=== PATIENT | female | born 1980 | race Caucasian/White ===

== ENCOUNTER 2020-04-21 12:42 | Inpatient (IN) | payer OTHER ==
[~2020-04-21] VITALS: Ht 160 cm; Wt 109.2 kg
[~2020-04-21 12:42] MED LIST: CLON-77 PO
[2020-04-21 13:17] LABS: BASO % 0 % (0-3); EOS % 0 % (0-3); HEMATOCRIT 37.7 % (36.0-47.0); HEMOGLOBIN 12.8 g/dL (12.0-15.5); LYMPH # 0.9 x10^3/uL (1.0-4.8); LYMPH % 4 % (24-48); MEAN CORPUSCULAR HEMOGLOBIN 28 pg (25-35); MEAN CORPUSCULAR HGB CONC 34 g/dL (31-37); MEAN CORPUSCULAR VOLUME 84 fL (79-100); MONO # 0.5 x10^3/uL (0.0-1.1); MONO % 3 % (0-9); NEUT # 18.7 x10^3/uL (1.8-7.7); NEUT % 93 % (31-73); PLATELET COUNT 569 x10^3/uL (140-400); RED BLOOD COUNT 4.52 x10^6/uL (3.50-5.40); WHITE BLOOD COUNT 20.1 x10^3/uL (4.0-11.0)
[2020-04-21 13:19] LABS: CALCIUM 9.7 mg/dL (8.5-10.1); GFR 60.8; POTASSIUM 4.5 mmol/L (3.5-5.1)
--- NOTE | 2020-04-21 13:20 | ED.ADGEN ---
Past Medical History Past Medical History: Anxiety, Other Additional Past Medical Histor: kidney stones Additional Past Surgical Histo: R knee scope, R ankle, breast lift and implants Smoking Status: Never Smoker Alcohol Use: None Drug Use: None General Adult EDM: Chief Complaint: Palpitations HPI: HPI: Patient is a 40 year old since the emergency department with complaints of her heart racing and a dry cough for the last 3 days. Patient was seen at urgent care 3 days ago was tested for COVID-19 patient was informed that her test was negative today. She was prescribed a Z-Shashank and some steroids at urgent care and went to follow-up with her primary care doctor today who sent her to the ER. She denies any headache, dizziness, wheezing, abdominal pain, nausea, vomiting, diarrhea, chest pain, rash, sore throat, body aches, or fatigue. Patient states she has noticed that for about the last week and a half her bilateral lower extremities have been swelling. She thought that this was due to recent increase in physical activity and exercise. She denies any recent lengthy travel via car or plane. She reports that at this time she feels short of breath and anxious. She states that she has pain between her shoulders and her upper back. She currently rates the pain a 2 out of 10 on the pain scale, she denies any alleviating factors, pain is worse with breathing. She denies any known Covid exposure but states that there have been people who tested positive for COVID-19 where she works. Review of Systems: Review of Systems: Complete ROS is negative unless otherwise noted in HPI. Current Medications: Current Medications Medications (Trade) Dose Ordered Sig/Waldemar Start Time Stop Time Status Last Admin Dose Admin Azithromycin 250 ml @ 250 mls/hr 1X ONCE 04/21/20 14:00 04/21/20 14:59 DC 04/21/20 14:03 250 MLS/HR Ceftriaxone Sodium (Rocephin) 1 gm 1X ONCE 04/21/20 13:45 04/21/20 13:47 DC 04/21/20 13:59 1 GM Furosemide (Lasix) 40 mg 1X ONCE 04/21/20 13:45 04/21/20 13:47 DC 04/21/20 14:04 40 MG Lorazepam (Ativan Inj) 0.5 mg 1X ONCE 04/21/20 13:00 04/21/20 13:01 DC 04/21/20 13:10 0.5 MG Allergies: Allergies: Allergies Coded Allergies Type Severity Reaction Last Updated Verified No Known Drug Allergies 11/23/14 No Physical Exam: PE: See Above Constitutional: Well developed, well nourished, moderate distress, anxious appearance, nontoxic appearance HENT: Normocephalic, atraumatic, bilateral external ears normal, nose normal. [] Eyes: PERRLA, EOMI, conjunctiva normal, no discharge. [] Neck: Normal range of motion, no stridor. [] Cardiovascular:Heart rate regular tachycardic rhythm, 2+ edema bilateral lower extremities Lungs & Thorax: Respirations even and unlabored, no retractions, tachypnea, no respiratory distress Abdomen: soft, no tenderness, no masses, no pulsatile masses. [] Skin: Warm, dry, no erythema, no rash, cap refill less than 2 seconds. [] Extremities: No tenderness, no cyanosis, no clubbing, ROM intact, 2+ edema BLE Neurologic: Alert and oriented X 3, normal motor function, normal sensory function, no focal deficits noted. [] Psychologic: Affect normal, judgement normal, mood normal. [] Current Patient Data: Labs: Laboratory Tests Test 04/21/20 12:52 04/21/20 13:00 04/21/20 13:11 White Blood Count 20.1 x10^3/uL (4.0-11.0) H Red Blood Count 4.52 x10^6/uL (3.50-5.40) Hemoglobin 12.8 g/dL (12.0-15.5) Hematocrit 37.7 % (36.0-47.0) Mean Corpuscular Volume 84 fL (79-100) Mean Corpuscular Hemoglobin 28 pg (25-35) Mean Corpuscular Hemoglobin Concent 34 g/dL (31-37) Red Cell Distribution Width 14.0 % (11.5-14.5) Platelet Count 569 x10^3/uL (140-400) H Neutrophils (%) (Auto) 93 % (31-73) H Lymphocytes (%) (Auto) 4 % (24-48) L Monocytes (%) (Auto) 3 % (0-9) Eosinophils (%) (Auto) 0 % (0-3) Basophils (%) (Auto) 0 % (0-3) Neutrophils # (Auto) 18.7 x10^3/uL (1.8-7.7) H Lymphocytes # (Auto) 0.9 x10^3/uL (1.0-4.8) L Monocytes # (Auto) 0.5 x10^3/uL (0.0-1.1) Eosinophils # (Auto) 0.0 x10^3/uL (0.0-0.7) Basophils # (Auto) 0.0 x10^3/uL (0.0-0.2) Segmented Neutrophils % 92 % (35-66) H Lymphocytes % 8 % (24-48) L Platelet Estimate Increased (ADEQUATE) Platelet Clumps, EDTA Present Giant Platelets Few Maternal Serum HCG Beta Subunit 86387 mIU/mL (0-5) H Sodium Level 138 mmol/L (136-145) Potassium Level 4.5 mmol/L (3.5-5.1) Chloride Level 106 mmol/L (98-107) Carbon Dioxide Level 18 mmol/L (21-32) L Anion Gap 14 (6-14) Blood Urea Nitrogen 20 mg/dL (7-20) Creatinine 1.0 mg/dL (0.6-1.0) Estimated GFR (Cockcroft-Gault) 60.8 BUN/Creatinine Ratio 20 (6-20) Glucose Level 123 mg/dL (70-99) H Lactic Acid Level 2.1 mmol/L (0.4-2.0) H Calcium Level 9.7 mg/dL (8.5-10.1) Magnesium Level 1.9 mg/dL (1.8-2.4) Ferritin 29 ng/mL (8-252) Total Bilirubin 0.2 mg/dL (0.2-1.0) Aspartate Amino Transferase (AST) 25 U/L (15-37) Alanine Aminotransferase (ALT) 23 U/L (14-59) Alkaline Phosphatase 163 U/L (46-116) H Creatine Kinase 128 U/L (26-192) Creatine Kinase MB (Mass) 5.5 ng/mL (0.0-3.6) H Creatine Kinase MB Relative Index 4.3 % (0-4) H Troponin I Quantitative 0.202 ng/mL (0.000-0.055) C-Reactive Protein, Quantitative 10.8 mg/L (0-3.3) H RR-Gty-M-Type Natriuretic Peptide 6797 pg/mL (0-124) H Total Protein 6.6 g/dL (6.4-8.2) Albumin 2.6 g/dL (3.4-5.0) L Albumin/Globulin Ratio 0.7 (1.0-1.7) L Lipase 125 U/L (73-393) Thyroid Stimulating Hormone (TSH) 2.336 uIU/mL (0.358-3.74) Urine Collection Type Void Urine Color Yellow Urine Clarity Clear Urine pH 6.0 (<5.0-8.0) Urine Specific [place] 1.020 (1.000-1.030) Urine Protein >=300 mg/dL (NEG-TRACE) Urine Glucose (UA) Negative mg/dL (NEG) Urine Ketones (Stick) Negative mg/dL (NEG) Urine Blood Moderate (NEG) Urine Nitrite Negative (NEG) Urine Bilirubin Negative (NEG) Urine Urobilinogen Dipstick 0.2 mg/dL (0.2 mg/dL) Urine Leukocyte Esterase Negative (NEG) Urine RBC 3-5 /HPF (0-2) Urine WBC 1-4 /HPF (0-4) Urine Squamous Epithelial Cells Mod /LPF Urine Bacteria Few /HPF (0-FEW) Urine Hyaline Casts Few /HPF Urine Opiates Screen Neg (NEG) Urine Methadone Screen Neg (NEG) Urine Barbiturates Neg (NEG) Urine Phencyclidine Screen Neg (NEG) Urine Amphetamine/Methamphetamine Neg (NEG) Urine Benzodiazepines Screen Neg (NEG) Urine Cocaine Screen Neg (NEG) Urine Cannabinoids Screen Neg (NEG) Urine Ethyl Alcohol Neg (NEG) POC Urine HCG, Qualitative Hcg positive (Negative) Laboratory Tests 04/21/20 12:52 Laboratory Tests 04/21/20 12:52 Vital Signs: Vital Signs Date Time Temp Pulse Resp B/P (MAP) Pulse Ox O2 Delivery O2 Flow Rate FiO2 04/21/20 14:02 128 183/117 (139) 95 Nasal Cannula 2.0 04/21/20 12:45 97.3 29 97.3 EKG: EK-sinus tachycardia rate of 142, leftward axis, no STEMI, read by Dr. Hammonds. [] Heart Score: Risk Factors: Risk Factors: DM, Current or recent (<one month) smoker, HTN, HLP, family history of CAD, obesity. Risk Scores: Score 0 - 3: 2.5% MACE over next 6 weeks - Discharge Home Score 4 - 6: 20.3% MACE over next 6 weeks - Admit for Clinical Observation Score 7 - 10: 72.7% MACE over next 6 weeks - Early Invasive Strategies Radiology/Procedures: Radiology/Procedures: PROCEDURE: CHEST AP ONLY CHEST AP ONLY 04/21/2020 12:54 PM INDICATION: Chest pain COMPARISON: None available TECHNIQUE: Portable frontal view of the chest is provided. FINDINGS: The cardiomediastinal silhouette is within normal limits. Small bilateral pleural effusions with adjacent compressive atelectasis versus infiltrate, left or the right. Perihilar interstitial and groundglass changes are present. No pneumothorax. IMPRESSION: 1. Small bilateral pleural effusions, left greater than right with adjacent breast atelectasis versus infiltrate. Mild interstitial prominence could reflect congestive heart failure. 2. Perihilar interstitial and alveolar airspace disease could reflect multifocal pneumonia. [] Course & Med Decision Making: Course & Med Decision Making Pertinent Labs and Imaging studies reviewed. (See chart for details) 1355-Spoke with Danielle VELÁZQUEZ with cardiology advised of patient being admitted for CHF vs COVID vs related cardiomyopathy. Advised that I have given 40 mg of lasix, and ordered 1 gm of rocephin and 500 mg of zithromax at this point. BetaHCG, Covid, and influenza are pending. Pt will be admitted to the hospitalist. 1403-spoke with Dr. Romo who is the admitting physician, and care was assumed following discussion of patient. Will admit patient for PUI versus CHF versus pneumonia versus related cardiomyopathy, hypertensive urgency, and elevated troponin Patient's vital signs stable. Patient remains afebrile, tachypneic Patient will be admitted to the CVC floor. Patient's case and plan of care also discussed with Dr. Hammonds [] Kaila Disclaimer: Kaila Disclaimer: This electronic medical record was generated, in whole or in part, using a voice recognition dictation system. 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 I was available for consultation as needed during the patient's visit in the emergency department. I agree with the clinical impression, plan, and disposition. Problem Qualifiers Additional Impressions: CHF (congestive heart failure) Heart failure type: unspecified Heart failure chronicity: unspecified Qualified Codes: I50.9 - Heart failure, unspecified CAP (community acquired pneumonia) Laterality: unspecified laterality Qualified Codes: J18.9 - Pneumonia, unspecified organism SHEA NICHOLS APRN Apr 21, 2020 13:20 MORE HAMMONDS DO Apr 21, 2020 17:12
[2020-04-21 13:23] LABS: BILIRUBIN,URINE NEGATIVE (NEG); CLARITY,URINE CLEAR; COLOR,URINE YELLOW; NITRITE,URINE NEGATIVE (NEG); PROTEIN,URINE >=300 mg/dL (NEG-TRACE); UROBILINOGEN,URINE 0.2 mg/dL (0.2 mg/dL)
[2020-04-21 13:25] LABS: ALBUMIN 2.6 g/dL (3.4-5.0); ALBUMIN/GLOBULIN RATIO 0.7 (1.0-1.7); MAGNESIUM 1.9 mg/dL (1.8-2.4); TOTAL BILIRUBIN 0.2 mg/dL (0.2-1.0); TOTAL PROTEIN 6.6 g/dL (6.4-8.2)
[2020-04-21 13:31] LABS: AMPHETAMINE/METHAMPHETAMINE NEG (NEG); BARBITURATES NEG (NEG); BENZODIAZEPINES NEG (NEG); CANNABINOIDS NEG (NEG); COCAINE NEG (NEG); METHADONE NEG (NEG); OPIATES NEG (NEG); PHENCYCLIDINE NEG (NEG)
--- NOTE | 2020-04-21 13:31 | RAD ---
CHEST AP ONLY 04/21/2020 12:54 PM INDICATION: Chest pain COMPARISON: None available TECHNIQUE: Portable frontal view of the chest is provided. FINDINGS: The cardiomediastinal silhouette is within normal limits. Small bilateral pleural effusions with adjacent compressive atelectasis versus infiltrate, left or the right. Perihilar interstitial and groundglass changes are present. No pneumothorax. IMPRESSION: 1. Small bilateral pleural effusions, left greater than right with adjacent breast atelectasis versus infiltrate. Mild interstitial prominence could reflect congestive heart failure. 2. Perihilar interstitial and alveolar airspace disease could reflect multifocal pneumonia. Electronically signed by: Nishi Gallo MD (04/21/2020 1:28 PM) [facility]
[2020-04-21 13:35] LABS: HYALINE CASTS, URINE FEW /HPF
[2020-04-21 13:36] LABS: BACTERIA,URINE FEW /HPF (0-FEW)
[2020-04-21] MEDS ORDERED: FUROSEMIDE 20 MG/2 ML VIAL. IVP ONE (13:45)
[2020-04-21] MEDS ORDERED: cefTRIAXone IV Push 1 GM VIAL. IVP ONE (13:45)
[2020-04-21] MEDS ORDERED: AZITHRMYCN 500MG IVPB FOR OMNI 250 ML IV ONE (14:00)
[2020-04-21] MEDS ORDERED: MAGNESIUM SULFATE 4GM 100 ML IV ONE (14:15)
[2020-04-21] MEDS ORDERED: ASPIRIN 325 MG TABLET PO ONE (14:15)
[2020-04-21 14:20] LABS: % LYMPHS 8 % (24-48); % SEGS 92 % (35-66); PLATELET CLUMP PRESENT; PLT ESTIMATE INCREASED (ADEQUATE)
[2020-04-21 14:29] LABS: C-REACTIVE PROTEIN 10.8 mg/L (0-3.3)
[2020-04-21 14:35] LABS: PROTHROMBIN TIME PATIENT 11.8 SEC (11.7-14.0)
[2020-04-21 14:38] LABS: D-DIMER 1.5 ug/mlFEU (0.00-0.50)
[2020-04-21 14:53] LABS: INFLUENZA A PATIENT NEGATIVE (NEGATIVE)
[2020-04-21 14:54] LABS: INFLUENZA B PATIENT NEGATIVE (NEGATIVE)
[2020-04-21] MEDS ORDERED: ONDANSETRON PF 4 MG/2 ML VIAL. IV ONE (15:00)
[2020-04-21] MEDS ORDERED: LABETALOL 20 MG/4 ML DISP.SYRIN. IVP ONE (15:00)
--- NOTE | 2020-04-21 15:22 | PDOC1 ---
History and Physical Date of Admission Date of Admission DATE: 04/21/20 TIME: 15:19 Source Source: Chart review, Patient History of Present Illness History of Present Illness Ms. Wilks, is a 40 year old sent to the ER by her doctors office today. She has been on a new exercise regimen and has stopped last when she did not feel well. Three days ago, she had cough and weakness and went to urgent care and was given a z-pack. At that time, she was tested for COVID-19 and was negative. she is markedly short of breath and weak and has new orthopnea and is in distress. The ER gave her some ativan which did help her breathe better for a short while. when I saw her she was in distress enough that it was tough to get an EKG and she could not lie flat or still. Also, she has noticed that for about the last week that she has swelling in her leg, right leg more than left. She states that she has pain between her shoulders and her upper back, pain 4/10 She denies any known Covid exposure Past Medical History Past Medical History PCOS and she reports prior false pos tests Cardiovascular: No pertinent hx Pulmonary: No pertinent hx GI: No pertinent hx Psych: No pertinent hx Renal/: No pertinent hx Endocrine: No pertinent hx, Other (obese) Dermatology: No pertinent hx Past Surgical History Past Surgical History: No pertinent history Family History Family History: No Significant Social History Smoke: No ALCOHOL: none Drugs: None Current Problem List Problem List Problems Medical Problems: (1) CAP (community acquired pneumonia) Status: Acute (2) CHF (congestive heart failure) Status: Acute (3) Elevated troponin Status: Acute (4) Hypertensive urgency Status: Acute (5) 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 Status: Acute (6) Person under investigation for COVID-19 Status: Acute Current Medications Current Medications Current Medications Lorazepam (Ativan Inj) 0.5 mg 1X ONCE IV Last administered on 04/21/20at 13:10; Start 04/21/20 at 13:00; Stop 04/21/20 at 13:01; Status DC Furosemide (Lasix) 40 mg 1X ONCE IVP Last administered on 04/21/20at 14:04; Start 04/21/20 at 13:45; Stop 04/21/20 at 13:47; Status DC Ceftriaxone Sodium (Rocephin) 1 gm 1X ONCE IVP Last administered on 04/21/20at 13:59; Start 04/21/20 at 13:45; Stop 04/21/20 at 13:47; Status DC Azithromycin 250 ml @ 250 mls/hr 1X ONCE IV Last administered on 04/21/20at 14:03; Start 04/21/20 at 14:00; Stop 04/21/20 at 14:59; Status DC Aspirin (Tung Aspirin) 325 mg 1X ONCE PO ; Start 04/21/20 at 14:15; Stop 04/21/20 at 14:16; Status DC Magnesium Sulfate 100 ml @ 25 mls/hr 1X ONCE IV ; Start 04/21/20 at 14:15; Stop 04/21/20 at 18:14 Enoxaparin Sodium (Lovenox Per Pharmacy Treatment Dosing) 1 each PRN DAILY PRN MC SEE COMMENTS; Start 04/21/20 at 14:45 Labetalol HCl (Normodyne Iv Push) 20 mg 1X ONCE IVP Last administered on 04/21/20at 14:53; Start 04/21/20 at 15:00; Stop 04/21/20 at 15:01; Status DC Ondansetron HCl (Zofran) 4 mg 1X ONCE IV Last administered on 04/21/20at 14:52; Start 04/21/20 at 15:00; Stop 04/21/20 at 15:01; Status DC Enoxaparin Sodium (Lovenox 120mg Syringe) 110 mg Q12HR SQ ; Start 04/21/20 at 15:00 Active Scripts Active Reported Clonazepam 0.5 Mg Tablet 1 Tab PO BID PRN Allergies Allergies: Coded Allergies: No Known Drug Allergies (Unverified , 11/23/14) ROS General: YES: Chills, Fatigue, Malaise PSYCHOLOGICAL ROS: YES: Anxiety, Irritablity, Sleep disturbances Eyes: No Blurry vision, No Decreased vision, No Double vision, No Dry eyes, No Excessive tearing, No Eye Pain, No Itchy Eyes, No Loss of vision, No Photophobia, No Scotomata, No Uses contacts, No Uses glasses, No Other HEENT: No: Heacaches, Visual Changes, Hearing change, Nasal congestion, Nasal discharge, Oral lesions, Sinus pain, Sore Throat, Epistaxis, Sneezing, Snoring, Tinnitus, Vertigo, Vocal changes, Other Respiratory: YES: Cough, Orthopnea, Shortness of breath, SOB with excertion; No: Hemoptysis, Pleuritic Pain, Sputum Changes, Stridor, Tachypnea, Wheezing, Other Cardiovascular: No Chest Pain, No Palpitations, No Orthopnea, No Paroxysmal Noc. Dyspnea, No Edema, No Lt Headedness, No Other Gastrointestinal: No Nausea, No Vomiting, No Abdominal Pain, No Diarrhea, No Constipation, No Melena, No Hematochezia, No Other Genitourinary: No Dysuria, No Frequency, No Incontinence, No Hematuria, No Retention, No Discharge, No Urgency, No Pain, No Flank Pain, No Other, No , No , No , No , No , No , No Musculoskeletal: No Gait Disturbance, No Joint Pain, No Joint Stiffness, No Other Neurological: Yes Weakness; No Behavorial Changes, No Bowel/Bladder ControlChng, No Confusion, No Dizziness, No Gait Disturbance, No Headaches, No Impaired Coord/balance, No Memory Loss, No Numbness/Tingling, No Seizures, No Speech Problems, No Tremors, No Visual Changes, No Other Skin: Yes Dry Skin; No Eczema, No Hair Changes, No Lumps, No Mole Changes, No Mottling, No Nail Changes, No Pruritus, No Rash, No Skin Lesion Changes, No Other, No Acne Physical Exam General: Alert, Oriented X3, severe distress HEENT: Atraumatic, PERRLA, EOMI, Mucous membr. moist/pink Lungs: Other (limited volume, slight end wheeze, ) Heart: no gallops, no murmurs, other (tachy, distress, ) Abdomen: Other (distended abdomend, she reports is her normal habitus, ) Extremities: Normal pulses, Other (1+ edema, right leg, almost none to left, trace, ) Skin: No rashes, No significant lesion Neuro: Sensation intact Psych/Mental Status: Other (distress, dyspnea, anxiety) Vitals Vitals Vital Signs Date Time Temp Pulse Resp B/P (MAP) Pulse Ox O2 Delivery O2 Flow Rate FiO2 04/21/20 14:53 136 181/133 04/21/20 12:45 97.3 29 96 Nasal Cannula 2.0 97.3 Labs Labs Laboratory Tests Test 04/21/20 12:52 04/21/20 13:00 04/21/20 13:11 04/21/20 14:07 White Blood Count 20.1 x10^3/uL (4.0-11.0) Red Blood Count 4.52 x10^6/uL (3.50-5.40) Hemoglobin 12.8 g/dL (12.0-15.5) Hematocrit 37.7 % (36.0-47.0) Mean Corpuscular Volume 84 fL (79-100) Mean Corpuscular Hemoglobin 28 pg (25-35) Mean Corpuscular Hemoglobin Concent 34 g/dL (31-37) Red Cell Distribution Width 14.0 % (11.5-14.5) Platelet Count 569 x10^3/uL (140-400) Neutrophils (%) (Auto) 93 % (31-73) Lymphocytes (%) (Auto) 4 % (24-48) Monocytes (%) (Auto) 3 % (0-9) Eosinophils (%) (Auto) 0 % (0-3) Basophils (%) (Auto) 0 % (0-3) Neutrophils # (Auto) 18.7 x10^3/uL (1.8-7.7) Lymphocytes # (Auto) 0.9 x10^3/uL (1.0-4.8) Monocytes # (Auto) 0.5 x10^3/uL (0.0-1.1) Eosinophils # (Auto) 0.0 x10^3/uL (0.0-0.7) Basophils # (Auto) 0.0 x10^3/uL (0.0-0.2) Segmented Neutrophils % 92 % (35-66) Lymphocytes % 8 % (24-48) Platelet Estimate Increased (ADEQUATE) Platelet Clumps, EDTA Present Giant Platelets Few Maternal Serum HCG Beta Subunit 99074 mIU/mL (0-5) Sodium Level 138 mmol/L (136-145) Potassium Level 4.5 mmol/L (3.5-5.1) Chloride Level 106 mmol/L (98-107) Carbon Dioxide Level 18 mmol/L (21-32) Anion Gap 14 (6-14) Blood Urea Nitrogen 20 mg/dL (7-20) Creatinine 1.0 mg/dL (0.6-1.0) Estimated GFR (Cockcroft-Gault) 60.8 BUN/Creatinine Ratio 20 (6-20) Glucose Level 123 mg/dL (70-99) Lactic Acid Level 2.1 mmol/L (0.4-2.0) Calcium Level 9.7 mg/dL (8.5-10.1) Magnesium Level 1.9 mg/dL (1.8-2.4) Ferritin 29 ng/mL (8-252) Total Bilirubin 0.2 mg/dL (0.2-1.0) Aspartate Amino Transf (AST/SGOT) 25 U/L (15-37) Alanine Aminotransferase (ALT/SGPT) 23 U/L (14-59) Alkaline Phosphatase 163 U/L (46-116) Creatine Kinase 128 U/L (26-192) Creatine Kinase MB (Mass) 5.5 ng/mL (0.0-3.6) Creatine Kinase MB Relative Index 4.3 % (0-4) Troponin I Quantitative 0.202 ng/mL (0.000-0.055) C-Reactive Protein, Quantitative 10.8 mg/L (0-3.3) VJ-Dab-G-Type Natriuretic Peptide 6797 pg/mL (0-124) Total Protein 6.6 g/dL (6.4-8.2) Albumin 2.6 g/dL (3.4-5.0) Albumin/Globulin Ratio 0.7 (1.0-1.7) Lipase 125 U/L (73-393) Urine Collection Type Void Urine Color Yellow Urine Clarity Clear Urine pH 6.0 (<5.0-8.0) Urine Specific [place] 1.020 (1.000-1.030) Urine Protein >=300 mg/dL (NEG-TRACE) Urine Glucose (UA) Negative mg/dL (NEG) Urine Ketones (Stick) Negative mg/dL (NEG) Urine Blood Moderate (NEG) Urine Nitrite Negative (NEG) Urine Bilirubin Negative (NEG) Urine Urobilinogen Dipstick 0.2 mg/dL (0.2 mg/dL) Urine Leukocyte Esterase Negative (NEG) Urine RBC 3-5 /HPF (0-2) Urine WBC 1-4 /HPF (0-4) Urine Squamous Epithelial Cells Mod /LPF Urine Bacteria Few /HPF (0-FEW) Urine Hyaline Casts Few /HPF Urine Opiates Screen Neg (NEG) Urine Methadone Screen Neg (NEG) Urine Barbiturates Neg (NEG) Urine Phencyclidine Screen Neg (NEG) Urine Amphetamine/Methamphetamine Neg (NEG) Urine Benzodiazepines Screen Neg (NEG) Urine Cocaine Screen Neg (NEG) Urine Cannabinoids Screen Neg (NEG) Urine Ethyl Alcohol Neg (NEG) Bedside Urine HCG, Qualitative Hcg positive (Negative) Prothrombin Time 11.8 SEC (11.7-14.0) Prothromb Time International Ratio 0.9 (0.8-1.1) Activated Partial Thromboplast Time 24 SEC (24-38) D-Dimer ([place]) 1.50 ug/mlFEU (0.00-0.50) Influenza Type A Antigen Negative (NEGATIVE) Influenza Type B Antigen Negative (NEGATIVE) Laboratory Tests Test 04/21/20 12:52 04/21/20 13:00 04/21/20 13:11 04/21/20 14:07 White Blood Count 20.1 x10^3/uL (4.0-11.0) Red Blood Count 4.52 x10^6/uL (3.50-5.40) Hemoglobin 12.8 g/dL (12.0-15.5) Hematocrit 37.7 % (36.0-47.0) Mean Corpuscular Volume 84 fL (79-100) Mean Corpuscular Hemoglobin 28 pg (25-35) Mean Corpuscular Hemoglobin Concent 34 g/dL (31-37) Red Cell Distribution Width 14.0 % (11.5-14.5) Platelet Count 569 x10^3/uL (140-400) Neutrophils (%) (Auto) 93 % (31-73) Lymphocytes (%) (Auto) 4 % (24-48) Monocytes (%) (Auto) 3 % (0-9) Eosinophils (%) (Auto) 0 % (0-3) Basophils (%) (Auto) 0 % (0-3) Neutrophils # (Auto) 18.7 x10^3/uL (1.8-7.7) Lymphocytes # (Auto) 0.9 x10^3/uL (1.0-4.8) Monocytes # (Auto) 0.5 x10^3/uL (0.0-1.1) Eosinophils # (Auto) 0.0 x10^3/uL (0.0-0.7) Basophils # (Auto) 0.0 x10^3/uL (0.0-0.2) Segmented Neutrophils % 92 % (35-66) Lymphocytes % 8 % (24-48) Platelet Estimate Increased (ADEQUATE) Platelet Clumps, EDTA Present Giant Platelets Few Maternal Serum HCG Beta Subunit 12104 mIU/mL (0-5) Sodium Level 138 mmol/L (136-145) Potassium Level 4.5 mmol/L (3.5-5.1) Chloride Level 106 mmol/L (98-107) Carbon Dioxide Level 18 mmol/L (21-32) Anion Gap 14 (6-14) Blood Urea Nitrogen 20 mg/dL (7-20) Creatinine 1.0 mg/dL (0.6-1.0) Estimated GFR (Cockcroft-Gault) 60.8 BUN/Creatinine Ratio 20 (6-20) Glucose Level 123 mg/dL (70-99) Lactic Acid Level 2.1 mmol/L (0.4-2.0) Calcium Level 9.7 mg/dL (8.5-10.1) Magnesium Level 1.9 mg/dL (1.8-2.4) Ferritin 29 ng/mL (8-252) Total Bilirubin 0.2 mg/dL (0.2-1.0) Aspartate Amino Transf (AST/SGOT) 25 U/L (15-37) Alanine Aminotransferase (ALT/SGPT) 23 U/L (14-59) Alkaline Phosphatase 163 U/L (46-116) Creatine Kinase 128 U/L (26-192) Creatine Kinase MB (Mass) 5.5 ng/mL (0.0-3.6) Creatine Kinase MB Relative Index 4.3 % (0-4) Troponin I Quantitative 0.202 ng/mL (0.000-0.055) C-Reactive Protein, Quantitative 10.8 mg/L (0-3.3) MZ-Nhr-K-Type Natriuretic Peptide 6797 pg/mL (0-124) Total Protein 6.6 g/dL (6.4-8.2) Albumin 2.6 g/dL (3.4-5.0) Albumin/Globulin Ratio 0.7 (1.0-1.7) Lipase 125 U/L (73-393) Urine Collection Type Void Urine Color Yellow Urine Clarity Clear Urine pH 6.0 (<5.0-8.0) Urine Specific [place] 1.020 (1.000-1.030) Urine Protein >=300 mg/dL (NEG-TRACE) Urine Glucose (UA) Negative mg/dL (NEG) Urine Ketones (Stick) Negative mg/dL (NEG) Urine Blood Moderate (NEG) Urine Nitrite Negative (NEG) Urine Bilirubin Negative (NEG) Urine Urobilinogen Dipstick 0.2 mg/dL (0.2 mg/dL) Urine Leukocyte Esterase Negative (NEG) Urine RBC 3-5 /HPF (0-2) Urine WBC 1-4 /HPF (0-4) Urine Squamous Epithelial Cells Mod /LPF Urine Bacteria Few /HPF (0-FEW) Urine Hyaline Casts Few /HPF Urine Opiates Screen Neg (NEG) Urine Methadone Screen Neg (NEG) Urine Barbiturates Neg (NEG) Urine Phencyclidine Screen Neg (NEG) Urine Amphetamine/Methamphetamine Neg (NEG) Urine Benzodiazepines Screen Neg (NEG) Urine Cocaine Screen Neg (NEG) Urine Cannabinoids Screen Neg (NEG) Urine Ethyl Alcohol Neg (NEG) Bedside Urine HCG, Qualitative Hcg positive (Negative) Prothrombin Time 11.8 SEC (11.7-14.0) Prothromb Time International Ratio 0.9 (0.8-1.1) Activated Partial Thromboplast Time 24 SEC (24-38) D-Dimer ([place]) 1.50 ug/mlFEU (0.00-0.50) Influenza Type A Antigen Negative (NEGATIVE) Influenza Type B Antigen Negative (NEGATIVE) VTE Prophylaxis Ordered VTE Prophylaxis Devices: No VTE Pharmacological Prophylaxi: Yes Assessment/Plan Assessment/Plan SIRS acute hypoxic respiratory failure, I have high concern for PE sepsis, IV abx, acute CHF symptoms and NSTEMI, poss type 2 demand, lovenox given, consult CV obese, BMI 43 pos urine test, , she reports this has happened before and she has seen doctors for this before, and that she has abnormal HCG production, serum beta pending proteinuria, consult renal, start 24 hour urine RIGHT leg swollen, check US, concern for PE with above symptoms, will give lovenox, cannot CT scan until we are more sure she is not Justifications for Admission Other Justification ROMANA BANUELOS MD Apr 21, 2020 15:22
--- NOTE | 2020-04-21 15:26 | PDOC2 ---
TIFFANIE DUVALL PACKAGING ENGINEER 04/21/20 1526: CARDIAC CONSULT DATE OF CONSULT Date of Consult DATE: 04/21/20 TIME: 14:56 REASON FOR CONSULT Reason for Consult: CHF, CAD, CMP REFERRING PHYSICIAN Referring Physician: Yessica Velásquez SOURCE Source: Chart review, Patient HISTORY OF PRESENT ILLNESS HISTORY OF PRESENT ILLNESS This is a 40 yo female who presented secondary to shortness of breath, palpitations and LE edema. Has also been short of breath for the last week. Developed LE edema and orthopnea over the weekend. Has been febrile today. Was very anxious this morning and could feel her heart beating fast. Patient was seen at urgent care 3 days ago was tested for COVID-1; was notified of negative results today. Initial EKG with ST. Now presently SR with rate 95. PAST MEDICAL HISTORY Past Medical History PCOS GI: Other (diverticulitis ) Heme/Onc: Other (DVT following knee surgery ) Psych: Anxiety PAST SURGICAL HISTORY Past Surgical History: Tonsillectomy, Other (lithotripsy, right knee and right ankle surgery ) FAMILY HISTORY Family History: Cancer, Heart Disease (cmp s/p chemo) SOCIAL HISTORY Smoke: No ALCOHOL: social Drugs: None Lives: with Family CURRENT MEDICATIONS CURRENT MEDICATIONS Current Medications Medications (Trade) Dose Ordered Sig/Waldemar Route PRN Reason Start Time Stop Time Status Last Admin Dose Admin Lorazepam (Ativan Inj) 0.5 mg 1X ONCE IV 04/21/20 13:00 04/21/20 13:01 DC 04/21/20 13:10 Furosemide (Lasix) 40 mg 1X ONCE IVP 04/21/20 13:45 04/21/20 13:47 DC 04/21/20 14:04 Ceftriaxone Sodium (Rocephin) 1 gm 1X ONCE IVP 04/21/20 13:45 04/21/20 13:47 DC 04/21/20 13:59 Azithromycin 250 ml @ 250 mls/hr 1X ONCE IV 04/21/20 14:00 04/21/20 14:59 04/21/20 14:03 Labetalol HCl (Normodyne Iv Push) 20 mg 1X ONCE IVP 04/21/20 15:00 04/21/20 15:01 04/21/20 14:53 Ondansetron HCl (Zofran) 4 mg 1X ONCE IV 04/21/20 15:00 04/21/20 15:01 04/21/20 14:52 ALLERGIES ALLERGIES: Coded Allergies: No Known Drug Allergies (Unverified , 11/23/14) ROS Review of System 14 point ROS conducted with pertinent positives noted above in HPI PHYSICAL EXAM PHYSICAL EXAM visual exam conducted due to COVID General: Alert, Oriented X3, Cooperative, mild distress HEENT: Atraumatic Lungs: Other (CXR reviewed. on NC) Heart: Regular rate (SR rate 95) Abdomen: Other (obese ) Skin: Other (2+ bilateral LE edema ) Neuro: Normal speech Psych/Mental Status: Mental status NL, Mood NL VITALS/I&O VITALS/I&O: Vital Signs Date Time Temp Pulse Resp B/P (MAP) Pulse Ox O2 Delivery O2 Flow Rate FiO2 04/21/20 14:53 136 181/133 04/21/20 12:45 97.3 29 96 Nasal Cannula 2.0 97.3 LABS Lab: Laboratory Tests Test 04/21/20 12:52 04/21/20 13:00 04/21/20 13:11 04/21/20 14:07 White Blood Count 20.1 x10^3/uL (4.0-11.0) H Red Blood Count 4.52 x10^6/uL (3.50-5.40) Hemoglobin 12.8 g/dL (12.0-15.5) Hematocrit 37.7 % (36.0-47.0) Mean Corpuscular Volume 84 fL (79-100) Mean Corpuscular Hemoglobin 28 pg (25-35) Mean Corpuscular Hemoglobin Concent 34 g/dL (31-37) Red Cell Distribution Width 14.0 % (11.5-14.5) Platelet Count 569 x10^3/uL (140-400) H Neutrophils (%) (Auto) 93 % (31-73) H Lymphocytes (%) (Auto) 4 % (24-48) L Monocytes (%) (Auto) 3 % (0-9) Eosinophils (%) (Auto) 0 % (0-3) Basophils (%) (Auto) 0 % (0-3) Neutrophils # (Auto) 18.7 x10^3/uL (1.8-7.7) H Lymphocytes # (Auto) 0.9 x10^3/uL (1.0-4.8) L Monocytes # (Auto) 0.5 x10^3/uL (0.0-1.1) Eosinophils # (Auto) 0.0 x10^3/uL (0.0-0.7) Basophils # (Auto) 0.0 x10^3/uL (0.0-0.2) Segmented Neutrophils % 92 % (35-66) H Lymphocytes % 8 % (24-48) L Platelet Estimate Increased (ADEQUATE) Platelet Clumps, EDTA Present Giant Platelets Few Maternal Serum HCG Beta Subunit 92204 mIU/mL (0-5) H Sodium Level 138 mmol/L (136-145) Potassium Level 4.5 mmol/L (3.5-5.1) Chloride Level 106 mmol/L (98-107) Carbon Dioxide Level 18 mmol/L (21-32) L Anion Gap 14 (6-14) Blood Urea Nitrogen 20 mg/dL (7-20) Creatinine 1.0 mg/dL (0.6-1.0) Estimated GFR (Cockcroft-Gault) 60.8 BUN/Creatinine Ratio 20 (6-20) Glucose Level 123 mg/dL (70-99) H Lactic Acid Level 2.1 mmol/L (0.4-2.0) H Calcium Level 9.7 mg/dL (8.5-10.1) Magnesium Level 1.9 mg/dL (1.8-2.4) Ferritin 29 ng/mL (8-252) Total Bilirubin 0.2 mg/dL (0.2-1.0) Aspartate Amino Transferase (AST) 25 U/L (15-37) Alanine Aminotransferase (ALT) 23 U/L (14-59) Alkaline Phosphatase 163 U/L (46-116) H Creatine Kinase 128 U/L (26-192) Creatine Kinase MB (Mass) 5.5 ng/mL (0.0-3.6) H Creatine Kinase MB Relative Index 4.3 % (0-4) H Troponin I Quantitative 0.202 ng/mL (0.000-0.055) C-Reactive Protein, Quantitative 10.8 mg/L (0-3.3) H PF-Qmb-X-Type Natriuretic Peptide 6797 pg/mL (0-124) H Total Protein 6.6 g/dL (6.4-8.2) Albumin 2.6 g/dL (3.4-5.0) L Albumin/Globulin Ratio 0.7 (1.0-1.7) L Lipase 125 U/L (73-393) Urine Collection Type Void Urine Color Yellow Urine Clarity Clear Urine pH 6.0 (<5.0-8.0) Urine Specific [place] 1.020 (1.000-1.030) Urine Protein >=300 mg/dL (NEG-TRACE) Urine Glucose (UA) Negative mg/dL (NEG) Urine Ketones (Stick) Negative mg/dL (NEG) Urine Blood Moderate (NEG) Urine Nitrite Negative (NEG) Urine Bilirubin Negative (NEG) Urine Urobilinogen Dipstick 0.2 mg/dL (0.2 mg/dL) Urine Leukocyte Esterase Negative (NEG) Urine RBC 3-5 /HPF (0-2) Urine WBC 1-4 /HPF (0-4) Urine Squamous Epithelial Cells Mod /LPF Urine Bacteria Few /HPF (0-FEW) Urine Hyaline Casts Few /HPF Urine Opiates Screen Neg (NEG) Urine Methadone Screen Neg (NEG) Urine Barbiturates Neg (NEG) Urine Phencyclidine Screen Neg (NEG) Urine Amphetamine/Methamphetamine Neg (NEG) Urine Benzodiazepines Screen Neg (NEG) Urine Cocaine Screen Neg (NEG) Urine Cannabinoids Screen Neg (NEG) Urine Ethyl Alcohol Neg (NEG) POC Urine HCG, Qualitative Hcg positive (Negative) Prothrombin Time 11.8 SEC (11.7-14.0) Prothrombin Time INR 0.9 (0.8-1.1) Activated Partial Thromboplast Time 24 SEC (24-38) D-Dimer (Marian) 1.50 ug/mlFEU (0.00-0.50) H Influenza Type A Antigen Negative (NEGATIVE) Influenza Type B Antigen Negative (NEGATIVE) Laboratory Tests 04/21/20 12:52 Laboratory Tests 04/21/20 12:52 ASSESSMENT/PLAN ASSESSMENT/PLAN 1. Acute respiratory failure with CHF and probable PNA 2. Acute probable diastolic CHF; s/p IV Lasix 3. Leukocytosis, lactic acidosis, ? sepsis 4. Palpitations, sinus tachycardia; physiologic. improved. Now SR 5. Accelerated hypertension; remains elevated 6. Mild troponin elevation; initial 0.2. Most probably type II, demand ischemia 7. Elevated d-dimer 8. PUI; tested 3 days ago and reportedly negative 9. Urine, Beta HCG + 10. H/o DVT following right knee surgery 11. Anxiety Recommendations Diuresis with monitoring of labs Trend troponin Lipids, TSH Will give dose of hydralazine now Await COVID Echo if COVID negative to assess LV systolic function HAND VIOLIN MAKER consult for + test Lung optimization as per pulm Supportive care RADHA MILLAN MD 04/21/20 [id number]: CARDIAC CONSULT ASSESSMENT/PLAN ASSESSMENT/PLAN Patient seen and examined. Agree with CUSTOMER ADVISOR SPECIALIST's assessment and plan. Continue diuresis for acute on chronic probably diastolic HF Covid test pending We will check 2D echo if Covid test negative Slight trop elevation prob demand ischemia We will consider ischemic eval as outpatient Thank you for your consultation TIFFANIE DUVALL APRN Apr 21, 2020 15:26 RADHA MILLAN MD Apr 21, 2020 19:05
--- NOTE | 2020-04-21 15:41 | RAD ---
EXAMINATION: VENOUS LOWER EXTREMITY RIGHT, 04/21/2020 2:34 PM CLINICAL INDICATION: Extremity swelling COMPARISON: None available PROCEDURE: Multiple grayscale, color Doppler and spectral Doppler sonographic images of the right lower extremity were obtained. FINDINGS: There is no evidence of deep venous thrombosis in the right lower extremity. The right common femoral, femoral and popliteal veins are echolucent with normal flow on color Doppler imaging. The veins are fully compressible and show normal phasicity and reaction to augmentation. Visualized calf veins are also normal in appearance. IMPRESSION: No evidence of deep venous thrombosis in the right lower extremity. Electronically signed by: Janette Melendrez MD (04/21/2020 3:38 PM) [id number]
[2020-04-21] MEDS: METOPROLOL TART IMMED RELEASE 25 MG TABLET. PO SCH (15:43)
--- NOTE | 2020-04-21 18:38 | RAD ---
OB ultrasound greater than 14 weeks 04/21/2020 Clinical History: Patient recently discovered she was . Vomiting. Uncertain dates. PUI for Covid 19. Technique: A real-time ultrasound examination of the gravid uterus was performed. Multiple images were obtained. Findings: There is a single living IUP. The fetus is in a cephalic position. cardiac and somatic activity is seen. The heart rate is 158 beats per minutes. The placenta is in a fundal position. No abnormality is seen. The amniotic fluid volume is within normal limits. The ENRIKE measures 8.4 cm The following measurements were obtained: BPD 9.16cm 37 weeks 1 days HC 32.94 cm 37weeks 1 days AC 32.34 cm 36weeks to days FL 6.83 cm 35 weeks 1 days The estimated gestational age by ultrasound is 36 weeks 4 days plus or minus a standard deviation of 21 days. The estimated date of delivery by ultrasound is 05/15/2020. The estimated weight is 2872 g +/- 425 g (6 lbs. 5 oz.). Detailed evaluation of anatomy was not performed due to the advanced age of this gestation. Obvious abnormality is seen. Impression: Single living IUP with an estimated gestational age by ultrasound of 36 weeks4 days +/- a standard deviation of 3 weeks. The estimated weight is 2872 g +/- 425 g. Electronically signed by: Jasson Porter MD (04/21/2020 6:35 PM) [id number]
--- NOTE | 2020-04-21 18:51 | PDOC2 ---
CONSULT Date of Consult Date of Consult DATE: 04/21/20 TIME: 18:42 Reason for Consult Reason for Consult: Referring Physician Referring Physician: Dr. Romo Identification/Chief Complaint Chief Complaint SOB Source Source: Chart review, Patient History of Present Illness Reason for Visit: 40 y/o G1 @ 36 wks gestation by today's sono presented to ED with c/o SOB and productive cough x 3 days. She denies any fever, chills, body aches or recent exposure to Covid19. Pt. was transferred to 6th floor with severe blood pressures and suspicion for cardiomyopathy or pnuemonia. Pt. did not know she was and has received no care. Past Medical History Cardiovascular: No pertinent hx Pulmonary: No pertinent hx GI: No pertinent hx Heme/Onc: Other Psych: No pertinent hx Renal/: No pertinent hx Endocrine: No pertinent hx, Other (obese) Dermatology: No pertinent hx Past Surgical History Past Surgical History: Tonsillectomy, Other (ankle, knee and breast lift evette.) Family History Family History: Cancer, Heart Disease Social History No ALCOHOL: social Drugs: None Lives: with Family Current Problem List Problem List Problems Medical Problems: (1) CAP (community acquired pneumonia) Status: Acute (2) CHF (congestive heart failure) Status: Acute (3) Elevated troponin Status: Acute (4) Hypertensive urgency Status: Acute (5) 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 Status: Acute (6) Person under investigation for COVID-19 Status: Acute Current Medications Current Medications Current Medications Lorazepam (Ativan Inj) 0.5 mg 1X ONCE IV Last administered on 04/21/20at 13:10; Start 04/21/20 at 13:00; Stop 04/21/20 at 13:01; Status DC Furosemide (Lasix) 40 mg 1X ONCE IVP Last administered on 04/21/20at 14:04; Start 04/21/20 at 13:45; Stop 04/21/20 at 13:47; Status DC Ceftriaxone Sodium (Rocephin) 1 gm 1X ONCE IVP Last administered on 04/21/20at 13:59; Start 04/21/20 at 13:45; Stop 04/21/20 at 13:47; Status DC Azithromycin 250 ml @ 250 mls/hr 1X ONCE IV Last administered on 04/21/20at 14:03; Start 04/21/20 at 14:00; Stop 04/21/20 at 14:59; Status DC Aspirin (Tung Aspirin) 325 mg 1X ONCE PO Last administered on 04/21/20at 15:21; Start 04/21/20 at 14:15; Stop 04/21/20 at 14:16; Status DC Magnesium Sulfate 100 ml @ 25 mls/hr 1X ONCE IV Last administered on 04/21/20at 15:35; Start 04/21/20 at 14:15; Stop 04/21/20 at 18:14; Status DC Enoxaparin Sodium (Lovenox Per Pharmacy Treatment Dosing) 1 each PRN DAILY PRN MC SEE COMMENTS; Start 04/21/20 at 14:45 Labetalol HCl (Normodyne Iv Push) 20 mg 1X ONCE IVP Last administered on 04/21/20at 14:53; Start 04/21/20 at 15:00; Stop 04/21/20 at 15:01; Status DC Ondansetron HCl (Zofran) 4 mg 1X ONCE IV Last administered on 04/21/20at 14:52; Start 04/21/20 at 15:00; Stop 04/21/20 at 15:01; Status DC Enoxaparin Sodium (Lovenox 120mg Syringe) 110 mg Q12HR SQ Last administered on 04/21/20at 15:21; Start 04/21/20 at 15:00 Metoprolol Tartrate (Lopressor) 25 mg BID PO ; Start 04/21/20 at 15:30 Hydralazine HCl (Apresoline) 50 mg 1X ONCE PO ; Start 04/21/20 at 15:30; Stop 04/21/20 at 15:31; Status DC Active Scripts Active Reported Clonazepam 0.5 Mg Tablet 1 Tab PO BID PRN Allergies Allergies: Coded Allergies: No Known Drug Allergies (Unverified , 11/23/14) ROS General: YES: Fatigue, Malaise; No: Chills, Night Sweats, Appetite, Other PSYCHOLOGICAL ROS: YES: Anxiety Eyes: No Blurry vision, No Decreased vision, No Double vision, No Dry eyes, No Excessive tearing, No Eye Pain, No Itchy Eyes, No Loss of vision, No Photophobia, No Scotomata, No Uses contacts, No Uses glasses, No Other HEENT: No: Heacaches, Visual Changes, Hearing change, Nasal congestion, Nasal discharge, Oral lesions, Sinus pain, Sore Throat, Epistaxis, Sneezing, Snoring, Tinnitus, Vertigo, Vocal changes, Other ALLERGY AND IMMUNOLOGY: No: Hives, Insect Bite Sensitivity, Itchy/Watery Eyes, Nasal Congestion, Post Nasal Drip, Seasonal Allergies, Other Hematological and Lymphatic: No: Bleeding Problems, Blood Clots, Blood Transfusions, Brusing, Night Sweats, Pallor, Swollen Lymph Nodes, Other ENDOCRINE: No: Breast Changes, Galactorrhea, Hair Pattern Changes, Hot Flashes, Malaise/lethargy, Mood Swings, Palpitations, Polydipsia/polyuria, Skin Changes, Temperature Intolerance, Unexpected Weight Changes, Other Breast: No New/Changing Breast Lumps, No Nipple changes, No Nipple discharge, No Other Respiratory: YES: Cough, SOB with excertion Cardiovascular: yes Edema Gastrointestinal: No Nausea, No Vomiting, No Abdominal Pain, No Diarrhea, No Constipation, No Melena, No Hematochezia, No Other Genitourinary: No Dysuria, No Frequency, No Incontinence, No Hematuria, No Retention, No Discharge, No Urgency, No Pain, No Flank Pain, No Other, No , No , No , No , No , No , No Physical Exam General: Alert, Cooperative, mild distress HEENT: PERRLA Lungs: Other (decreased breath sounds in evette. lower bases) Abdomen: Normal bowel sounds, Soft, No tenderness Extremities: Other (LE edema +2 evette, nml reflexes) Vitals VITALS Vital Signs Date Time Temp Pulse Resp B/P (MAP) Pulse Ox O2 Delivery O2 Flow Rate FiO2 04/21/20 17:18 Room Air 04/21/20 15:17 97 118/78 (91) 94 2.0 04/21/20 12:45 97.3 29 97.3 Labs Labs Laboratory Tests Test 04/21/20 12:52 04/21/20 13:00 04/21/20 13:11 04/21/20 14:07 White Blood Count 20.1 x10^3/uL (4.0-11.0) Red Blood Count 4.52 x10^6/uL (3.50-5.40) Hemoglobin 12.8 g/dL (12.0-15.5) Hematocrit 37.7 % (36.0-47.0) Mean Corpuscular Volume 84 fL (79-100) Mean Corpuscular Hemoglobin 28 pg (25-35) Mean Corpuscular Hemoglobin Concent 34 g/dL (31-37) Red Cell Distribution Width 14.0 % (11.5-14.5) Platelet Count 569 x10^3/uL (140-400) Neutrophils (%) (Auto) 93 % (31-73) Lymphocytes (%) (Auto) 4 % (24-48) Monocytes (%) (Auto) 3 % (0-9) Eosinophils (%) (Auto) 0 % (0-3) Basophils (%) (Auto) 0 % (0-3) Neutrophils # (Auto) 18.7 x10^3/uL (1.8-7.7) Lymphocytes # (Auto) 0.9 x10^3/uL (1.0-4.8) Monocytes # (Auto) 0.5 x10^3/uL (0.0-1.1) Eosinophils # (Auto) 0.0 x10^3/uL (0.0-0.7) Basophils # (Auto) 0.0 x10^3/uL (0.0-0.2) Segmented Neutrophils % 92 % (35-66) Lymphocytes % 8 % (24-48) Platelet Estimate Increased (ADEQUATE) Platelet Clumps, EDTA Present Giant Platelets Few Maternal Serum HCG Beta Subunit 54293 mIU/mL (0-5) Sodium Level 138 mmol/L (136-145) Potassium Level 4.5 mmol/L (3.5-5.1) Chloride Level 106 mmol/L (98-107) Carbon Dioxide Level 18 mmol/L (21-32) Anion Gap 14 (6-14) Blood Urea Nitrogen 20 mg/dL (7-20) Creatinine 1.0 mg/dL (0.6-1.0) Estimated GFR (Cockcroft-Gault) 60.8 BUN/Creatinine Ratio 20 (6-20) Glucose Level 123 mg/dL (70-99) Lactic Acid Level 2.1 mmol/L (0.4-2.0) Calcium Level 9.7 mg/dL (8.5-10.1) Magnesium Level 1.9 mg/dL (1.8-2.4) Ferritin 29 ng/mL (8-252) Total Bilirubin 0.2 mg/dL (0.2-1.0) Aspartate Amino Transf (AST/SGOT) 25 U/L (15-37) Alanine Aminotransferase (ALT/SGPT) 23 U/L (14-59) Alkaline Phosphatase 163 U/L (46-116) Creatine Kinase 128 U/L (26-192) Creatine Kinase MB (Mass) 5.5 ng/mL (0.0-3.6) Creatine Kinase MB Relative Index 4.3 % (0-4) Troponin I Quantitative 0.202 ng/mL (0.000-0.055) C-Reactive Protein, Quantitative 10.8 mg/L (0-3.3) RZ-Wkp-C-Type Natriuretic Peptide 6797 pg/mL (0-124) Total Protein 6.6 g/dL (6.4-8.2) Albumin 2.6 g/dL (3.4-5.0) Albumin/Globulin Ratio 0.7 (1.0-1.7) Lipase 125 U/L (73-393) Thyroid Stimulating Hormone (TSH) 2.336 uIU/mL (0.358-3.74) Urine Collection Type Void Urine Color Yellow Urine Clarity Clear Urine pH 6.0 (<5.0-8.0) Urine Specific [place] 1.020 (1.000-1.030) Urine Protein >=300 mg/dL (NEG-TRACE) Urine Glucose (UA) Negative mg/dL (NEG) Urine Ketones (Stick) Negative mg/dL (NEG) Urine Blood Moderate (NEG) Urine Nitrite Negative (NEG) Urine Bilirubin Negative (NEG) Urine Urobilinogen Dipstick 0.2 mg/dL (0.2 mg/dL) Urine Leukocyte Esterase Negative (NEG) Urine RBC 3-5 /HPF (0-2) Urine WBC 1-4 /HPF (0-4) Urine Squamous Epithelial Cells Mod /LPF Urine Bacteria Few /HPF (0-FEW) Urine Hyaline Casts Few /HPF Urine Random Creatinine 28.0 mg/dL (Not Establ.) Urine Random Total Protein 299.0 mg/dL (Not Establ.) Urine Protein/Creatinine Ratio 74385 mg/g (0-200) Urine Opiates Screen Neg (NEG) Urine Methadone Screen Neg (NEG) Urine Barbiturates Neg (NEG) Urine Phencyclidine Screen Neg (NEG) Urine Amphetamine/Methamphetamine Neg (NEG) Urine Benzodiazepines Screen Neg (NEG) Urine Cocaine Screen Neg (NEG) Urine Cannabinoids Screen Neg (NEG) Urine Ethyl Alcohol Neg (NEG) Bedside Urine HCG, Qualitative Hcg positive (Negative) Prothrombin Time 11.8 SEC (11.7-14.0) Prothromb Time International Ratio 0.9 (0.8-1.1) Activated Partial Thromboplast Time 24 SEC (24-38) D-Dimer (Marian) 1.50 ug/mlFEU (0.00-0.50) Influenza Type A Antigen Negative (NEGATIVE) Influenza Type B Antigen Negative (NEGATIVE) Test 04/21/20 16:00 SARS-CoV-2 Antigen (Rapid) Negative (NEGATIVE) Laboratory Tests Test 04/21/20 12:52 04/21/20 13:00 04/21/20 13:11 04/21/20 14:07 White Blood Count 20.1 x10^3/uL (4.0-11.0) Red Blood Count 4.52 x10^6/uL (3.50-5.40) Hemoglobin 12.8 g/dL (12.0-15.5) Hematocrit 37.7 % (36.0-47.0) Mean Corpuscular Volume 84 fL (79-100) Mean Corpuscular Hemoglobin 28 pg (25-35) Mean Corpuscular Hemoglobin Concent 34 g/dL (31-37) Red Cell Distribution Width 14.0 % (11.5-14.5) Platelet Count 569 x10^3/uL (140-400) Neutrophils (%) (Auto) 93 % (31-73) Lymphocytes (%) (Auto) 4 % (24-48) Monocytes (%) (Auto) 3 % (0-9) Eosinophils (%) (Auto) 0 % (0-3) Basophils (%) (Auto) 0 % (0-3) Neutrophils # (Auto) 18.7 x10^3/uL (1.8-7.7) Lymphocytes # (Auto) 0.9 x10^3/uL (1.0-4.8) Monocytes # (Auto) 0.5 x10^3/uL (0.0-1.1) Eosinophils # (Auto) 0.0 x10^3/uL (0.0-0.7) Basophils # (Auto) 0.0 x10^3/uL (0.0-0.2) Segmented Neutrophils % 92 % (35-66) Lymphocytes % 8 % (24-48) Platelet Estimate Increased (ADEQUATE) Platelet Clumps, EDTA Present Giant Platelets Few Maternal Serum HCG Beta Subunit 35661 mIU/mL (0-5) Sodium Level 138 mmol/L (136-145) Potassium Level 4.5 mmol/L (3.5-5.1) Chloride Level 106 mmol/L (98-107) Carbon Dioxide Level 18 mmol/L (21-32) Anion Gap 14 (6-14) Blood Urea Nitrogen 20 mg/dL (7-20) Creatinine 1.0 mg/dL (0.6-1.0) Estimated GFR (Cockcroft-Gault) 60.8 BUN/Creatinine Ratio 20 (6-20) Glucose Level 123 mg/dL (70-99) Lactic Acid Level 2.1 mmol/L (0.4-2.0) Calcium Level 9.7 mg/dL (8.5-10.1) Magnesium Level 1.9 mg/dL (1.8-2.4) Ferritin 29 ng/mL (8-252) Total Bilirubin 0.2 mg/dL (0.2-1.0) Aspartate Amino Transf (AST/SGOT) 25 U/L (15-37) Alanine Aminotransferase (ALT/SGPT) 23 U/L (14-59) Alkaline Phosphatase 163 U/L (46-116) Creatine Kinase 128 U/L (26-192) Creatine Kinase MB (Mass) 5.5 ng/mL (0.0-3.6) Creatine Kinase MB Relative Index 4.3 % (0-4) Troponin I Quantitative 0.202 ng/mL (0.000-0.055) C-Reactive Protein, Quantitative 10.8 mg/L (0-3.3) ZF-Ovg-U-Type Natriuretic Peptide 6797 pg/mL (0-124) Total Protein 6.6 g/dL (6.4-8.2) Albumin 2.6 g/dL (3.4-5.0) Albumin/Globulin Ratio 0.7 (1.0-1.7) Lipase 125 U/L (73-393) Thyroid Stimulating Hormone (TSH) 2.336 uIU/mL (0.358-3.74) Urine Collection Type Void Urine Color Yellow Urine Clarity Clear Urine pH 6.0 (<5.0-8.0) Urine Specific [place] 1.020 (1.000-1.030) Urine Protein >=300 mg/dL (NEG-TRACE) Urine Glucose (UA) Negative mg/dL (NEG) Urine Ketones (Stick) Negative mg/dL (NEG) Urine Blood Moderate (NEG) Urine Nitrite Negative (NEG) Urine Bilirubin Negative (NEG) Urine Urobilinogen Dipstick 0.2 mg/dL (0.2 mg/dL) Urine Leukocyte Esterase Negative (NEG) Urine RBC 3-5 /HPF (0-2) Urine WBC 1-4 /HPF (0-4) Urine Squamous Epithelial Cells Mod /LPF Urine Bacteria Few /HPF (0-FEW) Urine Hyaline Casts Few /HPF Urine Random Creatinine 28.0 mg/dL (Not Establ.) Urine Random Total Protein 299.0 mg/dL (Not Establ.) Urine Protein/Creatinine Ratio 31220 mg/g (0-200) Urine Opiates Screen Neg (NEG) Urine Methadone Screen Neg (NEG) Urine Barbiturates Neg (NEG) Urine Phencyclidine Screen Neg (NEG) Urine Amphetamine/Methamphetamine Neg (NEG) Urine Benzodiazepines Screen Neg (NEG) Urine Cocaine Screen Neg (NEG) Urine Cannabinoids Screen Neg (NEG) Urine Ethyl Alcohol Neg (NEG) Bedside Urine HCG, Qualitative Hcg positive (Negative) Prothrombin Time 11.8 SEC (11.7-14.0) Prothromb Time International Ratio 0.9 (0.8-1.1) Activated Partial Thromboplast Time 24 SEC (24-38) D-Dimer (Marian) 1.50 ug/mlFEU (0.00-0.50) Influenza Type A Antigen Negative (NEGATIVE) Influenza Type B Antigen Negative (NEGATIVE) Test 04/21/20 16:00 SARS-CoV-2 Antigen (Rapid) Negative (NEGATIVE) Assessment/Plan Assessment/Plan A: 36 wks IUP Severe Preeclampsia Pnuemonia with SOB on NC oxygen 2 L P: Transfer to 3rd floor for continuous monitoring. Zithromycin IV daily. Repeat CBC and CMP in am. Echocardiogram in am stat to rule out cardiomyopathy. BP protocol for BP >160/110 with hydralazine and labetalol. Give Beta methasone 12 mg IM for lung maturity. Will develop delivery plan depending on patient's health and results echocardiogram for ejection fraction. MARY ZHENG Jr, MD Apr 21, 2020 18:51
--- NOTE | 2020-04-21 19:37 | NUR ---
patient transferred to [facility]
[2020-04-21] MEDS ORDERED: IV RINGERS,LACTATED 1000ML 1,000 ML IV SCH (19:54)
[2020-04-21] MEDS ORDERED: OXYTOCIN 30 UNIT/500 ML PREMIX 500 ML IV PRN ×2 (20:00)
[2020-04-21] MEDS ORDERED: 0.9 % SODIUM CHLORIDE 10 ML DISP.SYRIN. IV PRN (20:00)
[2020-04-21] MEDS ORDERED: LIDOCAINE 1% PF 30 ML VIAL. INJ PRN (20:00)
[2020-04-21] MEDS ORDERED: BETAMET ACET&NA PHOS 30 MG/5 ML VIAL. IM SCH (20:00)
[2020-04-21] MEDS ORDERED: IBUPROFEN 400 MG TABLET. PO PRN (20:00)
[2020-04-21] MEDS ORDERED: TERBUTALINE 1 MG/ML VIAL. SQ PRN (20:00)
[2020-04-21] MEDS: LABETALOL 20 MG/4 ML DISP.SYRIN. IVP PRN (20:24)
[2020-04-21] MEDS: MAGNESIUM SULFATE 20GM 500 ML IV SCH (20:39)
[2020-04-21] MEDS ORDERED: LABETALOL 20 MG/4 ML DISP.SYRIN. IVP PRN (21:00)
[2020-04-21] MEDS ORDERED: ALPRAZolam 0.25 MG TABLET PO ONE (21:30)
[2020-04-21] MEDS ORDERED: LIDOCAINE 2% 100 MG/5 ML SYRINGE. ONE ×2 (21:38→22:00)
[2020-04-21] MEDS ORDERED: LIDOCAINE 2% TOPICAL JELLY 5GM TUBE. TP ONE (22:00)
[2020-04-22] VITALS (18 sets, daily range): BP systolic 117–163; BP diastolic 7–99
[2020-04-22] MEDS: LABETALOL 20 MG/4 ML DISP.SYRIN. IVP PRN ×2 (02:22→12:09)
[2020-04-22 06:29] LABS: BASO # 0.1 x10^3/uL (0.0-0.2); BASO % 1 % (0-3); EOS % 0 % (0-3); HEMATOCRIT 34.9 % (36.0-47.0); HEMOGLOBIN 11.9 g/dL (12.0-15.5); LYMPH # 0.8 x10^3/uL (1.0-4.8); LYMPH % 6 % (24-48); MEAN CORPUSCULAR HEMOGLOBIN 29 pg (25-35); MEAN CORPUSCULAR HGB CONC 34 g/dL (31-37); MEAN CORPUSCULAR VOLUME 84 fL (79-100); MONO # 0.4 x10^3/uL (0.0-1.1); MONO % 3 % (0-9); NEUT # 11.7 x10^3/uL (1.8-7.7); NEUT % 91 % (31-73); PLATELET COUNT 474 x10^3/uL (140-400); RED BLOOD COUNT 4.14 x10^6/uL (3.50-5.40); RED CELL DISTRIBUTION WIDTH 14.2 % (11.5-14.5); WHITE BLOOD COUNT 12.9 x10^3/uL (4.0-11.0)
[2020-04-22] MEDS: MAGNESIUM SULFATE 20GM 500 ML IV SCH ×2 (06:38→16:51)
[2020-04-22 06:39] LABS: ALBUMIN 2.3 g/dL (3.4-5.0); ALBUMIN/GLOBULIN RATIO 0.7 (1.0-1.7); CALCIUM 8.4 mg/dL (8.5-10.1); CREATININE 1.1 mg/dL (0.6-1.0); GFR 54.5; POTASSIUM 4.6 mmol/L (3.5-5.1); TOTAL BILIRUBIN 0.2 mg/dL (0.2-1.0); TOTAL PROTEIN 5.8 g/dL (6.4-8.2)
[2020-04-22 06:40] LABS: CHOLESTEROL/HDL RATIO 2.9
--- NOTE | 2020-04-22 08:30 | PDOC ---
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 with SOB on 2 L NC oxygen. Oxygen sat 98%. Labs indicate worsening pr eeclampsia and increasing Troponin levels. Blood pressures improved with labetalol. Awaiting echocardiogram this am. Discussed findings with patient and need for section for delivery and ICU admission after surgery. Lab Laboratory Tests Test 04/21/20 12:52 04/21/20 13:00 04/21/20 13:11 04/21/20 14:07 White Blood Count 20.1 x10^3/uL (4.0-11.0) Red Blood Count 4.52 x10^6/uL (3.50-5.40) Hemoglobin 12.8 g/dL (12.0-15.5) Hematocrit 37.7 % (36.0-47.0) Mean Corpuscular Volume 84 fL (79-100) Mean Corpuscular Hemoglobin 28 pg (25-35) Mean Corpuscular Hemoglobin Concent 34 g/dL (31-37) Red Cell Distribution Width 14.0 % (11.5-14.5) Platelet Count 569 x10^3/uL (140-400) Neutrophils (%) (Auto) 93 % (31-73) Lymphocytes (%) (Auto) 4 % (24-48) Monocytes (%) (Auto) 3 % (0-9) Eosinophils (%) (Auto) 0 % (0-3) Basophils (%) (Auto) 0 % (0-3) Neutrophils # (Auto) 18.7 x10^3/uL (1.8-7.7) Lymphocytes # (Auto) 0.9 x10^3/uL (1.0-4.8) Monocytes # (Auto) 0.5 x10^3/uL (0.0-1.1) Eosinophils # (Auto) 0.0 x10^3/uL (0.0-0.7) Basophils # (Auto) 0.0 x10^3/uL (0.0-0.2) Segmented Neutrophils % 92 % (35-66) Lymphocytes % 8 % (24-48) Platelet Estimate Increased (ADEQUATE) Platelet Clumps, EDTA Present Giant Platelets Few Maternal Serum HCG Beta Subunit 90219 mIU/mL (0-5) Sodium Level 138 mmol/L (136-145) Potassium Level 4.5 mmol/L (3.5-5.1) Chloride Level 106 mmol/L (98-107) Carbon Dioxide Level 18 mmol/L (21-32) Anion Gap 14 (6-14) Blood Urea Nitrogen 20 mg/dL (7-20) Creatinine 1.0 mg/dL (0.6-1.0) Estimated GFR (Cockcroft-Gault) 60.8 BUN/Creatinine Ratio 20 (6-20) Glucose Level 123 mg/dL (70-99) Lactic Acid Level 2.1 mmol/L (0.4-2.0) Calcium Level 9.7 mg/dL (8.5-10.1) Magnesium Level 1.9 mg/dL (1.8-2.4) Ferritin 29 ng/mL (8-252) Total Bilirubin 0.2 mg/dL (0.2-1.0) Aspartate Amino Transf (AST/SGOT) 25 U/L (15-37) Alanine Aminotransferase (ALT/SGPT) 23 U/L (14-59) Alkaline Phosphatase 163 U/L (46-116) Creatine Kinase 128 U/L (26-192) Creatine Kinase MB (Mass) 5.5 ng/mL (0.0-3.6) Creatine Kinase MB Relative Index 4.3 % (0-4) Troponin I Quantitative 0.202 ng/mL (0.000-0.055) C-Reactive Protein, Quantitative 10.8 mg/L (0-3.3) SL-Adi-O-Type Natriuretic Peptide 6797 pg/mL (0-124) Total Protein 6.6 g/dL (6.4-8.2) Albumin 2.6 g/dL (3.4-5.0) Albumin/Globulin Ratio 0.7 (1.0-1.7) Lipase 125 U/L (73-393) Thyroid Stimulating Hormone (TSH) 2.336 uIU/mL (0.358-3.74) Urine Collection Type Void Urine Color Yellow Urine Clarity Clear Urine pH 6.0 (<5.0-8.0) Urine Specific [place] 1.020 (1.000-1.030) Urine Protein >=300 mg/dL (NEG-TRACE) Urine Glucose (UA) Negative mg/dL (NEG) Urine Ketones (Stick) Negative mg/dL (NEG) Urine Blood Moderate (NEG) Urine Nitrite Negative (NEG) Urine Bilirubin Negative (NEG) Urine Urobilinogen Dipstick 0.2 mg/dL (0.2 mg/dL) Urine Leukocyte Esterase Negative (NEG) Urine RBC 3-5 /HPF (0-2) Urine WBC 1-4 /HPF (0-4) Urine Squamous Epithelial Cells Mod /LPF Urine Bacteria Few /HPF (0-FEW) Urine Hyaline Casts Few /HPF Urine Random Creatinine 28.0 mg/dL (Not Establ.) Urine Random Total Protein 299.0 mg/dL (Not Establ.) Urine Protein/Creatinine Ratio 73095 mg/g (0-200) Urine Opiates Screen Neg (NEG) Urine Methadone Screen Neg (NEG) Urine Barbiturates Neg (NEG) Urine Phencyclidine Screen Neg (NEG) Urine Amphetamine/Methamphetamine Neg (NEG) Urine Benzodiazepines Screen Neg (NEG) Urine Cocaine Screen Neg (NEG) Urine Cannabinoids Screen Neg (NEG) Urine Ethyl Alcohol Neg (NEG) Bedside Urine HCG, Qualitative Hcg positive (Negative) Prothrombin Time 11.8 SEC (11.7-14.0) Prothromb Time International Ratio 0.9 (0.8-1.1) Activated Partial Thromboplast Time 24 SEC (24-38) D-Dimer (Marian) 1.50 ug/mlFEU (0.00-0.50) Influenza Type A Antigen Negative (NEGATIVE) Influenza Type B Antigen Negative (NEGATIVE) Test 04/21/20 14:08 04/21/20 16:00 04/21/20 19:05 04/22/20 00:29 HIV (1&2) Antibody Screen Nonreactive (Nonreactive) SARS-CoV-2 Antigen (Rapid) Negative (NEGATIVE) Lactic Acid Level 2.4 mmol/L (0.4-2.0) Troponin I Quantitative 0.332 ng/mL (0.000-0.055) 0.351 ng/mL (0.000-0.055) Treponema pallidum Antibody Nonreactive (Nonreactive) Hepatitis B Surface Antigen Nonreactive (Nonreactive) Test 04/22/20 06:05 White Blood Count 12.9 x10^3/uL (4.0-11.0) Red Blood Count 4.14 x10^6/uL (3.50-5.40) Hemoglobin 11.9 g/dL (12.0-15.5) Hematocrit 34.9 % (36.0-47.0) Mean Corpuscular Volume 84 fL (79-100) Mean Corpuscular Hemoglobin 29 pg (25-35) Mean Corpuscular Hemoglobin Concent 34 g/dL (31-37) Red Cell Distribution Width 14.2 % (11.5-14.5) Platelet Count 474 x10^3/uL (140-400) Neutrophils (%) (Auto) 91 % (31-73) Lymphocytes (%) (Auto) 6 % (24-48) Monocytes (%) (Auto) 3 % (0-9) Eosinophils (%) (Auto) 0 % (0-3) Basophils (%) (Auto) 1 % (0-3) Neutrophils # (Auto) 11.7 x10^3/uL (1.8-7.7) Lymphocytes # (Auto) 0.8 x10^3/uL (1.0-4.8) Monocytes # (Auto) 0.4 x10^3/uL (0.0-1.1) Eosinophils # (Auto) 0.0 x10^3/uL (0.0-0.7) Basophils # (Auto) 0.1 x10^3/uL (0.0-0.2) Sodium Level 139 mmol/L (136-145) Potassium Level 4.6 mmol/L (3.5-5.1) Chloride Level 107 mmol/L (98-107) Carbon Dioxide Level 18 mmol/L (21-32) Anion Gap 14 (6-14) Blood Urea Nitrogen 27 mg/dL (7-20) Creatinine 1.1 mg/dL (0.6-1.0) Estimated GFR (Cockcroft-Gault) 54.5 BUN/Creatinine Ratio 25 (6-20) Glucose Level 117 mg/dL (70-99) Calcium Level 8.4 mg/dL (8.5-10.1) Total Bilirubin 0.2 mg/dL (0.2-1.0) Aspartate Amino Transf (AST/SGOT) 31 U/L (15-37) Alanine Aminotransferase (ALT/SGPT) 27 U/L (14-59) Alkaline Phosphatase 131 U/L (46-116) Troponin I Quantitative 0.378 ng/mL (0.000-0.055) Total Protein 5.8 g/dL (6.4-8.2) Albumin 2.3 g/dL (3.4-5.0) Albumin/Globulin Ratio 0.7 (1.0-1.7) Triglycerides Level 238 mg/dL (0-150) Cholesterol Level 235 mg/dL (0-200) LDL Cholesterol, Calculated 105 mg/dL (0-100) VLDL Cholesterol, Calculated 48 mg/dL (0-40) Non-HDL Cholesterol Calculated 153 mg/dL (0-129) HDL Cholesterol 82 mg/dL (40-60) Cholesterol/HDL Ratio 2.9 Laboratory Tests Test 04/21/20 12:52 04/21/20 13:00 04/21/20 13:11 04/21/20 14:07 White Blood Count 20.1 x10^3/uL (4.0-11.0) Red Blood Count 4.52 x10^6/uL (3.50-5.40) Hemoglobin 12.8 g/dL (12.0-15.5) Hematocrit 37.7 % (36.0-47.0) Mean Corpuscular Volume 84 fL (79-100) Mean Corpuscular Hemoglobin 28 pg (25-35) Mean Corpuscular Hemoglobin Concent 34 g/dL (31-37) Red Cell Distribution Width 14.0 % (11.5-14.5) Platelet Count 569 x10^3/uL (140-400) Neutrophils (%) (Auto) 93 % (31-73) Lymphocytes (%) (Auto) 4 % (24-48) Monocytes (%) (Auto) 3 % (0-9) Eosinophils (%) (Auto) 0 % (0-3) Basophils (%) (Auto) 0 % (0-3) Neutrophils # (Auto) 18.7 x10^3/uL (1.8-7.7) Lymphocytes # (Auto) 0.9 x10^3/uL (1.0-4.8) Monocytes # (Auto) 0.5 x10^3/uL (0.0-1.1) Eosinophils # (Auto) 0.0 x10^3/uL (0.0-0.7) Basophils # (Auto) 0.0 x10^3/uL (0.0-0.2) Segmented Neutrophils % 92 % (35-66) Lymphocytes % 8 % (24-48) Platelet Estimate Increased (ADEQUATE) Platelet Clumps, EDTA Present Giant Platelets Few Maternal Serum HCG Beta Subunit 42220 mIU/mL (0-5) Sodium Level 138 mmol/L (136-145) Potassium Level 4.5 mmol/L (3.5-5.1) Chloride Level 106 mmol/L (98-107) Carbon Dioxide Level 18 mmol/L (21-32) Anion Gap 14 (6-14) Blood Urea Nitrogen 20 mg/dL (7-20) Creatinine 1.0 mg/dL (0.6-1.0) Estimated GFR (Cockcroft-Gault) 60.8 BUN/Creatinine Ratio 20 (6-20) Glucose Level 123 mg/dL (70-99) Lactic Acid Level 2.1 mmol/L (0.4-2.0) Calcium Level 9.7 mg/dL (8.5-10.1) Magnesium Level 1.9 mg/dL (1.8-2.4) Ferritin 29 ng/mL (8-252) Total Bilirubin 0.2 mg/dL (0.2-1.0) Aspartate Amino Transf (AST/SGOT) 25 U/L (15-37) Alanine Aminotransferase (ALT/SGPT) 23 U/L (14-59) Alkaline Phosphatase 163 U/L (46-116) Creatine Kinase 128 U/L (26-192) Creatine Kinase MB (Mass) 5.5 ng/mL (0.0-3.6) Creatine Kinase MB Relative Index 4.3 % (0-4) Troponin I Quantitative 0.202 ng/mL (0.000-0.055) C-Reactive Protein, Quantitative 10.8 mg/L (0-3.3) XZ-Cfj-[id number]-Type Natriuretic Peptide 6797 pg/mL (0-124) Total Protein 6.6 g/dL (6.4-8.2) Albumin 2.6 g/dL (3.4-5.0) Albumin/Globulin Ratio 0.7 (1.0-1.7) Lipase 125 U/L (73-393) Thyroid Stimulating Hormone (TSH) 2.336 uIU/mL (0.358-3.74) Urine Collection Type Void Urine Color Yellow Urine Clarity Clear Urine pH 6.0 (<5.0-8.0) Urine Specific [place] 1.020 (1.000-1.030) Urine Protein >=300 mg/dL (NEG-TRACE) Urine Glucose (UA) Negative mg/dL (NEG) Urine Ketones (Stick) Negative mg/dL (NEG) Urine Blood Moderate (NEG) Urine Nitrite Negative (NEG) Urine Bilirubin Negative (NEG) Urine Urobilinogen Dipstick 0.2 mg/dL (0.2 mg/dL) Urine Leukocyte Esterase Negative (NEG) Urine RBC 3-5 /HPF (0-2) Urine WBC 1-4 /HPF (0-4) Urine Squamous Epithelial Cells Mod /LPF Urine Bacteria Few /HPF (0-FEW) Urine Hyaline Casts Few /HPF Urine Random Creatinine 28.0 mg/dL (Not Establ.) Urine Random Total Protein 299.0 mg/dL (Not Establ.) Urine Protein/Creatinine Ratio 94503 mg/g (0-200) Urine Opiates Screen Neg (NEG) Urine Methadone Screen Neg (NEG) Urine Barbiturates Neg (NEG) Urine Phencyclidine Screen Neg (NEG) Urine Amphetamine/Methamphetamine Neg (NEG) Urine Benzodiazepines Screen Neg (NEG) Urine Cocaine Screen Neg (NEG) Urine Cannabinoids Screen Neg (NEG) Urine Ethyl Alcohol Neg (NEG) Bedside Urine HCG, Qualitative Hcg positive (Negative) Prothrombin Time 11.8 SEC (11.7-14.0) Prothromb Time International Ratio 0.9 (0.8-1.1) Activated Partial Thromboplast Time 24 SEC (24-38) D-Dimer (Marian) 1.50 ug/mlFEU (0.00-0.50) Influenza Type A Antigen Negative (NEGATIVE) Influenza Type B Antigen Negative (NEGATIVE) Test 04/21/20 14:08 04/21/20 16:00 04/21/20 19:05 04/22/20 00:29 HIV (1&2) Antibody Screen Nonreactive (Nonreactive) SARS-CoV-2 Antigen (Rapid) Negative (NEGATIVE) Lactic Acid Level 2.4 mmol/L (0.4-2.0) Troponin I Quantitative 0.332 ng/mL (0.000-0.055) 0.351 ng/mL (0.000-0.055) Treponema pallidum Antibody Nonreactive (Nonreactive) Hepatitis B Surface Antigen Nonreactive (Nonreactive) Test 04/22/20 06:05 White Blood Count 12.9 x10^3/uL (4.0-11.0) Red Blood Count 4.14 x10^6/uL (3.50-5.40) Hemoglobin 11.9 g/dL (12.0-15.5) Hematocrit 34.9 % (36.0-47.0) Mean Corpuscular Volume 84 fL (79-100) Mean Corpuscular Hemoglobin 29 pg (25-35) Mean Corpuscular Hemoglobin Concent 34 g/dL (31-37) Red Cell Distribution Width 14.2 % (11.5-14.5) Platelet Count 474 x10^3/uL (140-400) Neutrophils (%) (Auto) 91 % (31-73) Lymphocytes (%) (Auto) 6 % (24-48) Monocytes (%) (Auto) 3 % (0-9) Eosinophils (%) (Auto) 0 % (0-3) Basophils (%) (Auto) 1 % (0-3) Neutrophils # (Auto) 11.7 x10^3/uL (1.8-7.7) Lymphocytes # (Auto) 0.8 x10^3/uL (1.0-4.8) Monocytes # (Auto) 0.4 x10^3/uL (0.0-1.1) Eosinophils # (Auto) 0.0 x10^3/uL (0.0-0.7) Basophils # (Auto) 0.1 x10^3/uL (0.0-0.2) Sodium Level 139 mmol/L (136-145) Potassium Level 4.6 mmol/L (3.5-5.1) Chloride Level 107 mmol/L (98-107) Carbon Dioxide Level 18 mmol/L (21-32) Anion Gap 14 (6-14) Blood Urea Nitrogen 27 mg/dL (7-20) Creatinine 1.1 mg/dL (0.6-1.0) Estimated GFR (Cockcroft-Gault) 54.5 BUN/Creatinine Ratio 25 (6-20) Glucose Level 117 mg/dL (70-99) Calcium Level 8.4 mg/dL (8.5-10.1) Total Bilirubin 0.2 mg/dL (0.2-1.0) Aspartate Amino Transf (AST/SGOT) 31 U/L (15-37) Alanine Aminotransferase (ALT/SGPT) 27 U/L (14-59) Alkaline Phosphatase 131 U/L (46-116) Troponin I Quantitative 0.378 ng/mL (0.000-0.055) Total Protein 5.8 g/dL (6.4-8.2) Albumin 2.3 g/dL (3.4-5.0) Albumin/Globulin Ratio 0.7 (1.0-1.7) Triglycerides Level 238 mg/dL (0-150) Cholesterol Level 235 mg/dL (0-200) LDL Cholesterol, Calculated 105 mg/dL (0-100) VLDL Cholesterol, Calculated 48 mg/dL (0-40) Non-HDL Cholesterol Calculated 153 mg/dL (0-129) HDL Cholesterol 82 mg/dL (40-60) Cholesterol/HDL Ratio 2.9 Medications Current Medications Lorazepam (Ativan Inj) 0.5 mg 1X ONCE IV Last administered on 04/21/20at 13:10; Start 04/21/20 at 13:00; Stop 04/21/20 at 13:01; Status DC Furosemide (Lasix) 40 mg 1X ONCE IVP Last administered on 04/21/20at 14:04; Start 04/21/20 at 13:45; Stop 04/21/20 at 13:47; Status DC Ceftriaxone Sodium (Rocephin) 1 gm 1X ONCE IVP Last administered on 04/21/20at 13:59; Start 04/21/20 at 13:45; Stop 04/21/20 at 13:47; Status DC Azithromycin 250 ml @ 250 mls/hr 1X ONCE IV Last administered on 04/21/20at 14:03; Start 04/21/20 at 14:00; Stop 04/21/20 at 14:59; Status DC Aspirin (Tung Aspirin) 325 mg 1X ONCE PO Last administered on 04/21/20at 15:21; Start 04/21/20 at 14:15; Stop 04/21/20 at 14:16; Status DC Magnesium Sulfate 100 ml @ 25 mls/hr 1X ONCE IV Last administered on 04/21/20at 15:35; Start 04/21/20 at 14:15; Stop 04/21/20 at 18:14; Status DC Enoxaparin Sodium (Lovenox Per Pharmacy Treatment Dosing) 1 each PRN DAILY PRN MC SEE COMMENTS; Start 04/21/20 at 14:45 Labetalol HCl (Normodyne Iv Push) 20 mg 1X ONCE IVP Last administered on 04/21/20at 14:53; Start 04/21/20 at 15:00; Stop 04/21/20 at 15:01; Status DC Ondansetron HCl (Zofran) 4 mg 1X ONCE IV Last administered on 04/21/20at 14:52; Start 04/21/20 at 15:00; Stop 04/21/20 at 15:01; Status DC Enoxaparin Sodium (Lovenox 120mg Syringe) 110 mg Q12HR SQ Last administered on 04/21/20at 15:21; Start 04/21/20 at 15:00 Metoprolol Tartrate (Lopressor) 25 mg BID PO ; Start 04/21/20 at 15:30 Hydralazine HCl (Apresoline) 50 mg 1X ONCE PO ; Start 04/21/20 at 15:30; Stop 04/21/20 at 15:31; Status DC Azithromycin (Zithromax) 250 mg DAILY PO ; Start 04/22/20 at 09:00 Sodium Chloride (Normal Saline Flush) 3 ml QSHIFT PRN IV AFTER MEDS AND BLOOD DRAWS; Start 04/21/20 at 20:00 Ringer's Solution 1,000 ml @ 125 mls/hr Q8H IV ; Start 04/21/20 at 19:54 Terbutaline Sulfate (Brethine) 0.25 mg 1X PRN PRN SQ SEE COMMENTS; Start 04/21/20 at 20:00; Stop 04/22/20 at 19:59 Lidocaine HCl (Xylocaine 1% Pf 30ml Vial) 30 ml 1X PRN PRN INJ SEE COMMENTS; Start 04/21/20 at 20:00; Stop 04/23/20 at 19:59 Oxytocin 500 ml @ 0 mls/hr CONT PRN IV SEE I/O RECORD; Start 04/21/20 at 20:00 Oxytocin 500 ml @ 0 mls/hr CONT PRN PRN IV Post delivery bleeding; Start 04/21/20 at 20:00 Ibuprofen (Motrin) 800 mg PRN Q6HRS PRN PO INFLAMMATION; Start 04/21/20 at 20:00 Magnesium Sulfate 500 ml @ 50 mls/hr Q10H IV Last administered on 04/22/20at 06:38; Start 04/21/20 at 20:00 Betamethasone Sodium Phosphate (Celestone Soluspan) 12 mg Q24H IM Last administered on 04/21/20at 20:45; Start 04/21/20 at 20:00; Stop 04/22/20 at 20:01 Labetalol HCl (Normodyne Iv Push) 20 mg PRN Q2HR PRN IVP HYPERTENSION Last administered on 04/22/20at 02:22; Start 04/21/20 at 20:15 Labetalol HCl (Normodyne Iv Push) 40 mg 1X PRN PRN IVP HYPERTENSION Last administered on 04/21/20at 21:19; Start 04/21/20 at 21:00 Alprazolam (Xanax) 0.5 mg 1X ONCE PO Last administered on 04/21/20at 21:15; Start 04/21/20 at 21:30; Stop 04/21/20 at 21:31; Status DC Lidocaine HCl (Lidocaine HCl 2% Abboject) 100 mg STK-MED ONCE .ROUTE ; Start 1 06/21/19 at 21:38; Stop 04/21/20 at 21:39; Status DC Lidocaine HCl (Xylocaine 2% Topical 5gm Tube) 1 clint 1X ONCE TP Last admi nistered on 04/21/20at 22:03; Start 04/21/20 at 22:00; Stop 04/21/20 at 22:01; Status DC Active Scripts Active Reported Clonazepam 0.5 Mg Tablet 1 Tab PO BID PRN Exam Lungs: decreased breath sounds in lower lobes Abd: soft, non tender LE: nml reflexes, negative for clonus Assessment 36 wks IUP Severe preeclampsia Suspect cardiomyopathy Plan of Care: Continue current Tx, Mgmt (Will need to proceed with delivery today. ) MARY ZHENG Jr, MD Apr 22, 2020 08:30
[2020-04-22] MEDS ORDERED: ePHEDrine PF IN SALINE 50 MG/10 ML SYRINGE. IV ONE (08:45)
[2020-04-22] MEDS ORDERED: ceFAZolin SODIUM 3 GM in IV DEXTROSE 5% 100ML 100 ML IV ONE (08:45)
[2020-04-22] MEDS ORDERED: PHENYLEPHRINE in 0.9% NACL PF 1 MG/10 ML SYRINGE. IV ONE (08:45)
[2020-04-22] MEDS ORDERED: CITRIC ACID/SODIUM CITRATE 30 ML SOLUTION. PO ONE (08:45)
[2020-04-22] MEDS ORDERED: OXYTOCIN 10 UNIT/ML VIAL. ONE ×2 (08:45→09:31)
[2020-04-22] MEDS ORDERED: fentaNYL PF VIAL 100 MCG/2 ML VIAL ONE ×2 (08:46→12:35)
[2020-04-22] MEDS ORDERED: MORPHINE PF 10 MG/10 ML AMPUL. ONE (08:46)
[2020-04-22] MEDS: METOPROLOL TART IMMED RELEASE 25 MG TABLET. PO SCH ×2 (08:55→21:00)
--- NOTE | 2020-04-22 09:13 | PDOC ---
TIFFANIE DUVALL ALFREDO 04/22/20 0913: CARDIO Progress Notes Date and Time Date of Service 04/22/20 Time of Evaluation 1130 Subjective Subjective: No Chest Pain, No shortness of breath, No Palpitations, No Dizziness Vitals Vitals Vital Signs Date Time Temp Pulse Resp B/P (MAP) Pulse Ox O2 Delivery O2 Flow Rate FiO2 04/22/20 08:55 98 147/95 04/21/20 17:18 Room Air 04/21/20 15:17 94 2.0 04/21/20 12:45 97.3 29 97.3 Weight Weight [ ] Input and Output Intake and Output Intake and Output 04/22/20 07:00 Intake Total 250 ml Balance 250 ml Intake IV Total 250 ml Laboratory Labs Laboratory Tests Test 04/21/20 12:52 04/21/20 13:00 04/21/20 13:11 04/21/20 14:07 White Blood Count 20.1 x10^3/uL (4.0-11.0) Red Blood Count 4.52 x10^6/uL (3.50-5.40) Hemoglobin 12.8 g/dL (12.0-15.5) Hematocrit 37.7 % (36.0-47.0) Mean Corpuscular Volume 84 fL (79-100) Mean Corpuscular Hemoglobin 28 pg (25-35) Mean Corpuscular Hemoglobin Concent 34 g/dL (31-37) Red Cell Distribution Width 14.0 % (11.5-14.5) Platelet Count 569 x10^3/uL (140-400) Neutrophils (%) (Auto) 93 % (31-73) Lymphocytes (%) (Auto) 4 % (24-48) Monocytes (%) (Auto) 3 % (0-9) Eosinophils (%) (Auto) 0 % (0-3) Basophils (%) (Auto) 0 % (0-3) Neutrophils # (Auto) 18.7 x10^3/uL (1.8-7.7) Lymphocytes # (Auto) 0.9 x10^3/uL (1.0-4.8) Monocytes # (Auto) 0.5 x10^3/uL (0.0-1.1) Eosinophils # (Auto) 0.0 x10^3/uL (0.0-0.7) Basophils # (Auto) 0.0 x10^3/uL (0.0-0.2) Segmented Neutrophils % 92 % (35-66) Lymphocytes % 8 % (24-48) Platelet Estimate Increased (ADEQUATE) Platelet Clumps, EDTA Present Giant Platelets Few Maternal Serum HCG Beta Subunit 63765 mIU/mL (0-5) Sodium Level 138 mmol/L (136-145) Potassium Level 4.5 mmol/L (3.5-5.1) Chloride Level 106 mmol/L (98-107) Carbon Dioxide Level 18 mmol/L (21-32) Anion Gap 14 (6-14) Blood Urea Nitrogen 20 mg/dL (7-20) Creatinine 1.0 mg/dL (0.6-1.0) Estimated GFR (Cockcroft-Gault) 60.8 BUN/Creatinine Ratio 20 (6-20) Glucose Level 123 mg/dL (70-99) Lactic Acid Level 2.1 mmol/L (0.4-2.0) Calcium Level 9.7 mg/dL (8.5-10.1) Magnesium Level 1.9 mg/dL (1.8-2.4) Ferritin 29 ng/mL (8-252) Total Bilirubin 0.2 mg/dL (0.2-1.0) Aspartate Amino Transf (AST/SGOT) 25 U/L (15-37) Alanine Aminotransferase (ALT/SGPT) 23 U/L (14-59) Alkaline Phosphatase 163 U/L (46-116) Creatine Kinase 128 U/L (26-192) Creatine Kinase MB (Mass) 5.5 ng/mL (0.0-3.6) Creatine Kinase MB Relative Index 4.3 % (0-4) Troponin I Quantitative 0.202 ng/mL (0.000-0.055) C-Reactive Protein, Quantitative 10.8 mg/L (0-3.3) GF-Tip-Y-Type Natriuretic Peptide 6797 pg/mL (0-124) Total Protein 6.6 g/dL (6.4-8.2) Albumin 2.6 g/dL (3.4-5.0) Albumin/Globulin Ratio 0.7 (1.0-1.7) Lipase 125 U/L (73-393) Thyroid Stimulating Hormone (TSH) 2.336 uIU/mL (0.358-3.74) Urine Collection Type Void Urine Color Yellow Urine Clarity Clear Urine pH 6.0 (<5.0-8.0) Urine Specific [place] 1.020 (1.000-1.030) Urine Protein >=300 mg/dL (NEG-TRACE) Urine Glucose (UA) Negative mg/dL (NEG) Urine Ketones (Stick) Negative mg/dL (NEG) Urine Blood Moderate (NEG) Urine Nitrite Negative (NEG) Urine Bilirubin Negative (NEG) Urine Urobilinogen Dipstick 0.2 mg/dL (0.2 mg/dL) Urine Leukocyte Esterase Negative (NEG) Urine RBC 3-5 /HPF (0-2) Urine WBC 1-4 /HPF (0-4) Urine Squamous Epithelial Cells Mod /LPF Urine Bacteria Few /HPF (0-FEW) Urine Hyaline Casts Few /HPF Urine Random Creatinine 28.0 mg/dL (Not Establ.) Urine Random Total Protein 299.0 mg/dL (Not Establ.) Urine Protein/Creatinine Ratio 85516 mg/g (0-200) Urine Opiates Screen Neg (NEG) Urine Methadone Screen Neg (NEG) Urine Barbiturates Neg (NEG) Urine Phencyclidine Screen Neg (NEG) Urine Amphetamine/Methamphetamine Neg (NEG) Urine Benzodiazepines Screen Neg (NEG) Urine Cocaine Screen Neg (NEG) Urine Cannabinoids Screen Neg (NEG) Urine Ethyl Alcohol Neg (NEG) Bedside Urine HCG, Qualitative Hcg positive (Negative) Prothrombin Time 11.8 SEC (11.7-14.0) Prothromb Time International Ratio 0.9 (0.8-1.1) Activated Partial Thromboplast Time 24 SEC (24-38) D-Dimer (Marian) 1.50 ug/mlFEU (0.00-0.50) Influenza Type A Antigen Negative (NEGATIVE) Influenza Type B Antigen Negative (NEGATIVE) Test 04/21/20 14:08 04/21/20 16:00 04/21/20 19:05 04/22/20 00:29 HIV (1&2) Antibody Screen Nonreactive (Nonreactive) SARS-CoV-2 Antigen (Rapid) Negative (NEGATIVE) Lactic Acid Level 2.4 mmol/L (0.4-2.0) Troponin I Quantitative 0.332 ng/mL (0.000-0.055) 0.351 ng/mL (0.000-0.055) Treponema pallidum Antibody Nonreactive (Nonreactive) Hepatitis B Surface Antigen Nonreactive (Nonreactive) Test 04/22/20 06:05 White Blood Count 12.9 x10^3/uL (4.0-11.0) Red Blood Count 4.14 x10^6/uL (3.50-5.40) Hemoglobin 11.9 g/dL (12.0-15.5) Hematocrit 34.9 % (36.0-47.0) Mean Corpuscular Volume 84 fL (79-100) Mean Corpuscular Hemoglobin 29 pg (25-35) Mean Corpuscular Hemoglobin Concent 34 g/dL (31-37) Red Cell Distribution Width 14.2 % (11.5-14.5) Platelet Count 474 x10^3/uL (140-400) Neutrophils (%) (Auto) 91 % (31-73) Lymphocytes (%) (Auto) 6 % (24-48) Monocytes (%) (Auto) 3 % (0-9) Eosinophils (%) (Auto) 0 % (0-3) Basophils (%) (Auto) 1 % (0-3) Neutrophils # (Auto) 11.7 x10^3/uL (1.8-7.7) Lymphocytes # (Auto) 0.8 x10^3/uL (1.0-4.8) Monocytes # (Auto) 0.4 x10^3/uL (0.0-1.1) Eosinophils # (Auto) 0.0 x10^3/uL (0.0-0.7) Basophils # (Auto) 0.1 x10^3/uL (0.0-0.2) Sodium Level 139 mmol/L (136-145) Potassium Level 4.6 mmol/L (3.5-5.1) Chloride Level 107 mmol/L (98-107) Carbon Dioxide Level 18 mmol/L (21-32) Anion Gap 14 (6-14) Blood Urea Nitrogen 27 mg/dL (7-20) Creatinine 1.1 mg/dL (0.6-1.0) Estimated GFR (Cockcroft-Gault) 54.5 BUN/Creatinine Ratio 25 (6-20) Glucose Level 117 mg/dL (70-99) Calcium Level 8.4 mg/dL (8.5-10.1) Total Bilirubin 0.2 mg/dL (0.2-1.0) Aspartate Amino Transf (AST/SGOT) 31 U/L (15-37) Alanine Aminotransferase (ALT/SGPT) 27 U/L (14-59) Alkaline Phosphatase 131 U/L (46-116) Troponin I Quantitative 0.378 ng/mL (0.000-0.055) Total Protein 5.8 g/dL (6.4-8.2) Albumin 2.3 g/dL (3.4-5.0) Albumin/Globulin Ratio 0.7 (1.0-1.7) Triglycerides Level 238 mg/dL (0-150) Cholesterol Level 235 mg/dL (0-200) LDL Cholesterol, Calculated 105 mg/dL (0-100) VLDL Cholesterol, Calculated 48 mg/dL (0-40) Non-HDL Cholesterol Calculated 153 mg/dL (0-129) HDL Cholesterol 82 mg/dL (40-60) Cholesterol/HDL Ratio 2.9 Physical Exam HEENT: Neck Supple W Full Motion Chest: Symmetric LUNGS: Clear to Auscultation, Other (diminished bases) Heart: no gallops, no murmurs, other (tachy, distress, ) Abdomen: Other (soft, s/p sec delivery ) Extremities: Other (1+ bilateral LE edema ) Neurology: alert, oriented, follow commands Assessment Assessment 1. Acute respiratory failure with CHF; improved 2. Acute systolic CHF; s/p IV Lasix. Appears compensated 3. 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 4. Accelerated hypertension; better controlled 5 Mild troponin elevation; highest 0.378. Most probably type II, demand ischemia 6. 36 wks IUP, preeclampsia; s/p delivery this am. No acute complications 7. Hyperlipidemia 8. H/o DVT following right knee surgery 9. Anxiety 10. PUI; tested 3 days ago and reportedly negative. Rapid negaitve. Recommendations Additional diuresis PRN post delivery Continue metoprolol; convert to long-acting upon discharge for HF optimization Add hydralazine No ACEi/ARB as she plans to breastfeed Labetalol PRN for BP control Will need outpatient followup and echo in 2-3 months to reevaluated LVEF Outpatient f/u with Dr. Guillory scheduled Justicifation of Admission Dx: Justifications for Admission: Justification of Admission Dx: Yes Comments: CHF, preeclampsia RADHA GUILLORY MD 04/22/203: CARDIO Progress Notes Assessment Assessment Patient seen and examined. Agree with ORAL THERAPIST's assessment and plan. 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
--- NOTE | 2020-04-22 09:18 | CARD ---
MR#: [id number] Date of Study: 04/22/2020 Ordering Physician: MARY ZHENG, Referring Physician: MARY ZHENG, Tech: Shawna Morfin APPROVED REPORT EXAM: Two-dimensional and M-mode echocardiogram with Doppler and color Doppler. Other Information HR: 90bpm INDICATION Congestive Heart Failure Elevated blood pressure 2D DIMENSIONS Left Atrium(2D)4.6 (1.6-4.0cm)IVSd1.2 (0.7-1.1cm) Aortic Root(2D)3.1 (2.0-3.7cm)LVDd6.0 (3.9-5.9cm) LVOT Diameter2.0 (1.8-2.4cm)PWd1.4 (0.7-1.1cm) LVDs4.8 (2.5-4.0cm)FS (%) 20.2 % SV73.4 mlLVEF(%)40.6 (>50%) Aortic Valve AoV Peak Vernon.128.7cm/sAoV VTI22.9cm AO Peak GR.6.6mmHgLVOT VTI 16.69cm AO Mean GR.4mmHg Mitral Valve MV E Peak Gr.111mmHg TDI Lateral E' P. V6.18cm/sMedial E' P. V5.86cm/s Tricuspid Valve TR P. [id number]/sRAP [id number] TR Peak Gr.[id number] LEFT VENTRICLE The Left Ventricle is borderline dilated. There is mild to moderate concentric left ventricular hyper trophy. The systolic function is moderately impaired. The Ejection Fraction is 35-40%. There is globa l hypokinesis of the left ventricle with severe hypokinesis of the inferior and lateral fischer. Transm itral Doppler flow pattern is Grade II-pseudonormal filling dynamics. RIGHT VENTRICLE The right ventricle is normal size. There is normal right ventricular wall thickness. The right ventr icular systolic function is normal. ATRIA The left atrium is mildly dilated. The right atrium size is normal. The interatrial septum is intact with no evidence for an atrial septal defect or patent foramen ovale as noted on 2-D or Doppler imagi ng. AORTIC VALVE The aortic valve is normal in structure and function. Doppler and Color Flow revealed trace aortic re gurgitation. There is no significant aortic valvular stenosis. Calculated aortic valve area is 2.15 c m2 with maximum pressure gradient of 8 mmHg and mean pressure gradient of 5 mmHg. MITRAL VALVE The mitral valve is normal in structure and function. There is no evidence of mitral valve prolapse. There is no mitral valve stenosis. Doppler and Color-flow revealed trace mitral regurgitation. TRICUSPID VALVE The tricuspid valve is normal in structure and function. Doppler and Color Flow revealed trace tricus pid regurgitation with an estimated PAP of 31 mmHg. There is no tricuspid valve stenosis. PULMONIC VALVE The pulmonic valve is not well visualized. Doppler and Color Flow revealed trace pulmonic valvular re gurgitation. There is no pulmonic valvular stenosis. GREAT VESSELS The aortic root is normal in size. The IVC is normal in size and collapses >50% with inspiration. PERICARDIAL EFFUSION There is no evidence of significant pericardial effusion. Critical Notification Critical Value: No <Conclusion> There is global hypokinesis of the left ventricle with severe hypokinesis of the inferior and lateral fischer. Doppler and Color Flow revealed trace tricuspid regurgitation with an estimated PAP of 31 mmHg. The systolic function is moderately impaired. The Ejection Fraction is 35-40%. Results notified to Dr. Pleitez of anesthesia service Signed by : Syed Caballero, Electronically Approved : 04/22/2020 09:18:19
[2020-04-22] MEDS ORDERED: miSOPROStol 200 MCG TABLET ONE ×2 (09:34→09:54)
--- NOTE | 2020-04-22 09:55 | PDOC ---
PROGRESS NOTES Date of Service: DATE: 04/22/20 TIME: 09:49 Chief Complaint Chief Complaint severe pre-eclampsia, htn control with labetolol, 36 wks SIRS acute hypoxic respiratory failure, acute decompensated systolic CHF< with demand NSTEMI type 2, sepsis, pulm congestion, treating pneumonia, COVID still pending, rapid was negative, obese, BMI 43 acute renal fauilre with proteinuria, consult renal, start 24 hour urine History of Present Illness History of Present Illness to OR then ICU steroids given for fetus lung dev. discussed at length with Dr. Odonnell, renal fxn and cardiac fxn are still concerning. Vitals Vitals Vital Signs Date Time Temp Pulse Resp B/P (MAP) Pulse Ox O2 Delivery O2 Flow Rate FiO2 04/22/20 08:55 98 147/95 04/21/20 17:18 Room Air 04/21/20 15:17 94 2.0 04/21/20 12:45 97.3 29 97.3 Physical Exam General: Alert, Oriented X3, Cooperative, mild distress Heart: Regular rate, Other Abdomen: Normal bowel sounds, Soft, No tenderness Extremities: No clubbing, Other (LE edema +2 evette, nml reflexes) Skin: No rashes, No breakdown, Other Labs LABS Laboratory Tests Test 04/21/20 12:52 04/21/20 13:00 04/21/20 13:11 04/21/20 14:07 White Blood Count 20.1 x10^3/uL (4.0-11.0) Red Blood Count 4.52 x10^6/uL (3.50-5.40) Hemoglobin 12.8 g/dL (12.0-15.5) Hematocrit 37.7 % (36.0-47.0) Mean Corpuscular Volume 84 fL (79-100) Mean Corpuscular Hemoglobin 28 pg (25-35) Mean Corpuscular Hemoglobin Concent 34 g/dL (31-37) Red Cell Distribution Width 14.0 % (11.5-14.5) Platelet Count 569 x10^3/uL (140-400) Neutrophils (%) (Auto) 93 % (31-73) Lymphocytes (%) (Auto) 4 % (24-48) Monocytes (%) (Auto) 3 % (0-9) Eosinophils (%) (Auto) 0 % (0-3) Basophils (%) (Auto) 0 % (0-3) Neutrophils # (Auto) 18.7 x10^3/uL (1.8-7.7) Lymphocytes # (Auto) 0.9 x10^3/uL (1.0-4.8) Monocytes # (Auto) 0.5 x10^3/uL (0.0-1.1) Eosinophils # (Auto) 0.0 x10^3/uL (0.0-0.7) Basophils # (Auto) 0.0 x10^3/uL (0.0-0.2) Segmented Neutrophils % 92 % (35-66) Lymphocytes % 8 % (24-48) Platelet Estimate Increased (ADEQUATE) Platelet Clumps, EDTA Present Giant Platelets Few Maternal Serum HCG Beta Subunit 27190 mIU/mL (0-5) Sodium Level 138 mmol/L (136-145) Potassium Level 4.5 mmol/L (3.5-5.1) Chloride Level 106 mmol/L (98-107) Carbon Dioxide Level 18 mmol/L (21-32) Anion Gap 14 (6-14) Blood Urea Nitrogen 20 mg/dL (7-20) Creatinine 1.0 mg/dL (0.6-1.0) Estimated GFR (Cockcroft-Gault) 60.8 BUN/Creatinine Ratio 20 (6-20) Glucose Level 123 mg/dL (70-99) Lactic Acid Level 2.1 mmol/L (0.4-2.0) Calcium Level 9.7 mg/dL (8.5-10.1) Magnesium Level 1.9 mg/dL (1.8-2.4) Ferritin 29 ng/mL (8-252) Total Bilirubin 0.2 mg/dL (0.2-1.0) Aspartate Amino Transf (AST/SGOT) 25 U/L (15-37) Alanine Aminotransferase (ALT/SGPT) 23 U/L (14-59) Alkaline Phosphatase 163 U/L (46-116) Creatine Kinase 128 U/L (26-192) Creatine Kinase MB (Mass) 5.5 ng/mL (0.0-3.6) Creatine Kinase MB Relative Index 4.3 % (0-4) Troponin I Quantitative 0.202 ng/mL (0.000-0.055) C-Reactive Protein, Quantitative 10.8 mg/L (0-3.3) EV-Iep-R-Type Natriuretic Peptide 6797 pg/mL (0-124) Total Protein 6.6 g/dL (6.4-8.2) Albumin 2.6 g/dL (3.4-5.0) Albumin/Globulin Ratio 0.7 (1.0-1.7) Lipase 125 U/L (73-393) Thyroid Stimulating Hormone (TSH) 2.336 uIU/mL (0.358-3.74) Urine Collection Type Void Urine Color Yellow Urine Clarity Clear Urine pH 6.0 (<5.0-8.0) Urine Specific [place] 1.020 (1.000-1.030) Urine Protein >=300 mg/dL (NEG-TRACE) Urine Glucose (UA) Negative mg/dL (NEG) Urine Ketones (Stick) Negative mg/dL (NEG) Urine Blood Moderate (NEG) Urine Nitrite Negative (NEG) Urine Bilirubin Negative (NEG) Urine Urobilinogen Dipstick 0.2 mg/dL (0.2 mg/dL) Urine Leukocyte Esterase Negative (NEG) Urine RBC 3-5 /HPF (0-2) Urine WBC 1-4 /HPF (0-4) Urine Squamous Epithelial Cells Mod /LPF Urine Bacteria Few /HPF (0-FEW) Urine Hyaline Casts Few /HPF Urine Random Creatinine 28.0 mg/dL (Not Establ.) Urine Random Total Protein 299.0 mg/dL (Not Establ.) Urine Protein/Creatinine Ratio 51896 mg/g (0-200) Urine Opiates Screen Neg (NEG) Urine Methadone Screen Neg (NEG) Urine Barbiturates Neg (NEG) Urine Phencyclidine Screen Neg (NEG) Urine Amphetamine/Methamphetamine Neg (NEG) Urine Benzodiazepines Screen Neg (NEG) Urine Cocaine Screen Neg (NEG) Urine Cannabinoids Screen Neg (NEG) Urine Ethyl Alcohol Neg (NEG) Bedside Urine HCG, Qualitative Hcg positive (Negative) Prothrombin Time 11.8 SEC (11.7-14.0) Prothromb Time International Ratio 0.9 (0.8-1.1) Activated Partial Thromboplast Time 24 SEC (24-38) D-Dimer (Marian) 1.50 ug/mlFEU (0.00-0.50) Influenza Type A Antigen Negative (NEGATIVE) Influenza Type B Antigen Negative (NEGATIVE) Test 04/21/20 14:08 04/21/20 16:00 04/21/20 19:05 04/22/20 00:29 HIV (1&2) Antibody Screen Nonreactive (Nonreactive) SARS-CoV-2 Antigen (Rapid) Negative (NEGATIVE) Lactic Acid Level 2.4 mmol/L (0.4-2.0) Troponin I Quantitative 0.332 ng/mL (0.000-0.055) 0.351 ng/mL (0.000-0.055) Treponema pallidum Antibody Nonreactive (Nonreactive) Hepatitis B Surface Antigen Nonreactive (Nonreactive) Test 04/22/20 06:05 White Blood Count 12.9 x10^3/uL (4.0-11.0) Red Blood Count 4.14 x10^6/uL (3.50-5.40) Hemoglobin 11.9 g/dL (12.0-15.5) Hematocrit 34.9 % (36.0-47.0) Mean Corpuscular Volume 84 fL (79-100) Mean Corpuscular Hemoglobin 29 pg (25-35) Mean Corpuscular Hemoglobin Concent 34 g/dL (31-37) Red Cell Distribution Width 14.2 % (11.5-14.5) Platelet Count 474 x10^3/uL (140-400) Neutrophils (%) (Auto) 91 % (31-73) Lymphocytes (%) (Auto) 6 % (24-48) Monocytes (%) (Auto) 3 % (0-9) Eosinophils (%) (Auto) 0 % (0-3) Basophils (%) (Auto) 1 % (0-3) Neutrophils # (Auto) 11.7 x10^3/uL (1.8-7.7) Lymphocytes # (Auto) 0.8 x10^3/uL (1.0-4.8) Monocytes # (Auto) 0.4 x10^3/uL (0.0-1.1) Eosinophils # (Auto) 0.0 x10^3/uL (0.0-0.7) Basophils # (Auto) 0.1 x10^3/uL (0.0-0.2) Sodium Level 139 mmol/L (136-145) Potassium Level 4.6 mmol/L (3.5-5.1) Chloride Level 107 mmol/L (98-107) Carbon Dioxide Level 18 mmol/L (21-32) Anion Gap 14 (6-14) Blood Urea Nitrogen 27 mg/dL (7-20) Creatinine 1.1 mg/dL (0.6-1.0) Estimated GFR (Cockcroft-Gault) 54.5 BUN/Creatinine Ratio 25 (6-20) Glucose Level 117 mg/dL (70-99) Calcium Level 8.4 mg/dL (8.5-10.1) Total Bilirubin 0.2 mg/dL (0.2-1.0) Aspartate Amino Transf (AST/SGOT) 31 U/L (15-37) Alanine Aminotransferase (ALT/SGPT) 27 U/L (14-59) Alkaline Phosphatase 131 U/L (46-116) Troponin I Quantitative 0.378 ng/mL (0.000-0.055) Total Protein 5.8 g/dL (6.4-8.2) Albumin 2.3 g/dL (3.4-5.0) Albumin/Globulin Ratio 0.7 (1.0-1.7) Triglycerides Level 238 mg/dL (0-150) Cholesterol Level 235 mg/dL (0-200) LDL Cholesterol, Calculated 105 mg/dL (0-100) VLDL Cholesterol, Calculated 48 mg/dL (0-40) Non-HDL Cholesterol Calculated 153 mg/dL (0-129) HDL Cholesterol 82 mg/dL (40-60) Cholesterol/HDL Ratio 2.9 Review of Systems Review of Systems still dyspneic, orthopneic, much better than in ER Assessment and Plan Assessmemt and Plan Problems Medical Problems: (1) CAP (community acquired pneumonia) Status: Acute (2) CHF (congestive heart failure) Status: Acute (3) Elevated troponin Status: Acute (4) Hypertensive urgency Status: Acute (5) 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 Labs Laboratory Tests Test 04/21/20 12:52 04/21/20 13:00 04/21/20 13:11 04/21/20 14:07 White Blood Count 20.1 x10^3/uL (4.0-11.0) Red Blood Count 4.52 x10^6/uL (3.50-5.40) Hemoglobin 12.8 g/dL (12.0-15.5) Hematocrit 37.7 % (36.0-47.0) Mean Corpuscular Volume 84 fL (79-100) Mean Corpuscular Hemoglobin 28 pg (25-35) Mean Corpuscular Hemoglobin Concent 34 g/dL (31-37) Red Cell Distribution Width 14.0 % (11.5-14.5) Platelet Count 569 x10^3/uL (140-400) Neutrophils (%) (Auto) 93 % (31-73) Lymphocytes (%) (Auto) 4 % (24-48) Monocytes (%) (Auto) 3 % (0-9) Eosinophils (%) (Auto) 0 % (0-3) Basophils (%) (Auto) 0 % (0-3) Neutrophils # (Auto) 18.7 x10^3/uL (1.8-7.7) Lymphocytes # (Auto) 0.9 x10^3/uL (1.0-4.8) Monocytes # (Auto) 0.5 x10^3/uL (0.0-1.1) Eosinophils # (Auto) 0.0 x10^3/uL (0.0-0.7) Basophils # (Auto) 0.0 x10^3/uL (0.0-0.2) Segmented Neutrophils % 92 % (35-66) Lymphocytes % 8 % (24-48) Platelet Estimate Increased (ADEQUATE) Platelet Clumps, EDTA Present Giant Platelets Few Maternal Serum HCG Beta Subunit 76433 mIU/mL (0-5) Sodium Level 138 mmol/L (136-145) Potassium Level 4.5 mmol/L (3.5-5.1) Chloride Level 106 mmol/L (98-107) Carbon Dioxide Level 18 mmol/L (21-32) Anion Gap 14 (6-14) Blood Urea Nitrogen 20 mg/dL (7-20) Creatinine 1.0 mg/dL (0.6-1.0) Estimated GFR (Cockcroft-Gault) 60.8 BUN/Creatinine Ratio 20 (6-20) Glucose Level 123 mg/dL (70-99) Lactic Acid Level 2.1 mmol/L (0.4-2.0) Calcium Level 9.7 mg/dL (8.5-10.1) Magnesium Level 1.9 mg/dL (1.8-2.4) Ferritin 29 ng/mL (8-252) Total Bilirubin 0.2 mg/dL (0.2-1.0) Aspartate Amino Transf (AST/SGOT) 25 U/L (15-37) Alanine Aminotransferase (ALT/SGPT) 23 U/L (14-59) Alkaline Phosphatase 163 U/L (46-116) Creatine Kinase 128 U/L (26-192) Creatine Kinase MB (Mass) 5.5 ng/mL (0.0-3.6) Creatine Kinase MB Relative Index 4.3 % (0-4) Troponin I Quantitative 0.202 ng/mL (0.000-0.055) C-Reactive Protein, Quantitative 10.8 mg/L (0-3.3) RD-Vig-E-Type Natriuretic Peptide 6797 pg/mL (0-124) Total Protein 6.6 g/dL (6.4-8.2) Albumin 2.6 g/dL (3.4-5.0) Albumin/Globulin Ratio 0.7 (1.0-1.7) Lipase 125 U/L (73-393) Thyroid Stimulating Hormone (TSH) 2.336 uIU/mL (0.358-3.74) Urine Collection Type Void Urine Color Yellow Urine Clarity Clear Urine pH 6.0 (<5.0-8.0) Urine Specific [place] 1.020 (1.000-1.030) Urine Protein >=300 mg/dL (NEG-TRACE) Urine Glucose (UA) Negative mg/dL (NEG) Urine Ketones (Stick) Negative mg/dL (NEG) Urine Blood Moderate (NEG) Urine Nitrite Negative (NEG) Urine Bilirubin Negative (NEG) Urine Urobilinogen Dipstick 0.2 mg/dL (0.2 mg/dL) Urine Leukocyte Esterase Negative (NEG) Urine RBC 3-5 /HPF (0-2) Urine WBC 1-4 /HPF (0-4) Urine Squamous Epithelial Cells Mod /LPF Urine Bacteria Few /HPF (0-FEW) Urine Hyaline Casts Few /HPF Urine Random Creatinine 28.0 mg/dL (Not Establ.) Urine Random Total Protein 299.0 mg/dL (Not Establ.) Urine Protein/Creatinine Ratio 45052 mg/g (0-200) Urine Opiates Screen Neg (NEG) Urine Methadone Screen Neg (NEG) Urine Barbiturates Neg (NEG) Urine Phencyclidine Screen Neg (NEG) Urine Amphetamine/Methamphetamine Neg (NEG) Urine Benzodiazepines Screen Neg (NEG) Urine Cocaine Screen Neg (NEG) Urine Cannabinoids Screen Neg (NEG) Urine Ethyl Alcohol Neg (NEG) Bedside Urine HCG, Qualitative Hcg positive (Negative) Prothrombin Time 11.8 SEC (11.7-14.0) Prothromb Time International Ratio 0.9 (0.8-1.1) Activated Partial Thromboplast Time 24 SEC (24-38) D-Dimer (Marian) 1.50 ug/mlFEU (0.00-0.50) Influenza Type A Antigen Negative (NEGATIVE) Influenza Type B Antigen Negative (NEGATIVE) Test 04/21/20 14:08 04/21/20 16:00 04/21/20 19:05 04/22/20 00:29 HIV (1&2) Antibody Screen Nonreactive (Nonreactive) SARS-CoV-2 Antigen (Rapid) Negative (NEGATIVE) Lactic Acid Level 2.4 mmol/L (0.4-2.0) Troponin I Quantitative 0.332 ng/mL (0.000-0.055) 0.351 ng/mL (0.000-0.055) Treponema pallidum Antibody Nonreactive (Nonreactive) Hepatitis B Surface Antigen Nonreactive (Nonreactive) Test 04/22/20 06:05 White Blood Count 12.9 x10^3/uL (4.0-11.0) Red Blood Count 4.14 x10^6/uL (3.50-5.40) Hemoglobin 11.9 g/dL (12.0-15.5) Hematocrit 34.9 % (36.0-47.0) Mean Corpuscular Volume 84 fL (79-100) Mean Corpuscular Hemoglobin 29 pg (25-35) Mean Corpuscular Hemoglobin Concent 34 g/dL (31-37) Red Cell Distribution Width 14.2 % (11.5-14.5) Platelet Count 474 x10^3/uL (140-400) Neutrophils (%) (Auto) 91 % (31-73) Lymphocytes (%) (Auto) 6 % (24-48) Monocytes (%) (Auto) 3 % (0-9) Eosinophils (%) (Auto) 0 % (0-3) Basophils (%) (Auto) 1 % (0-3) Neutrophils # (Auto) 11.7 x10^3/uL (1.8-7.7) Lymphocytes # (Auto) 0.8 x10^3/uL (1.0-4.8) Monocytes # (Auto) 0.4 x10^3/uL (0.0-1.1) Eosinophils # (Auto) 0.0 x10^3/uL (0.0-0.7) Basophils # (Auto) 0.1 x10^3/uL (0.0-0.2) Sodium Level 139 mmol/L (136-145) Potassium Level 4.6 mmol/L (3.5-5.1) Chloride Level 107 mmol/L (98-107) Carbon Dioxide Level 18 mmol/L (21-32) Anion Gap 14 (6-14) Blood Urea Nitrogen 27 mg/dL (7-20) Creatinine 1.1 mg/dL (0.6-1.0) Estimated GFR (Cockcroft-Gault) 54.5 BUN/Creatinine Ratio 25 (6-20) Glucose Level 117 mg/dL (70-99) Calcium Level 8.4 mg/dL (8.5-10.1) Total Bilirubin 0.2 mg/dL (0.2-1.0) Aspartate Amino Transf (AST/SGOT) 31 U/L (15-37) Alanine Aminotransferase (ALT/SGPT) 27 U/L (14-59) Alkaline Phosphatase 131 U/L (46-116) Troponin I Quantitative 0.378 ng/mL (0.000-0.055) Total Protein 5.8 g/dL (6.4-8.2) Albumin 2.3 g/dL (3.4-5.0) Albumin/Globulin Ratio 0.7 (1.0-1.7) Triglycerides Level 238 mg/dL (0-150) Cholesterol Level 235 mg/dL (0-200) LDL Cholesterol, Calculated 105 mg/dL (0-100) VLDL Cholesterol, Calculated 48 mg/dL (0-40) Non-HDL Cholesterol Calculated 153 mg/dL (0-129) HDL Cholesterol 82 mg/dL (40-60) Cholesterol/HDL Ratio 2.9 Laboratory Tests Test 04/21/20 12:52 04/21/20 13:00 04/21/20 13:11 04/21/20 14:07 White Blood Count 20.1 x10^3/uL (4.0-11.0) Red Blood Count 4.52 x10^6/uL (3.50-5.40) Hemoglobin 12.8 g/dL (12.0-15.5) Hematocrit 37.7 % (36.0-47.0) Mean Corpuscular Volume 84 fL (79-100) Mean Corpuscular Hemoglobin 28 pg (25-35) Mean Corpuscular Hemoglobin Concent 34 g/dL (31-37) Red Cell Distribution Width 14.0 % (11.5-14.5) Platelet Count 569 x10^3/uL (140-400) Neutrophils (%) (Auto) 93 % (31-73) Lymphocytes (%) (Auto) 4 % (24-48) Monocytes (%) (Auto) 3 % (0-9) Eosinophils (%) (Auto) 0 % (0-3) Basophils (%) (Auto) 0 % (0-3) Neutrophils # (Auto) 18.7 x10^3/uL (1.8-7.7) Lymphocytes # (Auto) 0.9 x10^3/uL (1.0-4.8) Monocytes # (Auto) 0.5 x10^3/uL (0.0-1.1) Eosinophils # (Auto) 0.0 x10^3/uL (0.0-0.7) Basophils # (Auto) 0.0 x10^3/uL (0.0-0.2) Segmented Neutrophils % 92 % (35-66) Lymphocytes % 8 % (24-48) Platelet Estimate Increased (ADEQUATE) Platelet Clumps, EDTA Present Giant Platelets Few Maternal Serum HCG Beta Subunit 81461 mIU/mL (0-5) Sodium Level 138 mmol/L (136-145) Potassium Level 4.5 mmol/L (3.5-5.1) Chloride Level 106 mmol/L (98-107) Carbon Dioxide Level 18 mmol/L (21-32) Anion Gap 14 (6-14) Blood Urea Nitrogen 20 mg/dL (7-20) Creatinine 1.0 mg/dL (0.6-1.0) Estimated GFR (Cockcroft-Gault) 60.8 BUN/Creatinine Ratio 20 (6-20) Glucose Level 123 mg/dL (70-99) Lactic Acid Level 2.1 mmol/L (0.4-2.0) Calcium Level 9.7 mg/dL (8.5-10.1) Magnesium Level 1.9 mg/dL (1.8-2.4) Ferritin 29 ng/mL (8-252) Total Bilirubin 0.2 mg/dL (0.2-1.0) Aspartate Amino Transf (AST/SGOT) 25 U/L (15-37) Alanine Aminotransferase (ALT/SGPT) 23 U/L (14-59) Alkaline Phosphatase 163 U/L (46-116) Creatine Kinase 128 U/L (26-192) Creatine Kinase MB (Mass) 5.5 ng/mL (0.0-3.6) Creatine Kinase MB Relative Index 4.3 % (0-4) Troponin I Quantitative 0.202 ng/mL (0.000-0.055) C-Reactive Protein, Quantitative 10.8 mg/L (0-3.3) AD-Wwr-D-Type Natriuretic Peptide 6797 pg/mL (0-124) Total Protein 6.6 g/dL (6.4-8.2) Albumin 2.6 g/dL (3.4-5.0) Albumin/Globulin Ratio 0.7 (1.0-1.7) Lipase 125 U/L (73-393) Thyroid Stimulating Hormone (TSH) 2.336 uIU/mL (0.358-3.74) Urine Collection Type Void Urine Color Yellow Urine Clarity Clear Urine pH 6.0 (<5.0-8.0) Urine Specific [place] 1.020 (1.000-1.030) Urine Protein >=300 mg/dL (NEG-TRACE) Urine Glucose (UA) Negative mg/dL (NEG) Urine Ketones (Stick) Negative mg/dL (NEG) Urine Blood Moderate (NEG) Urine Nitrite Negative (NEG) Urine Bilirubin Negative (NEG) Urine Urobilinogen Dipstick 0.2 mg/dL (0.2 mg/dL) Urine Leukocyte Esterase Negative (NEG) Urine RBC 3-5 /HPF (0-2) Urine WBC 1-4 /HPF (0-4) Urine Squamous Epithelial Cells Mod /LPF Urine Bacteria Few /HPF (0-FEW) Urine Hyaline Casts Few /HPF Urine Random Creatinine 28.0 mg/dL (Not Establ.) Urine Random Total Protein 299.0 mg/dL (Not Establ.) Urine Protein/Creatinine Ratio 43139 mg/g (0-200) Urine Opiates Screen Neg (NEG) Urine Methadone Screen Neg (NEG) Urine Barbiturates Neg (NEG) Urine Phencyclidine Screen Neg (NEG) Urine Amphetamine/Methamphetamine Neg (NEG) Urine Benzodiazepines Screen Neg (NEG) Urine Cocaine Screen Neg (NEG) Urine Cannabinoids Screen Neg (NEG) Urine Ethyl Alcohol Neg (NEG) Bedside Urine HCG, Qualitative Hcg positive (Negative) Prothrombin Time 11.8 SEC (11.7-14.0) Prothromb Time International Ratio 0.9 (0.8-1.1) Activated Partial Thromboplast Time 24 SEC (24-38) D-Dimer (Marian) 1.50 ug/mlFEU (0.00-0.50) Influenza Type A Antigen Negative (NEGATIVE) Influenza Type B Antigen Negative (NEGATIVE) Test 04/21/20 14:08 04/21/20 16:00 04/21/20 19:05 04/22/20 00:29 HIV (1&2) Antibody Screen Nonreactive (Nonreactive) SARS-CoV-2 Antigen (Rapid) Negative (NEGATIVE) Lactic Acid Level 2.4 mmol/L (0.4-2.0) Troponin I Quantitative 0.332 ng/mL (0.000-0.055) 0.351 ng/mL (0.000-0.055) Treponema pallidum Antibody Nonreactive (Nonreactive) Hepatitis B Surface Antigen Nonreactive (Nonreactive) Test 04/22/20 06:05 White Blood Count 12.9 x10^3/uL (4.0-11.0) Red Blood Count 4.14 x10^6/uL (3.50-5.40) Hemoglobin 11.9 g/dL (12.0-15.5) Hematocrit 34.9 % (36.0-47.0) Mean Corpuscular Volume 84 fL (79-100) Mean Corpuscular Hemoglobin 29 pg (25-35) Mean Corpuscular Hemoglobin Concent 34 g/dL (31-37) Red Cell Distribution Width 14.2 % (11.5-14.5) Platelet Count 474 x10^3/uL (140-400) Neutrophils (%) (Auto) 91 % (31-73) Lymphocytes (%) (Auto) 6 % (24-48) Monocytes (%) (Auto) 3 % (0-9) Eosinophils (%) (Auto) 0 % (0-3) Basophils (%) (Auto) 1 % (0-3) Neutrophils # (Auto) 11.7 x10^3/uL (1.8-7.7) Lymphocytes # (Auto) 0.8 x10^3/uL (1.0-4.8) Monocytes # (Auto) 0.4 x10^3/uL (0.0-1.1) Eosinophils # (Auto) 0.0 x10^3/uL (0.0-0.7) Basophils # (Auto) 0.1 x10^3/uL (0.0-0.2) Sodium Level 139 mmol/L (136-145) Potassium Level 4.6 mmol/L (3.5-5.1) Chloride Level 107 mmol/L (98-107) Carbon Dioxide Level 18 mmol/L (21-32) Anion Gap 14 (6-14) Blood Urea Nitrogen 27 mg/dL (7-20) Creatinine 1.1 mg/dL (0.6-1.0) Estimated GFR (Cockcroft-Gault) 54.5 BUN/Creatinine Ratio 25 (6-20) Glucose Level 117 mg/dL (70-99) Calcium Level 8.4 mg/dL (8.5-10.1) Total Bilirubin 0.2 mg/dL (0.2-1.0) Aspartate Amino Transf (AST/SGOT) 31 U/L (15-37) Alanine Aminotransferase (ALT/SGPT) 27 U/L (14-59) Alkaline Phosphatase 131 U/L (46-116) Troponin I Quantitative 0.378 ng/mL (0.000-0.055) Total Protein 5.8 g/dL (6.4-8.2) Albumin 2.3 g/dL (3.4-5.0) Albumin/Globulin Ratio 0.7 (1.0-1.7) Triglycerides Level 238 mg/dL (0-150) Cholesterol Level 235 mg/dL (0-200) LDL Cholesterol, Calculated 105 mg/dL (0-100) VLDL Cholesterol, Calculated 48 mg/dL (0-40) Non-HDL Cholesterol Calculated 153 mg/dL (0-129) HDL Cholesterol 82 mg/dL (40-60) Cholesterol/HDL Ratio 2.9 Medications Current Medications Lorazepam (Ativan Inj) 0.5 mg 1X ONCE IV Last administered on 04/21/20at 13:10; Start 04/21/20 at 13:00; Stop 04/21/20 at 13:01; Status DC Furosemide (Lasix) 40 mg 1X ONCE IVP Last administered on 04/21/20at 14:04; Start 04/21/20 at 13:45; Stop 04/21/20 at 13:47; Status DC Ceftriaxone Sodium (Rocephin) 1 gm 1X ONCE IVP Last administered on 04/21/20at 13:59; Start 04/21/20 at 13:45; Stop 04/21/20 at 13:47; Status DC Azithromycin 250 ml @ 250 mls/hr 1X ONCE IV Last administered on 04/21/20at 14:03; Start 04/21/20 at 14:00; Stop 04/21/20 at 14:59; Status DC Aspirin (Tung Aspirin) 325 mg 1X ONCE PO Last administered on 04/21/20at 15:21; Start 04/21/20 at 14:15; Stop 04/21/20 at 14:16; Status DC Magnesium Sulfate 100 ml @ 25 mls/hr 1X ONCE IV Last administered on 04/21/20at 15:35; Start 04/21/20 at 14:15; Stop 04/21/20 at 18:14; Status DC Enoxaparin Sodium (Lovenox Per Pharmacy Treatment Dosing) 1 each PRN DAILY PRN MC SEE COMMENTS; Start 04/21/20 at 14:45 Labetalol HCl (Normodyne Iv Push) 20 mg 1X ONCE IVP Last administered on 04/21/20at 14:53; Start 04/21/20 at 15:00; Stop 04/21/20 at 15:01; Status DC Ondansetron HCl (Zofran) 4 mg 1X ONCE IV Last administered on 04/21/20at 14:52; Start 04/21/20 at 15:00; Stop 04/21/20 at 15:01; Status DC Enoxaparin Sodium (Lovenox 120mg Syringe) 110 mg Q12HR SQ Last administered on 04/21/20at 15:21; Start 04/21/20 at 15:00 Metoprolol Tartrate (Lopressor) 25 mg BID PO Last administered on 04/22/20at 08:55; Start 04/21/20 at 15:30 Hydralazine HCl (Apresoline) 50 mg 1X ONCE PO ; Start 04/21/20 at 15:30; Stop 04/21/20 at 15:31; Status DC Azithromycin (Zithromax) 250 mg DAILY PO ; Start 04/22/20 at 09:00 Sodium Chloride (Normal Saline Flush) 3 ml QSHIFT PRN IV AFTER MEDS AND BLOOD DRAWS; Start 04/21/20 at 20:00 Ringer's Solution 1,000 ml @ 125 mls/hr Q8H IV ; Start 04/21/20 at 19:54 Terbutaline Sulfate (Brethine) 0.25 mg 1X PRN PRN SQ SEE COMMENTS; Start 04/21/20 at 20:00; Stop 04/22/20 at 19:59 Lidocaine HCl (Xylocaine 1% Pf 30ml Vial) 30 ml 1X PRN PRN INJ SEE COMMENTS; Start 04/21/20 at 20:00; Stop 04/23/20 at 19:59 Oxytocin 500 ml @ 0 mls/hr CONT PRN IV SEE I/O RECORD; Start 04/21/20 at 20:00 Oxytocin 500 ml @ 0 mls/hr CONT PRN PRN IV Post delivery bleeding; Start 04/21/20 at 20:00 Ibuprofen (Motrin) 800 mg PRN Q6HRS PRN PO INFLAMMATION; Start 04/21/20 at 20 :00 Magnesium Sulfate 500 ml @ 50 mls/hr Q10H IV Last administered on 04/22/20at 06:38; Start 04/21/20 at 20:00 Betamethasone Sodium Phosphate (Celestone Soluspan) 12 mg Q24H IM Last administered on 04/21/20at 20:45; Start 04/21/20 at 20:00; Stop 04/22/20 at 20:01 Labetalol HCl (Normodyne Iv Push) 20 mg PRN Q2HR PRN IVP HYPERTENSION Last administered on 04/22/20at 02:22; Start 04/21/20 at 20:15 Labetalol HCl (Normodyne Iv Push) 40 mg 1X PRN PRN IVP HYPERTENSION Last administered on 04/21/20at 21:19; Start 04/21/20 at 21:00 Alprazolam (Xanax) 0.5 mg 1X ONCE PO Last administered on 04/21/20at 21:15; Start 04/21/20 at 21:30; Stop 04/21/20 at 21:31; Status DC Lidocaine HCl (Lidocaine HCl 2% Abboject) 100 mg STK-MED ONCE .ROUTE ; Start 04/21/20 at 21:38; Stop 04/21/20 at 21:39; Status DC Lidocaine HCl (Xylocaine 2% Topical 5gm Tube) 1 clint 1X ONCE TP Last administered on 04/21/20at 22:03; Start 04/21/20 at 22:00; Stop 04/21/20 at 22:01; Status DC Cefazolin Sodium 3 gm/Dextrose 100 ml @ 200 mls/hr 1X ONCE IV Last administered on 04/22/20at 08:55; Start 04/22/20 at 08:45; Stop 04/22/20 at 09:14; Status DC Citric Acid/ Sodium Citrate (Bicitra) 30 ml 1X ONCE PO Last administered on 04/22/20at 08:54; Start 04/22/20 at 08:45; Stop 04/22/20 at 08:48; Status DC Phenylephrine HCl (PHENYLEPHRINE in 0.9% NACL PF) 1 mg STK-MED ONCE IV ; Start 04/22/20 at 08:45; Stop 04/22/20 at 08:45; Status DC Oxytocin (Pitocin) 10 unit STK-MED ONCE .ROUTE ; Start 04/22/20 at 08:45; Stop 04/22/20 at 08:45; Status DC Ephedrine Sulfate (ePHEDrine PF IN SALINE SYRINGE) 50 mg STK-MED ONCE IV ; Start 04/22/20 at 08:45; Stop 04/22/20 at 08:46; Status DC Morphine Sulfate (Morphine Preservative Free) 10 mg STK-MED ONCE .ROUTE ; Start 04/22/20 at 08:46; Stop 04/22/20 at 08:46; Status DC Fentanyl Citrate (Fentanyl 2ml Vial) 100 mcg STK-MED ONCE .ROUTE ; Start 04/22/20 at 08:46; Stop 04/22/20 at 08:46; Status DC Oxytocin (Pitocin) 10 unit STK-MED ONCE .ROUTE ; Start 04/22/20 at 09:31; Stop 04/22/20 at 09:31; Status DC Misoprostol (Cytotec 200mcg Tab) 200 mcg STK-MED ONCE .ROUTE ; Start 04/22/20 at 09:34; Stop 04/22/20 at 09:34; Status DC Active Scripts Active Reported Clonazepam 0.5 Mg Tablet 1 Tab PO BID PRN Vitals/I & O Vital Sign - Last 24 Hours 04/21/20 04/21/20 04/21/20 04/21/20 12:45 13:22 13:32 13:42 Temp 97.3 97.3 Pulse 129 128 122 138 Resp 29 B/P (MAP) 193/138 (156) 182/127 (145) 173/144 (154) 163/117 (132) Pulse Ox 96 95 94 94 O2 Delivery Nasal Cannula Nasal Cannula Nasal Cannula Nasal Cannula O2 Flow Rate 2.0 2.0 2.0 2.0 04/21/20 04/21/20 04/21/20 04/21/20 13:52 14:02 14:12 14:22 Pulse 124 128 130 146 B/P (MAP) 175/125 (142) 183/117 (139) 194/104 (134) 166/104 (124) Pulse Ox 93 95 94 88 O2 Delivery Nasal Cannula Nasal Cannula Nasal Cannula Nasal Cannula O2 Flow Rate 2.0 2.0 2.0 2.0 04/21/20 04/21/20 04/21/20 04/21/20 14:32 14:42 14:52 14:53 Pulse 144 141 133 136 B/P (MAP) 172/120 (137) 181/133 (149) 169/115 (133) 181/133 Pulse Ox 99 96 O2 Delivery Nasal Cannula Nasal Cannula Nasal Cannula O2 Flow Rate 2.0 2.0 2.0 04/21/20 04/21/20 04/21/20 04/21/20 15:02 15:12 15:17 17:18 Pulse 97 B/P (MAP) () () 118/78 (91) Pulse Ox 95 94 94 O2 Delivery Nasal Cannula Nasal Cannula Nasal Cannula Room Air O2 Flow Rate 2.0 2.0 2.0 04/21/20 04/21/20 04/22/20 04/22/20 20:24 21:19 02:22 08:55 Pulse 91 91 96 98 B/P (MAP) 178/120 175/100 161/99 147/95 Intake and Output 04/21/20 04/21/20 04/22/20 15:00 23:00 07:00 Intake Total 250 ml Balance 250 ml Justicifation of Admission Dx: Justifications for Admission: Justification of Admission Dx: Yes (severe pre-eclampsia) ROMANA BANUELOS MD Apr 22, 2020 09:55
--- NOTE | 2020-04-22 10:16 | PDOC4 ---
OB Operative Note Date: Apr 22, 2020 PRE OP DIAGNOSIS: Other (36 wks IUP, Severe Preeclampsia, Cardiomyopathy) POST OP DIAGNOSIS: Other (Same) OPERATION PERFORMED: [facility] Surgeon Dr. Dillard Computerized Table Cutter Dr. Mobley Anesthesia: Regional (Spinal) Blood Loss 600 ml Specimen placenta and infant OB Findings: Position (Vertex), Sex (Female), (8/9), Weight (6 Lbs. 1 oz) Complications none Additional Remarks pt. stable and will go to ICU MARY DILLARD Jr, MD Apr 22, 2020 10:16
[2020-04-22] MEDS ORDERED: MAG HYDROX/ALUMINUM HYD/SIMETH 30 ML ORAL.SUSP PO PRN (10:30)
[2020-04-22] MEDS ORDERED: OXYTOCIN 30 UNIT/500 ML PREMIX 500 ML IV PRN (10:30)
[2020-04-22] MEDS ORDERED: diphenhydrAMINE ORAL ELIXIR 12.5 MG/5 ML ML PO PRN (10:30)
[2020-04-22] MEDS ORDERED: ZOLPIDEM 5 MG TABLET. PO PRN (10:30)
[2020-04-22] MEDS ORDERED: 0.9 % SODIUM CHLORIDE 10 ML DISP.SYRIN. IV PRN (10:30)
[2020-04-22] MEDS ORDERED: IBUPROFEN 400 MG TABLET. PO PRN (10:30)
[2020-04-22] MEDS ORDERED: SIMETHICONE 80 MG TAB.CHEW PO PRN (10:30)
--- NOTE | 2020-04-22 10:40 | OP ---
DATE OF SURGERY: PREOPERATIVE DIAGNOSES: 1. A 36 weeks' intrauterine . 2. Severe preeclampsia. 3. Cardiomyopathy. POSTOPERATIVE DIAGNOSES: 1. A 36 weeks' intrauterine . 2. Severe preeclampsia. 3. Cardiomyopathy. PROCEDURE: Primary low transverse section. SURGEON: Mary Dillard MD SECURITIES TELLER: Dr. Mobley. ANESTHESIA: Spinal. ESTIMATED BLOOD LOSS: 600 mL. COMPLICATIONS: None. FINDINGS: Viable female , Apgars 8 and 9, weight 6 pounds 1 ounce, 3-vessel cord placenta delivered manually intact. SUMMARY: A 40-year-old 1, who was seen in the Emergency Department and found to be 36 weeks' with severe preeclampsia and cardiomyopathy. The patient was provided with one dose of betamethasone. Monitor overnight. Echocardiogram indicated ejection fraction of about 33%. The patient was counseled on the need for urgent section. Risks, benefits and expectations and voiced clear understanding to proceed. DESCRIPTION OF PROCEDURE: The patient was taken to surgery suite and placed in dorsal supine position. She was prepped with ChloraPrep and draped in sterile fashion. After adequate anesthesia, Pfannenstiel skin incision was made with scalpel down to and through the fascia. Fascia was extended laterally using curved Harrington scissors. The superior edge of fascia was grasped with two Diana clamps and dissected free of the abdominal rectus muscles using blunt dissection along with Bovie cautery. The same process took place inferiorly. The abdominal rectus muscle was dissected bluntly at the midline. Peritoneum was grasped with 2 hemostats and entered sharply with Metzenbaum scissors. This incision was extended superiorly as well as inferiorly. Shailesh ring retractor was placed. Low transverse hysterotomy incision was made with scalpel down to the amniotic sac. Hysterotomy incision was extended laterally and superiorly digitally. Amniotomy was performed with Allis clamp, which elicited small amount of clear fluid. With the aid of fundal pressure, the infant's head was delivered in a smooth atraumatic manner. With additional fundal pressure, the anterior shoulder was delivered followed by posterior shoulder. Rest of female infant was delivered. was suctioned with bulb syringe orally and nasally, umbilical cord was clamped twice and cut and viable female infant was handed to waiting nursing staff. Umbilical cord blood as well as arterial pH was then obtained. Three-vessel cord placenta was delivered manually intact. The uterus was then exteriorized and cleared of clot and debris with moist lap. Hysterotomy incision was reapproximated using #1 Vicryl suture in running locked fashion. Additional imbricated layer of #1 Vicryl suture in running fashion was provided for better hemostasis. An 800 mcg of Cytotec was placed intrauterine prior to the initial hysterotomy closure. The uterus palpated firm. Fallopian tubes and ovaries appeared normal bilaterally. Posterior cul-de-sac was cleared of clot and debris with a moist lap. The uterus was then returned to the abdomen. Pericolic gutters were cleared of clot and debris with a moist lap. The hysterotomy incision was reviewed and was hemostatic. The Shailesh ring retractor was removed. The peritoneum was reapproximated using #1 Vicryl suture in running fashion. Abdominal rectus muscles were reapproximated with #1 Vicryl suture in running fashion. The fascia was reapproximated using Stratafix in running fashion. The skin was reapproximated with 4-0 Vicryl suture in subcuticular manner. Prevena wound VAC was placed. The patient tolerated the procedure well and was taken to ICU to recover. She will be continued on magnesium sulfate for severe preeclampsia. Sponge and needle count correct x 3. MARY DILLARD MD DR: PEBBLES/yessenia JOB#: [id number] / [id number]
--- NOTE | 2020-04-22 11:36 | PDOC2 ---
CONSULT Date of Consult Date of Consult DATE: 04/22/20 TIME: 11:26 Reason for Consult Reason for Consult: Proteinuria Referring Physician Referring Physician: Demetrius Identification/Chief Complaint Chief Complaint Shortness of breath Source Source: Chart review, Patient History of Present Illness Reason for Visit: Linn is a pleasant 40-year-old female with a known history of PCOS and presented to the ER for complaints of shortness of breath. She was found to be in pulmonary edema and the echocardiogram showed EF of 33%. Incidentally she was noted to have a positive hCG and abdominal sonogram revealed a 36-week . She was taken to the OR yesterday and underwent a section. She however had a protein creatinine ratio checked on 1110 and is noted to be 10 g I was asked to see her for the same. Patient is not aware of known proteinuria in the past she does have issues with kidney stones she is not aware of renal insufficiency per se. She had noticed worsening swelling in her recent past. She was also noted to have had significant weight gain in the recent past and had started working out with a interpersonal communications professor for the last 4 to 6 weeks. She was also taking about 4 Aleve's a day due to the pain post workout. She is now moved to the ICU for closer monitoring of her cardiomyopathy. She is apparently able to lay flat and does not appear to be in significant distress. 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) Heme/Onc: Other Renal/: Other (Kidney stones) Endocrine: No pertinent hx, Other (PCOS) Dermatology: No pertinent hx Past Surgical History Past Surgical History: Tonsillectomy, Other (ankle, knee and breast lift evette.) Family History Family History: Cancer, Heart Disease Social History No ALCOHOL: social Drugs: None Lives: with Family Current Problem List Problem List Problems Medical Problems: (1) CAP (community acquired pneumonia) Status: Acute (2) CHF (congestive heart failure) Status: Acute (3) Elevated troponin Status: Acute (4) Hypertensive urgency Status: Acute (5) 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 Status: Acute (6) Person under investigation for COVID-19 Status: Acute Current Medications Current Medications Current Medications Lorazepam (Ativan Inj) 0.5 mg 1X ONCE IV Last administered on 04/21/20at 13:10; Start 04/21/20 at 13:00; Stop 04/21/20 at 13:01; Status DC Furosemide (Lasix) 40 mg 1X ONCE IVP Last administered on 04/21/20at 14:04; Start 04/21/20 at 13:45; Stop 04/21/20 at 13:47; Status DC Ceftriaxone Sodium (Rocephin) 1 gm 1X ONCE IVP Last administered on 04/21/20at 13:59; Start 04/21/20 at 13:45; Stop 04/21/20 at 13:47; Status DC Azithromycin 250 ml @ 250 mls/hr 1X ONCE IV Last administered on 04/21/20at 14:03; Start 04/21/20 at 14:00; Stop 04/21/20 at 14:59; Status DC Aspirin (Tung Aspirin) 325 mg 1X ONCE PO Last administered on 04/21/20at 1 5:21; Start 04/21/20 at 14:15; Stop 04/21/20 at 14:16; Status DC Magnesium Sulfate 100 ml @ 25 mls/hr 1X ONCE IV Last administered on 04/21/20at 15:35; Start 04/21/20 at 14:15; Stop 04/21/20 at 18:14; Status DC Enoxaparin Sodium (Lovenox Per Pharmacy Treatment Dosing) 1 each PRN DAILY PRN MC SEE COMMENTS; Start 04/21/20 at 14:45 Labetalol HCl (Normodyne Iv Push) 20 mg 1X ONCE IVP Last administered on 04/21/20at 14:53; Start 04/21/20 at 15:00; Stop 04/21/20 at 15:01; Status DC Ondansetron HCl (Zofran) 4 mg 1X ONCE IV Last administered on 04/21/20at 14:52; Start 04/21/20 at 15:00; Stop 04/21/20 at 15:01; Status DC Enoxaparin Sodium (Lovenox 120mg Syringe) 110 mg Q12HR SQ Last administered on 04/21/20at 15:21; Start 04/21/20 at 15:00 Metoprolol Tartrate (Lopressor) 25 mg BID PO Last administered on 04/22/20at 08:55; Start 04/21/20 at 15:30 Hydralazine HCl (Apresoline) 50 mg 1X ONCE PO ; Start 04/21/20 at 15:30; Stop 04/21/20 at 15:31; Status DC Azithromycin (Zithromax) 250 mg DAILY PO ; Start 04/22/20 at 09:00 Sodium Chloride (Normal Saline Flush) 3 ml QSHIFT PRN IV AFTER MEDS AND BLOOD DRAWS; Start 04/21/20 at 20:00 Ringer's Solution 1,000 ml @ 125 mls/hr Q8H IV ; Start 04/21/20 at 19:54 Terbutaline Sulfate (Brethine) 0.25 mg 1X PRN PRN SQ SEE COMMENTS; Start 04/21/20 at 20:00; Stop 04/22/20 at 19:59 Lidocaine HCl (Xylocaine 1% Pf 30ml Vial) 30 ml 1X PRN PRN INJ SEE COMMENTS; Start 04/21/20 at 20:00; Stop 04/23/20 at 19:59 Oxytocin 500 ml @ 0 mls/hr CONT PRN IV SEE I/O RECORD; Start 04/21/20 at 20:00 Oxytocin 500 ml @ 0 mls/hr CONT PRN PRN IV Post delivery bleeding; Start 04/21/20 at 20:00 Ibuprofen (Motrin) 800 mg PRN Q6HRS PRN PO INFLAMMATION; Start 04/21/20 at 20:00 Magnesium Sulfate 500 ml @ 50 mls/hr Q10H IV Last administered on 04/22/20at 06:38; Start 04/21/20 at 20:00 Betamethasone Sodium Phosphate (Celestone Soluspan) 12 mg Q24H IM Last administered on 04/21/20at 20:45; Start 04/21/20 at 20:00; Stop 04/22/20 at 20:01 Labetalol HCl (Normodyne Iv Push) 20 mg PRN Q2HR PRN IVP HYPERTENSION Last administered on 04/22/20at 02:22; Start 04/21/20 at 20:15 Labetalol HCl (Normodyne Iv Push) 40 mg 1X PRN PRN IVP HYPERTENSION Last administered on 04/21/20at 21:19; Start 04/21/20 at 21:00 Alprazolam (Xanax) 0.5 mg 1X ONCE PO Last administered on 04/21/20at 21:15; Start 04/21/20 at 21:30; Stop 04/21/20 at 21:31; Status DC Lidocaine HCl (Lidocaine HCl 2% Abboject) 100 mg STK-MED ONCE .ROUTE ; Start 04/21/20 at 21:38; Stop 04/21/20 at 21:39; Status DC Lidocaine HCl (Xylocaine 2% Topical 5gm Tube) 1 clint 1X ONCE TP Last administered on 04/21/20at 22:03; Start 04/21/20 at 22:00; Stop 04/21/20 at 22:01; Status DC Cefazolin Sodium 3 gm/Dextrose 100 ml @ 200 mls/hr 1X ONCE IV Last administered on 04/22/20at 08:55; Start 04/22/20 at 08:45; Stop 04/22/20 at 09:14; Status DC Citric Acid/ Sodium Citrate (Bicitra) 30 ml 1X ONCE PO Last administered on 04/22/20at 08:54; Start 04/22/20 at 08:45; Stop 04/22/20 at 08:48; Status DC Phenylephrine HCl (PHENYLEPHRINE in 0.9% NACL PF) 1 mg STK-MED ONCE IV ; Start 04/22/20 at 08:45; Stop 04/22/20 at 08:45; Status DC Oxytocin (Pitocin) 10 unit STK-MED ONCE .ROUTE ; Start 04/22/20 at 08:45; Stop 04/22/20 at 08:45; Status DC Ephedrine Sulfate (ePHEDrine PF IN SALINE SYRINGE) 50 mg STK-MED ONCE IV ; Start 04/22/20 at 08:45; Stop 04/22/20 at 08:46; Status DC Morphine Sulfate (Morphine Preservative Free) 10 mg STK-MED ONCE .ROUTE ; Start 04/22/20 at 08:46; Stop 04/22/20 at 08:46; Status DC Fentanyl Citrate (Fentanyl 2ml Vial) 100 mcg STK-MED ONCE .ROUTE ; Start 04/22/20 at 08:46; Stop 04/22/20 at 08:46; Status DC Oxytocin (Pitocin) 10 unit STK-MED ONCE .ROUTE ; Start 04/22/20 at 09:31; Stop 04/22/20 at 09:31; Status DC Misoprostol (Cytotec 200mcg Tab) 200 mcg STK-MED ONCE .ROUTE ; Start 04/22/20 at 09:34; Stop 04/22/20 at 09:34; Status DC Misoprostol (Cytotec 200mcg Tab) 200 mcg STK-MED ONCE .ROUTE ; Start 04/22/20 at 09:54; Stop 04/22/20 at 09:54; Status DC Sodium Chloride (Normal Saline Flush) 3 ml QSHIFT PRN IV AFTER MEDS AND BLOOD DRAWS; Start 04/22/20 at 10:30 Oxytocin 500 ml @ 125 mls/hr CONT PRN IV EXCESSIVE POST- BLEEDING; Start 04/22/20 at 10:30; Stop 04/22/20 at 18:29 Ibuprofen (Motrin) 800 mg PRN Q8HRS PRN PO INFLAMMATION; Start 04/22/20 at 10:30 Ondansetron HCl (Zofran) 4 mg PRN Q6HRS PRN IV NAUSEA/VOMITING; Start 04/22/20 at 10:30 Docusate Sodium (Colace) 100 mg PRN BID PRN PO HARD STOOL; Start 04/22/20 at 10:30 Al Hydroxide/Mg Hydroxide (Mylanta Plus Xs) 30 ml PRN Q4HRS PRN PO HEARTBURN / GAS; Start 04/22/20 at 10:30 Simethicone (Gas-X) 80 mg PRN AFTMEALHC PRN PO GAS / BLOATING; Start 04/22/20 at 10:30 Diphenhydramine HCl (Benadryl Oral Elixir) 12.5 mg PRN Q6HRS PRN PO ITCHING; Start 04/22/20 at 10:30 Ferrous Sulfate (Feosol) 325 mg BIDWMEALS PO ; Start 04/22/20 at 17:00 Zolpidem Tartrate (Ambien) 5 mg PRN QHS PRN PO INSOMNIA, MAY REPEAT X1; Start 04/22/20 at 10:30 Oxycodone/ Acetaminophen (Percocet 5/325) 2 tab PRN Q4HRS PRN PO MODERATE PAIN, SEVERE PAIN; Start 04/22/20 at 10:30 Ketorolac Tromethamine (Toradol 30mg Vial) 30 mg PRN Q6HRS PRN IV INFLAMMATION/PAIN; Start 04/22/20 at 10:30; Stop 04/27/20 at 10:29 Multivitamins (Thera M Plus) 1 tab DAILY PO ; Start 04/23/20 at 09:00 Active Scripts Active Reported Clonazepam 0.5 Mg Tablet 1 Tab PO BID PRN Allergies Allergies: Coded Allergies: No Known Drug Allergies (Unverified , 11/23/14) ROS Review of System Negative at this time other than postoperative soreness Physical Exam Physical Exam General Appearance: Awake Alert Oriented x 3 In no Distress Eyes: VIsion Unchanged Conjunctiva Normal EN: No EN Drainage Mucous Memb. moist Neck: no JVD no JVP Supple no Thyromegaly CVS: S1 S2 no Murmur No Gallop No Rub + Edema Resp: rare basal Rales no Rhonchi no Acc. Muscle use GI: BAS +ve NO Bruit Non Tender Non Distended : no CVA tenderness; no Suprapubic Tenderness SKIN: no Rashes Breast Exam deferred Mu.Sk: Adequate ROM no Muscle Atrophy Heme: Unable to palpate Obvious LAD no Splenomegaly NEURO: Good Strength and Tone Cranial Nerves II - XII grossly intact Psych: not Depressed no Active hallucination Vital Signs Vital Signs Date Time Temp Pulse Resp B/P (MAP) Pulse Ox O2 Delivery O2 Flow Rate FiO2 04/22/20 08:55 98 147/95 04/21/20 17:18 Room Air 04/21/20 15:17 94 2.0 04/21/20 12:45 97.3 29 97.3 Assessment & Plan Nephrotic syndrome: Presumably due to previously diagnosed preeclampsia. If this does not resolve in a timely manner, NSAID associated nephropathy is a possibility. Would recommend refraining from NSAID use hereafter Malignant hypertension: Presumably part of her preeclampsia. History of kidney stones: Follows with urology at [facility] Postop anemia Mild metabolic acidosis: Watch trend at this time Element of ANIYAH cannot be ruled out. Renal sonogram will be checked New onset cardiomyopathy: Defer to cardiology to evaluate and treat. Labs Labs Laboratory Tests Test 04/21/20 12:52 04/21/20 13:00 04/21/20 13:11 04/21/20 14:07 White Blood Count 20.1 x10^3/uL (4.0-11.0) Red Blood Count 4.52 x10^6/uL (3.50-5.40) Hemoglobin 12.8 g/dL (12.0-15.5) Hematocrit 37.7 % (36.0-47.0) Mean Corpuscular Volume 84 fL (79-100) Mean Corpuscular Hemoglobin 28 pg (25-35) Mean Corpuscular Hemoglobin Concent 34 g/dL (31-37) Red Cell Distribution Width 14.0 % (11.5-14.5) Platelet Count 569 x10^3/uL (140-400) Neutrophils (%) (Auto) 93 % (31-73) Lymphocytes (%) (Auto) 4 % (24-48) Monocytes (%) (Auto) 3 % (0-9) Eosinophils (%) (Auto) 0 % (0-3) Basophils (%) (Auto) 0 % (0-3) Neutrophils # (Auto) 18.7 x10^3/uL (1.8-7.7) Lymphocytes # (Auto) 0.9 x10^3/uL (1.0-4.8) Monocytes # (Auto) 0.5 x10^3/uL (0.0-1.1) Eosinophils # (Auto) 0.0 x10^3/uL (0.0-0.7) Basophils # (Auto) 0.0 x10^3/uL (0.0-0.2) Segmented Neutrophils % 92 % (35-66) Lymphocytes % 8 % (24-48) Platelet Estimate Increased (ADEQUATE) Platelet Clumps, EDTA Present Giant Platelets Few Maternal Serum HCG Beta Subunit 38319 mIU/mL (0-5) Sodium Level 138 mmol/L (136-145) Potassium Level 4.5 mmol/L (3.5-5.1) Chloride Level 106 mmol/L (98-107) Carbon Dioxide Level 18 mmol/L (21-32) Anion Gap 14 (6-14) Blood Urea Nitrogen 20 mg/dL (7-20) Creatinine 1.0 mg/dL (0.6-1.0) Estimated GFR (Cockcroft-Gault) 60.8 BUN/Creatinine Ratio 20 (6-20) Glucose Level 123 mg/dL (70-99) Lactic Acid Level 2.1 mmol/L (0.4-2.0) Calcium Level 9.7 mg/dL (8.5-10.1) Magnesium Level 1.9 mg/dL (1.8-2.4) Ferritin 29 ng/mL (8-252) Total Bilirubin 0.2 mg/dL (0.2-1.0) Aspartate Amino Transf (AST/SGOT) 25 U/L (15-37) Alanine Aminotransferase (ALT/SGPT) 23 U/L (14-59) Alkaline Phosphatase 163 U/L (46-116) Creatine Kinase 128 U/L (26-192) Creatine Kinase MB (Mass) 5.5 ng/mL (0.0-3.6) Creatine Kinase MB Relative Index 4.3 % (0-4) Troponin I Quantitative 0.202 ng/mL (0.000-0.055) C-Reactive Protein, Quantitative 10.8 mg/L (0-3.3) HQ-Sgp-G-Type Natriuretic Peptide 6797 pg/mL (0-124) Total Protein 6.6 g/dL (6.4-8.2) Albumin 2.6 g/dL (3.4-5.0) Albumin/Globulin Ratio 0.7 (1.0-1.7) Lipase 125 U/L (73-393) Thyroid Stimulating Hormone (TSH) 2.336 uIU/mL (0.358-3.74) Urine Collection Type Void Urine Color Yellow Urine Clarity Clear Urine pH 6.0 (<5.0-8.0) Urine Specific [place] 1.020 (1.000-1.030) Urine Protein >=300 mg/dL (NEG-TRACE) Urine Glucose (UA) Negative mg/dL (NEG) Urine Ketones (Stick) Negative mg/dL (NEG) Urine Blood Moderate (NEG) Urine Nitrite Negative (NEG) Urine Bilirubin Negative (NEG) Urine Urobilinogen Dipstick 0.2 mg/dL (0.2 mg/dL) Urine Leukocyte Esterase Negative (NEG) Urine RBC 3-5 /HPF (0-2) Urine WBC 1-4 /HPF (0-4) Urine Squamous Epithelial Cells Mod /LPF Urine Bacteria Few /HPF (0-FEW) Urine Hyaline Casts Few /HPF Urine Random Creatinine 28.0 mg/dL (Not Establ.) Urine Random Total Protein 299.0 mg/dL (Not Establ.) Urine Protein/Creatinine Ratio 05479 mg/g (0-200) Urine Opiates Screen Neg (NEG) Urine Methadone Screen Neg (NEG) Urine Barbiturates Neg (NEG) Urine Phencyclidine Screen Neg (NEG) Urine Amphetamine/Methamphetamine Neg (NEG) Urine Benzodiazepines Screen Neg (NEG) Urine Cocaine Screen Neg (NEG) Urine Cannabinoids Screen Neg (NEG) Urine Ethyl Alcohol Neg (NEG) Bedside Urine HCG, Qualitative Hcg positive (Negative) Prothrombin Time 11.8 SEC (11.7-14.0) Prothromb Time International Ratio 0.9 (0.8-1.1) Activated Partial Thromboplast Time 24 SEC (24-38) D-Dimer (Marian) 1.50 ug/mlFEU (0.00-0.50) Influenza Type A Antigen Negative (NEGATIVE) Influenza Type B Antigen Negative (NEGATIVE) Test 04/21/20 14:08 04/21/20 16:00 04/21/20 19:05 04/22/20 00:29 HIV (1&2) Antibody Screen Nonreactive (Nonreactive) SARS-CoV-2 Antigen (Rapid) Negative (NEGATIVE) Lactic Acid Level 2.4 mmol/L (0.4-2.0) Troponin I Quantitative 0.332 ng/mL (0.000-0.055) 0.351 ng/mL (0.000-0.055) Treponema pallidum Antibody Nonreactive (Nonreactive) Hepatitis B Surface Antigen Nonreactive (Nonreactive) Test 04/22/20 06:05 White Blood Count 12.9 x10^3/uL (4.0-11.0) Red Blood Count 4.14 x10^6/uL (3.50-5.40) Hemoglobin 11.9 g/dL (12.0-15.5) Hematocrit 34.9 % (36.0-47.0) Mean Corpuscular Volume 84 fL (79-100) Mean Corpuscular Hemoglobin 29 pg (25-35) Mean Corpuscular Hemoglobin Concent 34 g/dL (31-37) Red Cell Distribution Width 14.2 % (11.5-14.5) Platelet Count 474 x10^3/uL (140-400) Neutrophils (%) (Auto) 91 % (31-73) Lymphocytes (%) (Auto) 6 % (24-48) Monocytes (%) (Auto) 3 % (0-9) Eosinophils (%) (Auto) 0 % (0-3) Basophils (%) (Auto) 1 % (0-3) Neutrophils # (Auto) 11.7 x10^3/uL (1.8-7.7) Lymphocytes # (Auto) 0.8 x10^3/uL (1.0-4.8) Monocytes # (Auto) 0.4 x10^3/uL (0.0-1.1) Eosinophils # (Auto) 0.0 x10^3/uL (0.0-0.7) Basophils # (Auto) 0.1 x10^3/uL (0.0-0.2) Sodium Level 139 mmol/L (136-145) Potassium Level 4.6 mmol/L (3.5-5.1) Chloride Level 107 mmol/L (98-107) Carbon Dioxide Level 18 mmol/L (21-32) Anion Gap 14 (6-14) Blood Urea Nitrogen 27 mg/dL (7-20) Creatinine 1.1 mg/dL (0.6-1.0) Estimated GFR (Cockcroft-Gault) 54.5 BUN/Creatinine Ratio 25 (6-20) Glucose Level 117 mg/dL (70-99) Calcium Level 8.4 mg/dL (8.5-10.1) Total Bilirubin 0.2 mg/dL (0.2-1.0) Aspartate Amino Transf (AST/SGOT) 31 U/L (15-37) Alanine Aminotransferase (ALT/SGPT) 27 U/L (14-59) Alkaline Phosphatase 131 U/L (46-116) Troponin I Quantitative 0.378 ng/mL (0.000-0.055) Total Protein 5.8 g/dL (6.4-8.2) Albumin 2.3 g/dL (3.4-5.0) Albumin/Globulin Ratio 0.7 (1.0-1.7) Triglycerides Level 238 mg/dL (0-150) Cholesterol Level 235 mg/dL (0-200) LDL Cholesterol, Calculated 105 mg/dL (0-100) VLDL Cholesterol, Calculated 48 mg/dL (0-40) Non-HDL Cholesterol Calculated 153 mg/dL (0-129) HDL Cholesterol 82 mg/dL (40-60) Cholesterol/HDL Ratio 2.9 Laboratory Tests Test 04/21/20 12:52 04/21/20 13:00 04/21/20 13:11 04/21/20 14:07 White Blood Count 20.1 x10^3/uL (4.0-11.0) Red Blood Count 4.52 x10^6/uL (3.50-5.40) Hemoglobin 12.8 g/dL (12.0-15.5) Hematocrit 37.7 % (36.0-47.0) Mean Corpuscular Volume 84 fL (79-100) Mean Corpuscular Hemoglobin 28 pg (25-35) Mean Corpuscular Hemoglobin Concent 34 g/dL (31-37) Red Cell Distribution Width 14.0 % (11.5-14.5) Platelet Count 569 x10^3/uL (140-400) Neutrophils (%) (Auto) 93 % (31-73) Lymphocytes (%) (Auto) 4 % (24-48) Monocytes (%) (Auto) 3 % (0-9) Eosinophils (%) (Auto) 0 % (0-3) Basophils (%) (Auto) 0 % (0-3) Neutrophils # (Auto) 18.7 x10^3/uL (1.8-7.7) Lymphocytes # (Auto) 0.9 x10^3/uL (1.0-4.8) Monocytes # (Auto) 0.5 x10^3/uL (0.0-1.1) Eosinophils # (Auto) 0.0 x10^3/uL (0.0-0.7) Basophils # (Auto) 0.0 x10^3/uL (0.0-0.2) Segmented Neutrophils % 92 % (35-66) Lymphocytes % 8 % (24-48) Platelet Estimate Increased (ADEQUATE) Platelet Clumps, EDTA Present Giant Platelets Few Maternal Serum HCG Beta Subunit 22007 mIU/mL (0-5) Sodium Level 138 mmol/L (136-145) Potassium Level 4.5 mmol/L (3.5-5.1) Chloride Level 106 mmol/L (98-107) Carbon Dioxide Level 18 mmol/L (21-32) Anion Gap 14 (6-14) Blood Urea Nitrogen 20 mg/dL (7-20) Creatinine 1.0 mg/dL (0.6-1.0) Estimated GFR (Cockcroft-Gault) 60.8 BUN/Creatinine Ratio 20 (6-20) Glucose Level 123 mg/dL (70-99) Lactic Acid Level 2.1 mmol/L (0.4-2.0) Calcium Level 9.7 mg/dL (8.5-10.1) Magnesium Level 1.9 mg/dL (1.8-2.4) Ferritin 29 ng/mL (8-252) Total Bilirubin 0.2 mg/dL (0.2-1.0) Aspartate Amino Transf (AST/SGOT) 25 U/L (15-37) Alanine Aminotransferase (ALT/SGPT) 23 U/L (14-59) Alkaline Phosphatase 163 U/L (46-116) Creatine Kinase 128 U/L (26-192) Creatine Kinase MB (Mass) 5.5 ng/mL (0.0-3.6) Creatine Kinase MB Relative Index 4.3 % (0-4) Troponin I Quantitative 0.202 ng/mL (0.000-0.055) C-Reactive Protein, Quantitative 10.8 mg/L (0-3.3) OR-Cyv-Q-Type Natriuretic Peptide 6797 pg/mL (0-124) Total Protein 6.6 g/dL (6.4-8.2) Albumin 2.6 g/dL (3.4-5.0) Albumin/Globulin Ratio 0.7 (1.0-1.7) Lipase 125 U/L (73-393) Thyroid Stimulating Hormone (TSH) 2.336 uIU/mL (0.358-3.74) Urine Collection Type Void Urine Color Yellow Urine Clarity Clear Urine pH 6.0 (<5.0-8.0) Urine Specific [place] 1.020 (1.000-1.030) Urine Protein >=300 mg/dL (NEG-TRACE) Urine Glucose (UA) Negative mg/dL (NEG) Urine Ketones (Stick) Negative mg/dL (NEG) Urine Blood Moderate (NEG) Urine Nitrite Negative (NEG) Urine Bilirubin Negative (NEG) Urine Urobilinogen Dipstick 0.2 mg/dL (0.2 mg/dL) Urine Leukocyte Esterase Negative (NEG) Urine RBC 3-5 /HPF (0-2) Urine WBC 1-4 /HPF (0-4) Urine Squamous Epithelial Cells Mod /LPF Urine Bacteria Few /HPF (0-FEW) Urine Hyaline Casts Few /HPF Urine Random Creatinine 28.0 mg/dL (Not Establ.) Urine Random Total Protein 299.0 mg/dL (Not Establ.) Urine Protein/Creatinine Ratio 90852 mg/g (0-200) Urine Opiates Screen Neg (NEG) Urine Methadone Screen Neg (NEG) Urine Barbiturates Neg (NEG) Urine Phencyclidine Screen Neg (NEG) Urine Amphetamine/Methamphetamine Neg (NEG) Urine Benzodiazepines Screen Neg (NEG) Urine Cocaine Screen Neg (NEG) Urine Cannabinoids Screen Neg (NEG) Urine Ethyl Alcohol Neg (NEG) Bedside Urine HCG, Qualitative Hcg positive (Negative) Prothrombin Time 11.8 SEC (11.7-14.0) Prothromb Time International Ratio 0.9 (0.8-1.1) Activated Partial Thromboplast Time 24 SEC (24-38) D-Dimer ([place]arian) 1.50 ug/mlFEU (0.00-0.50) Influenza Type A Antigen Negative (NEGATIVE) Influenza Type B Antigen Negative (NEGATIVE) Test 04/21/20 14:08 04/21/20 16:00 04/21/20 19:05 04/22/20 00:29 HIV (1&2) Antibody Screen Nonreactive (Nonreactive) SARS-CoV-2 Antigen (Rapid) Negative (NEGATIVE) Lactic Acid Level 2.4 mmol/L (0.4-2.0) Troponin I Quantitative 0.332 ng/mL (0.000-0.055) 0.351 ng/mL (0.000-0.055) Treponema pallidum Antibody Nonreactive (Nonreactive) Hepatitis B Surface Antigen Nonreactive (Nonreactive) Test 04/22/20 06:05 White Blood Count 12.9 x10^3/uL (4.0-11.0) Red Blood Count 4.14 x10^6/uL (3.50-5.40) Hemoglobin 11.9 g/dL (12.0-15.5) Hematocrit 34.9 % (36.0-47.0) Mean Corpuscular Volume 84 fL (79-100) Mean Corpuscular Hemoglobin 29 pg (25-35) Mean Corpuscular Hemoglobin Concent 34 g/dL (31-37) Red Cell Distribution Width 14.2 % (11.5-14.5) Platelet Count 474 x10^3/uL (140-400) Neutrophils (%) (Auto) 91 % (31-73) Lymphocytes (%) (Auto) 6 % (24-48) Monocytes (%) (Auto) 3 % (0-9) Eosinophils (%) (Auto) 0 % (0-3) Basophils (%) (Auto) 1 % (0-3) Neutrophils # (Auto) 11.7 x10^3/uL (1.8-7.7) Lymphocytes # (Auto) 0.8 x10^3/uL (1.0-4.8) Monocytes # (Auto) 0.4 x10^3/uL (0.0-1.1) Eosinophils # (Auto) 0.0 x10^3/uL (0.0-0.7) Basophils # (Auto) 0.1 x10^3/uL (0.0-0.2) Sodium Level 139 mmol/L (136-145) Potassium Level 4.6 mmol/L (3.5-5.1) Chloride Level 107 mmol/L (98-107) Carbon Dioxide Level 18 mmol/L (21-32) Anion Gap 14 (6-14) Blood Urea Nitrogen 27 mg/dL (7-20) Creatinine 1.1 mg/dL (0.6-1.0) Estimated GFR (Cockcroft-Gault) 54.5 BUN/Creatinine Ratio 25 (6-20) Glucose Level 117 mg/dL (70-99) Calcium Level 8.4 mg/dL (8.5-10.1) Total Bilirubin 0.2 mg/dL (0.2-1.0) Aspartate Amino Transf (AST/SGOT) 31 U/L (15-37) Alanine Aminotransferase (ALT/SGPT) 27 U/L (14-59) Alkaline Phosphatase 131 U/L (46-116) Troponin I Quantitative 0.378 ng/mL (0.000-0.055) Total Protein 5.8 g/dL (6.4-8.2) Albumin 2.3 g/dL (3.4-5.0) Albumin/Globulin Ratio 0.7 (1.0-1.7) Triglycerides Level 238 mg/dL (0-150) Cholesterol Level 235 mg/dL (0-200) LDL Cholesterol, Calculated 105 mg/dL (0-100) VLDL Cholesterol, Calculated 48 mg/dL (0-40) Non-HDL Cholesterol Calculated 153 mg/dL (0-129) HDL Cholesterol 82 mg/dL (40-60) Cholesterol/HDL Ratio 2.9 Review All relevant outside records, renal labs, imaging studies, telemetry/EKG's were reviewed. Images Images Chest x-ray 04/21/2020: IMPRESSION: 1. Small bilateral pleural effusions, left greater than right with adjacent breast atelectasis versus infiltrate. Mild interstitial prominence could reflect congestive heart failure. 2. Perihilar interstitial and alveolar airspace disease could reflect multifocal pneumonia. Echocardiogram done yesterday There is global hypokinesis of the left ventricle with severe hypokinesis of the inferior and lateral fischer. Doppler and Color Flow revealed trace tricuspid regurgitation with an estimated PAP of 31 mmHg. The systolic function is moderately impaired. The Ejection Fraction is 35-40%. Results notified to Dr. Pleitez of anesthesia service SAENZSOHAIL SADLER MD Apr 22, 2020 11:36
--- NOTE | 2020-04-22 11:52 | NUR ---
RN speaks with Dr. Dillard orders for 40mg of Lasix 1x now for low urine output, RN discusses with him when he would lke to start Lovenox and states 1600 today. States ok to start Azithromycin dailg. States to Fetanyl 75mcg for pain.
[2020-04-22] MEDS ORDERED: FUROSEMIDE 40 MG/4 ML VIAL. IVP ONE (12:00)
[2020-04-22] MEDS ORDERED: IV RINGERS,LACTATED 1000ML 1,000 ML IV SCH (12:00)
[2020-04-22] MEDS: AZITHROMYCIN 250 MG TABLET. PO SCH (12:00)
--- NOTE | 2020-04-22 12:35 | PDOC2 ---
Pulmonary Consultation DATE: 04/22/20 TIME: 12:34 Dyspnea/acute hypoxic respiratory failure Medications Current Medications Lorazepam (Ativan Inj) 0.5 mg 1X ONCE IV Last administered on 04/21/20at 13:10; Start 04/21/20 at 13:00; Stop 04/21/20 at 13:01; Status DC Furosemide (Lasix) 40 mg 1X ONCE IVP Last administered on 04/21/20at 14:04; Start 04/21/20 at 13:45; Stop 04/21/20 at 13:47; Status DC Ceftriaxone Sodium (Rocephin) 1 gm 1X ONCE IVP Last administered on 04/21/20at 13:59; Start 04/21/20 at 13:45; Stop 04/21/20 at 13:47; Status DC Azithromycin 250 ml @ 250 mls/hr 1X ONCE IV Last administered on 04/21/20at 14:03; Start 04/21/20 at 14:00; Stop 04/21/20 at 14:59; Status DC Aspirin (Tung Aspirin) 325 mg 1X ONCE PO Last administered on 04/21/20at 15:21; Start 04/21/20 at 14:15; Stop 04/21/20 at 14:16; Status DC Magnesium Sulfate 100 ml @ 25 mls/hr 1X ONCE IV Last administered on 04/21/20at 15:35; Start 04/21/20 at 14:15; Stop 04/21/20 at 18:14; Status DC Enoxaparin Sodium (Lovenox Per Pharmacy Treatment Dosing) 1 each PRN DAILY PRN MC SEE COMMENTS; Start 04/21/20 at 14:45 Labetalol HCl (Normodyne Iv Push) 20 mg 1X ONCE IVP Last administered on at 14:53; Start 04/21/20 at 15:00; Stop 04/21/20 at 15:01; Status DC Ondansetron HCl (Zofran) 4 mg 1X ONCE IV Last administered on 04/21/20at 14:52; Start 04/21/20 at 15:00; Stop 04/21/20 at 15:01; Status DC Enoxaparin Sodium (Lovenox 120mg Syringe) 110 mg Q12HR SQ Last administered on 04/21/20at 15:21; Start 04/21/20 at 15:00; Stop 04/22/20 at 11:50; Status DC Metoprolol Tartrate (Lopressor) 25 mg BID PO Last administered on 04/22/20at 08:55; Start 04/21/20 at 15:30 Hydralazine HCl (Apresoline) 50 mg 1X ONCE PO ; Start 04/21/20 at 15:30; Stop 04/21/20 at 15:31; Status DC Azithromycin (Zithromax) 250 mg DAILY PO Last administered on 04/22/20at 12:00; Start 04/22/20 at 09:00 Sodium Chloride (Normal Saline Flush) 3 ml QSHIFT PRN IV AFTER MEDS AND BLOOD DRAWS; Start 04/21/20 at 20:00 Ringer's Solution 1,000 ml @ 125 mls/hr Q8H IV ; Start 04/21/20 at 19:54; Stop 04/22/20 at 11:50; Status DC Terbutaline Sulfate (Brethine) 0.25 mg 1X PRN PRN SQ SEE COMMENTS; Start 04/21/20 at 20:00; Stop 04/22/20 at 19:59 Lidocaine HCl (Xylocaine 1% Pf 30ml Vial) 30 ml 1X PRN PRN INJ SEE COMMENTS; Start 04/21/20 at 20:00; Stop 04/23/20 at 19:59 Oxytocin 500 ml @ 0 mls/hr CONT PRN IV SEE I/O RECORD; Start 04/21/20 at 20:00 Oxytocin 500 ml @ 0 mls/hr CONT PRN PRN IV Post delivery bleeding; Start 04/21/20 at 20:00 Ibuprofen (Motrin) 800 mg PRN Q6HRS PRN PO INFLAMMATION; Start 04/21/20 at 20:00 Magnesium Sulfate 500 ml @ 50 mls/hr Q10H IV Last administered on 04/22/20at 06:38; Start 04/21/20 at 20:00 Betamethasone Sodium Phosphate (Celestone Soluspan) 12 mg Q24H IM Last administered on 04/21/20at 20:45; Start 04/21/20 at 20:00; Stop 04/22/20 at 20:01 Labetalol HCl (Normodyne Iv Push) 20 mg PRN Q2HR PRN IVP HYPERTENSION Last administered on 04/22/20at 12:09; Start 04/21/20 at 20:15 Labetalol HCl (Normodyne Iv Push) 40 mg 1X PRN PRN IVP HYPERTENSION Last administered on 04/21/20at 21:19; Start 04/21/20 at 21:00 Alprazolam (Xanax) 0.5 mg 1X ONCE PO Last administered on 04/21/20at 21:15; Start 04/21/20 at 21:30; Stop 04/21/20 at 21:31; Status DC Lidocaine HCl (Lidocaine HCl 2% Abboject) 100 mg STK-MED ONCE .ROUTE ; Start 04/21/20 at 21:38; Stop 04/21/20 at 21:39; Status DC Lidocaine HCl (Xylocaine 2% Topical 5gm Tube) 1 clint 1X ONCE TP Last administered on 04/21/20at 22:03; Start 04/21/20 at 22:00; Stop 04/21/20 at 22:01; Status DC Cefazolin Sodium 3 gm/Dextrose 100 ml @ 200 mls/hr 1X ONCE IV Last administered on 04/22/20at 08:55; Start 04/22/20 at 08:45; Stop 04/22/20 at 09:14; Status DC Citric Acid/ Sodium Citrate (Bicitra) 30 ml 1X ONCE PO Last administered on 04/22/20at 08:54; Start 04/22/20 at 08:45; Stop 04/22/20 at 08:48; Status DC Phenylephrine HCl (PHENYLEPHRINE in 0.9% NACL PF) 1 mg STK-MED ONCE IV ; Start 04/22/20 at 08:45; Stop 04/22/20 at 08:45; Status DC Oxytocin (Pitocin) 10 unit STK-MED ONCE .ROUTE ; Start 04/22/20 at 08:45; Stop 04/22/20 at 08:45; Status DC Ephedrine Sulfate (ePHEDrine PF IN SALINE SYRINGE) 50 mg STK-MED ONCE IV ; Start 04/22/20 at 08:45; Stop 04/22/20 at 08:46; Status DC Morphine Sulfate (Morphine Preservative Free) 10 mg STK-MED ONCE .ROUTE ; Start 04/22/20 at 08:46; Stop 04/22/20 at 08:46; Status DC Fentanyl Citrate (Fentanyl 2ml Vial) 100 mcg STK-MED ONCE .ROUTE ; Start at 08:46; Stop 04/22/20 at 08:46; Status DC Oxytocin (Pitocin) 10 unit STK-MED ONCE .ROUTE ; Start 04/22/20 at 09:31; Stop 04/22/20 at 09:31; Status DC Misoprostol (Cytotec 200mcg Tab) 200 mcg STK-MED ONCE .ROUTE ; Start 04/22/20 at 09:34; Stop 04/22/20 at 09:34; Status DC Misoprostol (Cytotec 200mcg Tab) 200 mcg STK-MED ONCE .ROUTE ; Start 04/22/20 at 09:54; Stop 04/22/20 at 09:54; Status DC Sodium Chloride (Normal Saline Flush) 3 ml QSHIFT PRN IV AFTER MEDS AND BLOOD DRAWS; Start 04/22/20 at 10:30 Oxytocin 500 ml @ 125 mls/hr CONT PRN IV EXCESSIVE POST- BLEEDING; Start 04/22/20 at 10:30; Stop 04/22/20 at 18:29 Ibuprofen (Motrin) 800 mg PRN Q8HRS PRN PO INFLAMMATION; Start 04/22/20 at 10:30 Ondansetron HCl (Zofran) 4 mg PRN Q6HRS PRN IV NAUSEA/VOMITING; Start 04/22/20 at 10:30 Docusate Sodium (Colace) 100 mg PRN BID PRN PO HARD STOOL; Start 04/22/20 at 10:30 Al Hydroxide/Mg Hydroxide (Mylanta Plus Xs) 30 ml PRN Q4HRS PRN PO HEARTBURN / GAS; Start 04/22/20 at 10:30 Simethicone (Gas-X) 80 mg PRN AFTMEALHC PRN PO GAS / BLOATING; Start 04/22/20 at 10:30 Diphenhydramine HCl (Benadryl Oral Elixir) 12.5 mg PRN Q6HRS PRN PO ITCHING; Start 04/22/20 at 10:30 Ferrous Sulfate (Feosol) 325 mg BIDWMEALS PO ; Start 04/22/20 at 17:00 Zolpidem Tartrate (Ambien) 5 mg PRN QHS PRN PO INSOMNIA, MAY REPEAT X1; Start 04/22/20 at 10:30 Oxycodone/ Acetaminophen (Percocet 5/325) 2 tab PRN Q4HRS PRN PO MODERATE PAIN, SEVERE PAIN; Start 04/22/20 at 10:30 Ketorolac Tromethamine (Toradol 30mg Vial) 30 mg PRN Q6HRS PRN IV INFLAMMATION/PAIN; Start 04/22/20 at 10:30; Stop 04/27/20 at 10:29 Multivitamins (Thera M Plus) 1 tab DAILY PO ; Start 04/23/20 at 09:00 Ringer's Solution 1,000 ml @ 50 mls/hr Q20H IV ; Start 04/22/20 at 12:00 Enoxaparin Sodium (Lovenox 120mg Syringe) 110 mg Q12HR SQ ; Start 04/22/20 at 16:00 Furosemide (Lasix) 40 mg 1X ONCE IVP Last administered on 04/22/20at 12:00; Start 04/22/20 at 12:00; Stop 04/22/20 at 12:01; Status DC Lidocaine HCl (Lidocaine HCl 2% Abboject) 100 mg STK-MED ONCE .ROUTE ; Start 04/21/20 at 22:00; Stop 04/22/20 at 12:28; Status DC Fentanyl Citrate (Fentanyl 2ml Vial) 75 mcg PRN Q1HR PRN IVP PAIN; Start 04/22/20 at 12:30; Status UNV Active Scripts Active Reported Clonazepam 0.5 Mg Tablet 1 Tab PO BID PRN Allergies Allergies Coded Allergies Type Severity Reaction Last Updated Verified No Known Drug Allergies 11/23/14 No Vital Signs Vital Signs Date Time Temp Pulse Resp B/P (MAP) Pulse Ox O2 Delivery O2 Flow Rate FiO2 04/22/20 12:09 102 171/84 04/22/20 11:15 97 04/22/20 10:15 97.4 97.4 04/22/20 10:15 Nasal Cannula 2.0 04/21/20 12:45 29 Last Labs Laboratory Tests Test 04/21/20 12:52 04/21/20 13:00 04/21/20 13:11 04/21/20 14:07 White Blood Count 20.1 x10^3/uL (4.0-11.0) Red Blood Count 4.52 x10^6/uL (3.50-5.40) Hemoglobin 12.8 g/dL (12.0-15.5) Hematocrit 37.7 % (36.0-47.0) Mean Corpuscular Volume 84 fL (79-100) Mean Corpuscular Hemoglobin 28 pg (25-35) Mean Corpuscular Hemoglobin Concent 34 g/dL (31-37) Red Cell Distribution Width 14.0 % (11.5-14.5) Platelet Count 569 x10^3/uL (140-400) Neutrophils (%) (Auto) 93 % (31-73) Lymphocytes (%) (Auto) 4 % (24-48) Monocytes (%) (Auto) 3 % (0-9) Eosinophils (%) (Auto) 0 % (0-3) Basophils (%) (Auto) 0 % (0-3) Neutrophils # (Auto) 18.7 x10^3/uL (1.8-7.7) Lymphocytes # (Auto) 0.9 x10^3/uL (1.0-4.8) Monocytes # (Auto) 0.5 x10^3/uL (0.0-1.1) Eosinophils # (Auto) 0.0 x10^3/uL (0.0-0.7) Basophils # (Auto) 0.0 x10^3/uL (0.0-0.2) Segmented Neutrophils % 92 % (35-66) Lymphocytes % 8 % (24-48) Platelet Estimate Increased (ADEQUATE) Platelet Clumps, EDTA Present Giant Platelets Few Maternal Serum HCG Beta Subunit 76491 mIU/mL (0-5) Sodium Level 138 mmol/L (136-145) Potassium Level 4.5 mmol/L (3.5-5.1) Chloride Level 106 mmol/L (98-107) Carbon Dioxide Level 18 mmol/L (21-32) Anion Gap 14 (6-14) Blood Urea Nitrogen 20 mg/dL (7-20) Creatinine 1.0 mg/dL (0.6-1.0) Estimated GFR (Cockcroft-Gault) 60.8 BUN/Creatinine Ratio 20 (6-20) Glucose Level 123 mg/dL (70-99) Lactic Acid Level 2.1 mmol/L (0.4-2.0) Calcium Level 9.7 mg/dL (8.5-10.1) Magnesium Level 1.9 mg/dL (1.8-2.4) Ferritin 29 ng/mL (8-252) Total Bilirubin 0.2 mg/dL (0.2-1.0) Aspartate Amino Transf (AST/SGOT) 25 U/L (15-37) Alanine Aminotransferase (ALT/SGPT) 23 U/L (14-59) Alkaline Phosphatase 163 U/L (46-116) Creatine Kinase 128 U/L (26-192) Creatine Kinase MB (Mass) 5.5 ng/mL (0.0-3.6) Creatine Kinase MB Relative Index 4.3 % (0-4) Troponin I Quantitative 0.202 ng/mL (0.000-0.055) C-Reactive Protein, Quantitative 10.8 mg/L (0-3.3) NY-Xbk-X-Type Natriuretic Peptide 6797 pg/mL (0-124) Total Protein 6.6 g/dL (6.4-8.2) Albumin 2.6 g/dL (3.4-5.0) Albumin/Globulin Ratio 0.7 (1.0-1.7) Lipase 125 U/L (73-393) Thyroid Stimulating Hormone (TSH) 2.336 uIU/mL (0.358-3.74) Urine Collection Type Void Urine Color Yellow Urine Clarity Clear Urine pH 6.0 (<5.0-8.0) Urine Specific [place] 1.020 (1.000-1.030) Urine Protein >=300 mg/dL (NEG-TRACE) Urine Glucose (UA) Negative mg/dL (NEG) Urine Ketones (Stick) Negative mg/dL (NEG) Urine Blood Moderate (NEG) Urine Nitrite Negative (NEG) Urine Bilirubin Negative (NEG) Urine Urobilinogen Dipstick 0.2 mg/dL (0.2 mg/dL) Urine Leukocyte Esterase Negative (NEG) Urine RBC 3-5 /HPF (0-2) Urine WBC 1-4 /HPF (0-4) Urine Squamous Epithelial Cells Mod /LPF Urine Bacteria Few /HPF (0-FEW) Urine Hyaline Casts Few /HPF Urine Random Creatinine 28.0 mg/dL (Not Establ.) Urine Random Total Protein 299.0 mg/dL (Not Establ.) Urine Protein/Creatinine Ratio 39968 mg/g (0-200) Urine Opiates Screen Neg (NEG) Urine Methadone Screen Neg (NEG) Urine Barbiturates Neg (NEG) Urine Phencyclidine Screen Neg (NEG) Urine Amphetamine/Methamphetamine Neg (NEG) Urine Benzodiazepines Screen Neg (NEG) Urine Cocaine Screen Neg (NEG) Urine Cannabinoids Screen Neg (NEG) Urine Ethyl Alcohol Neg (NEG) Bedside Urine HCG, Qualitative Hcg positive (Negative) Prothrombin Time 11.8 SEC (11.7-14.0) Prothromb Time International Ratio 0.9 (0.8-1.1) Activated Partial Thromboplast Time 24 SEC (24-38) D-Dimer (Marian) 1.50 ug/mlFEU (0.00-0.50) Influenza Type A Antigen Negative (NEGATIVE) Influenza Type B Antigen Negative (NEGATIVE) Test 04/21/20 14:08 04/21/20 16:00 04/21/20 19:05 04/22/20 00:29 HIV (1&2) Antibody Screen Nonreactive (Nonreactive) SARS-CoV-2 Antigen (Rapid) Negative (NEGATIVE) Lactic Acid Level 2.4 mmol/L (0.4-2.0) Troponin I Quantitative 0.332 ng/mL (0.000-0.055) 0.351 ng/mL (0.000-0.055) Treponema pallidum Antibody Nonreactive (Nonreactive) Hepatitis B Surface Antigen Nonreactive (Nonreactive) Test 04/22/20 06:05 White Blood Count 12.9 x10^3/uL (4.0-11.0) Red Blood Count 4.14 x10^6/uL (3.50-5.40) Hemoglobin 11.9 g/dL (12.0-15.5) Hematocrit 34.9 % (36.0-47.0) Mean Corpuscular Volume 84 fL (79-100) Mean Corpuscular Hemoglobin 29 pg (25-35) Mean Corpuscular Hemoglobin Concent 34 g/dL (31-37) Red Cell Distribution Width 14.2 % (11.5-14.5) Platelet Count 474 x10^3/uL (140-400) Neutrophils (%) (Auto) 91 % (31-73) Lymphocytes (%) (Auto) 6 % (24-48) Monocytes (%) (Auto) 3 % (0-9) Eosinophils (%) (Auto) 0 % (0-3) Basophils (%) (Auto) 1 % (0-3) Neutrophils # (Auto) 11.7 x10^3/uL (1.8-7.7) Lymphocytes # (Auto) 0.8 x10^3/uL (1.0-4.8) Monocytes # (Auto) 0.4 x10^3/uL (0.0-1.1) Eosinophils # (Auto) 0.0 x10^3/uL (0.0-0.7) Basophils # (Auto) 0.1 x10^3/uL (0.0-0.2) Sodium Level 139 mmol/L (136-145) Potassium Level 4.6 mmol/L (3.5-5.1) Chloride Level 107 mmol/L (98-107) Carbon Dioxide Level 18 mmol/L (21-32) Anion Gap 14 (6-14) Blood Urea Nitrogen 27 mg/dL (7-20) Creatinine 1.1 mg/dL (0.6-1.0) Estimated GFR (Cockcroft-Gault) 54.5 BUN/Creatinine Ratio 25 (6-20) Glucose Level 117 mg/dL (70-99) Calcium Level 8.4 mg/dL (8.5-10.1) Total Bilirubin 0.2 mg/dL (0.2-1.0) Aspartate Amino Transf (AST/SGOT) 31 U/L (15-37) Alanine Aminotransferase (ALT/SGPT) 27 U/L (14-59) Alkaline Phosphatase 131 U/L (46-116) Troponin I Quantitative 0.378 ng/mL (0.000-0.055) Total Protein 5.8 g/dL (6.4-8.2) Albumin 2.3 g/dL (3.4-5.0) Albumin/Globulin Ratio 0.7 (1.0-1.7) Triglycerides Level 238 mg/dL (0-150) Cholesterol Level 235 mg/dL (0-200) LDL Cholesterol, Calculated 105 mg/dL (0-100) VLDL Cholesterol, Calculated 48 mg/dL (0-40) Non-HDL Cholesterol Calculated 153 mg/dL (0-129) HDL Cholesterol 82 mg/dL (40-60) Cholesterol/HDL Ratio 2.9 Assessment Full note dictated GLEN KIDD MD Apr 22, 2020 12:35
[2020-04-22] MEDS: fentaNYL PF VIAL 100 MCG/2 ML VIAL IVP PRN ×3 (12:38→16:51)
--- NOTE | 2020-04-22 12:53 | NUR ---
Jordin Ornelas in [facility]iology Clinic, ECHO set up for June [address] [facility]
--- NOTE | 2020-04-22 14:22 | CONS ---
DATE OF CONSULTATION: PULMONARY CONSULTATION REQUESTING ATTENDING PHYSICIAN: Dr. Romo. REASON FOR CONSULTATION: Dyspnea/acute hypoxic respiratory failure. HISTORY OF PRESENT ILLNESS: This is a 40-year-old female who presented to the Emergency Department yesterday for complaints of cough and increased shortness of breath to the point that she was unable to ambulate or perform activities of daily living. She reports that over the weekend, she was tested for COVID-19, which was negative. She continued to have shortness of breath at home and felt generalized fatigue on Monday. On Monday, she reported to her primary care physician for increased shortness of breath and inability to ambulate secondary to ____ . She also reports having associated symptoms of nausea, vomiting and coughing spells. She was referred to the Emergency Department at that time for further evaluation. She was originally admitted to the sixth floor and had concerns for positive hCG; however, the patient reported that she has chronically had hCG and has PCOS. Further imaging revealed that she was 36 weeks' and she underwent a with Dr. Dillard today. PAST MEDICAL HISTORY: Anxiety, obesity, PCOS, hyperlipidemia, history of right lower extremity DVT postoperatively. PAST SURGICAL HISTORY: Right ankle surgery x 2, right knee surgery, breast lift with augmentation, tonsillectomy and now status post today. SOCIAL HISTORY: She denies any alcohol use, recreational drug use or tobacco use. 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 FAMILY HISTORY: Positive for diabetes, non-Hodgkin's lymphoma and heart failure. REVIEW OF SYSTEMS: A 12-point was reviewed with the patient that is negative except for pertinent positives in the HPI. PHYSICAL EXAMINATION: VITAL SIGNS: Saturation 98% on 2 liters nasal cannula, heart rate 95, respiratory rate 18, BP 171/84, temperature 97.4. HEENT: Eyes, the sclerae were nonicteric. NECK: No JVD. No lymphadenopathy. CHEST: Bilateral lower lobe decreased breath sounds and fine crackles, full chest expansion. CARDIOVASCULAR: Regular rate and rhythm with S1 and S2, no S3. ABDOMEN: Soft with wound VAC in place. Tender to palpation. EXTREMITIES: No clubbing, no cyanosis; however, +2 bilateral lower extremity edema. NEUROLOGICAL: The patient is awake and alert and follows commands. LABORATORY DATA: White blood cell count 12.9, hemoglobin 11.9, hematocrit 34.9, platelet count ____. D-dimer 1.5. Sodium 139, potassium 4.6, BUN 27, creatinine 1.1. IMAGIN. Chest x-ray showed small bilateral pleural effusions, left greater than right with adjacent ____ atelectasis versus mild infiltrate. 2. Lower extremity ultrasound showed no evidence of DVT in the right lower extremity. 3. Ultrasound report showed that there was one single living intrauterine at 36 weeks and 4 days. ASSESSMENT: 1. Hypoxic respiratory failure. 2. Suspected COVID-19 infection. 3. Acute systolic heart failure. 4. Preeclampsia. 5. 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 6. A 36 weeks intrauterine , now status post . 7. Anxiety. 8. Hyperlipidemia. 9. History of right lower extremity deep venous thrombosis. PLAN: 1. Continue supplemental oxygen as needed to keep oxygen saturations greater than 92%, currently on 2 liters. Wean as tolerated. 2. Pulmonary hygiene/incentive spirometry. 3. Follow Cardiology recommendations in regards to diuresis and hypertension. 4. Anxiety per primary care physician. 5. Follow OB recommendations. 6. Physical therapy/occupational therapy. 7. Follow Nephrology recommendations in regards to proteinuria. 8. DVT/GI prophylaxis. I appreciate the privilege in sharing the care in this patient. Thank you for this consultation. GLEN KIDD MD DR: ZAC/yessenia JOB#: [id number] / [id number]
[2020-04-22 15:27] LABS: ALBUMIN 2.2 g/dL (3.4-5.0); ALBUMIN/GLOBULIN RATIO 0.6 (1.0-1.7); CALCIUM 8.1 mg/dL (8.5-10.1); CREATININE 1.2 mg/dL (0.6-1.0); GFR 49.3; POTASSIUM 4.6 mmol/L (3.5-5.1); TOTAL BILIRUBIN 0.1 mg/dL (0.2-1.0); TOTAL PROTEIN 5.7 g/dL (6.4-8.2)
[2020-04-22 15:29] LABS: BASO % 0 % (0-3); EOS % 0 % (0-3); HEMATOCRIT 34.7 % (36.0-47.0); HEMOGLOBIN 11.4 g/dL (12.0-15.5); LYMPH # 0.8 x10^3/uL (1.0-4.8); LYMPH % 4 % (24-48); MEAN CORPUSCULAR HEMOGLOBIN 28 pg (25-35); MEAN CORPUSCULAR HGB CONC 33 g/dL (31-37); MEAN CORPUSCULAR VOLUME 85 fL (79-100); MONO % 5 % (0-9); NEUT # 17.9 x10^3/uL (1.8-7.7); NEUT % 91 % (31-73); PLATELET COUNT 514 x10^3/uL (140-400); RED BLOOD COUNT 4.09 x10^6/uL (3.50-5.40); WHITE BLOOD COUNT 19.8 x10^3/uL (4.0-11.0)
--- NOTE | 2020-04-22 16:00 | NUR ---
RN at bedside assessing pt. Fundus firm, chucks and pad changed at this time. Pt. states some pain but still breathing labored at this time. RR at 30 respirations/minute. FOB at the bedside.
[2020-04-22] MEDS: FERROUS SULFATE 325 MG TABLET. PO SCH (16:35)
[2020-04-22] MEDS: BENZONATATE 100 MG CAPSULE. PO PRN (16:35)
[2020-04-22] MEDS: ONDANSETRON PF 4 MG/2 ML VIAL. IV PRN (18:05)
--- NOTE | 2020-04-22 19:15 | NUR ---
RN from L&D at bedside. Pericare, fundal check and cath. care done. Minimal bleeding noted. Fundus firm and at the umbulicus. 150ml of clear yellow urine measured. No complaints of pain or discomfort. Participates in moving, lifting and turning independently. Abdominal dressing dry. Persistent cough noted. Spouse at bedside.
--- NOTE | 2020-04-22 22:13 | NUR ---
Started on clear liquid diet.
[2020-04-23] VITALS (13 sets, daily range): BP systolic 119–158; BP diastolic 74–101
--- NOTE | 2020-04-23 | NUR ---
Patricia and cath care done with OB assessment. toradol given for pain and tessalon perle given for cough.
[2020-04-23] MEDS: BENZONATATE 100 MG CAPSULE. PO PRN ×2 (00:04→08:17)
[2020-04-23] MEDS: KETOROLAC 30 MG/ML VIAL. IV PRN ×2 (00:06→06:20)
--- NOTE | 2020-04-23 01:41 | NUR ---
Transfer of care Note:Report Given at bedside per Randi Rn, Pt sleeping poc explained pt stated pain to lower abdomen is better 3/10 after Tordol given, assessment completed will resume care and continue to monitor pt. at bedside.
[2020-04-23] MEDS: MAGNESIUM SULFATE 20GM 500 ML IV SCH ×3 (02:44→21:06)
--- NOTE | 2020-04-23 03:00 | NUR ---
New bag of MAGNESUIM hung. Infusion continues at 2 grams an hour (50 ml).
[2020-04-23 05:18] LABS: BASO % 0 % (0-3); EOS % 0 % (0-3); HEMATOCRIT 30.8 % (36.0-47.0); HEMOGLOBIN 10.2 g/dL (12.0-15.5); LYMPH # 1.4 x10^3/uL (1.0-4.8); LYMPH % 8 % (24-48); MEAN CORPUSCULAR HEMOGLOBIN 28 pg (25-35); MEAN CORPUSCULAR HGB CONC 33 g/dL (31-37); MEAN CORPUSCULAR VOLUME 85 fL (79-100); MONO % 6 % (0-9); NEUT # 14.8 x10^3/uL (1.8-7.7); NEUT % 86 % (31-73); PLATELET COUNT 492 x10^3/uL (140-400); RED BLOOD COUNT 3.62 x10^6/uL (3.50-5.40); WHITE BLOOD COUNT 17.2 x10^3/uL (4.0-11.0)
[2020-04-23 05:47] LABS: ALBUMIN 2.1 g/dL (3.4-5.0); ALBUMIN/GLOBULIN RATIO 0.6 (1.0-1.7); CALCIUM 7.8 mg/dL (8.5-10.1); CREATININE 1.4 mg/dL (0.6-1.0); GFR 41.2; POTASSIUM 4.7 mmol/L (3.5-5.1); TOTAL BILIRUBIN 0.1 mg/dL (0.2-1.0); TOTAL PROTEIN 5.4 g/dL (6.4-8.2)
--- NOTE | 2020-04-23 06:30 | NUR ---
Pericare and catheter care done. Small amout of bleeding on pad. Toradol given for pain management. Addendum: 04/23/20 at 0639 by JOEL ASHLEY RN Tolerating clear liquids well.
--- NOTE | 2020-04-23 07:00 | NUR ---
Pat Barron RN and Pat Campbell RN go to ICU to do fundal checks at this time. Pt. is resting, states comfortable, small blood noted on pt.'s pad. Pt. denies headache and VSS. No clonus. DTR +1-+2. PT. assisted in sitting up higher in bed and RN states they will be back at 0930. Addendum: 04/23/20 at 0842 by PAT BARRON RN RR 18, visibly less labored from yesterday's assessment. Pt. states easier to breathe today.
--- NOTE | 2020-04-23 07:59 | PDOC ---
[employer] PROGRESS NOTE Date of Service DOS: DATE: 04/23/20 TIME: 07:51 Chief Complaint Chief Complaint severe pre-eclampsia, htn control with labetolol, 36 wks SIRS acute hypoxic respiratory failure, acute decompensated systolic CHF< with demand NSTEMI type 2, sepsis, pulm congestion, treating pneumonia, COVID still pending, rapid was negative, obese, BMI 43 acute renal fauilre with proteinuria, consult renal, start 24 hour urine History of Present Illness History of Present Illness to OR then ICU steroids given for fetus lung dev. discussed at length with Dr. Odonnell, renal fxn and cardiac fxn are still concerning. 04/23: Status post delivery, post-op pain well controlled. Blood pressure improved following delivery. Discussed with OB, continue magnesium infusion till 10 AM. She will likely discharge to medical floors, as ICU beds are needed. 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 Ischemic evaluation as outpatient, per cardiology. Creatinine rising slightly, possibly from diuresis. She is receiving therapeutic dose of Lovenox for concern of PE. Discussed with CTA, her GFR is good enough for reduced dose IV contrast, but they are recommending some fluids to help clear her kidneys. Patient is comfortable receiving CTA today to rule out PE. Discussed with RN. Vitals/I&O Vitals/I&O: Vital Signs Date Time Temp Pulse Resp B/P (MAP) Pulse Ox O2 Delivery O2 Flow Rate FiO2 04/23/20 07:00 68 15 144/101 (115) 100 Room Air 04/23/20 06:00 97.5 97.5 04/23/20 05:00 2.0 I & O 04/22/20 04/22/20 04/23/20 15:00 23:00 07:00 Intake Total 2114 ml 490 ml Output Total 925 ml 705 ml 330 ml Balance -925 ml 1409 ml 160 ml Physical Exam General: Alert, Oriented X3, Cooperative, No acute distress Heart: Regular rate, Other Lungs: Clear Abdomen: Normal bowel sounds, Soft, No tenderness Extremities: No clubbing, Other (LE edema +2 evette, nml reflexes) Skin: No rashes, No breakdown, Other Labs Labs: Laboratory Tests Test 04/22/20 14:50 04/23/20 04:45 White Blood Count 19.8 x10^3/uL (4.0-11.0) 17.2 x10^3/uL (4.0-11.0) Red Blood Count 4.09 x10^6/uL (3.50-5.40) 3.62 x10^6/uL (3.50-5.40) Hemoglobin 11.4 g/dL (12.0-15.5) 10.2 g/dL (12.0-15.5) Hematocrit 34.7 % (36.0-47.0) 30.8 % (36.0-47.0) Mean Corpuscular Volume 85 fL (79-100) 85 fL (79-100) Mean Corpuscular Hemoglobin 28 pg (25-35) 28 pg (25-35) Mean Corpuscular Hemoglobin Concent 33 g/dL (31-37) 33 g/dL (31-37) Red Cell Distribution Width 14.0 % (11.5-14.5) 14.0 % (11.5-14.5) Platelet Count 514 x10^3/uL (140-400) 492 x10^3/uL (140-400) Neutrophils (%) (Auto) 91 % (31-73) 86 % (31-73) Lymphocytes (%) (Auto) 4 % (24-48) 8 % (24-48) Monocytes (%) (Auto) 5 % (0-9) 6 % (0-9) Eosinophils (%) (Auto) 0 % (0-3) 0 % (0-3) Basophils (%) (Auto) 0 % (0-3) 0 % (0-3) Neutrophils # (Auto) 17.9 x10^3/uL (1.8-7.7) 14.8 x10^3/uL (1.8-7.7) Lymphocytes # (Auto) 0.8 x10^3/uL (1.0-4.8) 1.4 x10^3/uL (1.0-4.8) Monocytes # (Auto) 1.0 x10^3/uL (0.0-1.1) 1.0 x10^3/uL (0.0-1.1) Eosinophils # (Auto) 0.0 x10^3/uL (0.0-0.7) 0.0 x10^3/uL (0.0-0.7) Basophils # (Auto) 0.0 x10^3/uL (0.0-0.2) 0.0 x10^3/uL (0.0-0.2) Sodium Level 138 mmol/L (136-145) 134 mmol/L (136-145) Potassium Level 4.6 mmol/L (3.5-5.1) 4.7 mmol/L (3.5-5.1) Chloride Level 106 mmol/L (98-107) 102 mmol/L (98-107) Carbon Dioxide Level 20 mmol/L (21-32) 22 mmol/L (21-32) Anion Gap 12 (6-14) 10 (6-14) Blood Urea Nitrogen 28 mg/dL (7-20) 36 mg/dL (7-20) Creatinine 1.2 mg/dL (0.6-1.0) 1.4 mg/dL (0.6-1.0) Estimated GFR (Cockcroft-Gault) 49.3 41.2 BUN/Creatinine Ratio 23 (6-20) 26 (6-20) Glucose Level 130 mg/dL (70-99) 102 mg/dL (70-99) Calcium Level 8.1 mg/dL (8.5-10.1) 7.8 mg/dL (8.5-10.1) Total Bilirubin 0.1 mg/dL (0.2-1.0) 0.1 mg/dL (0.2-1.0) Aspartate Amino Transf (AST/SGOT) 31 U/L (15-37) 28 U/L (15-37) Alanine Aminotransferase (ALT/SGPT) 29 U/L (14-59) 27 U/L (14-59) Alkaline Phosphatase 129 U/L (46-116) 118 U/L (46-116) Total Protein 5.7 g/dL (6.4-8.2) 5.4 g/dL (6.4-8.2) Albumin 2.2 g/dL (3.4-5.0) 2.1 g/dL (3.4-5.0) Albumin/Globulin Ratio 0.6 (1.0-1.7) 0.6 (1.0-1.7) Review of Systems Review of Systems: Denies fever, denies abdominal pain, denies shortness of breath. 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 Medications: Current Medications Medications (Trade) Dose Ordered Sig/Waldemar Route PRN Reason Start Time Stop Time Status Last Admin Dose Admin Azithromycin (Zithromax) 250 mg DAILY PO 04/22/20 09:00 04/22/20 12:00 Cefazolin Sodium 3 gm/Dextrose 100 ml @ 200 mls/hr 1X ONCE IV 04/22/20 08:45 04/22/20 09:14 DC 04/22/20 08:55 Citric Acid/ Sodium Citrate (Bicitra) 30 ml 1X ONCE PO 04/22/20 08:45 04/22/20 08:48 DC 04/22/20 08:54 Ondansetron HCl (Zofran) 4 mg PRN Q6HRS PRN IV NAUSEA/VOMITING 04/22/20 10:30 04/22/20 18:05 Ferrous Sulfate (Feosol) 325 mg BIDWMEALS PO 04/22/20 17:00 04/22/20 16:35 Ketorolac Tromethamine (Toradol 30mg Vial) 30 mg PRN Q6HRS PRN IV INFLAMMATION/PAIN 04/22/20 10:30 04/27/20 10:29 04/23/20 06:20 Ringer's Solution 1,000 ml @ 50 mls/hr Q20H IV 04/22/20 12:00 04/23/20 04:22 Enoxaparin Sodium (Lovenox 120mg Syringe) 110 mg Q12HR SQ 04/22/20 16:00 04/23/20 00:33 Furosemide (Lasix) 40 mg 1X ONCE IVP 04/22/20 12:00 04/22/20 12:01 DC 04/22/20 12:00 Fentanyl Citrate (Fentanyl 2ml Vial) 75 mcg PRN Q1HR PRN IVP PAIN 04/22/20 12:30 04/22/20 16:51 Benzonatate (Tessalon Perle) 100 mg PRN Q8HRS PRN PO COUGH 04/22/20 16:00 04/23/20 00:04 Justifications for Admission Other Justification RIKA JONAS MD Apr 23, 2020 07:59
[2020-04-23] MEDS: AZITHROMYCIN 250 MG TABLET. PO SCH (08:17)
[2020-04-23] MEDS: MULTIVITAMIN with MINERAL TABLET. PO SCH (08:17)
[2020-04-23] MEDS: METOPROLOL TART IMMED RELEASE 25 MG TABLET. PO SCH (08:18)
[2020-04-23] MEDS: FERROUS SULFATE 325 MG TABLET. PO SCH ×2 (08:18→17:08)
--- NOTE | 2020-04-23 08:35 | PDOC ---
PULMONARY PROGRESS NOTES DATE: 04/23/20 TIME: 08:35 Subjective Patient is now on room air denies any shortness of breath, cough No overnight concerns from nursing Vitals Vital Signs Date Time Temp Pulse Resp B/P (MAP) Pulse Ox O2 Delivery O2 Flow Rate FiO2 04/23/20 08:18 77 158/99 04/23/20 07:00 15 100 Room Air 04/23/20 06:00 97.5 97.5 04/23/20 05:00 2.0 ROS: No Nausea, No Chest Pain, No Abdominal Pain, No Increase Cough General: Alert, Oriented X4 Lungs: Clear Cardiovascular: S1, S2 Abdomen: Soft, Non-tender Neuro Exam: Alert, Oriented Skin: Warm Labs Laboratory Tests Test 04/21/20 12:52 04/21/20 13:00 04/21/20 13:11 04/21/20 14:07 White Blood Count 20.1 x10^3/uL (4.0-11.0) Red Blood Count 4.52 x10^6/uL (3.50-5.40) Hemoglobin 12.8 g/dL (12.0-15.5) Hematocrit 37.7 % (36.0-47.0) Mean Corpuscular Volume 84 fL (79-100) Mean Corpuscular Hemoglobin 28 pg (25-35) Mean Corpuscular Hemoglobin Concent 34 g/dL (31-37) Red Cell Distribution Width 14.0 % (11.5-14.5) Platelet Count 569 x10^3/uL (140-400) Neutrophils (%) (Auto) 93 % (31-73) Lymphocytes (%) (Auto) 4 % (24-48) Monocytes (%) (Auto) 3 % (0-9) Eosinophils (%) (Auto) 0 % (0-3) Basophils (%) (Auto) 0 % (0-3) Neutrophils # (Auto) 18.7 x10^3/uL (1.8-7.7) Lymphocytes # (Auto) 0.9 x10^3/uL (1.0-4.8) Monocytes # (Auto) 0.5 x10^3/uL (0.0-1.1) Eosinophils # (Auto) 0.0 x10^3/uL (0.0-0.7) Basophils # (Auto) 0.0 x10^3/uL (0.0-0.2) Segmented Neutrophils % 92 % (35-66) Lymphocytes % 8 % (24-48) Platelet Estimate Increased (ADEQUATE) Platelet Clumps, EDTA Present Giant Platelets Few Maternal Serum HCG Beta Subunit 50923 mIU/mL (0-5) Sodium Level 138 mmol/L (136-145) Potassium Level 4.5 mmol/L (3.5-5.1) Chloride Level 106 mmol/L (98-107) Carbon Dioxide Level 18 mmol/L (21-32) Anion Gap 14 (6-14) Blood Urea Nitrogen 20 mg/dL (7-20) Creatinine 1.0 mg/dL (0.6-1.0) Estimated GFR (Cockcroft-Gault) 60.8 BUN/Creatinine Ratio 20 (6-20) Glucose Level 123 mg/dL (70-99) Lactic Acid Level 2.1 mmol/L (0.4-2.0) Calcium Level 9.7 mg/dL (8.5-10.1) Magnesium Level 1.9 mg/dL (1.8-2.4) Ferritin 29 ng/mL (8-252) Total Bilirubin 0.2 mg/dL (0.2-1.0) Aspartate Amino Transf (AST/SGOT) 25 U/L (15-37) Alanine Aminotransferase (ALT/SGPT) 23 U/L (14-59) Alkaline Phosphatase 163 U/L (46-116) Creatine Kinase 128 U/L (26-192) Creatine Kinase MB (Mass) 5.5 ng/mL (0.0-3.6) Creatine Kinase MB Relative Index 4.3 % (0-4) Troponin I Quantitative 0.202 ng/mL (0.000-0.055) C-Reactive Protein, Quantitative 10.8 mg/L (0-3.3) IJ-Ett-H-Type Natriuretic Peptide 6797 pg/mL (0-124) Total Protein 6.6 g/dL (6.4-8.2) Albumin 2.6 g/dL (3.4-5.0) Albumin/Globulin Ratio 0.7 (1.0-1.7) Lipase 125 U/L (73-393) Thyroid Stimulating Hormone (TSH) 2.336 uIU/mL (0.358-3.74) Urine Collection Type Void Urine Color Yellow Urine Clarity Clear Urine pH 6.0 (<5.0-8.0) Urine Specific [place] 1.020 (1.000-1.030) Urine Protein >=300 mg/dL (NEG-TRACE) Urine Glucose (UA) Negative mg/dL (NEG) Urine Ketones (Stick) Negative mg/dL (NEG) Urine Blood Moderate (NEG) Urine Nitrite Negative (NEG) Urine Bilirubin Negative (NEG) Urine Urobilinogen Dipstick 0.2 mg/dL (0.2 mg/dL) Urine Leukocyte Esterase Negative (NEG) Urine RBC 3-5 /HPF (0-2) Urine WBC 1-4 /HPF (0-4) Urine Squamous Epithelial Cells Mod /LPF Urine Bacteria Few /HPF (0-FEW) Urine Hyaline Casts Few /HPF Urine Random Creatinine 28.0 mg/dL (Not Establ.) Urine Random Total Protein 299.0 mg/dL (Not Establ.) Urine Protein/Creatinine Ratio 51743 mg/g (0-200) Urine Opiates Screen Neg (NEG) Urine Methadone Screen Neg (NEG) Urine Barbiturates Neg (NEG) Urine Phencyclidine Screen Neg (NEG) Urine Amphetamine/Methamphetamine Neg (NEG) Urine Benzodiazepines Screen Neg (NEG) Urine Cocaine Screen Neg (NEG) Urine Cannabinoids Screen Neg (NEG) Urine Ethyl Alcohol Neg (NEG) Bedside Urine HCG, Qualitative Hcg positive (Negative) Prothrombin Time 11.8 SEC (11.7-14.0) Prothromb Time International Ratio 0.9 (0.8-1.1) Activated Partial Thromboplast Time 24 SEC (24-38) D-Dimer ([place]) 1.50 ug/mlFEU (0.00-0.50) Coronavirus (PCR) Not detected (Not Detected) Influenza Type A Antigen Negative (NEGATIVE) Influenza Type B Antigen Negative (NEGATIVE) Test 04/21/20 14:08 04/21/20 16:00 04/21/20 19:05 04/22/20 00:29 HIV (1&2) Antibody Screen Nonreactive (Nonreactive) SARS-CoV-2 Antigen (Rapid) Negative (NEGATIVE) Lactic Acid Level 2.4 mmol/L (0.4-2.0) Troponin I Quantitative 0.332 ng/mL (0.000-0.055) 0.351 ng/mL (0.000-0.055) Treponema pallidum Antibody Nonreactive (Nonreactive) Hepatitis B Surface Antigen Nonreactive (Nonreactive) Rubella IgG Antibody 2.98 index (Immune >0.99) Test 04/22/20 06:05 04/22/20 14:50 04/23/20 04:45 White Blood Count 12.9 x10^3/uL (4.0-11.0) 19.8 x10^3/uL (4.0-11.0) 17.2 x10^3/uL (4.0-11.0) Red Blood Count 4.14 x10^6/uL (3.50-5.40) 4.09 x10^6/uL (3.50-5.40) 3.62 x10^6/uL (3.50-5.40) Hemoglobin 11.9 g/dL (12.0-15.5) 11.4 g/dL (12.0-15.5) 10.2 g/dL (12.0-15.5) Hematocrit 34.9 % (36.0-47.0) 34.7 % (36.0-47.0) 30.8 % (36.0-47.0) Mean Corpuscular Volume 84 fL (79-100) 85 fL (79-100) 85 fL (79-100) Mean Corpuscular Hemoglobin 29 pg (25-35) 28 pg (25-35) 28 pg (25-35) Mean Corpuscular Hemoglobin Concent 34 g/dL (31-37) 33 g/dL (31-37) 33 g/dL (31-37) Red Cell Distribution Width 14.2 % (11.5-14.5) 14.0 % (11.5-14.5) 14.0 % (11.5-14.5) Platelet Count 474 x10^3/uL (140-400) 514 x10^3/uL (140-400) 492 x10^3/uL (140-400) Neutrophils (%) (Auto) 91 % (31-73) 91 % (31-73) 86 % (31-73) Lymphocytes (%) (Auto) 6 % (24-48) 4 % (24-48) 8 % (24-48) Monocytes (%) (Auto) 3 % (0-9) 5 % (0-9) 6 % (0-9) Eosinophils (%) (Auto) 0 % (0-3) 0 % (0-3) 0 % (0-3) Basophils (%) (Auto) 1 % (0-3) 0 % (0-3) 0 % (0-3) Neutrophils # (Auto) 11.7 x10^3/uL (1.8-7.7) 17.9 x10^3/uL (1.8-7.7) 14.8 x10^3/uL (1.8-7.7) Lymphocytes # (Auto) 0.8 x10^3/uL (1.0-4.8) 0.8 x10^3/uL (1.0-4.8) 1.4 x10^3/uL (1.0-4.8) Monocytes # (Auto) 0.4 x10^3/uL (0.0-1.1) 1.0 x10^3/uL (0.0-1.1) 1.0 x10^3/uL (0.0-1.1) Eosinophils # (Auto) 0.0 x10^3/uL (0.0-0.7) 0.0 x10^3/uL (0.0-0.7) 0.0 x10^3/uL (0.0-0.7) Basophils # (Auto) 0.1 x10^3/uL (0.0-0.2) 0.0 x10^3/uL (0.0-0.2) 0.0 x10^3/uL (0.0-0.2) Sodium Level 139 mmol/L (136-145) 138 mmol/L (136-145) 134 mmol/L (136-145) Potassium Level 4.6 mmol/L (3.5-5.1) 4.6 mmol/L (3.5-5.1) 4.7 mmol/L (3.5-5.1) Chloride Level 107 mmol/L (98-107) 106 mmol/L (98-107) 102 mmol/L (98-107) Carbon Dioxide Level 18 mmol/L (21-32) 20 mmol/L (21-32) 22 mmol/L (21-32) Anion Gap 14 (6-14) 12 (6-14) 10 (6-14) Blood Urea Nitrogen 27 mg/dL (7-20) 28 mg/dL (7-20) 36 mg/dL (7-20) Creatinine 1.1 mg/dL (0.6-1.0) 1.2 mg/dL (0.6-1.0) 1.4 mg/dL (0.6-1.0) Estimated GFR (Cockcroft-Gault) 54.5 49.3 41.2 BUN/Creatinine Ratio 25 (6-20) 23 (6-20) 26 (6-20) Glucose Level 117 mg/dL (70-99) 130 mg/dL (70-99) 102 mg/dL (70-99) Calcium Level 8.4 mg/dL (8.5-10.1) 8.1 mg/dL (8.5-10.1) 7.8 mg/dL (8.5-10.1) Total Bilirubin 0.2 mg/dL (0.2-1.0) 0.1 mg/dL (0.2-1.0) 0.1 mg/dL (0.2-1.0) Aspartate Amino Transf (AST/SGOT) 31 U/L (15-37) 31 U/L (15-37) 28 U/L (15-37) Alanine Aminotransferase (ALT/SGPT) 27 U/L (14-59) 29 U/L (14-59) 27 U/L (14-59) Alkaline Phosphatase 131 U/L (46-116) 129 U/L (46-116) 118 U/L (46-116) Troponin I Quantitative 0.378 ng/mL (0.000-0.055) Total Protein 5.8 g/dL (6.4-8.2) 5.7 g/dL (6.4-8.2) 5.4 g/dL (6.4-8.2) Albumin 2.3 g/dL (3.4-5.0) 2.2 g/dL (3.4-5.0) 2.1 g/dL (3.4-5.0) Albumin/Globulin Ratio 0.7 (1.0-1.7) 0.6 (1.0-1.7) 0.6 (1.0-1.7) Triglycerides Level 238 mg/dL (0-150) Cholesterol Level 235 mg/dL (0-200) LDL Cholesterol, Calculated 105 mg/dL (0-100) VLDL Cholesterol, Calculated 48 mg/dL (0-40) Non-HDL Cholesterol Calculated 153 mg/dL (0-129) HDL Cholesterol 82 mg/dL (40-60) Cholesterol/HDL Ratio 2.9 Laboratory Tests Test 04/22/20 14:50 04/23/20 04:45 White Blood Count 19.8 x10^3/uL (4.0-11.0) 17.2 x10^3/uL (4.0-11.0) Red Blood Count 4.09 x10^6/uL (3.50-5.40) 3.62 x10^6/uL (3.50-5.40) Hemoglobin 11.4 g/dL (12.0-15.5) 10.2 g/dL (12.0-15.5) Hematocrit 34.7 % (36.0-47.0) 30.8 % (36.0-47.0) Mean Corpuscular Volume 85 fL (79-100) 85 fL (79-100) Mean Corpuscular Hemoglobin 28 pg (25-35) 28 pg (25-35) Mean Corpuscular Hemoglobin Concent 33 g/dL (31-37) 33 g/dL (31-37) Red Cell Distribution Width 14.0 % (11.5-14.5) 14.0 % (11.5-14.5) Platelet Count 514 x10^3/uL (140-400) 492 x10^3/uL (140-400) Neutrophils (%) (Auto) 91 % (31-73) 86 % (31-73) Lymphocytes (%) (Auto) 4 % (24-48) 8 % (24-48) Monocytes (%) (Auto) 5 % (0-9) 6 % (0-9) Eosinophils (%) (Auto) 0 % (0-3) 0 % (0-3) Basophils (%) (Auto) 0 % (0-3) 0 % (0-3) Neutrophils # (Auto) 17.9 x10^3/uL (1.8-7.7) 14.8 x10^3/uL (1.8-7.7) Lymphocytes # (Auto) 0.8 x10^3/uL (1.0-4.8) 1.4 x10^3/uL (1.0-4.8) Monocytes # (Auto) 1.0 x10^3/uL (0.0-1.1) 1.0 x10^3/uL (0.0-1.1) Eosinophils # (Auto) 0.0 x10^3/uL (0.0-0.7) 0.0 x10^3/uL (0.0-0.7) Basophils # (Auto) 0.0 x10^3/uL (0.0-0.2) 0.0 x10^3/uL (0.0-0.2) Sodium Level 138 mmol/L (136-145) 134 mmol/L (136-145) Potassium Level 4.6 mmol/L (3.5-5.1) 4.7 mmol/L (3.5-5.1) Chloride Level 106 mmol/L (98-107) 102 mmol/L (98-107) Carbon Dioxide Level 20 mmol/L (21-32) 22 mmol/L (21-32) Anion Gap 12 (6-14) 10 (6-14) Blood Urea Nitrogen 28 mg/dL (7-20) 36 mg/dL (7-20) Creatinine 1.2 mg/dL (0.6-1.0) 1.4 mg/dL (0.6-1.0) Estimated GFR (Cockcroft-Gault) 49.3 41.2 BUN/Creatinine Ratio 23 (6-20) 26 (6-20) Glucose Level 130 mg/dL (70-99) 102 mg/dL (70-99) Calcium Level 8.1 mg/dL (8.5-10.1) 7.8 mg/dL (8.5-10.1) Total Bilirubin 0.1 mg/dL (0.2-1.0) 0.1 mg/dL (0.2-1.0) Aspartate Amino Transf (AST/SGOT) 31 U/L (15-37) 28 U/L (15-37) Alanine Aminotransferase (ALT/SGPT) 29 U/L (14-59) 27 U/L (14-59) Alkaline Phosphatase 129 U/L (46-116) 118 U/L (46-116) Total Protein 5.7 g/dL (6.4-8.2) 5.4 g/dL (6.4-8.2) Albumin 2.2 g/dL (3.4-5.0) 2.1 g/dL (3.4-5.0) Albumin/Globulin Ratio 0.6 (1.0-1.7) 0.6 (1.0-1.7) Medications Active Scripts Medications Dose Route/Sig Max Daily Dose Days Date Category Clonazepam 0.5 Mg Tablet 1 Tab PO BID PRN 01/30/15 Reported Comments Chest x-ray today, reviewed improved pulmonary edema Impression . ASSESSMENT: 1. Hypoxic respiratory failure. 2. Suspected COVID-19 infection. 3. Acute systolic heart failure. 4. Preeclampsia. 5. 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 6. A 36 weeks intrauterine , now status post . 7. Anxiety. 8. Hyperlipidemia. 9. History of right lower extremity deep venous thrombosis. Plan . PLAN: Patient is stable from a respiratory standpoint, remains on room air Chest x-ray reviewed, improved pulmonary edema continue diuresis Continue aggressive pulmonary hygiene, incentive spirometry Follow cardiology recommendations in regards to diuresis and hypertension Follow OB recommendations Follow nephrology recommendations in regards to proteinuria and acute kidney injury Physical therapy/Occupational Therapy DVT/GI prophylaxis Discussed with RN Okay to transfer out of intensive care unit today and we will sign off at this time as the patient is stable from a pulmonary standpoint Please call with any questions or concerns GLEN KIDD MD Apr 23, 2020 08:35
--- NOTE | 2020-04-23 10:24 | PDOC ---
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 feeling much better and breathing room air with oxygen saturation 98%. She denies H/A, CP, SOB or abd pain. Pain is controlled. Pt. will breast pump and desires to see new born. BP improving. Urine output is good. Lab Laboratory Tests Test 04/21/20 12:52 04/21/20 13:00 04/21/20 13:11 04/21/20 14:07 White Blood Count 20.1 x10^3/uL (4.0-11.0) Red Blood Count 4.52 x10^6/uL (3.50-5.40) Hemoglobin 12.8 g/dL (12.0-15.5) Hematocrit 37.7 % (36.0-47.0) Mean Corpuscular Volume 84 fL (79-100) Mean Corpuscular Hemoglobin 28 pg (25-35) Mean Corpuscular Hemoglobin Concent 34 g/dL (31-37) Red Cell Distribution Width 14.0 % (11.5-14.5) Platelet Count 569 x10^3/uL (140-400) Neutrophils (%) (Auto) 93 % (31-73) Lymphocytes (%) (Auto) 4 % (24-48) Monocytes (%) (Auto) 3 % (0-9) Eosinophils (%) (Auto) 0 % (0-3) Basophils (%) (Auto) 0 % (0-3) Neutrophils # (Auto) 18.7 x10^3/uL (1.8-7.7) Lymphocytes # (Auto) 0.9 x10^3/uL (1.0-4.8) Monocytes # (Auto) 0.5 x10^3/uL (0.0-1.1) Eosinophils # (Auto) 0.0 x10^3/uL (0.0-0.7) Basophils # (Auto) 0.0 x10^3/uL (0.0-0.2) Segmented Neutrophils % 92 % (35-66) Lymphocytes % 8 % (24-48) Platelet Estimate Increased (ADEQUATE) Platelet Clumps, EDTA Present Giant Platelets Few Maternal Serum HCG Beta Subunit 29862 mIU/mL (0-5) Sodium Level 138 mmol/L (136-145) Potassium Level 4.5 mmol/L (3.5-5.1) Chloride Level 106 mmol/L (98-107) Carbon Dioxide Level 18 mmol/L (21-32) Anion Gap 14 (6-14) Blood Urea Nitrogen 20 mg/dL (7-20) Creatinine 1.0 mg/dL (0.6-1.0) Estimated GFR (Cockcroft-Gault) 60.8 BUN/Creatinine Ratio 20 (6-20) Glucose Level 123 mg/dL (70-99) Lactic Acid Level 2.1 mmol/L (0.4-2.0) Calcium Level 9.7 mg/dL (8.5-10.1) Magnesium Level 1.9 mg/dL (1.8-2.4) Ferritin 29 ng/mL (8-252) Total Bilirubin 0.2 mg/dL (0.2-1.0) Aspartate Amino Transf (AST/SGOT) 25 U/L (15-37) Alanine Aminotransferase (ALT/SGPT) 23 U/L (14-59) Alkaline Phosphatase 163 U/L (46-116) Creatine Kinase 128 U/L (26-192) Creatine Kinase MB (Mass) 5.5 ng/mL (0.0-3.6) Creatine Kinase MB Relative Index 4.3 % (0-4) Troponin I Quantitative 0.202 ng/mL (0.000-0.055) C-Reactive Protein, Quantitative 10.8 mg/L (0-3.3) IA-Zbz-I-Type Natriuretic Peptide 6797 pg/mL (0-124) Total Protein 6.6 g/dL (6.4-8.2) Albumin 2.6 g/dL (3.4-5.0) Albumin/Globulin Ratio 0.7 (1.0-1.7) Lipase 125 U/L (73-393) Thyroid Stimulating Hormone (TSH) 2.336 uIU/mL (0.358-3.74) Urine Collection Type Void Urine Color Yellow Urine Clarity Clear Urine pH 6.0 (<5.0-8.0) Urine Specific [place] 1.020 (1.000-1.030) Urine Protein >=300 mg/dL (NEG-TRACE) Urine Glucose (UA) Negative mg/dL (NEG) Urine Ketones (Stick) Negative mg/dL (NEG) Urine Blood Moderate (NEG) Urine Nitrite Negative (NEG) Urine Bilirubin Negative (NEG) Urine Urobilinogen Dipstick 0.2 mg/dL (0.2 mg/dL) Urine Leukocyte Esterase Negative (NEG) Urine RBC 3-5 /HPF (0-2) Urine WBC 1-4 /HPF (0-4) Urine Squamous Epithelial Cells Mod /LPF Urine Bacteria Few /HPF (0-FEW) Urine Hyaline Casts Few /HPF Urine Random Creatinine 28.0 mg/dL (Not Establ.) Urine Random Total Protein 299.0 mg/dL (Not Establ.) Urine Protein/Creatinine Ratio 58141 mg/g (0-200) Urine Opiates Screen Neg (NEG) Urine Methadone Screen Neg (NEG) Urine Barbiturates Neg (NEG) Urine Phencyclidine Screen Neg (NEG) Urine Amphetamine/Methamphetamine Neg (NEG) Urine Benzodiazepines Screen Neg (NEG) Urine Cocaine Screen Neg (NEG) Urine Cannabinoids Screen Neg (NEG) Urine Ethyl Alcohol Neg (NEG) Bedside Urine HCG, Qualitative Hcg positive (Negative) Prothrombin Time 11.8 SEC (11.7-14.0) Prothromb Time International Ratio 0.9 (0.8-1.1) Activated Partial Thromboplast Time 24 SEC (24-38) D-Dimer (Marian) 1.50 ug/mlFEU (0.00-0.50) Coronavirus (PCR) Not detected (Not Detected) Influenza Type A Antigen Negative (NEGATIVE) Influenza Type B Antigen Negative (NEGATIVE) Test 04/21/20 14:08 04/21/20 16:00 04/21/20 19:05 04/22/20 00:29 HIV (1&2) Antibody Screen Nonreactive (Nonreactive) SARS-CoV-2 Antigen (Rapid) Negative (NEGATIVE) Lactic Acid Level 2.4 mmol/L (0.4-2.0) Troponin I Quantitative 0.332 ng/mL (0.000-0.055) 0.351 ng/mL (0.000-0.055) Treponema pallidum Antibody Nonreactive (Nonreactive) Hepatitis B Surface Antigen Nonreactive (Nonreactive) Rubella IgG Antibody 2.98 index (Immune >0.99) Test 04/22/20 06:05 04/22/20 14:50 04/23/20 04:45 White Blood Count 12.9 x10^3/uL (4.0-11.0) 19.8 x10^3/uL (4.0-11.0) 17.2 x10^3/uL (4.0-11.0) Red Blood Count 4.14 x10^6/uL (3.50-5.40) 4.09 x10^6/uL (3.50-5.40) 3.62 x10^6/uL (3.50-5.40) Hemoglobin 11.9 g/dL (12.0-15.5) 11.4 g/dL (12.0-15.5) 10.2 g/dL (12.0-15.5) Hematocrit 34.9 % (36.0-47.0) 34.7 % (36.0-47.0) 30.8 % (36.0-47.0) Mean Corpuscular Volume 84 fL (79-100) 85 fL (79-100) 85 fL (79-100) Mean Corpuscular Hemoglobin 29 pg (25-35) 28 pg (25-35) 28 pg (25-35) Mean Corpuscular Hemoglobin Concent 34 g/dL (31-37) 33 g/dL (31-37) 33 g/dL (31-37) Red Cell Distribution Width 14.2 % (11.5-14.5) 14.0 % (11.5-14.5) 14.0 % (11.5-14.5) Platelet Count 474 x10^3/uL (140-400) 514 x10^3/uL (140-400) 492 x10^3/uL (140-400) Neutrophils (%) (Auto) 91 % (31-73) 91 % (31-73) 86 % (31-73) Lymphocytes (%) (Auto) 6 % (24-48) 4 % (24-48) 8 % (24-48) Monocytes (%) (Auto) 3 % (0-9) 5 % (0-9) 6 % (0-9) Eosinophils (%) (Auto) 0 % (0-3) 0 % (0-3) 0 % (0-3) Basophils (%) (Auto) 1 % (0-3) 0 % (0-3) 0 % (0-3) Neutrophils # (Auto) 11.7 x10^3/uL (1.8-7.7) 17.9 x10^3/uL (1.8-7.7) 14.8 x10^3/uL (1.8-7.7) Lymphocytes # (Auto) 0.8 x10^3/uL (1.0-4.8) 0.8 x10^3/uL (1.0-4.8) 1.4 x10^3/uL (1.0-4.8) Monocytes # (Auto) 0.4 x10^3/uL (0.0-1.1) 1.0 x10^3/uL (0.0-1.1) 1.0 x10^3/uL (0.0-1.1) Eosinophils # (Auto) 0.0 x10^3/uL (0.0-0.7) 0.0 x10^3/uL (0.0-0.7) 0.0 x10^3/uL (0.0-0.7) Basophils # (Auto) 0.1 x10^3/uL (0.0-0.2) 0.0 x10^3/uL (0.0-0.2) 0.0 x10^3/uL (0.0-0.2) Sodium Level 139 mmol/L (136-145) 138 mmol/L (136-145) 134 mmol/L (136-145) Potassium Level 4.6 mmol/L (3.5-5.1) 4.6 mmol/L (3.5-5.1) 4.7 mmol/L (3.5-5.1) Chloride Level 107 mmol/L (98-107) 106 mmol/L (98-107) 102 mmol/L (98-107) Carbon Dioxide Level 18 mmol/L (21-32) 20 mmol/L (21-32) 22 mmol/L (21-32) Anion Gap 14 (6-14) 12 (6-14) 10 (6-14) Blood Urea Nitrogen 27 mg/dL (7-20) 28 mg/dL (7-20) 36 mg/dL (7-20) Creatinine 1.1 mg/dL (0.6-1.0) 1.2 mg/dL (0.6-1.0) 1.4 mg/dL (0.6-1.0) Estimated GFR (Cockcroft-Gault) 54.5 49.3 41.2 BUN/Creatinine Ratio 25 (6-20) 23 (6-20) 26 (6-20) Glucose Level 117 mg/dL (70-99) 130 mg/dL (70-99) 102 mg/dL (70-99) Calcium Level 8.4 mg/dL (8.5-10.1) 8.1 mg/dL (8.5-10.1) 7.8 mg/dL (8.5-10.1) Total Bilirubin 0.2 mg/dL (0.2-1.0) 0.1 mg/dL (0.2-1.0) 0.1 mg/dL (0.2-1.0) Aspartate Amino Transf (AST/SGOT) 31 U/L (15-37) 31 U/L (15-37) 28 U/L (15-37) Alanine Aminotransferase (ALT/SGPT) 27 U/L (14-59) 29 U/L (14-59) 27 U/L (14-59) Alkaline Phosphatase 131 U/L (46-116) 129 U/L (46-116) 118 U/L (46-116) Troponin I Quantitative 0.378 ng/mL (0.000-0.055) Total Protein 5.8 g/dL (6.4-8.2) 5.7 g/dL (6.4-8.2) 5.4 g/dL (6.4-8.2) Albumin 2.3 g/dL (3.4-5.0) 2.2 g/dL (3.4-5.0) 2.1 g/dL (3.4-5.0) Albumin/Globulin Ratio 0.7 (1.0-1.7) 0.6 (1.0-1.7) 0.6 (1.0-1.7) Triglycerides Level 238 mg/dL (0-150) Cholesterol Level 235 mg/dL (0-200) LDL Cholesterol, Calculated 105 mg/dL (0-100) VLDL Cholesterol, Calculated 48 mg/dL (0-40) Non-HDL Cholesterol Calculated 153 mg/dL (0-129) HDL Cholesterol 82 mg/dL (40-60) Cholesterol/HDL Ratio 2.9 Laboratory Tests Test 04/22/20 14:50 04/23/20 04:45 White Blood Count 19.8 x10^3/uL (4.0-11.0) 17.2 x10^3/uL (4.0-11.0) Red Blood Count 4.09 x10^6/uL (3.50-5.40) 3.62 x10^6/uL (3.50-5.40) Hemoglobin 11.4 g/dL (12.0-15.5) 10.2 g/dL (12.0-15.5) Hematocrit 34.7 % (36.0-47.0) 30.8 % (36.0-47.0) Mean Corpuscular Volume 85 fL (79-100) 85 fL (79-100) Mean Corpuscular Hemoglobin 28 pg (25-35) 28 pg (25-35) Mean Corpuscular Hemoglobin Concent 33 g/dL (31-37) 33 g/dL (31-37) Red Cell Distribution Width 14.0 % (11.5-14.5) 14.0 % (11.5-14.5) Platelet Count 514 x10^3/uL (140-400) 492 x10^3/uL (140-400) Neutrophils (%) (Auto) 91 % (31-73) 86 % (31-73) Lymphocytes (%) (Auto) 4 % (24-48) 8 % (24-48) Monocytes (%) (Auto) 5 % (0-9) 6 % (0-9) Eosinophils (%) (Auto) 0 % (0-3) 0 % (0-3) Basophils (%) (Auto) 0 % (0-3) 0 % (0-3) Neutrophils # (Auto) 17.9 x10^3/uL (1.8-7.7) 14.8 x10^3/uL (1.8-7.7) Lymphocytes # (Auto) 0.8 x10^3/uL (1.0-4.8) 1.4 x10^3/uL (1.0-4.8) Monocytes # (Auto) 1.0 x10^3/uL (0.0-1.1) 1.0 x10^3/uL (0.0-1.1) Eosinophils # (Auto) 0.0 x10^3/uL (0.0-0.7) 0.0 x10^3/uL (0.0-0.7) Basophils # (Auto) 0.0 x10^3/uL (0.0-0.2) 0.0 x10^3/uL (0.0-0.2) Sodium Level 138 mmol/L (136-145) 134 mmol/L (136-145) Potassium Level 4.6 mmol/L (3.5-5.1) 4.7 mmol/L (3.5-5.1) Chloride Level 106 mmol/L (98-107) 102 mmol/L (98-107) Carbon Dioxide Level 20 mmol/L (21-32) 22 mmol/L (21-32) Anion Gap 12 (6-14) 10 (6-14) Blood Urea Nitrogen 28 mg/dL (7-20) 36 mg/dL (7-20) Creatinine 1.2 mg/dL (0.6-1.0) 1.4 mg/dL (0.6-1.0) Estimated GFR (Cockcroft-Gault) 49.3 41.2 BUN/Creatinine Ratio 23 (6-20) 26 (6-20) Glucose Level 130 mg/dL (70-99) 102 mg/dL (70-99) Calcium Level 8.1 mg/dL (8.5-10.1) 7.8 mg/dL (8.5-10.1) Total Bilirubin 0.1 mg/dL (0.2-1.0) 0.1 mg/dL (0.2-1.0) Aspartate Amino Transf (AST/SGOT) 31 U/L (15-37) 28 U/L (15-37) Alanine Aminotransferase (ALT/SGPT) 29 U/L (14-59) 27 U/L (14-59) Alkaline Phosphatase 129 U/L (46-116) 118 U/L (46-116) Total Protein 5.7 g/dL (6.4-8.2) 5.4 g/dL (6.4-8.2) Albumin 2.2 g/dL (3.4-5.0) 2.1 g/dL (3.4-5.0) Albumin/Globulin Ratio 0.6 (1.0-1.7) 0.6 (1.0-1.7) Medications Current Medications Lorazepam (Ativan Inj) 0.5 mg 1X ONCE IV Last administered on 04/21/20at 13:10; Start 04/21/20 at 13:00; Stop 04/21/20 at 13:01; Status DC Furosemide (Lasix) 40 mg 1X ONCE IVP Last administered on 04/21/20at 14:04; Start 04/21/20 at 13:45; Stop 04/21/20 at 13:47; Status DC Ceftriaxone Sodium (Rocephin) 1 gm 1X ONCE IVP Last administered on 04/21/20at 13:59; Start 04/21/20 at 13:45; Stop 04/21/20 at 13:47; Status DC Azithromycin 250 ml @ 250 mls/hr 1X ONCE IV Last administered on 04/21/20at 14:03; Start 04/21/20 at 14:00; Stop 04/21/20 at 14:59; Status DC Aspirin (Tung Aspirin) 325 mg 1X ONCE PO Last administered on 04/21/20at 15:21; Start 04/21/20 at 14:15; Stop 04/21/20 at 14:16; Status DC Magnesium Sulfate 100 ml @ 25 mls/hr 1X ONCE IV Last administered on 04/21/20at 15:35; Start 04/21/20 at 14:15; Stop 04/21/20 at 18:14; Status DC Enoxaparin Sodium (Lovenox Per Pharmacy Treatment Dosing) 1 each PRN DAILY PRN MC SEE COMMENTS; Start 04/21/20 at 14:45 Labetalol HCl (Normodyne Iv Push) 20 mg 1X ONCE IVP Last administered on 04/21/20at 14:53; Start 04/21/20 at 15:00; Stop 04/21/20 at 15:01; Status DC Ondansetron HCl (Zofran) 4 mg 1X ONCE IV Last administered on 04/21/20at 14:52; Start 04/21/20 at 15:00; Stop 04/21/20 at 15:01; Status DC Enoxaparin Sodium (Lovenox 120mg Syringe) 110 mg Q12HR SQ Last administered on 04/21/20at 15:21; Start 04/21/20 at 15:00; Stop 04/22/20 at 11:50; Status DC Metoprolol Tartrate (Lopressor) 25 mg BID PO Last administered on 04/23/20at 08:18; Start 04/21/20 at 15:30 Hydralazine HCl (Apresoline) 50 mg 1X ONCE PO ; Start 04/21/20 at 15:30; Stop 04/21/20 at 15:31; Status DC Azithromycin (Zithromax) 250 mg DAILY PO Last administered on 04/23/20at 08:17; Start 04/22/20 at 09:00 Sodium Chloride (Normal Saline Flush) 3 ml QSHIFT PRN IV AFTER MEDS AND BLOOD DRAWS; Start 04/21/20 at 20:00; Status Cancel Ringer's Solution 1,000 ml @ 125 mls/hr Q8H IV ; Start 04/21/20 at 19:54; Stop 04/22/20 at 11:50; Status DC Terbutaline Sulfate (Brethine) 0.25 mg 1X PRN PRN SQ SEE COMMENTS; Start 04/21/20 at 20:00; Stop 04/22/20 at 19:59; Status DC Lidocaine HCl (Xylocaine 1% Pf 30ml Vial) 30 ml 1X PRN PRN INJ SEE COMMENTS; Start 04/21/20 at 20:00; Stop 04/23/20 at 19:59 Oxytocin 500 ml @ 0 mls/hr CONT PRN IV SEE I/O RECORD; Start 04/21/20 at 20:00 Oxytocin 500 ml @ 0 mls/hr CONT PRN PRN IV Post delivery bleeding; Start 04/21/20 at 20:00 Ibuprofen (Motrin) 800 mg PRN Q6HRS PRN PO INFLAMMATION; Start 04/21/20 at 20:00; Stop 04/23/20 at 07:26; Status DC Magnesium Sulfate 500 ml @ 50 mls/hr Q10H IV Last administered on 04/23/20at 02:44; Start 04/21/20 at 20:00 Betamethasone Sodium Phosphate (Celestone Soluspan) 12 mg Q24H IM Last administered on 04/21/20at 20:45; Start 04/21/20 at 20:00; Stop 04/22/20 at 20 :01; Status DC Labetalol HCl (Normodyne Iv Push) 20 mg PRN Q2HR PRN IVP HYPERTENSION Last administered on 04/22/20at 12:09; Start 04/21/20 at 20:15 Labetalol HCl (Normodyne Iv Push) 40 mg 1X PRN PRN IVP HYPERTENSION Last administered on 04/21/20at 21:19; Start 04/21/20 at 21:00 Alprazolam (Xanax) 0.5 mg 1X ONCE PO Last administered on 04/21/20at 21:15; Start 04/21/20 at 21:30; Stop 04/21/20 at 21:31; Status DC Lidocaine HCl (Lidocaine HCl 2% Abboject) 100 mg STK-MED ONCE .ROUTE ; Start 04/21/20 at 21:38; Stop 04/21/20 at 21:39; Status DC Lidocaine HCl (Xylocaine 2% Topical 5gm Tube) 1 clint 1X ONCE TP Last administered on 04/21/20at 22:03; Start 04/21/20 at 22:00; Stop 04/21/20 at 22:01; Status DC Cefazolin Sodium 3 gm/Dextrose 100 ml @ 200 mls/hr 1X ONCE IV Last administered on 04/22/20at 08:55; Start 04/22/20 at 08:45; Stop 04/22/20 at 09:14; Status DC Citric Acid/ Sodium Citrate (Bicitra) 30 ml 1X ONCE PO Last administered on 04/22/20at 08:54; Start 04/22/20 at 08:45; Stop 04/22/20 at 08:48; Status DC Phenylephrine HCl (PHENYLEPHRINE in 0.9% NACL PF) 1 mg STK-MED ONCE IV ; Start 04/22/20 at 08:45; Stop 04/22/20 at 08:45; Status DC Oxytocin (Pitocin) 10 unit STK-MED ONCE .ROUTE ; Start 04/22/20 at 08:45; Stop 04/22/20 at 08:45; Status DC Ephedrine Sulfate (ePHEDrine PF IN SALINE SYRINGE) 50 mg STK-MED ONCE IV ; Start 04/22/20 at 08:45; Stop 04/22/20 at 08:46; Status DC Morphine Sulfate (Morphine Preservative Free) 10 mg STK-MED ONCE .ROUTE ; Start 04/22/20 at 08:46; Stop 04/22/20 at 08:46; Status DC Fentanyl Citrate (Fentanyl 2ml Vial) 100 mcg STK-MED ONCE .ROUTE ; Start 04/22/20 at 08:46; Stop 04/22/20 at 08:46; Status DC Oxytocin (Pitocin) 10 unit STK-MED ONCE .ROUTE ; Start 04/22/20 at 09:31; Stop 04/22/20 at 09:31; Status DC Misoprostol (Cytotec 200mcg Tab) 200 mcg STK-MED ONCE .ROUTE ; Start 04/22/20 at 09:34; Stop 04/22/20 at 09:34; Status DC Misoprostol (Cytotec 200mcg Tab) 200 mcg STK-MED ONCE .ROUTE ; Start 04/22/20 at 09:54; Stop 04/22/20 at 09:54; Status DC Sodium Chloride (Normal Saline Flush) 3 ml QSHIFT PRN IV AFTER MEDS AND BLOOD DRAWS; Start 04/22/20 at 10:30 Oxytocin 500 ml @ 125 mls/hr CONT PRN IV EXCESSIVE POST- BLEEDING; Start 04/22/20 at 10:30; Stop 04/22/20 at 18:29; Status DC Ibuprofen (Motrin) 800 mg PRN Q8HRS PRN PO INFLAMMATION; Start 04/22/20 at 10:30 Ondansetron HCl (Zofran) 4 mg PRN Q6HRS PRN IV NAUSEA/VOMITING Last administered on 04/22/20at 18:05; Start 04/22/20 at 10:30 Docusate Sodium (Colace) 100 mg PRN BID PRN PO HARD STOOL; Start 04/22/20 at 10:30 Al Hydroxide/Mg Hydroxide (Mylanta Plus Xs) 30 ml PRN Q4HRS PRN PO HEARTBURN / GAS; Start 04/22/20 at 10:30 Simethicone (Gas-X) 80 mg PRN AFTMEALHC PRN PO GAS / BLOATING; Start 04/22/20 at 10:30 Diphenhydramine HCl (Benadryl Oral Elixir) 12.5 mg PRN Q6HRS PRN PO ITCHING; Start 04/22/20 at 10:30 Ferrous Sulfate (Feosol) 325 mg BIDWMEALS PO Last administered on 04/23/20at 08:18; Start 04/22/20 at 17:00 Zolpidem Tartrate (Ambien) 5 mg PRN QHS PRN PO INSOMNIA, MAY REPEAT X1; Start 04/22/20 at 10:30 Oxycodone/ Acetaminophen (Percocet 5/325) 2 tab PRN Q4HRS PRN PO MODERATE PAIN, SEVERE PAIN; Start 04/22/20 at 10:30 Ketorolac Tromethamine (Toradol 30mg Vial) 30 mg PRN Q6HRS PRN IV INFLAMMATION/PAIN Last administered on 04/23/20at 06:20; Start 04/22/20 at 10:30; Stop 04/27/20 at 10:29 Multivitamins (Thera M Plus) 1 tab DAILY PO Last administered on 04/23/20at 08:17; Start 04/23/20 at 09:00 Ringer's Solution 1,000 ml @ 50 mls/hr Q20H IV Last administered on 04/23/20at 04:22; Start 04/22/20 at 12:00 Enoxaparin Sodium (Lovenox 120mg Syringe) 110 mg Q12HR SQ Last administered on 04/23/20at 08:29; Start 04/22/20 at 16:00 Furosemide (Lasix) 40 mg 1X ONCE IVP Last administered on 04/22/20at 12:00; Start 04/22/20 at 12:00; Stop 04/22/20 at 12:01; Status DC Lidocaine HCl (Lidocaine HCl 2% Abboject) 100 mg STK-MED ONCE .ROUTE ; Start at 22:00; Stop 04/22/20 at 12:28; Status DC Fentanyl Citrate (Fentanyl 2ml Vial) 75 mcg PRN Q1HR PRN IVP PAIN Last adm inistered on 04/22/20at 16:51; Start 04/22/20 at 12:30 Fentanyl Citrate (Fentanyl 2ml Vial) 100 mcg STK-MED ONCE .ROUTE ; Start 04/22/20 at 12:35; Stop 04/22/20 at 12:36; Status DC Benzonatate (Tessalon Perle) 100 mg PRN Q8HRS PRN PO COUGH Last administered on 04/23/20at 08:17; Start 04/22/20 at 16:00 Active Scripts Active Reported Clonazepam 0.5 Mg Tablet 1 Tab PO BID PRN Exam Lungs: good air flow with diminshed sounds in lower lobes evette. Abd: soft, mild tenderness, fundus firm, Prevena wound vac in place LE: +1 edema, nml reflexes. Assessment POD#1 s/p c/s Severe Preeclampsia: improving Cardiomyopathy: stable Plan of Care: Continue current Tx, Mgmt (PT. will be transferred to [facility] ICU today. Repeat chest xray today and labs tomorrow.) MARY ZHENG Jr, MD Apr 23, 2020 10:24
--- NOTE | 2020-04-23 11:03 | NUR ---
SS following for discharge planning. SS reviewed pt chart and discussed with pt RN. Pt is from home with spouse and is currently on room air. Pt is s/p . COVID19 negative. Pt has severe preeclampsia and cardiomyopathy. Pt transferred to room 244. SS will continue to follow for discharge planning.
[2020-04-23] MEDS ORDERED: IV NORMAL SALINE 500ML BAG 500 ML IV ONE (11:45)
[2020-04-23] MEDS ORDERED: IOHEXOL 350 MG/ML 100 ML VIAL. IV ONE (12:30)
[2020-04-23] MEDS ORDERED: CONTRAST GIVEN. MC PRN (12:30)
--- NOTE | 2020-04-23 12:30 | NUR ---
L&D RN called by 2nd floor staff, notified that pt.'s Prevena dressing has blood in tubing and is making noise asked to come to the bedside and assess dressing. Upon arrival to the floor the pt. had just gotten out of a shower, pt. walking and states feeling well RN assesses dressing and pt. states that she did not get it wet. Dressing is saturated with blood at this time but sealed, canister on 45ml Prevena Vac is full and leaking out. RN calls MD, orders to place new Prevena dressing. New Prevena placed with sterile dressing procedure, suction good. RN estimates 60 EBL. Pt. tolerates procedure well.
--- NOTE | 2020-04-23 12:48 | RAD ---
Single view of the chest. 04/23/2020 10:24 AM Indication: Reason: chest infiltrates and cardiomyopathy/post delivery / Spl. Instructions: / History: Comparison: Chest radiograph April 21, 2020 Findings: There is a small left pleural effusion. Central vascular congestion and interstitial thickening appears be present. Patchy alveolar infiltrates appear less prominent. No pneumothorax. Heart size is top normal. No acute osseous changes in the interim. IMPRESSION: 1. Small left pleural effusion 2. Central vascular congestion 3. Mild interval improvement in patchy alveolar infiltrates Electronically signed by: Omari Conley MD (04/23/2020 12:45 PM) [id number]
--- NOTE | 2020-04-23 12:57 | NUR ---
Pt prevena wound vac notes to be saturated with blood. Blood also backed into tubing of the wound vac. Labor and Delivery nurses contacted and down to unit to assess the patient. Physician notified of assessment change and orders given to Pta Crystal RN. New wound vac placed on patients surgical incision by Pat Crystal RN. Pt has no complaints of pain. at bedside. Will continue to monitor.
--- NOTE | 2020-04-23 13:04 | PDOC ---
DATE OF SERVICE: DOS: DATE: 04/23/20 TIME: 13:00 SUBJECTIVE ROS Initially consulted for nephrotic range proteinuria Patient claims she is doing better other than the fact that she is having some bleeding from her incision site CVS: no Orthopnea, no CP RESP: no SOB, no DINERO GI: no Nausea, no Vomiting : no Dysuria, no Urgency OBJECTIVE Vital Signs Vital Signs Date Time Temp Pulse Resp B/P (MAP) Pulse Ox O2 Delivery O2 Flow Rate FiO2 04/23/20 09:00 78 20 141/99 (113) 95 Room Air 04/23/20 08:00 97.4 97.4 04/23/20 05:00 2.0 I & 0 Intake and Output 04/23/20 07:00 Intake Total 2604 ml Output Total 1960 ml Balance 644 ml Intake Oral 930 ml IV Total 1674 ml Output Urine Total 1960 ml PHYSICAL EXAM Physical Exam General Appearance: Awake Alert Oriented x 3 In no Distress Eyes: VIsion Unchanged Conjunctiva Normal EN: No EN Drainage Mucous Memb. moist Neck: no JVD no JVP Supple no Thyromegaly CVS: S1 S2 no Murmur No Gallop No Rub + Edema Resp: rare basal Rales no Rhonchi no Acc. Muscle use GI: BAS +ve NO Bruit Non Tender Non Distended : no CVA tenderness; no Suprapubic Tenderness Assessment & Plan Nephrotic syndrome: Presumably due to previously diagnosed preeclampsia. If this does not resolve in a timely manner, NSAID associated nephropathy is a possibility. Would recommend refraining from NSAID use hereafter due to the same. Hence ibuprofen and Toradol were discontinued. Malignant hypertension: Presumably part of her preeclampsia. Blood pressures appear to be better controlled. Fluid overload may be contributing to the same. History of kidney stones: Follows with urology at [facility] Postop anemia with possible ongoing blood loss from incision site. Mild metabolic acidosis: Now resolved Element of ANIYAH cannot be ruled out. Hence discontinue NSAIDs. Especially Torad ol. Renal sonogram will be checked New onset cardiomyopathy: Defer to cardiology to evaluate and treat. Pulmonary edema: On chest x-ray: Patient appears to be on room air and hence cannot hold diuresis unless symptomatic and allow resolution on its own. No lower extremity edema is noted either. Diuretic use in the setting of NSAID use may worsen kidney function COMMENT/RELEVANT DATA Meds Current Medications Medications (Trade) Dose Ordered Sig/Waldemar Start Time Stop Time Status Last Admin Dose Admin Al Hydroxide/Mg Hydroxide (Mylanta Plus Xs) 30 ml PRN Q4HRS PRN 04/22/20 10:30 Alprazolam (Xanax) 0.5 mg 1X ONCE 04/21/20 21:30 04/21/20 21:31 DC 04/21/20 21:15 0.5 MG Aspirin (Tung Aspirin) 325 mg 1X ONCE 04/21/20 14:15 04/21/20 14:16 DC 04/21/20 15:21 325 MG Azithromycin (Zithromax) 250 mg DAILY 04/22/20 09:00 04/23/20 08:17 250 MG Benzonatate (Tessalon Perle) 100 mg PRN Q8HRS PRN 04/22/20 16:00 04/23/20 08:17 100 MG Betamethasone Sodium Phosphate (Celestone Soluspan) 12 mg Q24H 04/21/20 20:00 04/22/20 20:01 DC 04/21/20 20:45 12 MG Cefazolin Sodium 3 gm/Dextrose 100 ml @ 200 mls/hr 1X ONCE 04/22/20 08:45 04/22/20 09:14 DC 04/22/20 08:55 200 MLS/HR Ceftriaxone Sodium (Rocephin) 1 gm 1X ONCE 04/21/20 13:45 04/21/20 13:47 DC 04/21/20 13:59 1 GM Citric Acid/ Sodium Citrate (Bicitra) 30 ml 1X ONCE 04/22/20 08:45 04/22/20 08:48 DC 04/22/20 08:54 30 ML Diphenhydramine HCl (Benadryl Oral Elixir) 12.5 mg PRN Q6HRS PRN 04/22/20 10:30 Docusate Sodium (Colace) 100 mg PRN BID PRN 04/22/20 10:30 Enoxaparin Sodium (Lovenox 120mg Syringe) 110 mg Q12HR 04/22/20 16:00 04/23/20 08:29 110 MG Enoxaparin Sodium (Lovenox Per Pharmacy Treatment Dosing) 1 each PRN DAILY PRN 04/21/20 14:45 Ephedrine Sulfate (ePHEDrine PF IN SALINE SYRINGE) 50 mg STK-MED ONCE 04/22/20 08:45 04/22/20 08:46 DC Fentanyl Citrate (Fentanyl 2ml Vial) 100 mcg STK-MED ONCE 04/22/20 12:35 04/22/20 12:36 DC Ferrous Sulfate (Feosol) 325 mg BIDWMEALS 04/22/20 17:00 04/23/20 08:18 325 MG Furosemide (Lasix) 40 mg 1X ONCE 04/22/20 12:00 04/22/20 12:01 DC 04/22/20 12:00 40 MG Hydralazine HCl (Apresoline) 50 mg 1X ONCE 04/21/20 15:30 04/21/20 15:31 DC Ibuprofen (Motrin) 800 mg PRN Q8HRS PRN 04/22/20 10:30 04/23/20 11:49 DC Info (CONTRAST GIVEN -- Rx MONITORING) 1 each PRN DAILY PRN 04/23/20 12:30 04/25/20 12:29 Iohexol (Omnipaque 350 Mg/ml) 80 ml 1X ONCE 04/23/20 12:30 04/23/20 12:31 DC Ketorolac Tromethamine (Toradol 30mg Vial) 30 mg PRN Q6HRS PRN 04/22/20 10:30 04/23/20 11:49 DC 04/23/20 06:20 30 MG Labetalol HCl (Normodyne Iv Push) 40 mg 1X PRN PRN 04/21/20 21:00 04/21/20 21:19 40 MG Lactobacillus Rhamnosus (Culturelle) 1 cap BID 04/23/20 21:00 Lidocaine HCl (Lidocaine HCl 2% Abboject) 100 mg STK-MED ONCE 04/21/20 22:00 04/22/20 12:28 DC Lidocaine HCl (Xylocaine 1% Pf 30ml Vial) 30 ml 1X PRN PRN 04/21/20 20:00 04/23/20 19:59 Lidocaine HCl (Xylocaine 2% Topical 5gm Tube) 1 clint 1X ONCE 04/21/20 22:00 04/21/20 22:01 DC 04/21/20 22:03 1 CLINT Lorazepam (Ativan Inj) 0.5 mg 1X ONCE 04/21/20 13:00 04/21/20 13:01 DC 04/21/20 13:10 0.5 MG Magnesium Sulfate 500 ml @ 50 mls/hr Q10H 04/21/20 20:00 04/23/20 02:44 50 MLS/HR Metoprolol Tartrate (Lopressor) 25 mg BID 04/21/20 15:30 04/23/20 08:18 25 MG Misoprostol (Cytotec 200mcg Tab) 200 mcg STK-MED ONCE 04/22/20 09:54 04/22/20 09:54 DC Morphine Sulfate (Morphine Preservative Free) 10 mg STK-MED ONCE 04/22/20 08:46 04/22/20 08:46 DC Multivitamins (Thera M Plus) 1 tab DAILY 04/23/20 09:00 04/23/20 08:17 1 TAB Ondansetron HCl (Zofran) 4 mg PRN Q6HRS PRN 04/22/20 10:30 04/22/20 18:05 4 MG Oxycodone/ Acetaminophen (Percocet 5/325) 2 tab PRN Q4HRS PRN 04/22/20 10:30 Oxytocin 500 ml @ 125 mls/hr CONT PRN 04/22/20 10:30 04/22/20 18:29 DC Oxytocin (Pitocin) 10 unit STK-MED ONCE 04/22/20 09:31 04/22/20 09:31 DC Phenylephrine HCl (PHENYLEPHRINE in 0.9% NACL PF) 1 mg STK-MED ONCE 04/22/20 08:45 04/22/20 08:45 DC Ringer's Solution 1,000 ml @ 50 mls/hr Q20H 04/22/20 12:00 04/23/20 11:23 DC 04/23/20 04:22 50 MLS/HR Simethicone (Gas-X) 80 mg PRN AFTMEALHC PRN 04/22/20 10:30 Sodium Chloride 500 ml @ 500 mls/hr 1X ONCE 04/23/20 11:45 04/23/20 12:44 DC Sodium Chloride (Normal Saline Flush) 3 ml QSHIFT PRN 04/22/20 10:30 Terbutaline Sulfate (Brethine) 0.25 mg 1X PRN PRN 04/21/20 20:00 04/22/20 19:59 DC Zolpidem Tartrate (Ambien) 5 mg PRN QHS PRN 04/22/20 10:30 Lab Laboratory Tests Test 04/22/20 14:50 04/23/20 04:45 White Blood Count 19.8 x10^3/uL (4.0-11.0) 17.2 x10^3/uL (4.0-11.0) Red Blood Count 4.09 x10^6/uL (3.50-5.40) 3.62 x10^6/uL (3.50-5.40) Hemoglobin 11.4 g/dL (12.0-15.5) 10.2 g/dL (12.0-15.5) Hematocrit 34.7 % (36.0-47.0) 30.8 % (36.0-47.0) Mean Corpuscular Volume 85 fL (79-100) 85 fL (79-100) Mean Corpuscular Hemoglobin 28 pg (25-35) 28 pg (25-35) Mean Corpuscular Hemoglobin Concent 33 g/dL (31-37) 33 g/dL (31-37) Red Cell Distribution Width 14.0 % (11.5-14.5) 14.0 % (11.5-14.5) Platelet Count 514 x10^3/uL (140-400) 492 x10^3/uL (140-400) Neutrophils (%) (Auto) 91 % (31-73) 86 % (31-73) Lymphocytes (%) (Auto) 4 % (24-48) 8 % (24-48) Monocytes (%) (Auto) 5 % (0-9) 6 % (0-9) Eosinophils (%) (Auto) 0 % (0-3) 0 % (0-3) Basophils (%) (Auto) 0 % (0-3) 0 % (0-3) Neutrophils # (Auto) 17.9 x10^3/uL (1.8-7.7) 14.8 x10^3/uL (1.8-7.7) Lymphocytes # (Auto) 0.8 x10^3/uL (1.0-4.8) 1.4 x10^3/uL (1.0-4.8) Monocytes # (Auto) 1.0 x10^3/uL (0.0-1.1) 1.0 x10^3/uL (0.0-1.1) Eosinophils # (Auto) 0.0 x10^3/uL (0.0-0.7) 0.0 x10^3/uL (0.0-0.7) Basophils # (Auto) 0.0 x10^3/uL (0.0-0.2) 0.0 x10^3/uL (0.0-0.2) Sodium Level 138 mmol/L (136-145) 134 mmol/L (136-145) Potassium Level 4.6 mmol/L (3.5-5.1) 4.7 mmol/L (3.5-5.1) Chloride Level 106 mmol/L (98-107) 102 mmol/L (98-107) Carbon Dioxide Level 20 mmol/L (21-32) 22 mmol/L (21-32) Anion Gap 12 (6-14) 10 (6-14) Blood Urea Nitrogen 28 mg/dL (7-20) 36 mg/dL (7-20) Creatinine 1.2 mg/dL (0.6-1.0) 1.4 mg/dL (0.6-1.0) Estimated GFR (Cockcroft-Gault) 49.3 41.2 BUN/Creatinine Ratio 23 (6-20) 26 (6-20) Glucose Level 130 mg/dL (70-99) 102 mg/dL (70-99) Calcium Level 8.1 mg/dL (8.5-10.1) 7.8 mg/dL (8.5-10.1) Total Bilirubin 0.1 mg/dL (0.2-1.0) 0.1 mg/dL (0.2-1.0) Aspartate Amino Transf (AST/SGOT) 31 U/L (15-37) 28 U/L (15-37) Alanine Aminotransferase (ALT/SGPT) 29 U/L (14-59) 27 U/L (14-59) Alkaline Phosphatase 129 U/L (46-116) 118 U/L (46-116) Total Protein 5.7 g/dL (6.4-8.2) 5.4 g/dL (6.4-8.2) Albumin 2.2 g/dL (3.4-5.0) 2.1 g/dL (3.4-5.0) Albumin/Globulin Ratio 0.6 (1.0-1.7) 0.6 (1.0-1.7) Results All relevant outside records, renal labs, imaging studies, telemetry/EKG's were reviewed. Justicifation of Admission Dx: Justifications for Admission: Justification of Admission Dx: Yes SOHAIL SAENZ MD Apr 23, 2020 13:04
--- NOTE | 2020-04-23 15:29 | PDOC ---
NBA VEL[employer]QUEZ [employer] SALES AGENT 04/23/20 1529: CARDIO Progress Notes Date and Time Date of Service 04/23/2020 Time of Evaluation 1150 Subjective Subjective: No Chest Pain, No shortness of breath, No Palpitations Vitals Vitals Vital Signs Date Time Temp Pulse Resp B/P (MAP) Pulse Ox O2 Delivery O2 Flow Rate FiO2 04/23/20 11:00 97.6 78 20 138/98 (111) 94 Room Air 97.6 04/23/20 05:00 2.0 Weight Weight [ ] Input and Output Intake and Output Intake and Output 04/23/20 07:00 Intake Total 2604 ml Output Total 1960 ml Balance 644 ml Intake Oral 930 ml IV Total 1674 ml Output Urine Total 1960 ml Laboratory Labs Laboratory Tests Test 04/23/20 04:45 White Blood Count 17.2 x10^3/uL (4.0-11.0) Red Blood Count 3.62 x10^6/uL (3.50-5.40) Hemoglobin 10.2 g/dL (12.0-15.5) Hematocrit 30.8 % (36.0-47.0) Mean Corpuscular Volume 85 fL (79-100) Mean Corpuscular Hemoglobin 28 pg (25-35) Mean Corpuscular Hemoglobin Concent 33 g/dL (31-37) Red Cell Distribution Width 14.0 % (11.5-14.5) Platelet Count 492 x10^3/uL (140-400) Neutrophils (%) (Auto) 86 % (31-73) Lymphocytes (%) (Auto) 8 % (24-48) Monocytes (%) (Auto) 6 % (0-9) Eosinophils (%) (Auto) 0 % (0-3) Basophils (%) (Auto) 0 % (0-3) Neutrophils # (Auto) 14.8 x10^3/uL (1.8-7.7) Lymphocytes # (Auto) 1.4 x10^3/uL (1.0-4.8) Monocytes # (Auto) 1.0 x10^3/uL (0.0-1.1) Eosinophils # (Auto) 0.0 x10^3/uL (0.0-0.7) Basophils # (Auto) 0.0 x10^3/uL (0.0-0.2) Sodium Level 134 mmol/L (136-145) Potassium Level 4.7 mmol/L (3.5-5.1) Chloride Level 102 mmol/L (98-107) Carbon Dioxide Level 22 mmol/L (21-32) Anion Gap 10 (6-14) Blood Urea Nitrogen 36 mg/dL (7-20) Creatinine 1.4 mg/dL (0.6-1.0) Estimated GFR (Cockcroft-Gault) 41.2 BUN/Creatinine Ratio 26 (6-20) Glucose Level 102 mg/dL (70-99) Calcium Level 7.8 mg/dL (8.5-10.1) Total Bilirubin 0.1 mg/dL (0.2-1.0) Aspartate Amino Transf (AST/SGOT) 28 U/L (15-37) Alanine Aminotransferase (ALT/SGPT) 27 U/L (14-59) Alkaline Phosphatase 118 U/L (46-116) Total Protein 5.4 g/dL (6.4-8.2) Albumin 2.1 g/dL (3.4-5.0) Albumin/Globulin Ratio 0.6 (1.0-1.7) Microbiology Micro Microbiology 04/21/20 Blood Culture - Preliminary, Resulted NO GROWTH AFTER 1 DAY Physical Exam HEENT: Neck Supple W Full Motion Chest: Symmetric LUNGS: Other (diminished bases) Heart: RRR (SR) Abdomen: Other (soft, s/p sec delivery ) Extremities: Other (1+ bilateral LE edema ) Neurology: alert, oriented, follow commands Assessment Assessment 1. Acute respiratory failure with CHF; improving, Covid negative 2. Acute systolic CHF: improving 3. 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 4. Accelerated hypertension; now controlled 5 NSTEMI: suspect demand mediated, type 2 6. 36 wks IUP: No care complicated by preeclampsia. S/P POD#1 7. HLP 8. H/o DVT following right knee surgery 9. Anxiety Recommendations 1. Lasix x1 today. Pt is . Will need PRN dosing at least 2. Ultimately will place on aldactone, no ACEi/ARB as pt breastfeeds. 3. Add hydralazine, change to toprol XL. 4. Will confirm with Pharmacy in regards to . 5. Will need outpatient followup and echo in 2-3 months to reevaluate LVEF 6. Outpatient f/u with Dr. Millan scheduled on Jun 17 at 3PM 7. Unable to place on statin due to , dietitian consult for diet modification. Justicifation of Admission Dx: Justifications for Admission: Justification of Admission Dx: Yes RADHA MILLAN MD 04/23/201911: CARDIO Progress Notes Assessment Assessment Patient seen and examined. Agree with AML ANALYST's assessment and plan. Acute systolic heart failure better compensated 2D echo showed EF 35-40%, probably peripartum cardiomyopathy Slight trop elevation prob demand ischemia secondary to uncontrolled BP from preeclampsia BP better controlled but still labile - agree with adding hydralazine Continue beta blockers We will consider ischemic eval as outpatient Repeat 2D echo in 3 months NBA VELAZQUEZ APRN Apr 23, 2020 15:29 RADHA MILLAN MD Apr 23, 2020 19:12
[2020-04-23] MEDS ORDERED: FUROSEMIDE 40 MG/4 ML VIAL. IVP ONE (15:30)
--- NOTE | 2020-04-23 16:25 | NUR ---
Have reviewed and agree with documentation completed by unpaid intern
[2020-04-23] MEDS: oxyCODONE/APAP 5/325 1 TAB TABLET PO PRN ×2 (17:08→22:18)
--- NOTE | 2020-04-23 18:13 | RAD ---
Renal ultrasound 04/23/2020 CLINICAL HISTORY: Acute renal insufficiency. TECHNIQUE: A real-time ultrasound examination of both kidneys and the urinary bladder was performed. Multiple images were obtained. FINDINGS: Comparison is made to the patient's CT scan of the abdomen and pelvis dated 11/23/2014. The study is limited to some degree due to the patient's large body habitus. Both kidneys are within normal limits in size and echogenicity. The right kidney measures 10.3 cm in length. The left kidney measures 10.7 cm in length. No hydronephrosis is seen. No focal abnormality of either kidney is definitely visualized. The urinary bladder is decompressed by a Wylie catheter. IMPRESSION: Negative study. Electronically signed by: Jasson Porter MD (04/23/2020 6:10 PM) [id number]
--- NOTE | 2020-04-23 19:50 | RAD ---
EXAMINATION: VENOUS LOWER EXTREMITY LEFT, 04/23/2020 6:49 PM CLINICAL INDICATION: Elevated d-dimer, history of shortness of breath. COMPARISON: None PROCEDURE: Multiple grayscale, color Doppler and spectral Doppler sonographic images of the left lower extremity were obtained. FINDINGS: There is no evidence of deep venous thrombosis in the left lower extremity. The left common femoral, femoral and popliteal veins are echolucent with normal flow on color Doppler imaging. The veins are fully compressible and show normal phasicity and reaction to augmentation. Visualized calf veins are also normal in appearance. IMPRESSION: No evidence of deep venous thrombosis in the left lower extremity. Electronically signed by: Janette Melendrez MD (04/23/2020 7:47 PM) [id number]
[2020-04-23] MEDS: LACTOBACILLUS RHAMNOSUS GG 1 CAPSULE. PO SCH (21:06)
[2020-04-23] MEDS: hydrALAZINE 25 MG TABLET PO SCH (21:06)
[2020-04-24] VITALS (14 sets, daily range): BP systolic 98–122; BP diastolic 56–75
[2020-04-24] MEDS: DOCUSATE SODIUM 100 MG CAPSULE. PO PRN ×2 (02:13→17:49)
[2020-04-24] MEDS: ONDANSETRON PF 4 MG/2 ML VIAL. IV PRN (02:13)
--- NOTE | 2020-04-24 02:13 | NUR ---
Patient c/o nausea and attempting to have BM. Zofran slow IVP and Colace stool softener given per order.
[2020-04-24] MEDS: oxyCODONE/APAP 5/325 1 TAB TABLET PO PRN ×4 (02:57→22:00)
--- NOTE | 2020-04-24 03:04 | NUR ---
Call to [phone] unit to do OB specific assessments and trouble shoot Prevena wound vac and change if needed, as vac making noises. Patient states "When it made the noise earlier, it was full and they changed it." Checked cannister and no drainage noted. Clear dressing intact, foam underneath compressed. Jenn CROWELL here and completed OB specific assessment and trouble shot Prevena. Clots in toilet post attempt to have BM WNL per Jenn CROWELL
[2020-04-24 05:39] LABS: BASO % 0 % (0-3); EOS # 0.1 x10^3/uL (0.0-0.7); EOS % 1 % (0-3); HEMATOCRIT 22.5 % (36.0-47.0); LYMPH # 1.5 x10^3/uL (1.0-4.8); LYMPH % 9 % (24-48); MEAN CORPUSCULAR HEMOGLOBIN 28 pg (25-35); MEAN CORPUSCULAR HGB CONC 33 g/dL (31-37); MEAN CORPUSCULAR VOLUME 85 fL (79-100); MONO # 0.8 x10^3/uL (0.0-1.1); MONO % 5 % (0-9); NEUT # 13.5 x10^3/uL (1.8-7.7); NEUT % 84 % (31-73); PLATELET COUNT 423 x10^3/uL (140-400); RED BLOOD COUNT 2.65 x10^6/uL (3.50-5.40); RED CELL DISTRIBUTION WIDTH 13.9 % (11.5-14.5); WHITE BLOOD COUNT 16.1 x10^3/uL (4.0-11.0)
[2020-04-24 06:02] LABS: HEMOGLOBIN 7.4 g/dL (12.0-15.5)
[2020-04-24 06:03] LABS: ALBUMIN 1.7 g/dL (3.4-5.0); ALBUMIN/GLOBULIN RATIO 0.6 (1.0-1.7); CALCIUM 7.1 mg/dL (8.5-10.1); CREATININE 1.4 mg/dL (0.6-1.0); GFR 41.2; POTASSIUM 4.6 mmol/L (3.5-5.1); TOTAL BILIRUBIN 0.2 mg/dL (0.2-1.0); TOTAL PROTEIN 4.6 g/dL (6.4-8.2)
--- NOTE | 2020-04-24 07:38 | PDOC ---
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 feeling well. No c/o H/A, CP, SOB or abd pain. Pt. had wound vac changed twice due to serosanguinous drainage from incision site. No further issues with wound vac or incisional bleeding. Hgb 7.9 possibly for hemoconcentration from severe preeclampsia. Will complete CT scan abd/pelvis and transfuse 1-2 Units PRBC's. Will transfer to 3rd floor today. Lab Laboratory Tests Test 04/22/20 14:50 04/23/20 04:45 04/24/20 05:00 White Blood Count 19.8 x10^3/uL (4.0-11.0) 17.2 x10^3/uL (4.0-11.0) 16.1 x10^3/uL (4.0-11.0) Red Blood Count 4.09 x10^6/uL (3.50-5.40) 3.62 x10^6/uL (3.50-5.40) 2.65 x10^6/uL (3.50-5.40) Hemoglobin 11.4 g/dL (12.0-15.5) 10.2 g/dL (12.0-15.5) 7.4 g/dL (12.0-15.5) Hematocrit 34.7 % (36.0-47.0) 30.8 % (36.0-47.0) 22.5 % (36.0-47.0) Mean Corpuscular Volume 85 fL (79-100) 85 fL (79-100) 85 fL (79-100) Mean Corpuscular Hemoglobin 28 pg (25-35) 28 pg (25-35) 28 pg (25-35) Mean Corpuscular Hemoglobin Concent 33 g/dL (31-37) 33 g/dL (31-37) 33 g/dL (31-37) Red Cell Distribution Width 14.0 % (11.5-14.5) 14.0 % (11.5-14.5) 13.9 % (11.5-14.5) Platelet Count 514 x10^3/uL (140-400) 492 x10^3/uL (140-400) 423 x10^3/uL (140-400) Neutrophils (%) (Auto) 91 % (31-73) 86 % (31-73) 84 % (31-73) Lymphocytes (%) (Auto) 4 % (24-48) 8 % (24-48) 9 % (24-48) Monocytes (%) (Auto) 5 % (0-9) 6 % (0-9) 5 % (0-9) Eosinophils (%) (Auto) 0 % (0-3) 0 % (0-3) 1 % (0-3) Basophils (%) (Auto) 0 % (0-3) 0 % (0-3) 0 % (0-3) Neutrophils # (Auto) 17.9 x10^3/uL (1.8-7.7) 14.8 x10^3/uL (1.8-7.7) 13.5 x10^3/uL (1.8-7.7) Lymphocytes # (Auto) 0.8 x10^3/uL (1.0-4.8) 1.4 x10^3/uL (1.0-4.8) 1.5 x10^3/uL (1.0-4.8) Monocytes # (Auto) 1.0 x10^3/uL (0.0-1.1) 1.0 x10^3/uL (0.0-1.1) 0.8 x10^3/uL (0.0-1.1) Eosinophils # (Auto) 0.0 x10^3/uL (0.0-0.7) 0.0 x10^3/uL (0.0-0.7) 0.1 x10^3/uL (0.0-0.7) Basophils # (Auto) 0.0 x10^3/uL (0.0-0.2) 0.0 x10^3/uL (0.0-0.2) 0.0 x10^3/uL (0.0-0.2) Sodium Level 138 mmol/L (136-145) 134 mmol/L (136-145) 135 mmol/L (136-145) Potassium Level 4.6 mmol/L (3.5-5.1) 4.7 mmol/L (3.5-5.1) 4.6 mmol/L (3.5-5.1) Chloride Level 106 mmol/L (98-107) 102 mmol/L (98-107) 102 mmol/L (98-107) Carbon Dioxide Level 20 mmol/L (21-32) 22 mmol/L (21-32) 25 mmol/L (21-32) Anion Gap 12 (6-14) 10 (6-14) 8 (6-14) Blood Urea Nitrogen 28 mg/dL (7-20) 36 mg/dL (7-20) 44 mg/dL (7-20) Creatinine 1.2 mg/dL (0.6-1.0) 1.4 mg/dL (0.6-1.0) 1.4 mg/dL (0.6-1.0) Estimated GFR (Cockcroft-Gault) 49.3 41.2 41.2 BUN/Creatinine Ratio 23 (6-20) 26 (6-20) 31 (6-20) Glucose Level 130 mg/dL (70-99) 102 mg/dL (70-99) 74 mg/dL (70-99) Calcium Level 8.1 mg/dL (8.5-10.1) 7.8 mg/dL (8.5-10.1) 7.1 mg/dL (8.5-10.1) Total Bilirubin 0.1 mg/dL (0.2-1.0) 0.1 mg/dL (0.2-1.0) 0.2 mg/dL (0.2-1.0) Aspartate Amino Transf (AST/SGOT) 31 U/L (15-37) 28 U/L (15-37) 19 U/L (15-37) Alanine Aminotransferase (ALT/SGPT) 29 U/L (14-59) 27 U/L (14-59) 18 U/L (14-59) Alkaline Phosphatase 129 U/L (46-116) 118 U/L (46-116) 96 U/L (46-116) Total Protein 5.7 g/dL (6.4-8.2) 5.4 g/dL (6.4-8.2) 4.6 g/dL (6.4-8.2) Albumin 2.2 g/dL (3.4-5.0) 2.1 g/dL (3.4-5.0) 1.7 g/dL (3.4-5.0) Albumin/Globulin Ratio 0.6 (1.0-1.7) 0.6 (1.0-1.7) 0.6 (1.0-1.7) Laboratory Tests Test 04/24/20 05:00 White Blood Count 16.1 x10^3/uL (4.0-11.0) Red Blood Count 2.65 x10^6/uL (3.50-5.40) Hemoglobin 7.4 g/dL (12.0-15.5) Hematocrit 22.5 % (36.0-47.0) Mean Corpuscular Volume 85 fL (79-100) Mean Corpuscular Hemoglobin 28 pg (25-35) Mean Corpuscular Hemoglobin Concent 33 g/dL (31-37) Red Cell Distribution Width 13.9 % (11.5-14.5) Platelet Count 423 x10^3/uL (140-400) Neutrophils (%) (Auto) 84 % (31-73) Lymphocytes (%) (Auto) 9 % (24-48) Monocytes (%) (Auto) 5 % (0-9) Eosinophils (%) (Auto) 1 % (0-3) Basophils (%) (Auto) 0 % (0-3) Neutrophils # (Auto) 13.5 x10^3/uL (1.8-7.7) Lymphocytes # (Auto) 1.5 x10^3/uL (1.0-4.8) Monocytes # (Auto) 0.8 x10^3/uL (0.0-1.1) Eosinophils # (Auto) 0.1 x10^3/uL (0.0-0.7) Basophils # (Auto) 0.0 x10^3/uL (0.0-0.2) Sodium Level 135 mmol/L (136-145) Potassium Level 4.6 mmol/L (3.5-5.1) Chloride Level 102 mmol/L (98-107) Carbon Dioxide Level 25 mmol/L (21-32) Anion Gap 8 (6-14) Blood Urea Nitrogen 44 mg/dL (7-20) Creatinine 1.4 mg/dL (0.6-1.0) Estimated GFR (Cockcroft-Gault) 41.2 BUN/Creatinine Ratio 31 (6-20) Glucose Level 74 mg/dL (70-99) Calcium Level 7.1 mg/dL (8.5-10.1) Total Bilirubin 0.2 mg/dL (0.2-1.0) Aspartate Amino Transf (AST/SGOT) 19 U/L (15-37) Alanine Aminotransferase (ALT/SGPT) 18 U/L (14-59) Alkaline Phosphatase 96 U/L (46-116) Total Protein 4.6 g/dL (6.4-8.2) Albumin 1.7 g/dL (3.4-5.0) Albumin/Globulin Ratio 0.6 (1.0-1.7) Medications Current Medications Lorazepam (Ativan Inj) 0.5 mg 1X ONCE IV Last administered on 04/21/20at 13:10; Start 04/21/20 at 13:00; Stop 04/21/20 at 13:01; Status DC Furosemide (Lasix) 40 mg 1X ONCE IVP Last administered on 04/21/20at 14:04; Start 04/21/20 at 13:45; Stop 04/21/20 at 13:47; Status DC Ceftriaxone Sodium (Rocephin) 1 gm 1X ONCE IVP Last administered on 04/21/20at 13:59; Start 04/21/20 at 13:45; Stop 04/21/20 at 13:47; Status DC Azithromycin 250 ml @ 250 mls/hr 1X ONCE IV Last administered on 04/21/20at 14:03; Start 04/21/20 at 14:00; Stop 04/21/20 at 14:59; Status DC Aspirin (Tung Aspirin) 325 mg 1X ONCE PO Last administered on 04/21/20at 15:21; Start 04/21/20 at 14:15; Stop 04/21/20 at 14:16; Status DC Magnesium Sulfate 100 ml @ 25 mls/hr 1X ONCE IV Last administered on 04/21/20at 15:35; Start 04/21/20 at 14:15; Stop 04/21/20 at 18:14; Status DC Enoxaparin Sodium (Lovenox Per Pharmacy Treatment Dosing) 1 each PRN DAILY PRN MC SEE COMMENTS; Start 04/21/20 at 14:45; Stop 04/23/20 at 17:43; Status DC Labetalol HCl (Normodyne Iv Push) 20 mg 1X ONCE IVP Last administered on 04/21/20at 14:53; Start 04/21/20 at 15:00; Stop 04/21/20 at 15:01; Status DC Ondansetron HCl (Zofran) 4 mg 1X ONCE IV Last administered on 04/21/20at 14:52; Start 04/21/20 at 15:00; Stop 04/21/20 at 15:01; Status DC Enoxaparin Sodium (Lovenox 120mg Syringe) 110 mg Q12HR SQ Last administered on 04/21/20at 15:21; Start 04/21/20 at 15:00; Stop 04/22/20 at 11:50; Status DC Metoprolol Tartrate (Lopressor) 25 mg BID PO Last administered on 04/23/20at 08 :18; Start 04/21/20 at 15:30; Stop 04/23/20 at 15:21; Status DC Hydralazine HCl (Apresoline) 50 mg 1X ONCE PO ; Start 04/21/20 at 15:30; Stop 04/21/20 at 15:31; Status DC Azithromycin (Zithromax) 250 mg DAILY PO Last administered on 04/23/20at 08:17; Start 04/22/20 at 09:00 Sodium Chloride (Normal Saline Flush) 3 ml QSHIFT PRN IV AFTER MEDS AND BLOOD DRAWS; Start 04/21/20 at 20:00; Status Cancel Ringer's Solution 1,000 ml @ 125 mls/hr Q8H IV ; Start 04/21/20 at 19:54; Stop 04/22/20 at 11:50; Status DC Terbutaline Sulfate (Brethine) 0.25 mg 1X PRN PRN SQ SEE COMMENTS; Start 04/21/20 at 20:00; Stop 04/22/20 at 19:59; Status DC Lidocaine HCl (Xylocaine 1% Pf 30ml Vial) 30 ml 1X PRN PRN INJ SEE COMMENTS; Start 04/21/20 at 20:00; Stop 04/23/20 at 19:59; Status DC Oxytocin 500 ml @ 0 mls/hr CONT PRN IV SEE I/O RECORD; Start 04/21/20 at 20:00 Oxytocin 500 ml @ 0 mls/hr CONT PRN PRN IV Post delivery bleeding; Start 04/21/20 at 20:00 Ibuprofen (Motrin) 800 mg PRN Q6HRS PRN PO INFLAMMATION; Start 04/21/20 at 20:00; Stop 04/23/20 at 07:26; Status DC Magnesium Sulfate 500 ml @ 50 mls/hr Q10H IV Last administered on 04/23/20at 02:44; Start 04/21/20 at 20:00 Betamethasone Sodium Phosphate (Celestone Soluspan) 12 mg Q24H IM Last administered on 04/21/20at 20:45; Start 04/21/20 at 20:00; Stop 04/22/20 at 20:01; Status DC Labetalol HCl (Normodyne Iv Push) 20 mg PRN Q2HR PRN IVP HYPERTENSION Last administered on 04/22/20at 12:09; Start 04/21/20 at 20:15 Labetalol HCl (Normodyne Iv Push) 40 mg 1X PRN PRN IVP HYPERTENSION Last administered on 04/21/20at 21:19; Start 04/21/20 at 21:00 Alprazolam (Xanax) 0.5 mg 1X ONCE PO Last administered on 04/21/20at 21:15; Start 04/21/20 at 21:30; Stop 04/21/20 at 21:31; Status DC Lidocaine HCl (Lidocaine HCl 2% Abboject) 100 mg STK-MED ONCE .ROUTE ; Start 04/21/20 at 21:38; Stop 04/21/20 at 21:39; Status DC Lidocaine HCl (Xylocaine 2% Topical 5gm Tube) 1 clint 1X ONCE TP Last administered on 04/21/20at 22:03; Start 04/21/20 at 22:00; Stop 04/21/20 at 22:01; Status DC Cefazolin Sodium 3 gm/Dextrose 100 ml @ 200 mls/hr 1X ONCE IV Last administered on 04/22/20at 08:55; Start 04/22/20 at 08:45; Stop 04/22/20 at 09:14; Status DC Citric Acid/ Sodium Citrate (Bicitra) 30 ml 1X ONCE PO Last administered on 04/22/20at 08:54; Start 04/22/20 at 08:45; Stop 04/22/20 at 08:48; Status DC Phenylephrine HCl (PHENYLEPHRINE in 0.9% NACL PF) 1 mg STK-MED ONCE IV ; Start 04/22/20 at 08:45; Stop 04/22/20 at 08:45; Status DC Oxytocin (Pitocin) 10 unit STK-MED ONCE .ROUTE ; Start 04/22/20 at 08:45; Stop 04/22/20 at 08:45; Status DC Ephedrine Sulfate (ePHEDrine PF IN SALINE SYRINGE) 50 mg STK-MED ONCE IV ; Start 04/22/20 at 08:45; Stop 04/22/20 at 08:46; Status DC Morphine Sulfate (Morphine Preservative Free) 10 mg STK-MED ONCE .ROUTE ; Start 04/22/20 at 08:46; Stop 04/22/20 at 08:46; Status DC Fentanyl Citrate (Fentanyl 2ml Vial) 100 mcg STK-MED ONCE .ROUTE ; Start 04/22/20 at 08:46; Stop 04/22/20 at 08:46; Status DC Oxytocin (Pitocin) 10 unit STK-MED ONCE .ROUTE ; Start 04/22/20 at 09:31; Stop 04/22/20 at 09:31; Status DC Misoprostol (Cytotec 200mcg Tab) 200 mcg STK-MED ONCE .ROUTE ; Start 04/22/20 at 09:34; Stop 04/22/20 at 09:34; Status DC Misoprostol (Cytotec 200mcg Tab) 200 mcg STK-MED ONCE .ROUTE ; Start 04/22/20 at 09:54; Stop 04/22/20 at 09:54; Status DC Sodium Chloride (Normal Saline Flush) 3 ml QSHIFT PRN IV AFTER MEDS AND BLOOD DRAWS; Start 04/22/20 at 10:30 Oxytocin 500 ml @ 125 mls/hr CONT PRN IV EXCESSIVE POST- BLEEDING; Start 04/22/20 at 10:30; Stop 04/22/20 at 18:29; Status DC Ibuprofen (Motrin) 800 mg PRN Q8HRS PRN PO INFLAMMATION; Start 04/22/20 at 10:30; Stop 04/23/20 at 11:49; Status DC Ondansetron HCl (Zofran) 4 mg PRN Q6HRS PRN IV NAUSEA/VOMITING Last administered on 04/24/20at 02:13; Start 04/22/20 at 10:30 Docusate Sodium (Colace) 100 mg PRN BID PRN PO HARD STOOL Last administered on 04/24/20at 02:13; Start 04/22/20 at 10:30 Al Hydroxide/Mg Hydroxide (Mylanta Plus Xs) 30 ml PRN Q4HRS PRN PO HEARTBURN / GAS; Start 04/22/20 at 10:30 Simethicone (Gas-X) 80 mg PRN AFTMEALHC PRN PO GAS / BLOATING; Start 04/22/20 at 10:30 Diphenhydramine HCl (Benadryl Oral Elixir) 12.5 mg PRN Q6HRS PRN PO ITCHING; Start 04/22/20 at 10:30 Ferrous Sulfate (Feosol) 325 mg BIDWMEALS PO Last administered on 04/23/20at 17:08; Start 04/22/20 at 17:00 Zolpidem Tartrate (Ambien) 5 mg PRN QHS PRN PO INSOMNIA, MAY REPEAT X1; Start 04/22/20 at 10:30 Oxycodone/ Acetaminophen (Percocet 5/325) 2 tab PRN Q4HRS PRN PO MODERATE PAIN, SEVERE PAIN Last administered on 04/24/20at 02:57; Start 04/22/20 at 10:30 Ketorolac Tromethamine (Toradol 30mg Vial) 30 mg PRN Q6HRS PRN IV INFLAMMATION/PAIN Last administered on 04/23/20at 06:20; Start 04/22/20 at 10:30; Stop 04/23/20 at 11:49; Status DC Multivitamins (Thera M Plus) 1 tab DAILY PO Last administered on 04/23/20at 08:17; Start 04/23/20 at 09:00 Ringer's Solution 1,000 ml @ 50 mls/hr Q20H IV Last administered on 04/23/20at 04:22; Start 04/22/20 at 12:00; Stop 04/23/20 at 11:23; Status DC Enoxaparin Sodium (Lovenox 120mg Syringe) 110 mg Q12HR SQ Last administered on 04/23/20at 08:29; Start 04/22/20 at 16:00; Stop 04/23/20 at 17:42; Status DC Furosemide (Lasix) 40 mg 1X ONCE IVP Last administered on 04/22/20at 12:00; Start 04/22/20 at 12:00; Stop 04/22/20 at 12:01; Status DC Lidocaine HCl (Lidocaine HCl 2% Abboject) 100 mg STK-MED ONCE .ROUTE ; Start 04/21/20 at 22:00; Stop 04/22/20 at 12:28; Status DC Fentanyl Citrate (Fentanyl 2ml Vial) 75 mcg PRN Q1HR PRN IVP PAIN Last administered on 04/22/20at 16:51; Start 04/22/20 at 12:30 Fentanyl Citrate (Fentanyl 2ml Vial) 100 mcg STK-MED ONCE .ROUTE ; Start 04/22/20 at 12:35; Stop 04/22/20 at 12:36; Status DC Benzonatate (Tessalon Perle) 100 mg PRN Q8HRS PRN PO COUGH Last administered on 04/23/20at 08:17; Start 04/22/20 at 16:00 Lactobacillus Rhamnosus (Culturelle) 1 cap BID PO Last administered on 04/23/20at 21:06; Start 04/23/20 at 21:00 Sodium Chloride 500 ml @ 500 mls/hr 1X ONCE IV ; Start 04/23/20 at 11:45; Stop 04/23/20 at 12:44; Status DC Iohexol (Omnipaque 350 Mg/ml) 80 ml 1X ONCE IV ; Start 04/23/20 at 12:30; Stop 04/23/20 at 12:31; Status DC Info (CONTRAST GIVEN -- Rx MONITORING) 1 each PRN DAILY PRN MC SEE COMMENTS; Start 04/23/20 at 12:30; Stop 04/25/20 at 12:29 Furosemide (Lasix) 40 mg 1X ONCE IVP ; Start 04/23/20 at 15:30; Stop 04/23/20 at 15:31; Status DC Metoprolol Succinate (Toprol Xl) 50 mg DAILY PO ; Start 04/24/20 at 09:00 Hydralazine HCl (Apresoline) 25 mg BID PO Last administered on 04/23/20at 21:06; Start 04/23/20 at 21:00 Spironolactone (Aldactone) 25 mg DAILY PO ; Start 04/24/20 at 09:00 Lorazepam (Ativan) 1 mg PRN Q4HRS PRN PO ANXIETY / AGITATION Last administered on 04/23/20at 18:17; Start 04/23/20 at 17:45 Active Scripts Active Reported Clonazepam 0.5 Mg Tablet 1 Tab PO BID PRN Exam Abd: soft, mild tenderness, fundus firm Prevena in place and dry Assessment POD#2 s/p c/s Severe Preeclampsia: improving Blood pressures in normal range Acute blood loss anemia Plan of Care: Continue current Tx, Mgmt (Transfer to 3rd floor. D/c whit[place] cath. CT scan today. Transfuse 2 units PRBC's.) MARY ZHENG Jr, MD Apr 24, 2020 07:38
[2020-04-24] MEDS: MAGNESIUM SULFATE 20GM 500 ML IV SCH ×2 (08:00→18:00)
--- NOTE | 2020-04-24 08:28 | PDOC ---
PULMONARY PROGRESS NOTES DATE: 04/24/20 TIME: 08:28 Subjective Patient on room air no increasing shortness of air Vitals Vital Signs Date Time Temp Pulse Resp B/P (MAP) Pulse Ox O2 Delivery O2 Flow Rate FiO2 04/24/20 07:00 98.0 71 20 122/70 (87) 92 Room Air 98.0 04/23/20 18:15 2.0 ROS: No Nausea, No Chest Pain, No Abdominal Pain, No Increase Cough General: Alert, Oriented X4 Lungs: Clear Cardiovascular: S1, S2 Abdomen: Soft, Non-tender Neuro Exam: Alert, Oriented Skin: Warm Labs Laboratory Tests Test 04/22/20 14:50 04/23/20 04:45 04/24/20 05:00 White Blood Count 19.8 x10^3/uL (4.0-11.0) 17.2 x10^3/uL (4.0-11.0) 16.1 x10^3/uL (4.0-11.0) Red Blood Count 4.09 x10^6/uL (3.50-5.40) 3.62 x10^6/uL (3.50-5.40) 2.65 x10^6/uL (3.50-5.40) Hemoglobin 11.4 g/dL (12.0-15.5) 10.2 g/dL (12.0-15.5) 7.4 g/dL (12.0-15.5) Hematocrit 34.7 % (36.0-47.0) 30.8 % (36.0-47.0) 22.5 % (36.0-47.0) Mean Corpuscular Volume 85 fL (79-100) 85 fL (79-100) 85 fL (79-100) Mean Corpuscular Hemoglobin 28 pg (25-35) 28 pg (25-35) 28 pg (25-35) Mean Corpuscular Hemoglobin Concent 33 g/dL (31-37) 33 g/dL (31-37) 33 g/dL (31-37) Red Cell Distribution Width 14.0 % (11.5-14.5) 14.0 % (11.5-14.5) 13.9 % (11.5-14.5) Platelet Count 514 x10^3/uL (140-400) 492 x10^3/uL (140-400) 423 x10^3/uL (140-400) Neutrophils (%) (Auto) 91 % (31-73) 86 % (31-73) 84 % (31-73) Lymphocytes (%) (Auto) 4 % (24-48) 8 % (24-48) 9 % (24-48) Monocytes (%) (Auto) 5 % (0-9) 6 % (0-9) 5 % (0-9) Eosinophils (%) (Auto) 0 % (0-3) 0 % (0-3) 1 % (0-3) Basophils (%) (Auto) 0 % (0-3) 0 % (0-3) 0 % (0-3) Neutrophils # (Auto) 17.9 x10^3/uL (1.8-7.7) 14.8 x10^3/uL (1.8-7.7) 13.5 x10^3/uL (1.8-7.7) Lymphocytes # (Auto) 0.8 x10^3/uL (1.0-4.8) 1.4 x10^3/uL (1.0-4.8) 1.5 x10^3/uL (1.0-4.8) Monocytes # (Auto) 1.0 x10^3/uL (0.0-1.1) 1.0 x10^3/uL (0.0-1.1) 0.8 x10^3/uL (0.0-1.1) Eosinophils # (Auto) 0.0 x10^3/uL (0.0-0.7) 0.0 x10^3/uL (0.0-0.7) 0.1 x10^3/uL (0.0-0.7) Basophils # (Auto) 0.0 x10^3/uL (0.0-0.2) 0.0 x10^3/uL (0.0-0.2) 0.0 x10^3/uL (0.0-0.2) Sodium Level 138 mmol/L (136-145) 134 mmol/L (136-145) 135 mmol/L (136-145) Potassium Level 4.6 mmol/L (3.5-5.1) 4.7 mmol/L (3.5-5.1) 4.6 mmol/L (3.5-5.1) Chloride Level 106 mmol/L (98-107) 102 mmol/L (98-107) 102 mmol/L (98-107) Carbon Dioxide Level 20 mmol/L (21-32) 22 mmol/L (21-32) 25 mmol/L (21-32) Anion Gap 12 (6-14) 10 (6-14) 8 (6-14) Blood Urea Nitrogen 28 mg/dL (7-20) 36 mg/dL (7-20) 44 mg/dL (7-20) Creatinine 1.2 mg/dL (0.6-1.0) 1.4 mg/dL (0.6-1.0) 1.4 mg/dL (0.6-1.0) Estimated GFR (Cockcroft-Gault) 49.3 41.2 41.2 BUN/Creatinine Ratio 23 (6-20) 26 (6-20) 31 (6-20) Glucose Level 130 mg/dL (70-99) 102 mg/dL (70-99) 74 mg/dL (70-99) Calcium Level 8.1 mg/dL (8.5-10.1) 7.8 mg/dL (8.5-10.1) 7.1 mg/dL (8.5-10.1) Total Bilirubin 0.1 mg/dL (0.2-1.0) 0.1 mg/dL (0.2-1.0) 0.2 mg/dL (0.2-1.0) Aspartate Amino Transf (AST/SGOT) 31 U/L (15-37) 28 U/L (15-37) 19 U/L (15-37) Alanine Aminotransferase (ALT/SGPT) 29 U/L (14-59) 27 U/L (14-59) 18 U/L (14-59) Alkaline Phosphatase 129 U/L (46-116) 118 U/L (46-116) 96 U/L (46-116) Total Protein 5.7 g/dL (6.4-8.2) 5.4 g/dL (6.4-8.2) 4.6 g/dL (6.4-8.2) Albumin 2.2 g/dL (3.4-5.0) 2.1 g/dL (3.4-5.0) 1.7 g/dL (3.4-5.0) Albumin/Globulin Ratio 0.6 (1.0-1.7) 0.6 (1.0-1.7) 0.6 (1.0-1.7) Laboratory Tests Test 04/24/20 05:00 White Blood Count 16.1 x10^3/uL (4.0-11.0) Red Blood Count 2.65 x10^6/uL (3.50-5.40) Hemoglobin 7.4 g/dL (12.0-15.5) Hematocrit 22.5 % (36.0-47.0) Mean Corpuscular Volume 85 fL (79-100) Mean Corpuscular Hemoglobin 28 pg (25-35) Mean Corpuscular Hemoglobin Concent 33 g/dL (31-37) Red Cell Distribution Width 13.9 % (11.5-14.5) Platelet Count 423 x10^3/uL (140-400) Neutrophils (%) (Auto) 84 % (31-73) Lymphocytes (%) (Auto) 9 % (24-48) Monocytes (%) (Auto) 5 % (0-9) Eosinophils (%) (Auto) 1 % (0-3) Basophils (%) (Auto) 0 % (0-3) Neutrophils # (Auto) 13.5 x10^3/uL (1.8-7.7) Lymphocytes # (Auto) 1.5 x10^3/uL (1.0-4.8) Monocytes # (Auto) 0.8 x10^3/uL (0.0-1.1) Eosinophils # (Auto) 0.1 x10^3/uL (0.0-0.7) Basophils # (Auto) 0.0 x10^3/uL (0.0-0.2) Sodium Level 135 mmol/L (136-145) Potassium Level 4.6 mmol/L (3.5-5.1) Chloride Level 102 mmol/L (98-107) Carbon Dioxide Level 25 mmol/L (21-32) Anion Gap 8 (6-14) Blood Urea Nitrogen 44 mg/dL (7-20) Creatinine 1.4 mg/dL (0.6-1.0) Estimated GFR (Cockcroft-Gault) 41.2 BUN/Creatinine Ratio 31 (6-20) Glucose Level 74 mg/dL (70-99) Calcium Level 7.1 mg/dL (8.5-10.1) Total Bilirubin 0.2 mg/dL (0.2-1.0) Aspartate Amino Transf (AST/SGOT) 19 U/L (15-37) Alanine Aminotransferase (ALT/SGPT) 18 U/L (14-59) Alkaline Phosphatase 96 U/L (46-116) Total Protein 4.6 g/dL (6.4-8.2) Albumin 1.7 g/dL (3.4-5.0) Albumin/Globulin Ratio 0.6 (1.0-1.7) Medications Active Scripts Medications Dose Route/Sig Max Daily Dose Days Date Category Clonazepam 0.5 Mg Tablet 1 Tab PO BID PRN 01/30/15 Reported Comments Chest x-ray today, reviewed improved pulmonary edema Impression . ASSESSMENT: 1. Hypoxic respiratory failure. 2. Suspected COVID-19 infection. 3. Acute systolic heart failure. 4. Preeclampsia. 5. 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 6. A 36 weeks intrauterine , now status post . 7. Anxiety. 8. Hyperlipidemia. 9. History of right lower extremity deep venous thrombosis. Plan . Will sign off, call if needed. Patient is stable from a respiratory standpoint, remains on room air Chest x-ray reviewed, improved pulmonary edema continue diuresis Continue aggressive pulmonary hygiene, incentive spirometry Follow cardiology recommendations in regards to diuresis and hypertension Follow OB recommendations Follow nephrology recommendations in regards to proteinuria and acute kidney injury Physical therapy/Occupational Therapy DVT/GI prophylaxis Discussed with RN Okay to transfer out of intensive care unit today and we will sign off at this time as the patient is stable from a pulmonary standpoint Please call with any questions or concerns GLEN KIDD MD Apr 24, 2020 08:28
--- NOTE | 2020-04-24 08:41 | PDOC ---
[employer] PROGRESS NOTE Date of Service DOS: DATE: 04/24/20 TIME: 08:27 Chief Complaint Chief Complaint severe pre-eclampsia, htn control with labetolol, 36 wks acute hypoxic respiratory failure, acute decompensated systolic CHF< with demand NSTEMI type 2, sepsis, pulm congestion, treating pneumonia, COVID still pending, rapid was negative, obese, BMI 43 acute renal fauilre with proteinuria, consult renal, start 24 hour urine History of Present Illness History of Present Illness to OR then ICU steroids given for fetus lung dev. discussed at length with Dr. Odonnell, renal fxn and cardiac fxn are still concerning. 04/24: Patient evaluated bedside. She has some bleeding from her surgical site yesterday, wound VAC was changed. Hemoglobin 7.4, primary be transfused with PRBCs. No evidence of deep venous thrombosis in the bilateral lower extremity. Denies chest pain or shortness of breath, breathing comfortably on room air. CTA chest was not done due to creatinine. Low suspicion for PE at this time. D/C therapeutic Lovenox due to bleeding. SCDs for VTE prophylaxis. She was initiated on heart failure medications, judicious use at this time due to breast-feeding. 04/23: Status post delivery, post-op pain well controlled. Blood pressure improved following delivery. Discussed with OB, continue magnesium infusion till 10 AM. She will likely discharge to medical floors, as ICU beds are needed. 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 Ischemic evaluation as outpatient, per cardiology. Creatinine rising slightly, possibly from diuresis. She is receiving therapeutic dose of Lovenox for concern of PE. Discussed with CTA, her GFR is good enough for reduced dose IV contrast, but they are recommending some fluids to help clear her kidneys. Patient is comfortable receiving CTA today to rule out PE. Discussed with RN. Vitals/I&O Vitals/I&O: Vital Signs Date Time Temp Pulse Resp B/P (MAP) Pulse Ox O2 Delivery O2 Flow Rate FiO2 04/24/20 07:00 98.0 71 20 122/70 (87) 92 Room Air 98.0 04/23/20 18:15 2.0 I & O 04/23/20 04/23/20 04/24/20 15:00 23:00 07:00 Intake Total 780 ml 100 ml Output Total 700 ml Balance 780 ml -600 ml Physical Exam General: Alert, Oriented X3, Cooperative, No acute distress Heart: Regular rate, Other Lungs: Clear Abdomen: Normal bowel sounds, Soft, Other (Incisional tenderness with wound VAC in place) Extremities: No clubbing, Other (LE edema +2 evette, nml reflexes) Skin: No rashes, No breakdown Labs Labs: Laboratory Tests Test 04/24/20 05:00 White Blood Count 16.1 x10^3/uL (4.0-11.0) Red Blood Count 2.65 x10^6/uL (3.50-5.40) Hemoglobin 7.4 g/dL (12.0-15.5) Hematocrit 22.5 % (36.0-47.0) Mean Corpuscular Volume 85 fL (79-100) Mean Corpuscular Hemoglobin 28 pg (25-35) Mean Corpuscular Hemoglobin Concent 33 g/dL (31-37) Red Cell Distribution Width 13.9 % (11.5-14.5) Platelet Count 423 x10^3/uL (140-400) Neutrophils (%) (Auto) 84 % (31-73) Lymphocytes (%) (Auto) 9 % (24-48) Monocytes (%) (Auto) 5 % (0-9) Eosinophils (%) (Auto) 1 % (0-3) Basophils (%) (Auto) 0 % (0-3) Neutrophils # (Auto) 13.5 x10^3/uL (1.8-7.7) Lymphocytes # (Auto) 1.5 x10^3/uL (1.0-4.8) Monocytes # (Auto) 0.8 x10^3/uL (0.0-1.1) Eosinophils # (Auto) 0.1 x10^3/uL (0.0-0.7) Basophils # (Auto) 0.0 x10^3/uL (0.0-0.2) Sodium Level 135 mmol/L (136-145) Potassium Level 4.6 mmol/L (3.5-5.1) Chloride Level 102 mmol/L (98-107) Carbon Dioxide Level 25 mmol/L (21-32) Anion Gap 8 (6-14) Blood Urea Nitrogen 44 mg/dL (7-20) Creatinine 1.4 mg/dL (0.6-1.0) Estimated GFR (Cockcroft-Gault) 41.2 BUN/Creatinine Ratio 31 (6-20) Glucose Level 74 mg/dL (70-99) Calcium Level 7.1 mg/dL (8.5-10.1) Total Bilirubin 0.2 mg/dL (0.2-1.0) Aspartate Amino Transf (AST/SGOT) 19 U/L (15-37) Alanine Aminotransferase (ALT/SGPT) 18 U/L (14-59) Alkaline Phosphatase 96 U/L (46-116) Total Protein 4.6 g/dL (6.4-8.2) Albumin 1.7 g/dL (3.4-5.0) Albumin/Globulin Ratio 0.6 (1.0-1.7) Review of Systems Review of Systems: Denies chest pain, denies shortness of breath, denies fever. 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 Medications: Current Medications Medications (Trade) Dose Ordered Sig/Waldemar Route PRN Reason Start Time Stop Time Status Last Admin Dose Admin Multivitamins (Thera M Plus) 1 tab DAILY PO 04/23/20 09:00 04/23/20 08:17 Lactobacillus Rhamnosus (Culturelle) 1 cap BID PO 04/23/20 21:00 04/23/20 21:06 Hydralazine HCl (Apresoline) 25 mg BID PO 04/23/20 21:00 04/23/20 21:06 Lorazepam (Ativan) 1 mg PRN Q4HRS PRN PO ANXIETY / AGITATION 04/23/20 17:45 04/23/20 18:17 Justifications for Admission Other Justification RIKA JONAS MD Apr 24, 2020 08:41
[2020-04-24] MEDS: hydrALAZINE 25 MG TABLET PO SCH ×2 (08:55→20:48)
[2020-04-24] MEDS: FERROUS SULFATE 325 MG TABLET. PO SCH ×2 (08:55→17:49)
[2020-04-24] MEDS: MULTIVITAMIN with MINERAL TABLET. PO SCH (08:55)
[2020-04-24] MEDS: AZITHROMYCIN 250 MG TABLET. PO SCH (08:56)
[2020-04-24] MEDS: SPIRONOLACTONE 25 MG TABLET PO SCH (08:56)
[2020-04-24] MEDS: LACTOBACILLUS RHAMNOSUS GG 1 CAPSULE. PO SCH ×2 (08:56→20:46)
[2020-04-24] MEDS ORDERED: METOPROLOL SUCC 24HR ER 50 MG TAB.ER.24H. PO SCH (09:00)
--- NOTE | 2020-04-24 10:39 | NUR ---
SS following up with discharge planning. SS reviewed pt chart and discussed with pt RN. Pt is currently on room air. Pt getting blood transfusion today. COVID19 negative. Possible transfer to third floor later today. SS will continue to follow for discharge planning.
--- NOTE | 2020-04-24 10:40 | NUR ---
Patient had two syncopal episode in the shower when standing from sitting position. Patient regain coconsciousness once in sitting position. SBP 60/40. Notified physician and order received to transfuse.
--- NOTE | 2020-04-24 10:42 | NUR ---
Acknowledge RD consult ordered 04/23 regarding HLP; labs on 04/22 are following: TGs 238, cholesterol 235, LDL cholesterol 105, VLDL cholesterol 48, HDL cholesterol 82. Pt on 2South, resting. Provided pt w/copy of handouts from [facility] Manual on high-TG diet education and cholesterol-lowering diet education. Also provided pt w/copy of recent lipid labs. Pt has copy of this RD's card w/contact information. Note RD assessment 04/23, will continue to monitor and follow up as needed/appropriate. RD available [phone] as needed.
--- NOTE | 2020-04-24 11:56 | PDOC ---
NBA VELAZQUEZ STEWARD/STEWARDESS [employer] CLASS 04/24/20 1156: CARDIO Progress Notes Date and Time Date of Service 04/24/2020 Time of Evaluation 1130 Subjective Subjective: No Chest Pain, No shortness of breath, No Palpitations Vitals Vitals Vital Signs Date Time Temp Pulse Resp B/P (MAP) Pulse Ox O2 Delivery O2 Flow Rate FiO2 04/24/20 11:00 98.3 85 21 104/56 (72) 91 Room Air 98.3 04/23/20 18:15 2.0 Weight Weight [ ] Input and Output Intake and Output Intake and Output 04/24/20 07:00 Intake Total 880 ml Output Total 700 ml Balance 180 ml Intake Oral 880 ml Output Urine Total 700 ml Laboratory Labs Laboratory Tests Test 04/24/20 05:00 White Blood Count 16.1 x10^3/uL (4.0-11.0) Red Blood Count 2.65 x10^6/uL (3.50-5.40) Hemoglobin 7.4 g/dL (12.0-15.5) Hematocrit 22.5 % (36.0-47.0) Mean Corpuscular Volume 85 fL (79-100) Mean Corpuscular Hemoglobin 28 pg (25-35) Mean Corpuscular Hemoglobin Concent 33 g/dL (31-37) Red Cell Distribution Width 13.9 % (11.5-14.5) Platelet Count 423 x10^3/uL (140-400) Neutrophils (%) (Auto) 84 % (31-73) Lymphocytes (%) (Auto) 9 % (24-48) Monocytes (%) (Auto) 5 % (0-9) Eosinophils (%) (Auto) 1 % (0-3) Basophils (%) (Auto) 0 % (0-3) Neutrophils # (Auto) 13.5 x10^3/uL (1.8-7.7) Lymphocytes # (Auto) 1.5 x10^3/uL (1.0-4.8) Monocytes # (Auto) 0.8 x10^3/uL (0.0-1.1) Eosinophils # (Auto) 0.1 x10^3/uL (0.0-0.7) Basophils # (Auto) 0.0 x10^3/uL (0.0-0.2) Sodium Level 135 mmol/L (136-145) Potassium Level 4.6 mmol/L (3.5-5.1) Chloride Level 102 mmol/L (98-107) Carbon Dioxide Level 25 mmol/L (21-32) Anion Gap 8 (6-14) Blood Urea Nitrogen 44 mg/dL (7-20) Creatinine 1.4 mg/dL (0.6-1.0) Estimated GFR (Cockcroft-Gault) 41.2 BUN/Creatinine Ratio 31 (6-20) Glucose Level 74 mg/dL (70-99) Calcium Level 7.1 mg/dL (8.5-10.1) Total Bilirubin 0.2 mg/dL (0.2-1.0) Aspartate Amino Transf (AST/SGOT) 19 U/L (15-37) Alanine Aminotransferase (ALT/SGPT) 18 U/L (14-59) Alkaline Phosphatase 96 U/L (46-116) Total Protein 4.6 g/dL (6.4-8.2) Albumin 1.7 g/dL (3.4-5.0) Albumin/Globulin Ratio 0.6 (1.0-1.7) Microbiology Micro Microbiology 04/21/20 Blood Culture - Preliminary, Resulted NO GROWTH AFTER 2 DAYS Physical Exam HEENT: Neck Supple W Full Motion Chest: Symmetric LUNGS: Other (diminished bases) Heart: RRR (SR) Abdomen: Other (soft, s/p sec delivery ) Extremities: Other (1+ bilateral LE edema ) Neurology: alert, oriented, follow commands Assessment Assessment 1. Acute respiratory failure with CHF; improving, Covid negative 2. Acute systolic CHF: improved 3. 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 4. Accelerated hypertension; controlled 5 NSTEMI: suspect demand mediated, type 2 6. 36 wks IUP: No care complicated by preeclampsia. S/P POD#2 [place] doing well 7. HLP 8. H/o DVT following right knee surgery 9. Anxiety 10. Syncope: reported by staff while pt is taking shower, standing, brief <5 sec. No associated arrhythmias. Suspect vasovagal accentuated by anemia 11. Post op/ anemia: Hgb at 7.4 Recommendations 1. Lasix PO PRN as outpt, discussed HF s/s. Transfusion pending 2. No ACEi/ARB as pt breastfeeds. Daily wt, HBPM 3. Continue aldactone, hydralazine and toprol XL (at low dose) as BP allows, compatible with verified with pharmacy 4. Will need outpatient followup and echo in 2-3 months to reevaluate LVEF 5. Outpatient f/u with Dr. Millan scheduled on Jun 17 at 3PM 6. Unable to place on statin due to , dietitian consult for diet modification. Justicifation of Admission Dx: Justifications for Admission: Justification of Admission Dx: Yes RADHA MILLAN MD 04/24/20 1825: CARDIO Progress Notes Assessment Assessment Patient seen and examined. Agree with [employer]'s assessment and plan. Acute systolic heart failure better compensated 2D echo showed EF 35-40%, probably peripartum cardiomyopathy Slight trop elevation prob demand ischemia secondary to uncontrolled BP from preeclampsia BP better controlled. Continue current medical regimen We will consider ischemic eval as outpatient Repeat 2D echo in 3 months NBA VELAZQUEZ APRN Apr 24, 2020 11:56 RADHA MILLAN MD Apr 24, 2020 18:25
--- NOTE | 2020-04-24 12:37 | PDOC ---
DATE OF SERVICE: DOS: DATE: 04/24/20 TIME: 12:34 SUBJECTIVE ROS Follow-up for nephrotic syndrome Patient claims she is doing much better. Breathing much better. CVS: no Orthopnea, no CP RESP: no SOB, no DINERO GI: no Nausea, no Vomiting : no Dysuria, no Urgency OBJECTIVE Vital Signs Vital Signs Date Time Temp Pulse Resp B/P (MAP) Pulse Ox O2 Delivery O2 Flow Rate FiO2 04/24/20 11:00 98.3 85 21 104/56 (72) 91 Room Air 98.3 04/23/20 18:15 2.0 I & 0 Intake and Output 04/24/20 07:00 Intake Total 880 ml Output Total 700 ml Balance 180 ml Intake Oral 880 ml Output Urine Total 700 ml PHYSICAL EXAM Physical Exam General Appearance: Awake Alert Oriented x 3 In no Distress Eyes: VIsion Unchanged Conjunctiva Normal EN: No EN Drainage Mucous Memb. moist Neck: no JVD no JVP Supple no Thyromegaly CVS: S1 S2 no Murmur No Gallop No Rub + Edema Resp: rare basal Rales no Rhonchi no Acc. Muscle use GI: BS +ve NO Bruit Non Tender Min Distended : no CVA tenderness; no Suprapubic Tenderness Assessment & Plan Nephrotic syndrome: Presumably due to previously diagnosed preeclampsia. If this does not resolve in a timely manner, NSAID associated nephropathy is a possibility. Would recommend refraining from NSAID use hereafter due to the same. Hence ibuprofen and Toradol were discontinued. She remains hypoalbum inemic Malignant hypertension: Presumably part of her preeclampsia. Blood pressures appear to be better controlled. Fluid overload may be contributing to the same and that seems to have resolved currently also. History of kidney stones: Follows with urology at [facility]. None noted on most recent sonogram Postop anemia with some blood loss from incision site. Appears to be controlled Mild metabolic acidosis: Now resolved Element of ANIYAH cannot be ruled out. Hence discontinue NSAIDs. Especially Toradol. Renal sonogram unremarkable as below New onset cardiomyopathy: Defer to cardiology to evaluate and treat. Pulmonary edema: On chest x-ray: Patient appears to be on room air and hence hold diuresis unless symptomatic and allow resolution on its own. No lower extremity edema is noted either. Diuretic use in the setting of NSAID use may worsen kidney function COMMENT/RELEVANT DATA Meds Current Medications Medications (Trade) Dose Ordered Sig/Waldemar Start Time Stop Time Status Last Admin Dose Admin Al Hydroxide/Mg Hydroxide (Mylanta Plus Xs) 30 ml PRN Q4HRS PRN 04/22/20 10:30 Alprazolam (Xanax) 0.5 mg 1X ONCE 04/21/20 21:30 04/21/20 21:31 DC 04/21/20 21:15 0.5 MG Aspirin (Tung Aspirin) 325 mg 1X ONCE 04/21/20 14:15 04/21/20 14:16 DC 04/21/20 15:21 325 MG Azithromycin (Zithromax) 250 mg DAILY 04/22/20 09:00 04/24/20 08:56 250 MG Benzonatate (Tessalon Perle) 100 mg PRN Q8HRS PRN 04/22/20 16:00 04/23/20 08:17 100 MG Betamethasone Sodium Phosphate (Celestone Soluspan) 12 mg Q24H 04/21/20 20:00 04/22/20 20:01 DC 04/21/20 20:45 12 MG Cefazolin Sodium 3 gm/Dextrose 100 ml @ 200 mls/hr 1X ONCE 04/22/20 08:45 04/22/20 09:14 DC 04/22/20 08:55 200 MLS/HR Ceftriaxone Sodium (Rocephin) 1 gm 1X ONCE 04/21/20 13:45 04/21/20 13:47 DC 04/21/20 13:59 1 GM Citric Acid/ Sodium Citrate (Bicitra) 30 ml 1X ONCE 04/22/20 08:45 04/22/20 08:48 DC 04/22/20 08:54 30 ML Diphenhydramine HCl (Benadryl Oral Elixir) 12.5 mg PRN Q6HRS PRN 04/22/20 10:30 Docusate Sodium (Colace) 100 mg PRN BID PRN 04/22/20 10:30 04/24/20 02:13 100 MG Enoxaparin Sodium (Lovenox 120mg Syringe) 110 mg Q12HR 04/22/20 16:00 04/23/20 17:42 DC 04/23/20 08:29 110 MG Enoxaparin Sodium (Lovenox Per Pharmacy Treatment Dosing) 1 each PRN DAILY PRN 04/21/20 14:45 04/23/20 17:43 DC Ephedrine Sulfate (ePHEDrine PF IN SALINE SYRINGE) 50 mg STK-MED ONCE 04/22/20 08:45 04/22/20 08:46 DC Fentanyl Citrate (Fentanyl 2ml Vial) 100 mcg STK-MED ONCE 04/22/20 12:35 04/22/20 12:36 DC Ferrous Sulfate (Feosol) 325 mg BIDWMEALS 04/22/20 17:00 04/24/20 08:55 325 MG Furosemide (Lasix) 40 mg 1X ONCE 04/23/20 15:30 04/23/20 15:31 DC Hydralazine HCl (Apresoline) 25 mg BID 04/23/20 21:00 04/24/20 08:55 25 MG Ibuprofen (Motrin) 800 mg PRN Q8HRS PRN 04/22/20 10:30 04/23/20 11:49 DC Info (CONTRAST GIVEN -- Rx MONITORING) 1 each PRN DAILY PRN 04/23/20 12:30 04/25/20 12:29 Iohexol (Omnipaque 350 Mg/ml) 80 ml 1X ONCE 04/23/20 12:30 04/23/20 12:31 DC Ketorolac Tromethamine (Toradol 30mg Vial) 30 mg PRN Q6HRS PRN 04/22/20 10:30 04/23/20 11:49 DC 04/23/20 06:20 30 MG Labetalol HCl (Normodyne Iv Push) 40 mg 1X PRN PRN 04/21/20 21:00 04/21/20 21:19 40 MG Lactobacillus Rhamnosus (Culturelle) 1 cap BID 04/23/20 21:00 04/24/20 08:56 1 CAP Lidocaine HCl (Lidocaine HCl 2% Abboject) 100 mg STK-MED ONCE 04/21/20 22:00 04/22/20 12:28 DC Lidocaine HCl (Xylocaine 1% Pf 30ml Vial) 30 ml 1X PRN PRN 04/21/20 20:00 04/23/20 19:59 DC Lidocaine HCl (Xylocaine 2% Topical 5gm Tube) 1 clint 1X ONCE 04/21/20 22:00 04/21/20 22:01 DC 04/21/20 22:03 1 CLINT Lorazepam (Ativan Inj) 0.5 mg 1X ONCE 04/21/20 13:00 04/21/20 13:01 DC 04/21/20 13:10 0.5 MG Lorazepam (Ativan) 1 mg PRN Q4HRS PRN 04/23/20 17:45 04/23/20 18:17 1 MG Magnesium Sulfate 500 ml @ 50 mls/hr Q10H 04/21/20 20:00 04/23/20 02:44 50 MLS/HR Metoprolol Succinate (Toprol Xl) 25 mg DAILY 04/25/20 09:00 Metoprolol Tartrate (Lopressor) 25 mg BID 04/21/20 15:30 04/23/20 15:21 DC 04/23/20 08:18 25 MG Misoprostol (Cytotec 200mcg Tab) 200 mcg STK-MED ONCE 04/22/20 09:54 04/22/20 09:54 DC Morphine Sulfate (Morphine Preservative Free) 10 mg STK-MED ONCE 04/22/20 08:46 04/22/20 08:46 DC Multivitamins (Thera M Plus) 1 tab DAILY 04/23/20 09:00 04/24/20 08:55 1 TAB Ondansetron HCl (Zofran) 4 mg PRN Q6HRS PRN 04/22/20 10:30 04/24/20 02:13 4 MG Oxycodone/ Acetaminophen (Percocet 5/325) 2 tab PRN Q4HRS PRN 04/22/20 10:30 04/24/20 02:57 2 TAB Oxytocin 500 ml @ 125 mls/hr CONT PRN 04/22/20 10:30 04/22/20 18:29 DC Oxytocin (Pitocin) 10 unit STK-MED ONCE 04/22/20 09:31 04/22/20 09:31 DC Phenylephrine HCl (PHENYLEPHRINE in 0.9% NACL PF) 1 mg STK-MED ONCE 04/22/20 08:45 04/22/20 08:45 DC Ringer's Solution 1,000 ml @ 50 mls/hr Q20H 04/22/20 12:00 04/23/20 11:23 DC 04/23/20 04:22 50 MLS/HR Simethicone (Gas-X) 80 mg PRN AFTMEALHC PRN 04/22/20 10:30 Sodium Chloride 500 ml @ 500 mls/hr 1X ONCE 04/23/20 11:45 04/23/20 12:44 DC Sodium Chloride (Normal Saline Flush) 3 ml QSHIFT PRN 04/22/20 10:30 Spironolactone (Aldactone) 25 mg DAILY 04/24/20 09:00 04/24/20 08:56 25 MG Terbutaline Sulfate (Brethine) 0.25 mg 1X PRN PRN 04/21/20 20:00 04/22/20 19:59 DC Zolpidem Tartrate (Ambien) 5 mg PRN QHS PRN 04/22/20 10:30 Lab Laboratory Tests Test 04/24/20 05:00 White Blood Count 16.1 x10^3/uL (4.0-11.0) Red Blood Count 2.65 x10^6/uL (3.50-5.40) Hemoglobin 7.4 g/dL (12.0-15.5) Hematocrit 22.5 % (36.0-47.0) Mean Corpuscular Volume 85 fL (79-100) Mean Corpuscular Hemoglobin 28 pg (25-35) Mean Corpuscular Hemoglobin Concent 33 g/dL (31-37) Red Cell Distribution Width 13.9 % (11.5-14.5) Platelet Count 423 x10^3/uL (140-400) Neutrophils (%) (Auto) 84 % (31-73) Lymphocytes (%) (Auto) 9 % (24-48) Monocytes (%) (Auto) 5 % (0-9) Eosinophils (%) (Auto) 1 % (0-3) Basophils (%) (Auto) 0 % (0-3) Neutrophils # (Auto) 13.5 x10^3/uL (1.8-7.7) Lymphocytes # (Auto) 1.5 x10^3/uL (1.0-4.8) Monocytes # (Auto) 0.8 x10^3/uL (0.0-1.1) Eosinophils # (Auto) 0.1 x10^3/uL (0.0-0.7) Basophils # (Auto) 0.0 x10^3/uL (0.0-0.2) Sodium Level 135 mmol/L (136-145) Potassium Level 4.6 mmol/L (3.5-5.1) Chloride Level 102 mmol/L (98-107) Carbon Dioxide Level 25 mmol/L (21-32) Anion Gap 8 (6-14) Blood Urea Nitrogen 44 mg/dL (7-20) Creatinine 1.4 mg/dL (0.6-1.0) Estimated GFR (Cockcroft-Gault) 41.2 BUN/Creatinine Ratio 31 (6-20) Glucose Level 74 mg/dL (70-99) Calcium Level 7.1 mg/dL (8.5-10.1) Total Bilirubin 0.2 mg/dL (0.2-1.0) Aspartate Amino Transf (AST/SGOT) 19 U/L (15-37) Alanine Aminotransferase (ALT/SGPT) 18 U/L (14-59) Alkaline Phosphatase 96 U/L (46-116) Total Protein 4.6 g/dL (6.4-8.2) Albumin 1.7 g/dL (3.4-5.0) Albumin/Globulin Ratio 0.6 (1.0-1.7) Results All relevant outside records, renal labs, imaging studies, telemetry/EKG's were reviewed. Other FINDINGS: Comparison is made to the patient's CT scan of the abdomen and pelvis dated 11/23/2014. The study is limited to some degree due to the patient's large body habitus. Both kidneys are within normal limits in size and echogenicity. The right kidney measures 10.3 cm in length. The left kidney measures 10.7 cm in length. No hydronephrosis is seen. No focal abnormality of either kidney is definitely visualized. The urinary bladder is decompressed by a Wylie catheter. IMPRESSION: Negative study. Justicifation of Admission Dx: Justifications for Admission: Justification of Admission Dx: Yes SOHAIL SAENZ MD Apr 24, 2020 12:37
--- NOTE | 2020-04-24 14:40 | RAD ---
ABDOMEN LTD Clinical Indication: Reason: abdominal hematoma post Comparison: None. TECHNIQUE: Real-time ultrasound imaging of the ventral abdomen is performed. Findings: Dolly Pusher notes study is technically difficult. Patient has a wound VAC over incision. There is subcutaneous edema. There is a hypoechoic collection measuring 5.1 x 10 x 6.9 cm. Color Doppler interrogation is negative. IMPRESSION: In the area of scar there is a hypoechoic subcutaneous collection measuring 5.1 x 10 x 6.9 cm. Color Doppler interrogation is negative. Finding may be complex fluid. If more definitive evaluation is needed consider CT. Electronically signed by: Florencio Verma MD (04/24/2020 2:37 PM) [id number]
[2020-04-24] MEDS ORDERED: LORazepam 0.5 MG TABLET PO PRN (17:32)
[2020-04-25] VITALS (8 sets, daily range): BP systolic 104–144; BP diastolic 63–90
[2020-04-25] MEDS: oxyCODONE/APAP 5/325 1 TAB TABLET PO PRN ×5 (02:45→22:24)
[2020-04-25] MEDS: MAGNESIUM SULFATE 20GM 500 ML IV SCH (04:00)
[2020-04-25 05:35] LABS: HEMOGLOBIN 7.6 g/dL (12.0-15.5); RED BLOOD COUNT 2.66 x10^6/uL (3.50-5.40); WHITE BLOOD COUNT 15.7 x10^3/uL (4.0-11.0)
[2020-04-25] MEDS: MULTIVITAMIN with MINERAL TABLET. PO SCH (07:50)
[2020-04-25] MEDS: FERROUS SULFATE 325 MG TABLET. PO SCH ×2 (07:50→19:56)
[2020-04-25] MEDS: LACTOBACILLUS RHAMNOSUS GG 1 CAPSULE. PO SCH ×2 (07:50→20:55)
[2020-04-25] MEDS: DOCUSATE SODIUM 100 MG CAPSULE. PO PRN ×3 (07:50→20:55)
[2020-04-25] MEDS: hydrALAZINE 25 MG TABLET PO SCH ×2 (07:52→20:59)
[2020-04-25] MEDS: SPIRONOLACTONE 25 MG TABLET PO SCH (07:52)
[2020-04-25] MEDS: METOPROLOL SUCC 24HR ER 25 MG TAB.ER.24H. PO SCH (07:53)
[2020-04-25] MEDS: AZITHROMYCIN 250 MG TABLET. PO SCH (07:54)
[2020-04-25 08:50] LABS: CALCIUM 7.2 mg/dL (8.5-10.1); CREATININE 1.2 mg/dL (0.6-1.0); GFR 49.3; POTASSIUM 4.3 mmol/L (3.5-5.1)
--- NOTE | 2020-04-25 09:47 | PDOC ---
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 feeling well. No complaints. Pt. completed transfusion 2 Units PRBC's. Serum Cr improving. Lab Laboratory Tests Test 04/24/20 05:00 04/25/20 05:10 White Blood Count 16.1 x10^3/uL (4.0-11.0) 15.7 x10^3/uL (4.0-11.0) Red Blood Count 2.65 x10^6/uL (3.50-5.40) 2.66 x10^6/uL (3.50-5.40) Hemoglobin 7.4 g/dL (12.0-15.5) 7.6 g/dL (12.0-15.5) Hematocrit 22.5 % (36.0-47.0) 23.0 % (36.0-47.0) Mean Corpuscular Volume 85 fL (79-100) 86 fL (79-100) Mean Corpuscular Hemoglobin 28 pg (25-35) 29 pg (25-35) Mean Corpuscular Hemoglobin Concent 33 g/dL (31-37) 33 g/dL (31-37) Red Cell Distribution Width 13.9 % (11.5-14.5) 15.0 % (11.5-14.5) Platelet Count 423 x10^3/uL (140-400) 368 x10^3/uL (140-400) Neutrophils (%) (Auto) 84 % (31-73) Lymphocytes (%) (Auto) 9 % (24-48) Monocytes (%) (Auto) 5 % (0-9) Eosinophils (%) (Auto) 1 % (0-3) Basophils (%) (Auto) 0 % (0-3) Neutrophils # (Auto) 13.5 x10^3/uL (1.8-7.7) Lymphocytes # (Auto) 1.5 x10^3/uL (1.0-4.8) Monocytes # (Auto) 0.8 x10^3/uL (0.0-1.1) Eosinophils # (Auto) 0.1 x10^3/uL (0.0-0.7) Basophils # (Auto) 0.0 x10^3/uL (0.0-0.2) Sodium Level 135 mmol/L (136-145) 133 mmol/L (136-145) Potassium Level 4.6 mmol/L (3.5-5.1) 4.3 mmol/L (3.5-5.1) Chloride Level 102 mmol/L (98-107) 103 mmol/L (98-107) Carbon Dioxide Level 25 mmol/L (21-32) 24 mmol/L (21-32) Anion Gap 8 (6-14) 6 (6-14) Blood Urea Nitrogen 44 mg/dL (7-20) 42 mg/dL (7-20) Creatinine 1.4 mg/dL (0.6-1.0) 1.2 mg/dL (0.6-1.0) Estimated GFR (Cockcroft-Gault) 41.2 49.3 BUN/Creatinine Ratio 31 (6-20) Glucose Level 74 mg/dL (70-99) 89 mg/dL (70-99) Calcium Level 7.1 mg/dL (8.5-10.1) 7.2 mg/dL (8.5-10.1) Total Bilirubin 0.2 mg/dL (0.2-1.0) Aspartate Amino Transf (AST/SGOT) 19 U/L (15-37) Alanine Aminotransferase (ALT/SGPT) 18 U/L (14-59) Alkaline Phosphatase 96 U/L (46-116) Total Protein 4.6 g/dL (6.4-8.2) Albumin 1.7 g/dL (3.4-5.0) Albumin/Globulin Ratio 0.6 (1.0-1.7) Laboratory Tests Test 04/25/20 05:10 White Blood Count 15.7 x10^3/uL (4.0-11.0) Red Blood Count 2.66 x10^6/uL (3.50-5.40) Hemoglobin 7.6 g/dL (12.0-15.5) Hematocrit 23.0 % (36.0-47.0) Mean Corpuscular Volume 86 fL (79-100) Mean Corpuscular Hemoglobin 29 pg (25-35) Mean Corpuscular Hemoglobin Concent 33 g/dL (31-37) Red Cell Distribution Width 15.0 % (11.5-14.5) Platelet Count 368 x10^3/uL (140-400) Sodium Level 133 mmol/L (136-145) Potassium Level 4.3 mmol/L (3.5-5.1) Chloride Level 103 mmol/L (98-107) Carbon Dioxide Level 24 mmol/L (21-32) Anion Gap 6 (6-14) Blood Urea Nitrogen 42 mg/dL (7-20) Creatinine 1.2 mg/dL (0.6-1.0) Estimated GFR (Cockcroft-Gault) 49.3 Glucose Level 89 mg/dL (70-99) Calcium Level 7.2 mg/dL (8.5-10.1) Medications Current Medications Lorazepam (Ativan Inj) 0.5 mg 1X ONCE IV Last administered on 04/21/20at 13:10; Start 04/21/20 at 13:00; Stop 04/21/20 at 13:01; Status DC Furosemide (Lasix) 40 mg 1X ONCE IVP Last administered on 04/21/20at 14:04; Start 04/21/20 at 13:45; Stop 04/21/20 at 13:47; Status DC Ceftriaxone Sodium (Rocephin) 1 gm 1X ONCE IVP Last administered on 04/21/20at 13:59; Start 04/21/20 at 13:45; Stop 04/21/20 at 13:47; Status DC Azithromycin 250 ml @ 250 mls/hr 1X ONCE IV Last administered on 04/21/20at 14:03; Start 04/21/20 at 14:00; Stop 04/21/20 at 14:59; Status DC Aspirin (Tung Aspirin) 325 mg 1X ONCE PO Last administered on 04/21/20at 15:21; Start 04/21/20 at 14:15; Stop 04/21/20 at 14:16; Status DC Magnesium Sulfate 100 ml @ 25 mls/hr 1X ONCE IV Last administered on 04/21/20at 15:35; Start 04/21/20 at 14:15; Stop 04/21/20 at 18:14; Status DC Enoxaparin Sodium (Lovenox Per Pharmacy Treatment Dosing) 1 each PRN DAILY PRN MC SEE COMMENTS; Start 04/21/20 at 14:45; Stop 04/23/20 at 17:43; Status DC Labetalol HCl (Normodyne Iv Push) 20 mg 1X ONCE IVP Last administered on 04/21/20at 14:53; Start 04/21/20 at 15:00; Stop 04/21/20 at 15:01; Status DC Ondansetron HCl (Zofran) 4 mg 1X ONCE IV Last administered on 04/21/20at 14:52; Start 04/21/20 at 15:00; Stop 04/21/20 at 15:01; Status DC Enoxaparin Sodium (Lovenox 120mg Syringe) 110 mg Q12HR SQ Last administered on 04/21/20at 15:21; Start 04/21/20 at 15:00; Stop 04/22/20 at 11:50; Status DC Metoprolol Tartrate (Lopressor) 25 mg BID PO Last administered on 04/23/20at 08:18; Start 04/21/20 at 15:30; Stop 04/23/20 at 15:21; Status DC Hydralazine HCl (Apresoline) 50 mg 1X ONCE PO ; Start 04/21/20 at 15:30; Stop 04/21/20 at 15:31; Status DC Azithromycin (Zithromax) 250 mg DAILY PO Last administered on 04/25/20at 07:54; Start 04/22/20 at 09:00 Sodium Chloride (Normal Saline Flush) 3 ml QSHIFT PRN IV AFTER MEDS AND BLOOD DRAWS; Start 04/21/20 at 20:00; Status Cancel Ringer's Solution 1,000 ml @ 125 mls/hr Q8H IV ; Start 04/21/20 at 19:54; Stop 04/22/20 at 11:50; Status DC Terbutaline Sulfate (Brethine) 0.25 mg 1X PRN PRN SQ SEE COMMENTS; Start 04/21/20 at 20:00; Stop 04/22/20 at 19:59; Status DC Lidocaine HCl (Xylocaine 1% Pf 30ml Vial) 30 ml 1X PRN PRN INJ SEE COMMENTS; Start 04/21/20 at 20:00; Stop 04/23/20 at 19:59; Status DC Oxytocin 500 ml @ 0 mls/hr CONT PRN IV SEE I/O RECORD; Start 04/21/20 at 20:00 Oxytocin 500 ml @ 0 mls/hr CONT PRN PRN IV Post delivery bleeding; Start 04/21/20 at 20:00 Ibuprofen (Motrin) 800 mg PRN Q6HRS PRN PO INFLAMMATION; Start 04/21/20 at 20:00; Stop 04/23/20 at 07:26; Status DC Magnesium Sulfate 500 ml @ 50 mls/hr Q10H IV Last administered on 04/23/20at 02:44; Start 04/21/20 at 20:00 Betamethasone Sodium Phosphate (Celestone Soluspan) 12 mg Q24H IM Last administered on 04/21/20at 20:45; Start 04/21/20 at 20:00; Stop 04/22/20 at 20:01; Status DC Labetalol HCl (Normodyne Iv Push) 20 mg PRN Q2HR PRN IVP HYPERTENSION Last administered on 04/22/20at 12:09; Start 04/21/20 at 20:15 Labetalol HCl (Normodyne Iv Push) 40 mg 1X PRN PRN IVP HYPERTENSION Last administered on 04/21/20at 21:19; Start 04/21/20 at 21:00 Alprazolam (Xanax) 0.5 mg 1X ONCE PO Last administered on 04/21/20at 21:15; Start 04/21/20 at 21:30; Stop 04/21/20 at 21:31; Status DC Lidocaine HCl (Lidocaine HCl 2% Abboject) 100 mg STK-MED ONCE .ROUTE ; Start 04/21/20 at 21:38; Stop 04/21/20 at 21:39; Status DC Lidocaine HCl (Xylocaine 2% Topical 5gm Tube) 1 clint 1X ONCE TP Last administered on 04/21/20at 22:03; Start 04/21/20 at 22:00; Stop 04/21/20 at 22:01; Status DC Cefazolin Sodium 3 gm/Dextrose 100 ml @ 200 mls/hr 1X ONCE IV Last administered on 04/22/20at 08:55; Start 04/22/20 at 08:45; Stop 04/22/20 at 09:14; Status DC Citric Acid/ Sodium Citrate (Bicitra) 30 ml 1X ONCE PO Last administered on 04/22/20at 08:54; Start 04/22/20 at 08:45; Stop 04/22/20 at 08:48; Status DC Phenylephrine HCl (PHENYLEPHRINE in 0.9% NACL PF) 1 mg STK-MED ONCE IV ; Start 04/22/20 at 08:45; Stop 04/22/20 at 08:45; Status DC Oxytocin (Pitocin) 10 unit STK-MED ONCE .ROUTE ; Start 04/22/20 at 08:45; Stop 04/22/20 at 08:45; Status DC Ephedrine Sulfate (ePHEDrine PF IN SALINE SYRINGE) 50 mg STK-MED ONCE IV ; Start 04/22/20 at 08:45; Stop 04/22/20 at 08:46; Status DC Morphine Sulfate (Morphine Preservative Free) 10 mg STK-MED ONCE .ROUTE ; Start 04/22/20 at 08:46; Stop 04/22/20 at 08:46; Status DC Fentanyl Citrate (Fentanyl 2ml Vial) 100 mcg STK-MED ONCE .ROUTE ; Start at 08:46; Stop 04/22/20 at 08:46; Status DC Oxytocin (Pitocin) 10 unit STK-MED ONCE .ROUTE ; Start 04/22/20 at 09:31; Stop 04/22/20 at 09:31; Status DC Misoprostol (Cytotec 200mcg Tab) 200 mcg STK-MED ONCE .ROUTE ; Start 04/22/20 at 09:34; Stop 04/22/20 at 09:34; Status DC Misoprostol (Cytotec 200mcg Tab) 200 mcg STK-MED ONCE .ROUTE ; Start 04/22/20 at 09:54; Stop 04/22/20 at 09:54; Status DC Sodium Chloride (Normal Saline Flush) 3 ml QSHIFT PRN IV AFTER MEDS AND BLOOD DRAWS; Start 04/22/20 at 10:30 Oxytocin 500 ml @ 125 mls/hr CONT PRN IV EXCESSIVE POST- BLEEDING; Start 04/22/20 at 10:30; Stop 04/22/20 at 18:29; Status DC Ibuprofen (Motrin) 800 mg PRN Q8HRS PRN PO INFLAMMATION; Start 04/22/20 at 10:30; Stop 04/23/20 at 11:49; Status DC Ondansetron HCl (Zofran) 4 mg PRN Q6HRS PRN IV NAUSEA/VOMITING Last administered on 04/24/20at 02:13; Start 04/22/20 at 10:30 Docusate Sodium (Colace) 100 mg PRN BID PRN PO HARD STOOL Last administered on 04/25/20at 07:50; Start 04/22/20 at 10:30 Al Hydroxide/Mg Hydroxide (Mylanta Plus Xs) 30 ml PRN Q4HRS PRN PO HEARTBURN / GAS; Start 04/22/20 at 10:30 Simethicone (Gas-X) 80 mg PRN AFTMEALHC PRN PO GAS / BLOATING; Start 04/22/20 at 10:30 Diphenhydramine HCl (Benadryl Oral Elixir) 12.5 mg PRN Q6HRS PRN PO ITCHING; Start 04/22/20 at 10:30 Ferrous Sulfate (Feosol) 325 mg BIDWMEALS PO Last administered on 04/25/20at 07:50; Start 04/22/20 at 17:00 Zolpidem Tartrate (Ambien) 5 mg PRN QHS PRN PO INSOMNIA, MAY REPEAT X1; Start 04/22/20 at 10:30 Oxycodone/ Acetaminophen (Percocet 5/325) 2 tab PRN Q4HRS PRN PO MODERATE PAIN, SEVERE PAIN Last administered on 04/25/20at 07:51; Start 04/22/20 at 10:30 Ketorolac Tromethamine (Toradol 30mg Vial) 30 mg PRN Q6HRS PRN IV INFLAMMATION/PAIN Last administered on 04/23/20at 06:20; Start 04/22/20 at 10:30; Stop 04/23/20 at 11:49; Status DC Multivitamins (Thera M Plus) 1 tab DAILY PO Last administered on 04/25/20at 07:50; Start 04/23/20 at 09:00 Ringer's Solution 1,000 ml @ 50 mls/hr Q20H IV Last administered on 04/23/20at 04:22; Start 04/22/20 at 12:00; Stop 04/23/20 at 11:23; Status DC Enoxaparin Sodium (Lovenox 120mg Syringe) 110 mg Q12HR SQ Last administered on 04/23/20at 08:29; Start 04/22/20 at 16:00; Stop 04/23/20 at 17:42; Status DC Furosemide (Lasix) 40 mg 1X ONCE IVP Last administered on 04/22/20at 12:00; Start 04/22/20 at 12:00; Stop 04/22/20 at 12:01; Status DC Lidocaine HCl (Lidocaine HCl 2% Abboject) 100 mg STK-MED ONCE .ROUTE ; Start 04/21/20 at 22:00; Stop 04/22/20 at 12:28; Status DC Fentanyl Citrate (Fentanyl 2ml Vial) 75 mcg PRN Q1HR PRN IVP PAIN Last administered on 04/22/20at 16:51; Start 04/22/20 at 12:30 Fentanyl Citrate (Fentanyl 2ml Vial) 100 mcg STK-MED ONCE .ROUTE ; Start 04/22/20 at 12:35; Stop 04/22/20 at 12:36; Status DC Benzonatate (Tessalon Perle) 100 mg PRN Q8HRS PRN PO COUGH Last administered on 04/23/20at 08:17; Start 04/22/20 at 16:00 Lactobacillus Rhamnosus (Culturelle) 1 cap BID PO Last administered on 04/25/20at 07:50; Start 04/23/20 at 21:00 Sodium Chloride 500 ml @ 500 mls/hr 1X ONCE IV ; Start 04/23/20 at 11:45; Stop 04/23/20 at 12:44; Status DC Iohexol (Omnipaque 350 Mg/ml) 80 ml 1X ONCE IV ; Start 04/23/20 at 12:30; Stop 04/23/20 at 12:31; Status DC Info (CONTRAST GIVEN -- Rx MONITORING) 1 each PRN DAILY PRN MC SEE COMMENTS; Start 04/23/20 at 12:30; Stop 04/25/20 at 12:29 Furosemide (Lasix) 40 mg 1X ONCE IVP ; Start 04/23/20 at 15:30; Stop 04/23/20 at 15:31; Status DC Metoprolol Succinate (Toprol Xl) 50 mg DAILY PO Last administered on 04/24/20at 08:55; Start 04/24/20 at 09:00; Stop 04/24/20 at 11:12; Status DC Hydralazine HCl (Apresoline) 25 mg BID PO Last administered on 04/25/20at 07:52; Start 04/23/20 at 21:00 Spironolactone (Aldactone) 25 mg DAILY PO Last administered on 04/25/20at 07:52; Start 04/24/20 at 09:00 Lorazepam (Ativan) 1 mg PRN Q4HRS PRN PO ANXIETY / AGITATION Last administered on 04/23/20at 18:17; Start 04/23/20 at 17:45; Stop 04/24/20 at 17:32; Status DC Metoprolol Succinate (Toprol Xl) 25 mg DAILY PO Last administered on 04/25/20at 07:53; Start 04/25/20 at 09:00 Lorazepam (Ativan) 1 mg PRN Q4HRS PRN PO ANXIETY / AGITATION; Start 04/24/20 at 17:32 Zinc Sulfate (Orazinc) 220 mg DAILY PO ; Start 04/25/20 at 10:00 Vitamin D (Vitamin D3) 5,000 unit DAILY PO ; Start 04/25/20 at 10:00 Enoxaparin Sodium (Lovenox Per Pharmacy Prophylaxis Dosing) 1 each PRN DAILY PRN MC SEE COMMENTS; Start 04/25/20 at 08:45 Enoxaparin Sodium (Lovenox 40mg Syringe) 40 mg BID SQ ; Start 04/25/20 at 10:00 Active Scripts Active Reported Clonazepam 0.5 Mg Tablet 1 Tab PO BID PRN Exam Abd: soft, non tender, fundus firm Prevena in place and dry. LE: edema trace Assessment POD#3 s/p c/s Severe Preeclampsia: improving Cardiomyopathy : stable Plan of Care: Continue current Tx, Mgmt MARY ZHENG Jr, MD Apr 25, 2020 09:47
[2020-04-25] MEDS: ENOXAPARIN 40 MG/0.4 ML SYRINGE. SQ SCH (10:00)
[2020-04-25] MEDS: CHOLECALCIFEROL (VITAMIN D3) 5,000 UNIT CAPSULE PO SCH (12:33)
[2020-04-25] MEDS: ZINC SULFATE 220 MG CAPSULE. PO SCH (12:33)
--- NOTE | 2020-04-25 13:38 | PDOC ---
PROGRESS NOTES Date of Service: DATE: 04/25/20 TIME: 13:37 Chief Complaint Chief Complaint severe pre-eclampsia, htn control with labetolol, 36 wks acute hypoxic respiratory failure, acute decompensated systolic CHF< with demand NSTEMI type 2, sepsis, pulm congestion, treating pneumonia, COVID still pending, rapid was negative, obese, BMI 43 acute renal fauilre with proteinuria, consult renal, start 24 hour urine History of Present Illness History of Present Illness 04/25, doing better, renal fxn improved wound improved baby is healthy and doing well, starting to latch on to breast feed cont other 04/24: Patient evaluated bedside. She has some bleeding from her surgical site yesterday, wound VAC was changed. Hemoglobin 7.4, primary be transfused with PRBCs. No evidence of deep venous thrombosis in the bilateral lower extremity. Denies chest pain or shortness of breath, breathing comfortably on room air. CTA chest was not done due to creatinine. Low suspicion for PE at this time. D/C therapeutic Lovenox due to bleeding. SCDs for VTE prophylaxis. She was initiated on heart failure medications, judicious use at this time due to breast-feeding. 04/23: Status post delivery, post-op pain well controlled. Blood pressure improved following delivery. Discussed with OB, continue magnesium infusion till 10 AM. She will likely discharge to medical floors, as ICU beds are needed. 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 Ischemic evaluation as outpatient, per cardiology. Creatinine rising slightly, possibly from diuresis. She is receiving therapeutic dose of Lovenox for concern of PE. Discussed with CTA, her GFR is good enough for reduced dose IV contrast, but they are recommending some fluids to help clear her kidneys. Patient is comfortable receiving CTA today to rule out PE. Discussed with RN. Vitals Vitals Vital Signs Date Time Temp Pulse Resp B/P (MAP) Pulse Ox O2 Delivery O2 Flow Rate FiO2 04/25/20 12:32 18 Room Air 04/25/20 07:53 90 123/68 04/25/20 07:30 98.6 94 98.6 Physical Exam General: Alert, Oriented X3, Cooperative, No acute distress Heart: Regular rate, Other Lungs: Clear Abdomen: Normal bowel sounds, Soft, Other (Incisional tenderness with wound VAC in place) Extremities: No clubbing, Other (LE edema +2 evette, nml reflexes) Skin: No rashes, No breakdown Labs LABS Laboratory Tests Test 04/25/20 05:10 White Blood Count 15.7 x10^3/uL (4.0-11.0) Red Blood Count 2.66 x10^6/uL (3.50-5.40) Hemoglobin 7.6 g/dL (12.0-15.5) Hematocrit 23.0 % (36.0-47.0) Mean Corpuscular Volume 86 fL (79-100) Mean Corpuscular Hemoglobin 29 pg (25-35) Mean Corpuscular Hemoglobin Concent 33 g/dL (31-37) Red Cell Distribution Width 15.0 % (11.5-14.5) Platelet Count 368 x10^3/uL (140-400) Sodium Level 133 mmol/L (136-145) Potassium Level 4.3 mmol/L (3.5-5.1) Chloride Level 103 mmol/L (98-107) Carbon Dioxide Level 24 mmol/L (21-32) Anion Gap 6 (6-14) Blood Urea Nitrogen 42 mg/dL (7-20) Creatinine 1.2 mg/dL (0.6-1.0) Estimated GFR (Cockcroft-Gault) 49.3 Glucose Level 89 mg/dL (70-99) Calcium Level 7.2 mg/dL (8.5-10.1) Assessment and Plan Assessmemt and Plan Problems Medical Problems: (1) CAP (community acquired pneumonia) Status: Acute (2) CHF (congestive heart failure) Status: Acute (3) Elevated troponin Status: Acute (4) Hypertensive urgency Status: Acute (5) 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 Labs Laboratory Tests Test 04/24/20 05:00 04/25/20 05:10 White Blood Count 16.1 x10^3/uL (4.0-11.0) 15.7 x10^3/uL (4.0-11.0) Red Blood Count 2.65 x10^6/uL (3.50-5.40) 2.66 x10^6/uL (3.50-5.40) Hemoglobin 7.4 g/dL (12.0-15.5) 7.6 g/dL (12.0-15.5) Hematocrit 22.5 % (36.0-47.0) 23.0 % (36.0-47.0) Mean Corpuscular Volume 85 fL (79-100) 86 fL (79-100) Mean Corpuscular Hemoglobin 28 pg (25-35) 29 pg (25-35) Mean Corpuscular Hemoglobin Concent 33 g/dL (31-37) 33 g/dL (31-37) Red Cell Distribution Width 13.9 % (11.5-14.5) 15.0 % (11.5-14.5) Platelet Count 423 x10^3/uL (140-400) 368 x10^3/uL (140-400) Neutrophils (%) (Auto) 84 % (31-73) Lymphocytes (%) (Auto) 9 % (24-48) Monocytes (%) (Auto) 5 % (0-9) Eosinophils (%) (Auto) 1 % (0-3) Basophils (%) (Auto) 0 % (0-3) Neutrophils # (Auto) 13.5 x10^3/uL (1.8-7.7) Lymphocytes # (Auto) 1.5 x10^3/uL (1.0-4.8) Monocytes # (Auto) 0.8 x10^3/uL (0.0-1.1) Eosinophils # (Auto) 0.1 x10^3/uL (0.0-0.7) Basophils # (Auto) 0.0 x10^3/uL (0.0-0.2) Sodium Level 135 mmol/L (136-145) 133 mmol/L (136-145) Potassium Level 4.6 mmol/L (3.5-5.1) 4.3 mmol/L (3.5-5.1) Chloride Level 102 mmol/L (98-107) 103 mmol/L (98-107) Carbon Dioxide Level 25 mmol/L (21-32) 24 mmol/L (21-32) Anion Gap 8 (6-14) 6 (6-14) Blood Urea Nitrogen 44 mg/dL (7-20) 42 mg/dL (7-20) Creatinine 1.4 mg/dL (0.6-1.0) 1.2 mg/dL (0.6-1.0) Estimated GFR (Cockcroft-Gault) 41.2 49.3 BUN/Creatinine Ratio 31 (6-20) Glucose Level 74 mg/dL (70-99) 89 mg/dL (70-99) Calcium Level 7.1 mg/dL (8.5-10.1) 7.2 mg/dL (8.5-10.1) Total Bilirubin 0.2 mg/dL (0.2-1.0) Aspartate Amino Transf (AST/SGOT) 19 U/L (15-37) Alanine Aminotransferase (ALT/SGPT) 18 U/L (14-59) Alkaline Phosphatase 96 U/L (46-116) Total Protein 4.6 g/dL (6.4-8.2) Albumin 1.7 g/dL (3.4-5.0) Albumin/Globulin Ratio 0.6 (1.0-1.7) Laboratory Tests Test 04/25/20 05:10 White Blood Count 15.7 x10^3/uL (4.0-11.0) Red Blood Count 2.66 x10^6/uL (3.50-5.40) Hemoglobin 7.6 g/dL (12.0-15.5) Hematocrit 23.0 % (36.0-47.0) Mean Corpuscular Volume 86 fL (79-100) Mean Corpuscular Hemoglobin 29 pg (25-35) Mean Corpuscular Hemoglobin Concent 33 g/dL (31-37) Red Cell Distribution Width 15.0 % (11.5-14.5) Platelet Count 368 x10^3/uL (140-400) Sodium Level 133 mmol/L (136-145) Potassium Level 4.3 mmol/L (3.5-5.1) Chloride Level 103 mmol/L (98-107) Carbon Dioxide Level 24 mmol/L (21-32) Anion Gap 6 (6-14) Blood Urea Nitrogen 42 mg/dL (7-20) Creatinine 1.2 mg/dL (0.6-1.0) Estimated GFR (Cockcroft-Gault) 49.3 Glucose Level 89 mg/dL (70-99) Calcium Level 7.2 mg/dL (8.5-10.1) Microbiology 04/21/20 Blood Culture - Preliminary, Resulted NO GROWTH AFTER 3 DAYS Medications Current Medications Lorazepam (Ativan Inj) 0.5 mg 1X ONCE IV Last administered on 04/21/20at 13:10; Start 04/21/20 at 13:00; Stop 04/21/20 at 13:01; Status DC Furosemide (Lasix) 40 mg 1X ONCE IVP Last administered on 04/21/20at 14:04; Start 04/21/20 at 13:45; Stop 04/21/20 at 13:47; Status DC Ceftriaxone Sodium (Rocephin) 1 gm 1X ONCE IVP Last administered on 04/21/20at 13:59; Start 04/21/20 at 13:45; Stop 04/21/20 at 13:47; Status DC Azithromycin 250 ml @ 250 mls/hr 1X ONCE IV Last administered on 04/21/20at 14:03; Start 04/21/20 at 14:00; Stop 04/21/20 at 14:59; Status DC Aspirin (Tung Aspirin) 325 mg 1X ONCE PO Last administered on 04/21/20at 15:21; Start 04/21/20 at 14:15; Stop 04/21/20 at 14:16; Status DC Magnesium Sulfate 100 ml @ 25 mls/hr 1X ONCE IV Last administered on 04/21/20at 15:35; Start 04/21/20 at 14:15; Stop 04/21/20 at 18:14; Status DC Enoxaparin Sodium (Lovenox Per Pharmacy Treatment Dosing) 1 each PRN DAILY PRN MC SEE COMMENTS; Start 04/21/20 at 14:45; Stop 04/23/20 at 17:43; Status DC Labetalol HCl (Normodyne Iv Push) 20 mg 1X ONCE IVP Last administered on 04/21/20at 14:53; Start 04/21/20 at 15:00; Stop 04/21/20 at 15:01; Status DC Ondansetron HCl (Zofran) 4 mg 1X ONCE IV Last administered on 04/21/20at 14:52; Start 04/21/20 at 15:00; Stop 04/21/20 at 15:01; Status DC Enoxaparin Sodium (Lovenox 120mg Syringe) 110 mg Q12HR SQ Last administered on 04/21/20at 15:21; Start 04/21/20 at 15:00; Stop 04/22/20 at 11:50; Status DC Metoprolol Tartrate (Lopressor) 25 mg BID PO Last administered on 04/23/20at 08:18; Start 04/21/20 at 15:30; Stop 04/23/20 at 15:21; Status DC Hydralazine HCl (Apresoline) 50 mg 1X ONCE PO ; Start 04/21/20 at 15:30; Stop 04/21/20 at 15:31; Status DC Azithromycin (Zithromax) 250 mg DAILY PO Last administered on 04/25/20at 07:54; Start 04/22/20 at 09:00 Sodium Chloride (Normal Saline Flush) 3 ml QSHIFT PRN IV AFTER MEDS AND BLOOD DRAWS; Start 04/21/20 at 20:00; Status Cancel Ringer's Solution 1,000 ml @ 125 mls/hr Q8H IV ; Start 04/21/20 at 19:54; Stop 04/22/20 at 11:50; Status DC Terbutaline Sulfate (Brethine) 0.25 mg 1X PRN PRN SQ SEE COMMENTS; Start 04/21/20 at 20:00; Stop 04/22/20 at 19:59; Status DC Lidocaine HCl (Xylocaine 1% Pf 30ml Vial) 30 ml 1X PRN PRN INJ SEE COMMENTS; Start 04/21/20 at 20:00; Stop 04/23/20 at 19:59; Status DC Oxytocin 500 ml @ 0 mls/hr CONT PRN IV SEE I/O RECORD; Start 04/21/20 at 20:00 Oxytocin 500 ml @ 0 mls/hr CONT PRN PRN IV Post delivery bleeding; Start 04/21/20 at 20:00 Ibuprofen (Motrin) 800 mg PRN Q6HRS PRN PO INFLAMMATION; Start 04/21/20 at 20:00; Stop 04/23/20 at 07:26; Status DC Magnesium Sulfate 500 ml @ 50 mls/hr Q10H IV Last administered on 04/23/20at 02:44; Start 04/21/20 at 20:00 Betamethasone Sodium Phosphate (Celestone Soluspan) 12 mg Q24H IM Last administered on 04/21/20at 20:45; Start 04/21/20 at 20:00; Stop 04/22/20 at 20:01; Status DC Labetalol HCl (Normodyne Iv Push) 20 mg PRN Q2HR PRN IVP HYPERTENSION Last administered on 04/22/20at 12:09; Start 04/21/20 at 20:15 Labetalol HCl (Normodyne Iv Push) 40 mg 1X PRN PRN IVP HYPERTENSION Last administered on 04/21/20at 21:19; Start 04/21/20 at 21:00; Stop 04/25/20 at 10:58; Status DC Alprazolam (Xanax) 0.5 mg 1X ONCE PO Last administered on 04/21/20at 21:15; Start 04/21/20 at 21:30; Stop 04/21/20 at 21:31; Status DC Lidocaine HCl (Lidocaine HCl 2% Abboject) 100 mg STK-MED ONCE .ROUTE ; Start 04/21/20 at 21:38; Stop 04/21/20 at 21:39; Status DC Lidocaine HCl (Xylocaine 2% Topical 5gm Tube) 1 clint 1X ONCE TP Last administered on 04/21/20at 22:03; Start 04/21/20 at 22:00; Stop 04/21/20 at 22:01; Status DC Cefazolin Sodium 3 gm/Dextrose 100 ml @ 200 mls/hr 1X ONCE IV Last administered on 04/22/20at 08:55; Start 04/22/20 at 08:45; Stop 04/22/20 at 09 :14; Status DC Citric Acid/ Sodium Citrate (Bicitra) 30 ml 1X ONCE PO Last administered on 04/22/20at 08:54; Start 04/22/20 at 08:45; Stop 04/22/20 at 08:48; Status DC Phenylephrine HCl (PHENYLEPHRINE in 0.9% NACL PF) 1 mg STK-MED ONCE IV ; Start 04/22/20 at 08:45; Stop 04/22/20 at 08:45; Status DC Oxytocin (Pitocin) 10 unit STK-MED ONCE .ROUTE ; Start 04/22/20 at 08:45; Stop 04/22/20 at 08:45; Status DC Ephedrine Sulfate (ePHEDrine PF IN SALINE SYRINGE) 50 mg STK-MED ONCE IV ; Start 04/22/20 at 08:45; Stop 04/22/20 at 08:46; Status DC Morphine Sulfate (Morphine Preservative Free) 10 mg STK-MED ONCE .ROUTE ; Start 04/22/20 at 08:46; Stop 04/22/20 at 08:46; Status DC Fentanyl Citrate (Fentanyl 2ml Vial) 100 mcg STK-MED ONCE .ROUTE ; Start 1 06/22/19 at 08:46; Stop 04/22/20 at 08:46; Status DC Oxytocin (Pitocin) 10 unit STK-MED ONCE .ROUTE ; Start 04/22/20 at 09:31; Stop 04/22/20 at 09:31; Status DC Misoprostol (Cytotec 200mcg Tab) 200 mcg STK-MED ONCE .ROUTE ; Start 04/22/20 at 09:34; Stop 04/22/20 at 09:34; Status DC Misoprostol (Cytotec 200mcg Tab) 200 mcg STK-MED ONCE .ROUTE ; Start 04/22/20 at 09:54; Stop 04/22/20 at 09:54; Status DC Sodium Chloride (Normal Saline Flush) 3 ml QSHIFT PRN IV AFTER MEDS AND BLOOD DRAWS; Start 04/22/20 at 10:30 Oxytocin 500 ml @ 125 mls/hr CONT PRN IV EXCESSIVE POST- BLEEDING; Start 04/22/20 at 10:30; Stop 04/22/20 at 18:29; Status DC Ibuprofen (Motrin) 800 mg PRN Q8HRS PRN PO INFLAMMATION; Start 04/22/20 at 10:30; Stop 04/23/20 at 11:49; Status DC Ondansetron HCl (Zofran) 4 mg PRN Q6HRS PRN IV NAUSEA/VOMITING Last administered on 04/24/20at 02:13; Start 04/22/20 at 10:30 Docusate Sodium (Colace) 100 mg PRN BID PRN PO HARD STOOL Last administered on 04/25/20at 07:50; Start 04/22/20 at 10:30 Al Hydroxide/Mg Hydroxide (Mylanta Plus Xs) 30 ml PRN Q4HRS PRN PO HEARTBURN / GAS; Start 04/22/20 at 10:30 Simethicone (Gas-X) 80 mg PRN AFTMEALHC PRN PO GAS / BLOATING Last administered on 04/25/20at 12:32; Start 04/22/20 at 10:30 Diphenhydramine HCl (Benadryl Oral Elixir) 12.5 mg PRN Q6HRS PRN PO ITCHING; Start 04/22/20 at 10:30 Ferrous Sulfate (Feosol) 325 mg BIDWMEALS PO Last administered on 04/25/20at 07:50; Start 04/22/20 at 17:00 Zolpidem Tartrate (Ambien) 5 mg PRN QHS PRN PO INSOMNIA, MAY REPEAT X1; Start 04/22/20 at 10:30 Oxycodone/ Acetaminophen (Percocet 5/325) 2 tab PRN Q4HRS PRN PO MODERATE PAIN, SEVERE PAIN Last administered on 04/25/20at 12:32; Start 04/22/20 at 10:30 Ketorolac Tromethamine (Toradol 30mg Vial) 30 mg PRN Q6HRS PRN IV INFLAMMATION/PAIN Last administered on 04/23/20at 06:20; Start 04/22/20 at 10:30; Stop 04/23/20 at 11:49; Status DC Multivitamins (Thera M Plus) 1 tab DAILY PO Last administered on 04/25/20at 07:50; Start 04/23/20 at 09:00 Ringer's Solution 1,000 ml @ 50 mls/hr Q20H IV Last administered on 04/23/20at 04:22; Start 04/22/20 at 12:00; Stop 04/23/20 at 11:23; Status DC Enoxaparin Sodium (Lovenox 120mg Syringe) 110 mg Q12HR SQ Last administered on 04/23/20at 08:29; Start 04/22/20 at 16:00; Stop 04/23/20 at 17:42; Status DC Furosemide (Lasix) 40 mg 1X ONCE IVP Last administered on 04/22/20at 12:00; Start 04/22/20 at 12:00; Stop 04/22/20 at 12:01; Status DC Lidocaine HCl (Lidocaine HCl 2% Abboject) 100 mg STK-MED ONCE .ROUTE ; Start 04/21/20 at 22:00; Stop 04/22/20 at 12:28; Status DC Fentanyl Citrate (Fentanyl 2ml Vial) 75 mcg PRN Q1HR PRN IVP PAIN Last administered on 04/22/20at 16:51; Start 04/22/20 at 12:30 Fentanyl Citrate (Fentanyl 2ml Vial) 100 mcg STK-MED ONCE .ROUTE ; Start 04/22/20 at 12:35; Stop 04/22/20 at 12:36; Status DC Benzonatate (Tessalon Perle) 100 mg PRN Q8HRS PRN PO COUGH Last administered on 04/23/20at 08:17; Start 04/22/20 at 16:00 Lactobacillus Rhamnosus (Culturelle) 1 cap BID PO Last administered on 04/25/20at 07:50; Start 04/23/20 at 21:00 Sodium Chloride 500 ml @ 500 mls/hr 1X ONCE IV ; Start 04/23/20 at 11:45; Stop 04/23/20 at 12:44; Status DC Iohexol (Omnipaque 350 Mg/ml) 80 ml 1X ONCE IV ; Start 04/23/20 at 12:30; Stop 04/23/20 at 12:31; Status DC Info (CONTRAST GIVEN -- Rx MONITORING) 1 each PRN DAILY PRN MC SEE COMMENTS; Start 04/23/20 at 12:30; Stop 04/25/20 at 12:29; Status DC Furosemide (Lasix) 40 mg 1X ONCE IVP ; Start 04/23/20 at 15:30; Stop 04/23/20 at 15:31; Status DC Metoprolol Succinate (Toprol Xl) 50 mg DAILY PO Last administered on 04/24/20at 08:55; Start 04/24/20 at 09:00; Stop 04/24/20 at 11:12; Status DC Hydralazine HCl (Apresoline) 25 mg BID PO Last administered on 04/25/20at 07:52; Start 04/23/20 at 21:00 Spironolactone (Aldactone) 25 mg DAILY PO Last administered on 04/25/20at 07:52; Start 04/24/20 at 09:00 Lorazepam (Ativan) 1 mg PRN Q4HRS PRN PO ANXIETY / AGITATION Last administered on 04/23/20at 18:17; Start 04/23/20 at 17:45; Stop 04/24/20 at 17:32; Status DC Metoprolol Succinate (Toprol Xl) 25 mg DAILY PO Last administered on 04/25/20at 07:53; Start 04/25/20 at 09:00 Lorazepam (Ativan) 1 mg PRN Q4HRS PRN PO ANXIETY / AGITATION; Start 04/24/20 at 17:32 Zinc Sulfate (Orazinc) 220 mg DAILY PO Last administered on 04/25/20at 12:33; Start 04/25/20 at 10:00 Vitamin D (Vitamin D3) 5,000 unit DAILY PO Last administered on 04/25/20at 12:33; Start 04/25/20 at 10:00 Enoxaparin Sodium (Lovenox Per Pharmacy Prophylaxis Dosing) 1 each PRN DAILY PRN MC SEE COMMENTS; Start 04/25/20 at 08:45 Enoxaparin Sodium (Lovenox 40mg Syringe) 40 mg BID SQ ; Start 04/25/20 at 10:00 Active Scripts Active Reported Clonazepam 0.5 Mg Tablet 1 Tab PO BID PRN Vitals/I & O Vital Sign - Last 24 Hours 04/24/20 04/24/20 04/24/20 04/24/20 13:44 14:50 14:50 15:55 Temp 98.3 98.3 98.3 98.3 Pulse 94 94 Resp 20 B/P (MAP) 119/73 (88) 119/73 Pulse Ox 95 O2 Delivery Room Air Room Air Room Air 04/24/20 04/24/20 04/24/20 04/24/20 16:10 17:10 17:50 18:10 Temp 98.2 98.3 98.2 98.2 98.3 98.2 Pulse 77 82 90 Resp 18 B/P (MAP) 98/64 109/70 120/75 O2 Delivery Room Air 04/24/20 04/24/20 04/24/20 04/24/20 19:00 19:00 19:59 19:59 Temp 98.2 98.2 98.2 98.2 Pulse 84 84 Resp 18 18 18 18 B/P (MAP) 110/71 110/71 (84) Pulse Ox 97 O2 Delivery Room Air 04/24/20 04/24/20 04/24/20 04/24/20 20:14 20:14 20:30 20:30 Temp 98.3 98.3 98.3 98.3 98.3 98.3 98.3 98.3 Pulse 84 84 83 83 Resp 18 18 18 18 B/P (MAP) 108/70 108/70 (83) 105/63 105/63 (77) Pulse Ox 97 O2 Delivery Room Air Room Air 04/24/20 04/24/20 04/24/20 04/24/20 20:45 20:45 20:45 20:48 Temp 98.1 98.1 98.1 98.1 Pulse 84 84 83 Resp 18 18 B/P (MAP) 108/67 (81) 108/67 105/63 O2 Delivery Room Air 04/24/20 04/24/20 04/24/20 04/24/20 21:00 21:00 21:50 21:50 Temp 98.3 98.3 98.3 98.5 98.3 98.3 98.3 98.5 Pulse 84 84 84 84 Resp 18 18 18 18 B/P (MAP) 110/68 (82) 110/68 114/70 114/70 (85) Pulse Ox 98 O2 Delivery Room Air Room Air 04/24/20 04/24/20 04/25/20 04/25/20 22:00 23:00 00:00 02:45 Temp 98.4 98.4 Pulse 81 Resp 20 B/P (MAP) 113/64 (80) O2 Delivery Room Air Room Air Room Air Room Air 04/25/20 04/25/20 04/25/20 04/25/20 02:45 03:45 07:30 07:51 Temp 98.8 98.6 98.8 98.6 Pulse 87 90 Resp 20 18 18 18 B/P (MAP) 104/63 (77) 123/68 (86) Pulse Ox 95 94 O2 Delivery Room Air Room Air Room Air Room Air 04/25/20 04/25/20 04/25/20 07:52 07:53 12:32 Pulse 90 90 Resp 18 B/P (MAP) 123/68 123/68 O2 Delivery Room Air Intake and Output 04/24/20 04/24/20 04/25/20 14:59 22:59 06:59 Intake Total 1300 ml 400 ml Output Total 1100 ml Balance -1100 ml 1300 ml 400 ml Justicifation of Admission Dx: Justifications for Admission: Justification of Admission Dx: Yes ROMANA BANUELOS MD Apr 25, 2020 13:38
[2020-04-25] MEDS ORDERED: FLU VACC QS 2020-21(6MOS+)/PF 0.5 ML SYRINGE. VAX IM ONE (17:45)
[2020-04-25] MEDS ORDERED: DIPH,PERTUSS(ACELL),TET VAC/PF 0.5 ML SYRINGE. VAX IM ONE (17:45)
[2020-04-26] MEDS: oxyCODONE/APAP 5/325 1 TAB TABLET PO PRN ×3 (02:25→18:02)
[2020-04-26 04:07] VITALS: BP 135/82
[2020-04-26 07:36] LABS: ALBUMIN 1.8 g/dL (3.4-5.0); ALBUMIN/GLOBULIN RATIO 0.6 (1.0-1.7); CALCIUM 7.8 mg/dL (8.5-10.1); GFR 60.8; POTASSIUM 4.4 mmol/L (3.5-5.1); TOTAL BILIRUBIN 0.3 mg/dL (0.2-1.0); TOTAL PROTEIN 4.7 g/dL (6.4-8.2)
[2020-04-26] MEDS: CHOLECALCIFEROL (VITAMIN D3) 5,000 UNIT CAPSULE PO SCH (08:38)
[2020-04-26] MEDS: FERROUS SULFATE 325 MG TABLET. PO SCH ×2 (08:38→18:02)
[2020-04-26] MEDS: hydrALAZINE 25 MG TABLET PO SCH (08:38)
[2020-04-26] MEDS: DOCUSATE SODIUM 100 MG CAPSULE. PO PRN (08:38)
[2020-04-26] MEDS: MULTIVITAMIN with MINERAL TABLET. PO SCH (08:38)
[2020-04-26] MEDS: METOPROLOL SUCC 24HR ER 25 MG TAB.ER.24H. PO SCH (08:39)
[2020-04-26] MEDS: SPIRONOLACTONE 25 MG TABLET PO SCH (08:39)
[2020-04-26] MEDS: ZINC SULFATE 220 MG CAPSULE. PO SCH (08:40)
[2020-04-26] MEDS: LACTOBACILLUS RHAMNOSUS GG 1 CAPSULE. PO SCH ×2 (08:40→21:17)
[2020-04-26] MEDS: AZITHROMYCIN 250 MG TABLET. PO SCH (08:40)
[2020-04-26] MEDS: ENOXAPARIN 40 MG/0.4 ML SYRINGE. SQ SCH (08:41)
[2020-04-26 09:00] VITALS: BP 131/75
--- NOTE | 2020-04-26 09:58 | PDOC ---
PROGRESS NOTES Date of Service DATE: 04/26/20 TIME: 09:57 Subjective Subjective Creatinine is noted to be back to normal at 1.0. Will refer to [facility] to reevaluate for proteinuria once preeclampsia is deemed to have resolved . 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 Labs Laboratory Tests Test 04/25/20 05:10 04/26/20 06:45 White Blood Count 15.7 x10^3/uL (4.0-11.0) Red Blood Count 2.66 x10^6/uL (3.50-5.40) Hemoglobin 7.6 g/dL (12.0-15.5) Hematocrit 23.0 % (36.0-47.0) Mean Corpuscular Volume 86 fL (79-100) Mean Corpuscular Hemoglobin 29 pg (25-35) Mean Corpuscular Hemoglobin Concent 33 g/dL (31-37) Red Cell Distribution Width 15.0 % (11.5-14.5) Platelet Count 368 x10^3/uL (140-400) Sodium Level 133 mmol/L (136-145) 135 mmol/L (136-145) Potassium Level 4.3 mmol/L (3.5-5.1) 4.4 mmol/L (3.5-5.1) Chloride Level 103 mmol/L (98-107) 102 mmol/L (98-107) Carbon Dioxide Level 24 mmol/L (21-32) 26 mmol/L (21-32) Anion Gap 6 (6-14) 7 (6-14) Blood Urea Nitrogen 42 mg/dL (7-20) 28 mg/dL (7-20) Creatinine 1.2 mg/dL (0.6-1.0) 1.0 mg/dL (0.6-1.0) Estimated GFR (Cockcroft-Gault) 49.3 60.8 Glucose Level 89 mg/dL (70-99) 84 mg/dL (70-99) Calcium Level 7.2 mg/dL (8.5-10.1) 7.8 mg/dL (8.5-10.1) BUN/Creatinine Ratio 28 (6-20) Total Bilirubin 0.3 mg/dL (0.2-1.0) Aspartate Amino Transf (AST/SGOT) 18 U/L (15-37) Alanine Aminotransferase (ALT/SGPT) 13 U/L (14-59) Alkaline Phosphatase 95 U/L (46-116) Total Protein 4.7 g/dL (6.4-8.2) Albumin 1.8 g/dL (3.4-5.0) Albumin/Globulin Ratio 0.6 (1.0-1.7) Laboratory Tests Test 04/26/20 06:45 Sodium Level 135 mmol/L (136-145) Potassium Level 4.4 mmol/L (3.5-5.1) Chloride Level 102 mmol/L (98-107) Carbon Dioxide Level 26 mmol/L (21-32) Anion Gap 7 (6-14) Blood Urea Nitrogen 28 mg/dL (7-20) Creatinine 1.0 mg/dL (0.6-1.0) Estimated GFR (Cockcroft-Gault) 60.8 BUN/Creatinine Ratio 28 (6-20) Glucose Level 84 mg/dL (70-99) Calcium Level 7.8 mg/dL (8.5-10.1) Total Bilirubin 0.3 mg/dL (0.2-1.0) Aspartate Amino Transf (AST/SGOT) 18 U/L (15-37) Alanine Aminotransferase (ALT/SGPT) 13 U/L (14-59) Alkaline Phosphatase 95 U/L (46-116) Total Protein 4.7 g/dL (6.4-8.2) Albumin 1.8 g/dL (3.4-5.0) Albumin/Globulin Ratio 0.6 (1.0-1.7) Microbiology 04/21/20 Blood Culture - Preliminary, Resulted NO GROWTH AFTER 4 DAYS Medications Current Medications Lorazepam (Ativan Inj) 0.5 mg 1X ONCE IV Last administered on 04/21/20at 13:10; Start 04/21/20 at 13:00; Stop 04/21/20 at 13:01; Status DC Furosemide (Lasix) 40 mg 1X ONCE IVP Last administered on 04/21/20at 14:04; Start 04/21/20 at 13:45; Stop 04/21/20 at 13:47; Status DC Ceftriaxone Sodium (Rocephin) 1 gm 1X ONCE IVP Last administered on 04/21/20at 13:59; Start 04/21/20 at 13:45; Stop 04/21/20 at 13:47; Status DC Azithromycin 250 ml @ 250 mls/hr 1X ONCE IV Last administered on 04/21/20at 14:03; Start 04/21/20 at 14:00; Stop 04/21/20 at 14:59; Status DC Aspirin (Tung Aspirin) 325 mg 1X ONCE PO Last administered on 04/21/20at 15:21; Start 04/21/20 at 14:15; Stop 04/21/20 at 14:16; Status DC Magnesium Sulfate 100 ml @ 25 mls/hr 1X ONCE IV Last administered on 04/21/20at 15:35; Start 04/21/20 at 14:15; Stop 04/21/20 at 18:14; Status DC Enoxaparin Sodium (Lovenox Per Pharmacy Treatment Dosing) 1 each PRN DAILY PRN MC SEE COMMENTS; Start 04/21/20 at 14:45; Stop 04/23/20 at 17:43; Status DC Labetalol HCl (Normodyne Iv Push) 20 mg 1X ONCE IVP Last administered on 04/21/20at 14:53; Start 04/21/20 at 15:00; Stop 04/21/20 at 15:01; Status DC Ondansetron HCl (Zofran) 4 mg 1X ONCE IV Last administered on 04/21/20at 14:52; Start 04/21/20 at 15:00; Stop 04/21/20 at 15:01; Status DC Enoxaparin Sodium (Lovenox 120mg Syringe) 110 mg Q12HR SQ Last administered on 04/21/20at 15:21; Start 04/21/20 at 15:00; Stop 04/22/20 at 11:50; Status DC Metoprolol Tartrate (Lopressor) 25 mg BID PO Last administered on 04/23/20at 08:18; Start 04/21/20 at 15:30; Stop 04/23/20 at 15:21; Status DC Hydralazine HCl (Apresoline) 50 mg 1X ONCE PO ; Start 04/21/20 at 15:30; Stop 04/21/20 at 15:31; Status DC Azithromycin (Zithromax) 250 mg DAILY PO Last administered on 04/26/20at 08:40; Start 04/22/20 at 09:00 Sodium Chloride (Normal Saline Flush) 3 ml QSHIFT PRN IV AFTER MEDS AND BLOOD DRAWS; Start 04/21/20 at 20:00; Status Cancel Ringer's Solution 1,000 ml @ 125 mls/hr Q8H IV ; Start 04/21/20 at 19:54; Stop 04/22/20 at 11:50; Status DC Terbutaline Sulfate (Brethine) 0.25 mg 1X PRN PRN SQ SEE COMMENTS; Start 04/21/20 at 20:00; Stop 04/22/20 at 19:59; Status DC Lidocaine HCl (Xylocaine 1% Pf 30ml Vial) 30 ml 1X PRN PRN INJ SEE COMMENTS; Start 04/21/20 at 20:00; Stop 04/23/20 at 19:59; Status DC Oxytocin 500 ml @ 0 mls/hr CONT PRN IV SEE I/O RECORD; Start 04/21/20 at 20:00 Oxytocin 500 ml @ 0 mls/hr CONT PRN PRN IV Post delivery bleeding; Start 04/21/20 at 20:00 Ibuprofen (Motrin) 800 mg PRN Q6HRS PRN PO INFLAMMATION; Start 04/21/20 at 20:00; Stop 04/23/20 at 07:26; Status DC Magnesium Sulfate 500 ml @ 50 mls/hr Q10H IV Last administered on 04/23/20at 02:44; Start 04/21/20 at 20:00 Betamethasone Sodium Phosphate (Celestone Soluspan) 12 mg Q24H IM Last administered on 04/21/20at 20:45; Start 04/21/20 at 20:00; Stop 04/22/20 at 20:01; Status DC Labetalol HCl (Normodyne Iv Push) 20 mg PRN Q2HR PRN IVP HYPERTENSION Last administered on 04/22/20at 12:09; Start 04/21/20 at 20:15 Labetalol HCl (Normodyne Iv Push) 40 mg 1X PRN PRN IVP HYPERTENSION Last administered on 04/21/20at 21:19; Start 04/21/20 at 21:00; Stop 04/25/20 at 10:58; Status DC Alprazolam (Xanax) 0.5 mg 1X ONCE PO Last administered on 04/21/20at 21:15; Start 04/21/20 at 21:30; Stop 04/21/20 at 21:31; Status DC Lidocaine HCl (Lidocaine HCl 2% Abboject) 100 mg STK-MED ONCE .ROUTE ; Start 04/21/20 at 21:38; Stop 04/21/20 at 21:39; Status DC Lidocaine HCl (Xylocaine 2% Topical 5gm Tube) 1 clint 1X ONCE TP Last administered on 04/21/20at 22:03; Start 04/21/20 at 22:00; Stop 04/21/20 at 22:01; Status DC Cefazolin Sodium 3 gm/Dextrose 100 ml @ 200 mls/hr 1X ONCE IV Last administered on 04/22/20at 08:55; Start 04/22/20 at 08:45; Stop 04/22/20 at 09:14; Status DC Citric Acid/ Sodium Citrate (Bicitra) 30 ml 1X ONCE PO Last administered on 04/22/20at 08:54; Start 04/22/20 at 08:45; Stop 04/22/20 at 08:48; Status DC Phenylephrine HCl (PHENYLEPHRINE in 0.9% NACL PF) 1 mg STK-MED ONCE IV ; Start 04/22/20 at 08:45; Stop 04/22/20 at 08:45; Status DC Oxytocin (Pitocin) 10 unit STK-MED ONCE .ROUTE ; Start 04/22/20 at 08:45; Stop 04/22/20 at 08:45; Status DC Ephedrine Sulfate (ePHEDrine PF IN SALINE SYRINGE) 50 mg STK-MED ONCE IV ; Start 04/22/20 at 08:45; Stop 04/22/20 at 08:46; Status DC Morphine Sulfate (Morphine Preservative Free) 10 mg STK-MED ONCE .ROUTE ; Start 04/22/20 at 08:46; Stop 04/22/20 at 08:46; Status DC Fentanyl Citrate (Fentanyl 2ml Vial) 100 mcg STK-MED ONCE .ROUTE ; Start 04/22/20 at 08:46; Stop 04/22/20 at 08:46; Status DC Oxytocin (Pitocin) 10 unit STK-MED ONCE .ROUTE ; Start 04/22/20 at 09:31; Stop 04/22/20 at 09:31; Status DC Misoprostol (Cytotec 200mcg Tab) 200 mcg STK-MED ONCE .ROUTE ; Start 04/22/20 at 09:34; Stop 04/22/20 at 09:34; Status DC Misoprostol (Cytotec 200mcg Tab) 200 mcg STK-MED ONCE .ROUTE ; Start 04/22/20 at 09:54; Stop 04/22/20 at 09:54; Status DC Sodium Chloride (Normal Saline Flush) 3 ml QSHIFT PRN IV AFTER MEDS AND BLOOD DRAWS; Start 04/22/20 at 10:30 Oxytocin 500 ml @ 125 mls/hr CONT PRN IV EXCESSIVE POST- BLEEDING; Start 04/22/20 at 10:30; Stop 04/22/20 at 18:29; Status DC Ibuprofen (Motrin) 800 mg PRN Q8HRS PRN PO INFLAMMATION; Start 04/22/20 at 10:30; Stop 04/23/20 at 11:49; Status DC Ondansetron HCl (Zofran) 4 mg PRN Q6HRS PRN IV NAUSEA/VOMITING Last administered on 04/24/20at 02:13; Start 04/22/20 at 10:30 Docusate Sodium (Colace) 100 mg PRN BID PRN PO HARD STOOL Last administered on 04/26/20at 08:38; Start 04/22/20 at 10:30 Al Hydroxide/Mg Hydroxide (Mylanta Plus Xs) 30 ml PRN Q4HRS PRN PO HEARTBURN / GAS; Start 04/22/20 at 10:30 Simethicone (Gas-X) 80 mg PRN AFTMEALHC PRN PO GAS / BLOATING Last administered on 04/25/20at 12:32; Start 04/22/20 at 10:30 Diphenhydramine HCl (Benadryl Oral Elixir) 12.5 mg PRN Q6HRS PRN PO ITCHING; Start 04/22/20 at 10:30 Ferrous Sulfate (Feosol) 325 mg BIDWMEALS PO Last administered on 04/26/20at 08:38; Start 04/22/20 at 17:00 Zolpidem Tartrate (Ambien) 5 mg PRN QHS PRN PO INSOMNIA, MAY REPEAT X1; Start 04/22/20 at 10:30 Oxycodone/ Acetaminophen (Percocet 5/325) 2 tab PRN Q4HRS PRN PO MODERATE PAIN, SEVERE PAIN Last administered on 04/26/20at 06:46; Start 04/22/20 at 10:30 Ketorolac Tromethamine (Toradol 30mg Vial) 30 mg PRN Q6HRS PRN IV INFLAMMATION/PAIN Last administered on 04/23/20at 06:20; Start 04/22/20 at 10:30; Stop 04/23/20 at 11:49; Status DC Multivitamins (Thera M Plus) 1 tab DAILY PO Last administered on 04/26/20at 08:38; Start 04/23/20 at 09:00 Ringer's Solution 1,000 ml @ 50 mls/hr Q20H IV Last administered on 04/23/20at 04:22; Start 04/22/20 at 12:00; Stop 04/23/20 at 11:23; Status DC Enoxaparin Sodium (Lovenox 120mg Syringe) 110 mg Q12HR SQ Last administered on 04/23/20at 08:29; Start 04/22/20 at 16:00; Stop 04/23/20 at 17:42; Status DC Furosemide (Lasix) 40 mg 1X ONCE IVP Last administered on 04/22/20at 12:00; Start 04/22/20 at 12:00; Stop 04/22/20 at 12:01; Status DC Lidocaine HCl (Lidocaine HCl 2% Abboject) 100 mg STK-MED ONCE .ROUTE ; Start 04/21/20 at 22:00; Stop 04/22/20 at 12:28; Status DC Fentanyl Citrate (Fentanyl 2ml Vial) 75 mcg PRN Q1HR PRN IVP PAIN Last administered on 04/22/20at 16:51; Start 04/22/20 at 12:30 Fentanyl Citrate (Fentanyl 2ml Vial) 100 mcg STK-MED ONCE .ROUTE ; Start 04/22/20 at 12:35; Stop 04/22/20 at 12:36; Status DC Benzonatate (Tessalon Perle) 100 mg PRN Q8HRS PRN PO COUGH Last administered on 04/23/20at 08:17; Start 04/22/20 at 16:00 Lactobacillus Rhamnosus (Culturelle) 1 cap BID PO Last administered on 04/26/20at 08:40; Start 04/23/20 at 21:00 Sodium Chloride 500 ml @ 500 mls/hr 1X ONCE IV ; Start 04/23/20 at 11:45; Stop 04/23/20 at 12:44; Status DC Iohexol (Omnipaque 350 Mg/ml) 80 ml 1X ONCE IV ; Start 04/23/20 at 12:30; Stop 04/23/20 at 12:31; Status DC Info (CONTRAST GIVEN -- Rx MONITORING) 1 each PRN DAILY PRN MC SEE COMMENTS; Start 04/23/20 at 12:30; Stop 04/25/20 at 12:29; Status DC Furosemide (Lasix) 40 mg 1X ONCE IVP ; Start 04/23/20 at 15:30; Stop 04/23/20 at 15:31; Status DC Metoprolol Succinate (Toprol Xl) 50 mg DAILY PO Last administered on 04/24/20at 08:55; Start 04/24/20 at 09:00; Stop 04/24/20 at 11:12; Status DC Hydralazine HCl (Apresoline) 25 mg BID PO Last administered on 04/26/20at 08:38; Start 04/23/20 at 21:00 Spironolactone (Aldactone) 25 mg DAILY PO Last administered on 04/26/20at 08:39; Start 04/24/20 at 09:00 Lorazepam (Ativan) 1 mg PRN Q4HRS PRN PO ANXIETY / AGITATION Last administered on 04/23/20at 18:17; Start 04/23/20 at 17:45; Stop 04/24/20 at 17:32; Status DC Metoprolol Succinate (Toprol Xl) 25 mg DAILY PO Last administered on 04/26/20at 08:39; Start 04/25/20 at 09:00 Lorazepam (Ativan) 1 mg PRN Q4HRS PRN PO ANXIETY / AGITATION; Start 04/24/20 at 17:32 Zinc Sulfate (Orazinc) 220 mg DAILY PO Last administered on 04/26/20at 08:40; Start 04/25/20 at 10:00 Vitamin D (Vitamin D3) 5,000 unit DAILY PO Last administered on 04/26/20at 08:38; Start 04/25/20 at 10:00 Enoxaparin Sodium (Lovenox Per Pharmacy Prophylaxis Dosing) 1 each PRN DAILY PRN MC SEE COMMENTS; Start 04/25/20 at 08:45 Enoxaparin Sodium (Lovenox 40mg Syringe) 40 mg BID SQ ; Start 04/25/20 at 10:00 Influenza Virus Vaccine Quadrival (Fluzone Quad Syringe) 0.5 ml ONCE ONCE VAX IM ; Start 04/25/20 at 17:45; Stop 04/25/20 at 17:46; Status Cancel Diphtheria/ Tetanus/Acell Pertussis (ADACEL TDap SYRINGE) 0.5 ml ONCE ONCE VAX IM ; Start 04/25/20 at 17:45; Stop 04/25/20 at 17:46; Status DC Active Scripts Active Reported Clonazepam 0.5 Mg Tablet 1 Tab PO BID PRN Vitals/I & O Vital Sign - Last 24 Hours 04/25/20 04/25/20 04/25/20 04/25/20 12:32 13:00 18:19 18:38 Temp 98.3 98.2 98.3 98.2 Pulse 88 96 Resp 18 18 18 20 B/P (MAP) 120/72 (88) 144/88 (106) Pulse Ox 98 95 O2 Delivery Room Air Room Air Room Air Room Air 04/25/20 04/25/20 04/25/20 04/25/20 19:15 20:00 20:00 20:59 Temp 98.3 98.3 Pulse 93 82 Resp 20 B/P (MAP) 129/82 (98) 128/90 Pulse Ox 96 O2 Delivery Room Air Room Air Room Air 11/14/20 11/14/20 11/14/20 11/14/20 21:00 22:24 23:20 23:37 Temp 98.0 98.0 Pulse 82 92 Resp 20 B/P (MAP) 128/90 (103) 141/86 (104) Pulse Ox 97 O2 Delivery Room Air Room Air Room Air 04/26/20 04/26/20 04/26/20 04/26/20 02:25 03:20 04:07 06:46 Temp 97.9 97.9 Pulse 88 Resp 20 B/P (MAP) 135/82 (99) Pulse Ox 99 O2 Delivery Room Air Room Air Nasal Cannula 04/26/20 04/26/20 04/26/20 08:38 08:39 09:00 Temp 98.2 98.2 Pulse 88 88 91 Resp 18 B/P (MAP) 135/82 135/82 131/75 (93) Pulse Ox 98 O2 Delivery Room Air Justifications for Admission Other Justification SOHAIL SAENZ MD Apr 26, 2020 09:58
--- NOTE | 2020-04-26 11:28 | PDOC ---
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 feeling well. No c/o H/A, CP, SOB or abd pain. Pt. breast feeding imp roving. BP nml range. Serum creatinine nml. Lab Laboratory Tests Test 04/25/20 05:10 04/26/20 06:45 White Blood Count 15.7 x10^3/uL (4.0-11.0) Red Blood Count 2.66 x10^6/uL (3.50-5.40) Hemoglobin 7.6 g/dL (12.0-15.5) Hematocrit 23.0 % (36.0-47.0) Mean Corpuscular Volume 86 fL (79-100) Mean Corpuscular Hemoglobin 29 pg (25-35) Mean Corpuscular Hemoglobin Concent 33 g/dL (31-37) Red Cell Distribution Width 15.0 % (11.5-14.5) Platelet Count 368 x10^3/uL (140-400) Sodium Level 133 mmol/L (136-145) 135 mmol/L (136-145) Potassium Level 4.3 mmol/L (3.5-5.1) 4.4 mmol/L (3.5-5.1) Chloride Level 103 mmol/L (98-107) 102 mmol/L (98-107) Carbon Dioxide Level 24 mmol/L (21-32) 26 mmol/L (21-32) Anion Gap 6 (6-14) 7 (6-14) Blood Urea Nitrogen 42 mg/dL (7-20) 28 mg/dL (7-20) Creatinine 1.2 mg/dL (0.6-1.0) 1.0 mg/dL (0.6-1.0) Estimated GFR (Cockcroft-Gault) 49.3 60.8 Glucose Level 89 mg/dL (70-99) 84 mg/dL (70-99) Calcium Level 7.2 mg/dL (8.5-10.1) 7.8 mg/dL (8.5-10.1) BUN/Creatinine Ratio 28 (6-20) Total Bilirubin 0.3 mg/dL (0.2-1.0) Aspartate Amino Transf (AST/SGOT) 18 U/L (15-37) Alanine Aminotransferase (ALT/SGPT) 13 U/L (14-59) Alkaline Phosphatase 95 U/L (46-116) Total Protein 4.7 g/dL (6.4-8.2) Albumin 1.8 g/dL (3.4-5.0) Albumin/Globulin Ratio 0.6 (1.0-1.7) Laboratory Tests Test 04/26/20 06:45 Sodium Level 135 mmol/L (136-145) Potassium Level 4.4 mmol/L (3.5-5.1) Chloride Level 102 mmol/L (98-107) Carbon Dioxide Level 26 mmol/L (21-32) Anion Gap 7 (6-14) Blood Urea Nitrogen 28 mg/dL (7-20) Creatinine 1.0 mg/dL (0.6-1.0) Estimated GFR (Cockcroft-Gault) 60.8 BUN/Creatinine Ratio 28 (6-20) Glucose Level 84 mg/dL (70-99) Calcium Level 7.8 mg/dL (8.5-10.1) Total Bilirubin 0.3 mg/dL (0.2-1.0) Aspartate Amino Transf (AST/SGOT) 18 U/L (15-37) Alanine Aminotransferase (ALT/SGPT) 13 U/L (14-59) Alkaline Phosphatase 95 U/L (46-116) Total Protein 4.7 g/dL (6.4-8.2) Albumin 1.8 g/dL (3.4-5.0) Albumin/Globulin Ratio 0.6 (1.0-1.7) Medications Current Medications Lorazepam (Ativan Inj) 0.5 mg 1X ONCE IV Last administered on 04/21/20at 13:10; Start 04/21/20 at 13:00; Stop 04/21/20 at 13:01; Status DC Furosemide (Lasix) 40 mg 1X ONCE IVP Last administered on 04/21/20at 14:04; Start 04/21/20 at 13:45; Stop 04/21/20 at 13:47; Status DC Ceftriaxone Sodium (Rocephin) 1 gm 1X ONCE IVP Last administered on 04/21/20at 13:59; Start 04/21/20 at 13:45; Stop 04/21/20 at 13:47; Status DC Azithromycin 250 ml @ 250 mls/hr 1X ONCE IV Last administered on 04/21/20at 14:03; Start 04/21/20 at 14:00; Stop 04/21/20 at 14:59; Status DC Aspirin (Tung Aspirin) 325 mg 1X ONCE PO Last administered on 04/21/20at 15:21; Start 04/21/20 at 14:15; Stop 04/21/20 at 14:16; Status DC Magnesium Sulfate 100 ml @ 25 mls/hr 1X ONCE IV Last administered on 04/21/20at 15:35; Start 04/21/20 at 14:15; Stop 04/21/20 at 18:14; Status DC Enoxaparin Sodium (Lovenox Per Pharmacy Treatment Dosing) 1 each PRN DAILY PRN MC SEE COMMENTS; Start 04/21/20 at 14:45; Stop 04/23/20 at 17:43; Status DC Labetalol HCl (Normodyne Iv Push) 20 mg 1X ONCE IVP Last administered on 04/21/20at 14:53; Start 04/21/20 at 15:00; Stop 04/21/20 at 15:01; Status DC Ondansetron HCl (Zofran) 4 mg 1X ONCE IV Last administered on 04/21/20at 14:52; Start 04/21/20 at 15:00; Stop 04/21/20 at 15:01; Status DC Enoxaparin Sodium (Lovenox 120mg Syringe) 110 mg Q12HR SQ Last administered on 04/21/20at 15:21; Start 04/21/20 at 15:00; Stop 04/22/20 at 11:50; Status DC Metoprolol Tartrate (Lopressor) 25 mg BID PO Last administered on 04/23/20at 08:18; Start 04/21/20 at 15:30; Stop 04/23/20 at 15:21; Status DC Hydralazine HCl (Apresoline) 50 mg 1X ONCE PO ; Start 04/21/20 at 15:30; Stop 04/21/20 at 15:31; Status DC Azithromycin (Zithromax) 250 mg DAILY PO Last administered on 04/26/20at 08:40; Start 04/22/20 at 09:00 Sodium Chloride (Normal Saline Flush) 3 ml QSHIFT PRN IV AFTER MEDS AND BLOOD DRAWS; Start 04/21/20 at 20:00; Status Cancel Ringer's Solution 1,000 ml @ 125 mls/hr Q8H IV ; Start 04/21/20 at 19:54; Stop 04/22/20 at 11:50; Status DC Terbutaline Sulfate (Brethine) 0.25 mg 1X PRN PRN SQ SEE COMMENTS; Start 04/21/20 at 20:00; Stop 04/22/20 at 19:59; Status DC Lidocaine HCl (Xylocaine 1% Pf 30ml Vial) 30 ml 1X PRN PRN INJ SEE COMMENTS; Start 04/21/20 at 20:00; Stop 04/23/20 at 19:59; Status DC Oxytocin 500 ml @ 0 mls/hr CONT PRN IV SEE I/O RECORD; Start 04/21/20 at 20:00 Oxytocin 500 ml @ 0 mls/hr CONT PRN PRN IV Post delivery bleeding; Start 04/21/20 at 20:00 Ibuprofen (Motrin) 800 mg PRN Q6HRS PRN PO INFLAMMATION; Start 04/21/20 at 20:00; Stop 04/23/20 at 07:26; Status DC Magnesium Sulfate 500 ml @ 50 mls/hr Q10H IV Last administered on 04/23/20at 02:44; Start 04/21/20 at 20:00 Betamethasone Sodium Phosphate (Celestone Soluspan) 12 mg Q24H IM Last administered on 04/21/20at 20:45; Start 04/21/20 at 20:00; Stop 04/22/20 at 20:01; Status DC Labetalol HCl (Normodyne Iv Push) 20 mg PRN Q2HR PRN IVP HYPERTENSION Last administered on 04/22/20at 12:09; Start 04/21/20 at 20:15 Labetalol HCl (Normodyne Iv Push) 40 mg 1X PRN PRN IVP HYPERTENSION Last ad ministered on 04/21/20at 21:19; Start 04/21/20 at 21:00; Stop 04/25/20 at 10:58; Status DC Alprazolam (Xanax) 0.5 mg 1X ONCE PO Last administered on 04/21/20at 21:15; Start 04/21/20 at 21:30; Stop 04/21/20 at 21:31; Status DC Lidocaine HCl (Lidocaine HCl 2% Abboject) 100 mg STK-MED ONCE .ROUTE ; Start 04/21/20 at 21:38; Stop 04/21/20 at 21:39; Status DC Lidocaine HCl (Xylocaine 2% Topical 5gm Tube) 1 clint 1X ONCE TP Last administered on 04/21/20at 22:03; Start 04/21/20 at 22:00; Stop 04/21/20 at 22:01; Status DC Cefazolin Sodium 3 gm/Dextrose 100 ml @ 200 mls/hr 1X ONCE IV Last administered on 04/22/20at 08:55; Start 04/22/20 at 08:45; Stop 04/22/20 at 09:14; Status DC Citric Acid/ Sodium Citrate (Bicitra) 30 ml 1X ONCE PO Last administered on 04/22/20at 08:54; Start 04/22/20 at 08:45; Stop 04/22/20 at 08:48; Status DC Phenylephrine HCl (PHENYLEPHRINE in 0.9% NACL PF) 1 mg STK-MED ONCE IV ; Start 04/22/20 at 08:45; Stop 04/22/20 at 08:45; Status DC Oxytocin (Pitocin) 10 unit STK-MED ONCE .ROUTE ; Start 04/22/20 at 08:45; Stop 04/22/20 at 08:45; Status DC Ephedrine Sulfate (ePHEDrine PF IN SALINE SYRINGE) 50 mg STK-MED ONCE IV ; Start 04/22/20 at 08:45; Stop 04/22/20 at 08:46; Status DC Morphine Sulfate (Morphine Preservative Free) 10 mg STK-MED ONCE .ROUTE ; Start 04/22/20 at 08:46; Stop 04/22/20 at 08:46; Status DC Fentanyl Citrate (Fentanyl 2ml Vial) 100 mcg STK-MED ONCE .ROUTE ; Start 04/22/20 at 08:46; Stop 04/22/20 at 08:46; Status DC Oxytocin (Pitocin) 10 unit STK-MED ONCE .ROUTE ; Start 04/22/20 at 09:31; Stop 04/22/20 at 09:31; Status DC Misoprostol (Cytotec 200mcg Tab) 200 mcg STK-MED ONCE .ROUTE ; Start 04/22/20 at 09:34; Stop 04/22/20 at 09:34; Status DC Misoprostol (Cytotec 200mcg Tab) 200 mcg STK-MED ONCE .ROUTE ; Start 04/22/20 at 09:54; Stop 04/22/20 at 09:54; Status DC Sodium Chloride (Normal Saline Flush) 3 ml QSHIFT PRN IV AFTER MEDS AND BLOOD DRAWS; Start 04/22/20 at 10:30 Oxytocin 500 ml @ 125 mls/hr CONT PRN IV EXCESSIVE POST- BLEEDING; Start 04/22/20 at 10:30; Stop 04/22/20 at 18:29; Status DC Ibuprofen (Motrin) 800 mg PRN Q8HRS PRN PO INFLAMMATION; Start 04/22/20 at 10:30; Stop 04/23/20 at 11:49; Status DC Ondansetron HCl (Zofran) 4 mg PRN Q6HRS PRN IV NAUSEA/VOMITING Last a dministered on 04/24/20at 02:13; Start 04/22/20 at 10:30 Docusate Sodium (Colace) 100 mg PRN BID PRN PO HARD STOOL Last administered on 04/26/20at 08:38; Start 04/22/20 at 10:30 Al Hydroxide/Mg Hydroxide (Mylanta Plus Xs) 30 ml PRN Q4HRS PRN PO HEARTBURN / GAS; Start 04/22/20 at 10:30 Simethicone (Gas-X) 80 mg PRN AFTMEALHC PRN PO GAS / BLOATING Last administered on 04/25/20at 12:32; Start 04/22/20 at 10:30 Diphenhydramine HCl (Benadryl Oral Elixir) 12.5 mg PRN Q6HRS PRN PO ITCHING; Start 04/22/20 at 10:30 Ferrous Sulfate (Feosol) 325 mg BIDWMEALS PO Last administered on 04/26/20at 08:38; Start 04/22/20 at 17:00 Zolpidem Tartrate (Ambien) 5 mg PRN QHS PRN PO INSOMNIA, MAY REPEAT X1; Start 04/22/20 at 10:30 Oxycodone/ Acetaminophen (Percocet 5/325) 2 tab PRN Q4HRS PRN PO MODERATE PAIN, SEVERE PAIN Last administered on 04/26/20at 06:46; Start 04/22/20 at 10:30 Ketorolac Tromethamine (Toradol 30mg Vial) 30 mg PRN Q6HRS PRN IV INFLAMMATION/PAIN Last administered on 04/23/20at 06:20; Start 04/22/20 at 10:30; Stop 04/23/20 at 11:49; Status DC Multivitamins (Thera M Plus) 1 tab DAILY PO Last administered on 04/26/20at 08: 38; Start 04/23/20 at 09:00 Ringer's Solution 1,000 ml @ 50 mls/hr Q20H IV Last administered on 04/23/20at 04:22; Start 04/22/20 at 12:00; Stop 04/23/20 at 11:23; Status DC Enoxaparin Sodium (Lovenox 120mg Syringe) 110 mg Q12HR SQ Last administered on 04/23/20at 08:29; Start 04/22/20 at 16:00; Stop 04/23/20 at 17:42; Status DC Furosemide (Lasix) 40 mg 1X ONCE IVP Last administered on 04/22/20at 12:00; Start 04/22/20 at 12:00; Stop 04/22/20 at 12:01; Status DC Lidocaine HCl (Lidocaine HCl 2% Abboject) 100 mg STK-MED ONCE .ROUTE ; Start 04/21/20 at 22:00; Stop 04/22/20 at 12:28; Status DC Fentanyl Citrate (Fentanyl 2ml Vial) 75 mcg PRN Q1HR PRN IVP PAIN Last administered on 04/22/20at 16:51; Start 04/22/20 at 12:30 Fentanyl Citrate (Fentanyl 2ml Vial) 100 mcg STK-MED ONCE .ROUTE ; Start 04/22/20 at 12:35; Stop 04/22/20 at 12:36; Status DC Benzonatate (Tessalon Perle) 100 mg PRN Q8HRS PRN PO COUGH Last administered on 04/23/20at 08:17; Start 04/22/20 at 16:00 Lactobacillus Rhamnosus (Culturelle) 1 cap BID PO Last administered on 04/26/20at 08:40; Start 04/23/20 at 21:00 Sodium Chloride 500 ml @ 500 mls/hr 1X ONCE IV ; Start 04/23/20 at 11:45; Stop 04/23/20 at 12:44; Status DC Iohexol (Omnipaque 350 Mg/ml) 80 ml 1X ONCE IV ; Start 04/23/20 at 12:30; Stop 04/23/20 at 12:31; Status DC Info (CONTRAST GIVEN -- Rx MONITORING) 1 each PRN DAILY PRN MC SEE COMMENTS; Start 04/23/20 at 12:30; Stop 04/25/20 at 12:29; Status DC Furosemide (Lasix) 40 mg 1X ONCE IVP ; Start 04/23/20 at 15:30; Stop 04/23/20 at 15:31; Status DC Metoprolol Succinate (Toprol Xl) 50 mg DAILY PO Last administered on 04/24/20at 08:55; Start 04/24/20 at 09:00; Stop 04/24/20 at 11:12; Status DC Hydralazine HCl (Apresoline) 25 mg BID PO Last administered on 04/26/20at 08:38; Start 04/23/20 at 21:00 Spironolactone (Aldactone) 25 mg DAILY PO Last administered on 04/26/20at 08:39; Start 04/24/20 at 09:00 Lorazepam (Ativan) 1 mg PRN Q4HRS PRN PO ANXIETY / AGITATION Last administered on 04/23/20at 18:17; Start 04/23/20 at 17:45; Stop 04/24/20 at 17:32; Status DC Metoprolol Succinate (Toprol Xl) 25 mg DAILY PO Last administered on 04/26/20at 08:39; Start 04/25/20 at 09:00 Lorazepam (Ativan) 1 mg PRN Q4HRS PRN PO ANXIETY / AGITATION; Start 04/24/20 at 17:32 Zinc Sulfate (Orazinc) 220 mg DAILY PO Last administered on 04/26/20at 08:40; Start 04/25/20 at 10:00 Vitamin D (Vitamin D3) 5,000 unit DAILY PO Last administered on 04/26/20at 08:38; Start 04/25/20 at 10:00 Enoxaparin Sodium (Lovenox Per Pharmacy Prophylaxis Dosing) 1 each PRN DAILY PRN MC SEE COMMENTS; Start 04/25/20 at 08:45 Enoxaparin Sodium (Lovenox 40mg Syringe) 40 mg BID SQ ; Start 04/25/20 at 10:00 Influenza Virus Vaccine Quadrival (Fluzone Quad Syringe) 0.5 ml ONCE ONCE VAX IM ; Start 04/25/20 at 17:45; Stop 04/25/20 at 17:46; Status Cancel Diphtheria/ Tetanus/Acell Pertussis (ADACEL TDap SYRINGE) 0.5 ml ONCE ONCE VAX IM ; Start 04/25/20 at 17:45; Stop 04/25/20 at 17:46; Status DC Active Scripts Active Reported Clonazepam 0.5 Mg Tablet 1 Tab PO BID PRN Exam Lungs: CTA evette CV: NSR Abd: soft, non tender, fundus firm Prevena in place and dry Assessment POD#4 s/p c/s Severe preeclampsia: resolving Cardiomyopathy: stable Plan of Care: Continue current Tx, Mgmt (Anticipate d/c home tomorrow.) MARY ZHENG Jr, MD Apr 26, 2020 11:28
[2020-04-26] MEDS: IBUPROFEN 400 MG TABLET. PO PRN ×2 (13:24→23:29)
[2020-04-26] MEDS: ASPIRIN ENTERIC COATED 81 MG TABLET.DR. PO SCH (13:25)
[2020-04-26 13:30] VITALS: BP 140/85
--- NOTE | 2020-04-26 13:45 | PDOC ---
PROGRESS NOTES Date of Service: DATE: 04/26/20 TIME: 13:44 Chief Complaint Chief Complaint severe pre-eclampsia, htn control with labetolol, 36 wks acute hypoxic respiratory failure, acute decompensated systolic CHF< with demand NSTEMI type 2, sepsis, pulm congestion, treating pneumonia, COVID still pending, rapid was negative, obese, BMI 43 acute renal fauilre with proteinuria, consult renal, start 24 hour urine History of Present Illness History of Present Illness 04/26, labs better check hgb in AM, s/p 2 u pRBC 04/24 cont cur. plan to DC in AM 04/25, doing better, renal fxn improved wound improved baby is healthy and doing well, starting to latch on to breast feed cont other 04/24: Patient evaluated bedside. She has some bleeding from her surgical site yesterday, wound VAC was changed. Hemoglobin 7.4, primary be transfused with PRBCs. No evidence of deep venous thrombosis in the bilateral lower extremity. Denies chest pain or shortness of breath, breathing comfortably on room air. CTA chest was not done due to creatinine. Low suspicion for PE at this time. D/C therapeutic Lovenox due to bleeding. SCDs for VTE prophylaxis. She was initiated on heart failure medications, judicious use at this time due to breast-feeding. 04/23: Status post delivery, post-op pain well controlled. Blood pressure improved following delivery. Discussed with OB, continue magnesium infusion till 10 AM. She will likely discharge to medical floors, as ICU beds are needed. 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 Ischemic evaluation as outpatient, per cardiology. Creatinine rising slightly, possibly from diuresis. She is receiving therapeutic dose of Lovenox for concern of PE. Discussed with CTA, her GFR is good enough for reduced dose IV contrast, but they are recomme nding some fluids to help clear her kidneys. Patient is comfortable receiving CTA today to rule out PE. Discussed with RN. Vitals Vitals Vital Signs Date Time Temp Pulse Resp B/P (MAP) Pulse Ox O2 Delivery O2 Flow Rate FiO2 04/26/20 09:00 98.2 91 18 131/75 (93) 98 Room Air 98.2 Physical Exam General: Alert, Oriented X3, Cooperative, No acute distress Heart: Regular rate, Other Lungs: Clear Abdomen: Normal bowel sounds, Soft, Other (Incisional tenderness with wound VAC in place) Extremities: No clubbing, Other (LE edema +2 evette, nml reflexes) Skin: No rashes, No breakdown Labs LABS Laboratory Tests Test 04/26/20 06:45 Sodium Level 135 mmol/L (136-145) Potassium Level 4.4 mmol/L (3.5-5.1) Chloride Level 102 mmol/L (98-107) Carbon Dioxide Level 26 mmol/L (21-32) Anion Gap 7 (6-14) Blood Urea Nitrogen 28 mg/dL (7-20) Creatinine 1.0 mg/dL (0.6-1.0) Estimated GFR (Cockcroft-Gault) 60.8 BUN/Creatinine Ratio 28 (6-20) Glucose Level 84 mg/dL (70-99) Calcium Level 7.8 mg/dL (8.5-10.1) Total Bilirubin 0.3 mg/dL (0.2-1.0) Aspartate Amino Transf (AST/SGOT) 18 U/L (15-37) Alanine Aminotransferase (ALT/SGPT) 13 U/L (14-59) Alkaline Phosphatase 95 U/L (46-116) Total Protein 4.7 g/dL (6.4-8.2) Albumin 1.8 g/dL (3.4-5.0) Albumin/Globulin Ratio 0.6 (1.0-1.7) Assessment and Plan Assessmemt and Plan Problems Medical Problems: (1) CAP (community acquired pneumonia) Status: Acute (2) CHF (congestive heart failure) Status: Acute (3) Elevated troponin Status: Acute (4) Hypertensive urgency Status: Acute (5) 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 Labs Laboratory Tests Test 04/25/20 05:10 04/26/20 06:45 White Blood Count 15.7 x10^3/uL (4.0-11.0) Red Blood Count 2.66 x10^6/uL (3.50-5.40) Hemoglobin 7.6 g/dL (12.0-15.5) Hematocrit 23.0 % (36.0-47.0) Mean Corpuscular Volume 86 fL (79-100) Mean Corpuscular Hemoglobin 29 pg (25-35) Mean Corpuscular Hemoglobin Concent 33 g/dL (31-37) Red Cell Distribution Width 15.0 % (11.5-14.5) Platelet Count 368 x10^3/uL (140-400) Sodium Level 133 mmol/L (136-145) 135 mmol/L (136-145) Potassium Level 4.3 mmol/L (3.5-5.1) 4.4 mmol/L (3.5-5.1) Chloride Level 103 mmol/L (98-107) 102 mmol/L (98-107) Carbon Dioxide Level 24 mmol/L (21-32) 26 mmol/L (21-32) Anion Gap 6 (6-14) 7 (6-14) Blood Urea Nitrogen 42 mg/dL (7-20) 28 mg/dL (7-20) Creatinine 1.2 mg/dL (0.6-1.0) 1.0 mg/dL (0.6-1.0) Estimated GFR (Cockcroft-Gault) 49.3 60.8 Glucose Level 89 mg/dL (70-99) 84 mg/dL (70-99) Calcium Level 7.2 mg/dL (8.5-10.1) 7.8 mg/dL (8.5-10.1) BUN/Creatinine Ratio 28 (6-20) Total Bilirubin 0.3 mg/dL (0.2-1.0) Aspartate Amino Transf (AST/SGOT) 18 U/L (15-37) Alanine Aminotransferase (ALT/SGPT) 13 U/L (14-59) Alkaline Phosphatase 95 U/L (46-116) Total Protein 4.7 g/dL (6.4-8.2) Albumin 1.8 g/dL (3.4-5.0) Albumin/Globulin Ratio 0.6 (1.0-1.7) Laboratory Tests Test 04/26/20 06:45 Sodium Level 135 mmol/L (136-145) Potassium Level 4.4 mmol/L (3.5-5.1) Chloride Level 102 mmol/L (98-107) Carbon Dioxide Level 26 mmol/L (21-32) Anion Gap 7 (6-14) Blood Urea Nitrogen 28 mg/dL (7-20) Creatinine 1.0 mg/dL (0.6-1.0) Estimated GFR (Cockcroft-Gault) 60.8 BUN/Creatinine Ratio 28 (6-20) Glucose Level 84 mg/dL (70-99) Calcium Level 7.8 mg/dL (8.5-10.1) Total Bilirubin 0.3 mg/dL (0.2-1.0) Aspartate Amino Transf (AST/SGOT) 18 U/L (15-37) Alanine Aminotransferase (ALT/SGPT) 13 U/L (14-59) Alkaline Phosphatase 95 U/L (46-116) Total Protein 4.7 g/dL (6.4-8.2) Albumin 1.8 g/dL (3.4-5.0) Albumin/Globulin Ratio 0.6 (1.0-1.7) Microbiology 04/21/20 Blood Culture - Preliminary, Resulted NO GROWTH AFTER 4 DAYS Medications Current Medications Lorazepam (Ativan Inj) 0.5 mg 1X ONCE IV Last administered on 04/21/20at 13:10; Start 04/21/20 at 13:00; Stop 04/21/20 at 13:01; Status DC Furosemide (Lasix) 40 mg 1X ONCE IVP Last administered on 04/21/20at 14:04; Start 04/21/20 at 13:45; Stop 04/21/20 at 13:47; Status DC Ceftriaxone Sodium (Rocephin) 1 gm 1X ONCE IVP Last administered on 04/21/20at 13:59; Start 04/21/20 at 13:45; Stop 04/21/20 at 13:47; Status DC Azithromycin 250 ml @ 250 mls/hr 1X ONCE IV Last administered on 04/21/20at 14:03; Start 04/21/20 at 14:00; Stop 04/21/20 at 14:59; Status DC Aspirin (Tung Aspirin) 325 mg 1X ONCE PO Last administered on 04/21/20at 15:21; Start 04/21/20 at 14:15; Stop 04/21/20 at 14:16; Status DC Magnesium Sulfate 100 ml @ 25 mls/hr 1X ONCE IV Last administered on 0at 15:35; Start 04/21/20 at 14:15; Stop 04/21/20 at 18:14; Status DC Enoxaparin Sodium (Lovenox Per Pharmacy Treatment Dosing) 1 each PRN DAILY PRN MC SEE COMMENTS; Start 04/21/20 at 14:45; Stop 04/23/20 at 17:43; Status DC Labetalol HCl (Normodyne Iv Push) 20 mg 1X ONCE IVP Last administered on 04/21/20at 14:53; Start 04/21/20 at 15:00; Stop 04/21/20 at 15:01; Status DC Ondansetron HCl (Zofran) 4 mg 1X ONCE IV Last administered on 04/21/20at 14:52; Start 04/21/20 at 15:00; Stop 04/21/20 at 15:01; Status DC Enoxaparin Sodium (Lovenox 120mg Syringe) 110 mg Q12HR SQ Last administered on 04/21/20at 15:21; Start 04/21/20 at 15:00; Stop 04/22/20 at 11:50; Status DC Metoprolol Tartrate (Lopressor) 25 mg BID PO Last administered on 04/23/20at 08:18; Start 04/21/20 at 15:30; Stop 04/23/20 at 15:21; Status DC Hydralazine HCl (Apresoline) 50 mg 1X ONCE PO ; Start 04/21/20 at 15:30; Stop 04/21/20 at 15:31; Status DC Azithromycin (Zithromax) 250 mg DAILY PO Last administered on 04/26/20at 08:40; Start 04/22/20 at 09:00 Sodium Chloride (Normal Saline Flush) 3 ml QSHIFT PRN IV AFTER MEDS AND BLOOD DRAWS; Start 04/21/20 at 20:00; Status Cancel Ringer's Solution 1,000 ml @ 125 mls/hr Q8H IV ; Start 04/21/20 at 19:54; Stop 04/22/20 at 11:50; Status DC Terbutaline Sulfate (Brethine) 0.25 mg 1X PRN PRN SQ SEE COMMENTS; Start 04/21/20 at 20:00; Stop 04/22/20 at 19:59; Status DC Lidocaine HCl (Xylocaine 1% Pf 30ml Vial) 30 ml 1X PRN PRN INJ SEE COMMENTS; Start 04/21/20 at 20:00; Stop 04/23/20 at 19:59; Status DC Oxytocin 500 ml @ 0 mls/hr CONT PRN IV SEE I/O RECORD; Start 04/21/20 at 20:00; Stop 04/26/20 at 11:24; Status DC Oxytocin 500 ml @ 0 mls/hr CONT PRN PRN IV Post delivery bleeding; Start 04/21/20 at 20:00; Stop 04/26/20 at 11:24; Status DC Ibuprofen (Motrin) 800 mg PRN Q6HRS PRN PO INFLAMMATION; Start 04/21/20 at 20:00; Stop 04/23/20 at 07:26; Status DC Magnesium Sulfate 500 ml @ 50 mls/hr Q10H IV Last administered on 04/23/20at 02:44; Start 04/21/20 at 20:00; Stop 04/26/20 at 11:24; Status DC Betamethasone Sodium Phosphate (Celestone Soluspan) 12 mg Q24H IM Last administered on 04/21/20at 20:45; Start 04/21/20 at 20:00; Stop 04/22/20 at 20:01; Status DC Labetalol HCl (Normodyne Iv Push) 20 mg PRN Q2HR PRN IVP HYPERTENSION Last administered on 04/22/20at 12:09; Start 04/21/20 at 20:15 Labetalol HCl (Normodyne Iv Push) 40 mg 1X PRN PRN IVP HYPERTENSION Last administered on 04/21/20at 21:19; Start 04/21/20 at 21:00; Stop 04/25/20 at 10:58; Status DC Alprazolam (Xanax) 0.5 mg 1X ONCE PO Last administered on 04/21/20at 21:15; Start 04/21/20 at 21:30; Stop 04/21/20 at 21:31; Status DC Lidocaine HCl (Lidocaine HCl 2% Abboject) 100 mg STK-MED ONCE .ROUTE ; Start 04/21/20 at 21:38; Stop 04/21/20 at 21:39; Status DC Lidocaine HCl (Xylocaine 2% Topical 5gm Tube) 1 clint 1X ONCE TP Last administered on 04/21/20at 22:03; Start 04/21/20 at 22:00; Stop 04/21/20 at 22:01; Status DC Cefazolin Sodium 3 gm/Dextrose 100 ml @ 200 mls/hr 1X ONCE IV Last administer ed on 04/22/20at 08:55; Start 04/22/20 at 08:45; Stop 04/22/20 at 09:14; Status DC Citric Acid/ Sodium Citrate (Bicitra) 30 ml 1X ONCE PO Last administered on 04/22/20at 08:54; Start 04/22/20 at 08:45; Stop 04/22/20 at 08:48; Status DC Phenylephrine HCl (PHENYLEPHRINE in 0.9% NACL PF) 1 mg STK-MED ONCE IV ; Start 04/22/20 at 08:45; Stop 04/22/20 at 08:45; Status DC Oxytocin (Pitocin) 10 unit STK-MED ONCE .ROUTE ; Start 04/22/20 at 08:45; Stop 04/22/20 at 08:45; Status DC Ephedrine Sulfate (ePHEDrine PF IN SALINE SYRINGE) 50 mg STK-MED ONCE IV ; Start 04/22/20 at 08:45; Stop 04/22/20 at 08:46; Status DC Morphine Sulfate (Morphine Preservative Free) 10 mg STK-MED ONCE .ROUTE ; Start 04/22/20 at 08:46; Stop 04/22/20 at 08:46; Status DC Fentanyl Citrate (Fentanyl 2ml Vial) 100 mcg STK-MED ONCE .ROUTE ; Start 04/22/20 at 08:46; Stop 04/22/20 at 08:46; Status DC Oxytocin (Pitocin) 10 unit STK-MED ONCE .ROUTE ; Start 04/22/20 at 09:31; Stop 04/22/20 at 09:31; Status DC Misoprostol (Cytotec 200mcg Tab) 200 mcg STK-MED ONCE .ROUTE ; Start 04/22/20 at 09:34; Stop 04/22/20 at 09:34; Status DC Misoprostol (Cytotec 200mcg Tab) 200 mcg STK-MED ONCE .ROUTE ; Start 04/22/20 at 09:54; Stop 04/22/20 at 09:54; Status DC Sodium Chloride (Normal Saline Flush) 3 ml QSHIFT PRN IV AFTER MEDS AND BLOOD DRAWS; Start 04/22/20 at 10:30 Oxytocin 500 ml @ 125 mls/hr CONT PRN IV EXCESSIVE POST- BLEEDING; Start 04/22/20 at 10:30; Stop 04/22/20 at 18:29; Status DC Ibuprofen (Motrin) 800 mg PRN Q8HRS PRN PO INFLAMMATION; Start 04/22/20 at 10:30; Stop 04/23/20 at 11:49; Status DC Ondansetron HCl (Zofran) 4 mg PRN Q6HRS PRN IV NAUSEA/VOMITING Last administered on 04/24/20at 02:13; Start 04/22/20 at 10:30 Docusate Sodium (Colace) 100 mg PRN BID PRN PO HARD STOOL Last administered on 04/26/20at 08:38; Start 04/22/20 at 10:30 Al Hydroxide/Mg Hydroxide (Mylanta Plus Xs) 30 ml PRN Q4HRS PRN PO HEARTBURN / GAS; Start 04/22/20 at 10:30 Simethicone (Gas-X) 80 mg PRN AFTMEALHC PRN PO GAS / BLOATING Last administered on 04/25/20at 12:32; Start 04/22/20 at 10:30 Diphenhydramine HCl (Benadryl Oral Elixir) 12.5 mg PRN Q6HRS PRN PO ITCHING; Start 04/22/20 at 10:30 Ferrous Sulfate (Feosol) 325 mg BIDWMEALS PO Last administered on 04/26/20at 08:38; Start 04/22/20 at 17:00 Zolpidem Tartrate (Ambien) 5 mg PRN QHS PRN PO INSOMNIA, MAY REPEAT X1; Start 04/22/20 at 10:30 Oxycodone/ Acetaminophen (Percocet 5/325) 2 tab PRN Q4HRS PRN PO MODERATE PAIN, SEVERE PAIN Last administered on 04/26/20at 06:46; Start 04/22/20 at 10:30 Ketorolac Tromethamine (Toradol 30mg Vial) 30 mg PRN Q6HRS PRN IV INFLAMMATION/PAIN Last administered on 04/23/20at 06:20; Start 04/22/20 at 10:30; Stop 04/23/20 at 11:49; Status DC Multivitamins (Thera M Plus) 1 tab DAILY PO Last administered on 04/26/20at 08:38; Start 04/23/20 at 09:00 Ringer's Solution 1,000 ml @ 50 mls/hr Q20H IV Last administered on 04/23/20at 04:22; Start 04/22/20 at 12:00; Stop 04/23/20 at 11:23; Status DC Enoxaparin Sodium (Lovenox 120mg Syringe) 110 mg Q12HR SQ Last administered on 04/23/20at 08:29; Start 04/22/20 at 16:00; Stop 04/23/20 at 17:42; Status DC Furosemide (Lasix) 40 mg 1X ONCE IVP Last administered on 04/22/20at 12:00; Start 04/22/20 at 12:00; Stop 04/22/20 at 12:01; Status DC Lidocaine HCl (Lidocaine HCl 2% Abboject) 100 mg STK-MED ONCE .ROUTE ; Start 04/21/20 at 22:00; Stop 04/22/20 at 12:28; Status DC Fentanyl Citrate (Fentanyl 2ml Vial) 75 mcg PRN Q1HR PRN IVP PAIN Last administered on 04/22/20at 16:51; Start 04/22/20 at 12:30; Stop 04/26/20 at 11:24; Status DC Fentanyl Citrate (Fentanyl 2ml Vial) 100 mcg STK-MED ONCE .ROUTE ; Start 04/22/20 at 12:35; Stop 04/22/20 at 12:36; Status DC Benzonatate (Tessalon Perle) 100 mg PRN Q8HRS PRN PO COUGH Last administered on 04/23/20at 08:17; Start 04/22/20 at 16:00 Lactobacillus Rhamnosus (Culturelle) 1 cap BID PO Last administered on 04/26/20at 08:40; Start 04/23/20 at 21:00 Sodium Chloride 500 ml @ 500 mls/hr 1X ONCE IV ; Start 04/23/20 at 11:45; Stop 04/23/20 at 12:44; Status DC Iohexol (Omnipaque 350 Mg/ml) 80 ml 1X ONCE IV ; Start 04/23/20 at 12:30; Stop 04/23/20 at 12:31; Status DC Info (CONTRAST GIVEN -- Rx MONITORING) 1 each PRN DAILY PRN MC SEE COMMENTS; Start 04/23/20 at 12:30; Stop 04/25/20 at 12:29; Status DC Furosemide (Lasix) 40 mg 1X ONCE IVP ; Start 04/23/20 at 15:30; Stop 04/23/20 at 15:31; Status DC Metoprolol Succinate (Toprol Xl) 50 mg DAILY PO Last administered on 04/24/20at 08:55; Start 04/24/20 at 09:00; Stop 04/24/20 at 11:12; Status DC Hydralazine HCl (Apresoline) 25 mg BID PO Last administered on 04/26/20at 08:38; Start 04/23/20 at 21:00; Stop 04/26/20 at 11:24; Status DC Spironolactone (Aldactone) 25 mg DAILY PO Last administered on 04/26/20at 08:39; Start 04/24/20 at 09:00; Stop 04/26/20 at 11:24; Status DC Lorazepam (Ativan) 1 mg PRN Q4HRS PRN PO ANXIETY / AGITATION Last administered on 04/23/20at 18:17; Start 04/23/20 at 17:45; Stop 04/24/20 at 17:32; Status DC Metoprolol Succinate (Toprol Xl) 25 mg DAILY PO Last administered on 04/26/20at 08:39; Start 04/25/20 at 09:00 Lorazepam (Ativan) 1 mg PRN Q4HRS PRN PO ANXIETY / AGITATION; Start 04/24/20 at 17:32 Zinc Sulfate (Orazinc) 220 mg DAILY PO Last administered on 04/26/20at 08:40; Start 04/25/20 at 10:00 Vitamin D (Vitamin D3) 5,000 unit DAILY PO Last administered on 04/26/20at 08:38; Start 04/25/20 at 10:00 Enoxaparin Sodium (Lovenox Per Pharmacy Prophylaxis Dosing) 1 each PRN DAILY PRN SEE COMMENTS; Start 04/25/20 at 08:45; Stop 04/26/20 at 11:24; Status DC Enoxaparin Sodium (Lovenox 40mg Syringe) 40 mg BID SQ ; Start 04/25/20 at 10:00; Stop 04/26/20 at 11:24; Status DC Influenza Virus Vaccine Quadrival (Fluzone Quad Syringe) 0.5 ml ONCE ONCE VAX IM ; Start 04/25/20 at 17:45; Stop 04/25/20 at 17:46; Status Cancel Diphtheria/ Tetanus/Acell Pertussis (ADACEL TDap SYRINGE) 0.5 ml ONCE ONCE VAX IM ; Start 04/25/20 at 17:45; Stop 04/25/20 at 17:46; Status DC Ibuprofen (Motrin) 800 mg PRN Q6HRS PRN PO INFLAMMATION Last administered on 04/26/20at 13:24; Start 04/26/20 at 13:00 Aspirin (Ecotrin) 81 mg DAILYWBKFT PO Last administered on 04/26/20at 13:25; Start 04/26/20 at 14:00 Active Scripts Active Reported Clonazepam 0.5 Mg Tablet 1 Tab PO BID PRN Vitals/I & O Vital Sign - Last 24 Hours 04/25/20 04/25/20 04/25/20 04/25/20 18:19 18:38 19:15 20:00 Temp 98.2 98.2 Pulse 96 Resp 18 20 B/P (MAP) 144/88 (106) Pulse Ox 95 O2 Delivery Room Air Room Air Room Air Room Air 04/25/20 04/25/20 04/25/20 04/25/20 20:00 20:59 21:00 22:24 Temp 98.3 98.3 Pulse 93 82 82 Resp 20 B/P (MAP) 129/82 (98) 128/90 128/90 (103) Pulse Ox 96 O2 Delivery Room Air Room Air 04/25/20 04/25/20 04/26/20 04/26/20 23:20 23:37 02:25 03:20 Temp 98.0 98.0 Pulse 92 Resp 20 B/P (MAP) 141/86 (104) Pulse Ox 97 O2 Delivery Room Air Room Air Room Air Room Air 04/26/20 04/26/20 04/26/20 04/26/20 04:07 06:46 08:38 08:39 Temp 97.9 97.9 Pulse 88 88 88 Resp 20 B/P (MAP) 135/82 (99) 135/82 135/82 Pulse Ox 99 O2 Delivery Nasal Cannula 04/26/20 09:00 Temp 98.2 98.2 Pulse 91 Resp 18 B/P (MAP) 131/75 (93) Pulse Ox 98 O2 Delivery Room Air Justicifation of Admission Dx: Justifications for Admission: Justification of Admission Dx: Yes ROMANA BANUELOS MD Apr 26, 2020 13:45
[2020-04-26 18:52] VITALS: BP 143/89
[2020-04-26 23:20] VITALS: BP 146/86
[2020-04-27 06:30] VITALS: BP 148/84
[2020-04-27 08:03] LABS: BASO % 0 % (0-3); EOS # 0.2 x10^3/uL (0.0-0.7); EOS % 2 % (0-3); HEMOGLOBIN 7.5 g/dL (12.0-15.5); LYMPH % 9 % (24-48); MEAN CORPUSCULAR HEMOGLOBIN 29 pg (25-35); MEAN CORPUSCULAR HGB CONC 33 g/dL (31-37); MEAN CORPUSCULAR VOLUME 88 fL (79-100); MONO # 0.7 x10^3/uL (0.0-1.1); MONO % 6 % (0-9); NEUT # 9.6 x10^3/uL (1.8-7.7); NEUT % 83 % (31-73); PLATELET COUNT 493 x10^3/uL (140-400); RED BLOOD COUNT 2.63 x10^6/uL (3.50-5.40); RED CELL DISTRIBUTION WIDTH 15.5 % (11.5-14.5); WHITE BLOOD COUNT 11.6 x10^3/uL (4.0-11.0)
[2020-04-27 08:30] LABS: CALCIUM 8.2 mg/dL (8.5-10.1); CREATININE 0.8 mg/dL (0.6-1.0); GFR 78.7
[2020-04-27] MEDS: FERROUS SULFATE 325 MG TABLET. PO SCH (09:14)
[2020-04-27] MEDS: MULTIVITAMIN with MINERAL TABLET. PO SCH (09:14)
[2020-04-27] MEDS: METOPROLOL SUCC 24HR ER 25 MG TAB.ER.24H. PO SCH (09:14)
[2020-04-27] MEDS: CHOLECALCIFEROL (VITAMIN D3) 5,000 UNIT CAPSULE PO SCH (09:14)
[2020-04-27] MEDS: LACTOBACILLUS RHAMNOSUS GG 1 CAPSULE. PO SCH (09:14)
[2020-04-27] MEDS: IBUPROFEN 400 MG TABLET. PO PRN (09:15)
[2020-04-27] MEDS: AZITHROMYCIN 250 MG TABLET. PO SCH (09:15)
[2020-04-27] MEDS: ASPIRIN ENTERIC COATED 81 MG TABLET.DR. PO SCH (09:15)
[2020-04-27] MEDS: ZINC SULFATE 220 MG CAPSULE. PO SCH (09:18)
--- NOTE | 2020-04-27 09:47 | PDOC3 ---
OB DISCHARGE SUMMARY DATE OF ADMISSION: 04/21/20 DATE OF DISCHARGE: 04/27/20 REASON FOR ADMISSION: section (severe preeclampsia, cardiomyopathy) PROCEDURES: Mgmt of OB Complications INTRAPARTUM PROCEDURES: : Low Cerv Trans PROBLEM LIST AT DISCHARGE Problems Medical Problems: (1) CAP (community acquired pneumonia) Status: Acute (2) CHF (congestive heart failure) Status: Acute (3) Elevated troponin Status: Acute (4) Hypertensive urgency Status: Acute (5) 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 Status: Acute (6) Person under investigation for COVID-19 Status: Acute DISCHARGE DIAGNOSIS: Preclampsia (PTD, Cardiomyopathy) DISCHARGE INFORMATION: Activity (ad cadence), Diet (regular), Instructions (pelvic rest x 6 wks, no driving x 2 wks, no lifting > 20 lbs. x 4 wks) HOSPITAL COURSE gestation with severe preeclampsia and cardiomyopathy delivered section without complications. MARY ZHENG Jr, MD Apr 27, 2020 09:47
[2020-04-27] MEDS ORDERED: DOCU-153 PO (09:51)
[2020-04-27] MEDS ORDERED: OXYC1TAB15 PO (09:51)
[2020-04-27] MEDS ORDERED: FERR325T72 PO (09:51)
[2020-04-27] MEDS ORDERED: IBUP-1027 PO (09:51)
[2020-04-27] MEDS ORDERED: METO-239 PO (09:51)
--- NOTE | 2020-04-27 09:51 | DISCH ---
DISCHARGE INSTRUCTIONS Condition on Discharge Condition on Discharge: Stable Activity After Discharge Activity Instructions for Disc: Activity as tolerated Lifting Instructions after Dis: No heavy lifting Driving Instructions after Dis: No driving for 2 weeks Diet after Discharge Diet after Discharge: Regular Contacting the DRGilbert after DC Call your doctor for: Concerns you may have Follow-Up Follow up with: Dr. Dillard in 2 wks MARY DILLARD Jr, MD Apr 27, 2020 09:51
[2020-04-27 10:18] VITALS: BP 142/91
--- NOTE | 2020-04-27 10:40 | NUR ---
Discharge Note: IAN SHUKLA Discharge instructions and discharge home medications reviewed with Patient and a copy given. All questions have been answered and understanding verbalized. The following instructions and handouts were given: care after delivery, depression and baby blues, delivery care after. Discontinued lines and drains: peripheral IV discontinued prior to this shift. Patient discharged to home with self care via WC to private vehicle.
--- NOTE | 2020-04-28 09:12 | PATHOLOGY ---
[facility] Accession Number: [id number] . 01 Material submitted: . placenta - PLACENTA . 01 Clinical history: . EDC: 12-6; GA: 36.5 WKS; CARDIOMYOPATHY, COVID NEG 04-22-2020; PRE-ECLAMPSIA/ECLAMPSIA . 02 Diagnosis: 501 gram late placenta of an estimated 36 weeks 5 days gestation with attached membranes and umbilical cord: - Placental infarct with adjacent maternal floor infarction and retroplacental hemorrhage. - Small intervillous thrombus. - Minute focus of villitis of unknown etiology, adjacent to maternal floor. (JPM:sergio; 04/27/2020) QMS 04/28/2020 0824 Local . 02 Comment: There is no evidence of an acute chorioamnionitis. (JPM:sergio; 04/27/2020) . 02 Electronically signed: . Papi Howard MD, Pathologist NPI- [id number] . 01 Gross description: . The specimen is received in formalin, labeled "Linn Wilks, placenta". Received is a waldron placenta with attached membranes and umbilical cord with a trimmed placental weight of 501 g and measuring 17.3 x 13.8 x 2.8 cm in greatest dimensions. There is a large amount of retro-membranous blood clot surrounding the periphery of the placenta. The membranes are yellow-velazquez to pink-givens and translucent in appearance, and the site of membrane rupture is 2.2 cm from the placental margin. The surface is intact displaying a normal arborizing vasculature pattern, as well as a moderate amount of subamniotic hemorrhage. The hemorrhage covers approximately 40% of the surface. The trivascular umbilical cord measures 15.2 cm in length by up to 1.2 cm in diameter and inserts eccentrically, 2.0 cm from the closest placental margin. The umbilical cord is white-velazquez to blue-givens in appearance with minimal helical twisting. The maternal surface is intact and complete; a moderate amount of adherent blood coagulum is seen on the surface. Sectioning reveals red-brown cut surfaces displaying a single pink-velazquez lesion measuring 2.2 cm, which encompasses a proximally 5% of the total placental volume. The specimen is submitted representatively as follows: . A1 proximal umbilical cord and surface vessels A2 umbilical cord and membrane roll A3-A4 resources representative sections of maternal surface A5 resources representative sections of lesion. (CAA; 04/24/2020) QA/QA 04/27/2020 1447 Local . 02 Pathologist provided ICD-10: Z3A.36, I42.9, O14.93 . 02 CPT . 690927 Specimen Comment: A courtesy copy of this report has been sent to [phone], [phone] Specimen Comment: [id number] Specimen Comment: Report sent to ,DR MARIE / DR BANUELOS Performed at: 01 [facility] [address] [facility] [address], [place] [id number] MD Cristian Boucher MD Phone: [phone] Performed at: [facility] [address] [place], [place] [id number] MD Papi Howard MD Phone: [phone]
== END 2020-04-27 10:40 | disposition home or self-care (01) | DRG 786 ==
LOC: ER 12:42 → 6 SOUTH 14:03 → 3 SO LND 19:35 → 1 WEST ICU 04-22 11:03 → 2 SOUTH 04-23 10:59 → 3 NORTH 04-24 14:50
PROVIDERS: ADMIT Internal Medicine; ATTEND Obstetrics & Gynecology
PROC: 10D00Z1 Extraction of Products of Conception, Low, Open Approach (ICD-10-PCS; principal; 2020-04-22)
PROC: 30233N1 Transfusion of Nonautologous Red Blood Cells into Peripheral Vein, Percutaneous Approach (ICD-10-PCS; 2020-04-24)
DX: O14.14 Severe pre-eclampsia complicating childbirth (principal); J18.9 Pneumonia, unspecified organism; A41.9 Sepsis, unspecified organism; J96.01 Acute respiratory failure with hypoxia; I50.23 Acute on chronic systolic (congestive) heart failure; D62 Acute posthemorrhagic anemia; O60.14X0 Preterm labor third trimester with preterm delivery third trimester, not applicable or unspecified; O90.81 Anemia of the puerperium; O99.214 Obesity complicating childbirth; O99.344 Other mental disorders complicating childbirth; O99.284 Endocrine, nutritional and metabolic diseases complicating childbirth; O99.52 Diseases of the respiratory system complicating childbirth; O99.42 Diseases of the circulatory system complicating childbirth; Z20.828 Contact with and (suspected) exposure to other viral communicable diseases; I16.0 Hypertensive urgency; Y95 Nosocomial condition; R77.8 Other specified abnormalities of plasma proteins; E66.9 Obesity, unspecified; Z3A.36 36 weeks gestation of pregnancy; Z86.718 Personal history of other venous thrombosis and embolism; F41.9 Anxiety disorder, unspecified; I25.10 Atherosclerotic heart disease of native coronary artery without angina pectoris; Z37.0 Single live birth; E78.5 Hyperlipidemia, unspecified; Z87.442 Personal history of urinary calculi; Z80.7 Family history of other malignant neoplasms of lymphoid, hematopoietic and related tissues; Z82.49 Family history of ischemic heart disease and other diseases of the circulatory system; Z83.3 Family history of diabetes mellitus; O75.3 Other infection during labor
CPT/HCPCS: 36415; 71045; 71046; 76705; 76770; 76805; 80048; 80053; 80061; 80307; 81001; 81025; 82553; 82570; 82728; 83605; 83690; 83735; 83880; 84156; 84443; 84484; 84702; 85007; 85025; 85027; 85379; 85610; 85730; 86140; 86592; 86703; 86762; 86850; 86900; 86901; 86920; 87040; 87340; 87426; 87804; 90471; 90715; 93306; 93971; 96361; 96365; 96372; 96375; 99285; J0456; J0690; J0696; J0702; J1650; J1885; J1940; J2060; J2274; J2370; J2405; J2590; J3010; J3475; J3490; J7060; J7120; P9016; U0003; G0378

== ENCOUNTER → 2020-06-15 | Outpatient (CLI) | payer OTHER ==
[~2020-06-15] MED LIST changes: +DOCU-153 PO; +FERR325T72 PO; +IBUP-1027 PO; +METO-239 PO; +OXYC1TAB15 PO
--- NOTE | 2020-06-23 12:21 | CARD ---
MR#: [id number] Account#: Date of Study: 06/15/2020 Ordering Physician: Claus: Shawna Morfin APPROVED REPORT EXAM: Two-dimensional and M-mode echocardiogram with Doppler and color Doppler. Other Information Quality : AverageHR: 63bpm INDICATION Cardiomyopathy 2D DIMENSIONS RVDd3.5 (2.9-3.5cm)Left Atrium(2D)4.4 (1.6-4.0cm) IVSd1.0 (0.7-1.1cm)Aortic Root(2D)3.1 (2.0-3.7cm) LVDd5.9 (3.9-5.9cm)LVOT Diameter2.0 (1.8-2.4cm) PWd1.0 (0.7-1.1cm)LVDs4.5 (2.5-4.0cm) FS (%) 23.9 %SV80.1 ml Aortic Valve AoV Peak Vernon.138.1cm/sAoV VTI27.4cm AO Peak GR.7.6mmHgLVOT Peak Vernon.114.4cm/s LVOT VTI 23.50cmAO Mean GR.5mmHg DANYELL (VMAX)2.16dg0SPX (VTI)2.77cm2 Mitral Valve MV E Itymxxoy21.5cm/sMV DECEL [id number] MV A Vaoeeoas90.5cm/sMV DAJ18vn E/A Ratio1.3MVA (PHT)2.47cm2 TDI E/Lateral E'7.6E/Medial E'9.1 Pulmonary Valve PV Peak Qkzajbmc34.0cm/sPV Peak Grad.4mmHg Tricuspid Valve TR P. Guqoobmb495dd/sRAP ZFFOIIGC0ceLr TR Peak Gr.89zlRaCXLD56wpEa Pulmonary Vein S1 Bruiqviz06.4cm/sD2 Fwzjiznd12.5cm/s PVa mbekvxvz103pjem LEFT VENTRICLE The Left Ventricle is mildly dilated. There is normal left ventricular wall thickness. The systolic f unction is moderately impaired. Ejection fraction is 35 to 40% There is global hypokinesis of the lef t ventricle. Transmitral Doppler flow pattern is Grade II-pseudonormal filling dynamics. RIGHT VENTRICLE The right ventricle is normal size. There is normal right ventricular wall thickness. The right ventr icular systolic function is normal. ATRIA The left atrium is borderline dilated. The right atrium size is normal. The interatrial septum is int act with no evidence for an atrial septal defect or patent foramen ovale as noted on 2-D or Doppler i maging. AORTIC VALVE The aortic valve is normal in structure and function. Doppler and Color Flow revealed trace aortic re gurgitation. There is no significant aortic valvular stenosis. Calculated aortic valve area is 2.77 c m2 with maximum pressure gradient of 8 mmHg and mean pressure gradient of 5 mmHg. MITRAL VALVE The mitral valve is normal in structure and function. There is no evidence of mitral valve prolapse. There is no mitral valve stenosis. Doppler and Color-flow revealed mild mitral regurgitation. TRICUSPID VALVE The tricuspid valve is normal in structure and function. Doppler and Color Flow revealed trace tricus pid regurgitation with an estimated PAP of 27 mmHg. There is no tricuspid valve stenosis. PULMONIC VALVE The pulmonic valve is not well visualized. Doppler and Color Flow revealed trace pulmonic valvular re gurgitation. GREAT VESSELS The aortic root is normal in size. The IVC is normal in size and collapses >50% with inspiration. PERICARDIAL EFFUSION There is no evidence of significant pericardial effusion. Critical Notification Critical Value: No <Conclusion> The Left Ventricle is mildly dilated. The systolic function is moderately impaired. Ejection fraction is 35 to 40% There is global hypokinesis of the left ventricle. Doppler and Color Flow revealed trace aortic regurgitation. There is no significant aortic valvular stenosis. Calculated aortic valve area is 2.77 cm2 with maximum pressure gradient of 8 mmHg and mean pressure g radient of 5 mmHg. Doppler and Color-flow revealed mild mitral regurgitation. Doppler and Color Flow revealed trace tricuspid regurgitation with an estimated PAP of 27 mmHg. Signed by : Mejia Alicia MD Electronically Approved : 06/15/2020 16:44:29
== END ==
LOC: ECHO 11:01
PROVIDERS: ATTEND Internal Medicine Cardiovascular Disease
DX: I34.0 Nonrheumatic mitral (valve) insufficiency (principal); I42.9 Cardiomyopathy, unspecified
CPT/HCPCS: 93306; 99214; G0463

== ENCOUNTER → 2020-07-07 | Outpatient (CLI) | payer OTHER ==
[~2020-07-07] MED LIST changes: +REGADENOSON 0.4 MG/5 ML DISP.SYRIN. IV ONE
--- NOTE | 2020-07-08 13:16 | RAD ---
MR#: [id number] Date of Study: 07/07/2020 Ordering Physician: RADHA MILLAN, Referring Physician: ISIDORO PATEL Tech: PAYTON Coyne, ARRT (R) (N) APPROVED REPORT Test Type: Pharmacological Stress Nurse/Tech: MERVAT SIGALA Test Indications: CHRONIC SYSTOLIC HEART FAILURE Cardiac History: CHF, PRE-ECLAMPSIA, SEE EMR Medications: SEE EMR Medical History: SEE EMR Resting ECG: SR Resting Heart Rate: 60 bpm Resting Blood Pressure: 145/81mmHg Pretest Chest Pain: No chest pain Nurse/Tech Notes S1,S2, LUNGS CTA, PT DENIED SOA OR CHEST PAIN. VSS. Consent: The procedure was explained to the patient in lay terms. Informed consent was witnessed. Abdulaziz eout was entered into [employer]. History and Stress Test performed by RT Ned Powers) (N) Pharm. Details Pharmacologic stress testing was performed using 0.4mg per 5ml of regadenoson given intravenously ove r 7-10 seconds. Stress Symptoms PT COMPLAINED OF SOA DURING THE INITIAL PART OF THE TEST, VSS, SYMPTOMS RESOVED WITHIN A COUPLE MINUT ES, DENIED CHEST PAIN. POST EXERCISE Reason for Termination: Infusion complete Max HR: 122 bpm Max Blood Pressure: 170/87mmHg Blood Pressure response to exercise: Normal blood pressure response during stress. Heart Rate response to exercise: WNL Chest Pain: No. Arrhythmia: No. NO SIGNIFICANT CHANGES FROM BASELINE INTERPRETATION Stress EKG Conclusion: The resting EKG shows a sinus rhythm and slight nonspecific T wave changes. The stress EKG shows no significant changes from baseline. No EKG evidence of stress-induced ischemia. Imaging Protocol IMAGE PROTOCOL: Rest Tc-99m/stress Tc-99m 1 day Rest: Stress: Viability: Radiopharm.Tc99m MkublgkfpLz70n Sestamibi Dose10.3mCi 31.6mCi Img Date 07/07/2020 07/07/2020 Inj-Img Hfjh14qrx. 60min. Rest Admin Site:IV - Left AntecubitalAdministrator:RT Priya (R)(N) Stress Admin Site: IV - Left AntecubitalAdministrator: Consuelo Soriano, RT (R)(N) STRESS DATA End Diast. Vol.172.0mlAv. Heart Rate80.0bpm End Syst. Vol.81.0mlCO Index BSA0.0L/min Myocardial Hhix999.0gEject. Etrhmwbz55.0% Stress Rates Pk. Fill Rate2.98EDV/secLVtime Pk. Fill 197.23msec Pk. Empty Rate2.69ESV/secLVtime Pk. Vdqyt922.14msec 06/14 Pk. Fill0.90EDV/sec Stress Scores Regional WT0.00Summed WT6.00 Regional WM0.00Summed WM6.00 LV Perfusion The stress scans show slight apical thinning. The rest scans show slight apical thinning. Nuclear imaging shows no reversible ischemia. Nuclear imaging shows slight fixed apical thinning most consistent with a technical artifact. Wall Motion Left ventricular systolic function is intact with an ejection fraction of 53%. LV Perf. Quant 17 Seg. SSS8.00 17 Seg. SRS6.00 17 Seg. SDS2.00 Stress Defect Extent (% LAD)15.00Rest Defect Extent (% LAD)7.50Rev. Defect Extent (% LAD)13.10 Stress Defect Extent (% LCX) 5.00Rest Defect Extent (% LCX)0.00Rev. Defect Extent (% LCX)5.00 Stress Defect Extent (% RCA)4.40Rest Defect Extent (% RCA)10.00Rev. Defect Extent (% RCA)0.00 Stress Defect Extent (% AIDEN)13.30Rest Defect Extent (% AIDEN)9.60Rev. Defect Extent (% AIDEN)8.30 IMPRESSION RV Regional Wall Motion Change from Rest: No Change, New Wall Motion Abnormality Conclusion 1. No EKG evidence of stress-induced ischemia. 2. Nuclear imaging shows no reversible ischemia. 3. Nuclear imaging shows slight apical thinning most consistent with a technical artifact. 4. Intact left ventricular systolic function with an ejection fraction of 53%. 5. Moderately low to low risk Lexiscan nuclear stress test. Signed by : Mejia Alicia MD Electronically Approved : 07/08/2020 13:16:24
== END ==
LOC: NM 08:35
PROVIDERS: ATTEND Internal Medicine Cardiovascular Disease
DX: I50.22 Chronic systolic (congestive) heart failure (principal)
CPT/HCPCS: 78452; 93017; A9500; J2785

== ENCOUNTER → 2021-01-21 | Outpatient (CLI) | payer OTHER ==
[~2021-01-21] MED LIST changes: +CONTRAST GIVEN. MC PRN; +DOCU-148 PO; -DOCU-153 PO; +IOHEXOL 240 MG/ML 50ML VIAL. PO ONE; +IOHEXOL 300 MG/ML 100ML VIAL. IV ONE; -REGADENOSON 0.4 MG/5 ML DISP.SYRIN. IV ONE
--- NOTE | 2021-01-21 14:37 | KCIC ---
EXAM: CT ABDOMEN/PELVIS WITH CONTRAST. HISTORY: Ventral hernia. TECHNIQUE: Computed tomography of the abdomen and pelvis was performed after the intravenous administ ration of iodinated contrast. One or more of the following individualized dose reduction techniques w ere utilized for this examination: 1. Automated exposure control. 2. Adjustment of the mA and/or kV according to patient size. 3. Use of iterative reconstruction technique. COMPARISON: None. FINDINGS: Lung windows through the visualized portions of the bases reveal no abnormality. Bone windo ws reveal no suspicious lesions. The spleen is mildly to moderately enlarged at 15.8 cm. The liver, gallbladder, pancreas, adrenal gla nds and right kidney are unremarkable. There are small benign cysts in the left kidney. The appendix is not inflamed. An intrauterine device is within the lower uterine segment. There is no small bowel obstruction. A moderate infraumbilical midline hernia contains nonobstructed small bowel loops. The neck measures 4.5 cm laterally and at least 5 cm craniocaudally. IMPRESSION: 1. A moderate infraumbilical midline hernia contains a nonobstructed loop of small bowel. 2. Intrauterine device in the lower uterine segment. 3. Mild to moderate splenomegaly. Electronically signed by: Jacki Arredondo MD (01/21/2021 2:34 PM) [id number]
== END ==
LOC: KCIC CT 12:34
PROVIDERS: ATTEND Surgery
DX: R16.1 Splenomegaly, not elsewhere classified (principal); K42.9 Umbilical hernia without obstruction or gangrene; Z97.5 Presence of (intrauterine) contraceptive device
CPT/HCPCS: 74177; Q9966; Q9967